=== PATIENT | female | born 1965 | race Caucasian/White ===

== ENCOUNTER 2019-11-15 13:52 | Outpatient (CLI) | payer MEDICARE, SELFPAY ==
[2019-11-15 15:20] LABS: Alanine Aminotransferase 12 U/L (14-59); Albumin Level 3.8 g/dL (3.4-5.0); Alkaline Phosphatase 122 U/L (46-116); Anion Gap 13.1 mmol/L (7-16); Aspartate Amino Transferase 15 U/L (15-37); Bilirubin,Total 0.3 mg/dL (0.00-1.00); Blood Urea Nitrogen 18 mg/dL (7-18); Calcium 8.9 mg/dL (8.5-10.1); Carbon Dioxide 31 mmol/L (21-32); Chloride 102 mmol/L (98-108); Estimated Glomerular Filt Rate 40; Glucose 96 mg/dL (70-99); Osmolality Calculated 295 mOsm/kg (285-295); Potassium 4.1 mmol/L (3.5-5.1); Sodium 142 mmol/L (136-145)
== END 2019-11-15 13:53 | disposition home or self-care (01) ==
LOC: CHSLAB 13:54
PROVIDERS: PCP Family Medicine; Visit Provider Nurse Practitioner Family
DX: R79.89 Other specified abnormal findings of blood chemistry (principal)
CPT/HCPCS: 36415; 80053

== ENCOUNTER 2019-11-26 10:39 | Outpatient (CLI) | payer MEDICARE, MEDICAID, SELFPAY ==
--- NOTE | ~2019-11-26 | US_ITS ---
EXAMINATION: US renal BI DATE: 11/26/2019 11:42 INDICATION: Abnormal renal function TECHNIQUE: Multiple ultrasound grayscale images of the kidneys were obtained. COMPARISON: None. FINDINGS: The right kidney measures 10.1 x 5.7 x 5.4 cm. The left kidney measures 10.0 x 4.8 x 5.7 cm. The kidn eys demonstrate normal echogenicity. Mild caliectasis at the bilateral kidneys which resolved post vo iding. No stones identified. The bladder is normal measuring 11.4 x 9.1 x 7.9 cm. IMPRESSION: 1. Caliectasis at the bilateral kidneys which resolved post bladder voiding. Reviewed, dictated and finalized at location A.
== END 2019-11-26 10:40 | disposition home or self-care (01) ==
PROVIDERS: PCP Family Medicine; Visit Provider Internal Medicine Nephrology
DX: R94.4 Abnormal results of kidney function studies (principal); N28.89 Other specified disorders of kidney and ureter
CPT/HCPCS: 76775

== ENCOUNTER 2020-01-06 14:11 | Emergency (ER) | payer MEDICARE, MEDICAID, SELFPAY ==
--- NOTE | ~2020-01-06 | XR_ITS ---
EXAMINATION: XR femur LT min 2V EXAM DATE: 01/06/2020 14:56 INDICATION: Initial encounter following injury, with pain of the left femur. TECHNIQUE: Left femur frontal and lateral projections of the proximal aspect, frontal and lateral pro jections of the lower aspect for review. Comparison is made to prior examination from 02/28/2019. FINDINGS: There is left hip arthroplasty with hardware intact. Small amount of lucency surrounding the stem of the femoral component, up to about 2 mm in maximal thickness, could indicate small partic le disease, possible loosening. This finding has been indicated, marked on the examination for review . There are no acute fractures identified. Benign tibial metaphyseal lesion likely enchondroma. IMPRESSION: 1. No acute left femoral findings. 2. Small amount of lucency surrounding femoral stem, could indicate some component of loosening and/ or small particle disease. 3. Tibial metaphyseal benign bone lesion probably enchondroma. Reviewed, dictated and finalized at location A. IMPRESSION: 1. No acute left femoral findings. 2. Small amount of lucency surrounding femoral stem, could indicate some compo nent of loosening and/or small particle disease. 3. Tibial metaphyseal benign bone lesion probably enchondroma.
[2020-01-06 14:31] VITALS: BP 98/71; PULSE 84; RESP 16; TEMP 36.3; O2SAT 98
--- NOTE | 2020-01-06 14:33 | ED.LOWEXIN ---
HPI - Extremity Injury (Lower) General Chief Complaint: Extremity Injury, Lower Stated Complaint: left leg pain Time Seen by Provider: 01/06/20 14:33 Source: patient Mode of arrival: ambulatory Limitations: no limitations History of Present Illness HPI Narrative: 54-year-old woman with a history of left hip ORIF and femoral intramedullary james comes in today complaining of increasing pain in her left hip over the last 2 weeks. Patient states that she has discovered that the james is loose in her left leg and has surgery planned to remedy this. She states that for surgeries have been canceled twice and she has had a few falls in the last few weeks, the last 1 approximately 4 days ago. Her pain has been worse since this recent fall. Her her left hip pain was increasing prior to the fall. MD complaint: hip injury Onset (ago): week(s) Injury: Left: hip Type of Injury: other ( Fall) Place: home Severity: moderate Relieving factors: nothing Exacerbating factors: weight bearing and movement Context: fall Associated symptoms: able to partially bear weight Other symptoms: none Treatments prior to arrival: other ( acetaminophen) Related Data Home Medications Medication Instructions Recorded Confirmed pregabalin 100 mg capsule 100 mg PO TID cap 11/05/19 01/06/20 Allergies Allergy/AdvReac Type Severity Reaction Status Date / Time aspirin Allergy Intermediate unknown Verified 11/05/19 09:58 Bleach (Sodium Hypochlorite) Allergy Intermediate unknown Verified 11/05/19 09:58 NSAIDS (Non-Steroidal Allergy Intermediate unknown Verified 11/05/19 09:58 Anti-Inflamma milk Allergy Mild Nausea Verified 01/06/20 14:48 ibuprofen Allergy Unknown unknown Verified 11/05/19 09:58 Bee stings Allergy Intermediate unknown Uncoded 11/05/19 09:58 NONSTEROIDAL Allergy Unknown unknown Uncoded 11/05/19 09:58 PREDNISONE (Generic Allergy) Allergy Unknown Y Uncoded 11/05/19 09:58 SALICYLATES Allergy Unknown unknown Uncoded 11/05/19 09:58 Review of Systems Constitutional: Constitutional: Denies chills and Denies fever(s) ENT: Denies dysphagia, Denies nasal congestion and Denies sore throat Musculoskeletal: Musculoskeletal: Reports arthralgias Integumentary/Breasts: Skin/Breast: Denies pruritus, Denies rash and Denies skin ulcer Neurologic: Denies vertigo, Denies dizziness and Denies syncope Allergic/Immunologic: Allergic/Immunologic: Denies lip swelling and Denies wheezing PMFSH Past Medical History Medical History Anxiety Fibromyalgia Generalized edema GERD (gastroesophageal reflux disease) Hypertension Hypothyroidism Mitral valve regurgitation S/P repair by cath Polyneuropathy Primary insomnia Surgical History Surgical History Fracture, intertrochanteric, left femur H/O: hysterectomy History of appendectomy History of total right knee replacement (TKR) Status post hip surgery Social History Social History Smoking status: Former smoker Smoking end date: 07/29/85 Alcohol intake: never Substance use: never Substance use type: does not use Additional living arrangements comments: with mother Additional occupation/education comments: Disabled Gender identity (if verbalized by the patient): Female Spiritual care concerns: No Exam Const: General: alert Orientation/consciousness: patient oriented x3 Limitations: no limitations Other: moderate acute distress Resp: Effort & Inspection: normal respiratory effort and not labored Auscultation: clear to auscultation bilaterally, no rales, no rhonchi and no wheezes Cardio: Rate: regular rate Rhythm: regular rhythm Heart sounds: no murmurs Skin: General skin exam: normal color Rashes: no rashes Neuro: General: patient oriented x3, moves all extremities, no focal motor deficits an
[2020-01-06 15:27] VITALS: BP 108/63; PULSE 66
== END 2020-01-06 15:28 | disposition home or self-care (01) ==
PROVIDERS: Emergency Provider Emergency Medicine; PCP Family Medicine
DX: M25.552 Pain in left hip (principal)
CPT/HCPCS: 73552; 99283; A9270

== ENCOUNTER 2020-03-14 14:13 | Outpatient (CLI) | payer MEDICARE, MEDICAID, SELFPAY ==
--- NOTE | ~2020-03-14 | MM_ITS ---
EXAMINATION: MM screening [facility] BI w [facility]ena HISTORY: Screening mammogram TECHNIQUE: Craniocaudal and mediolateral oblique 3-D tomosynthesis images were obtained and synthetic 2-D images were generated. CAD analysis was submitted and interpreted. COMPARISON: 01/19/2019, 01/14/2016, 06/19/2012 BREAST PARENCHYMAL COMPOSITION: There are scattered areas of fibroglandular density. FINDINGS: There is no evidence of suspicious mass, calcification, or architectural distortion to sugg est malignancy in either breast. There has been no suspicious interval change. IMPRESSION: 1. No mammographic evidence of malignancy. 2. Recommend routine screening mammography in one year. BI-RADS Category 1: Negative Reviewed, dictated and finalized at location A.
== END 2020-03-14 14:14 | disposition home or self-care (01) ==
LOC: CHSIMG 14:14
PROVIDERS: PCP Family Medicine; Visit Provider Family Medicine
DX: Z12.31 Encounter for screening mammogram for malignant neoplasm of breast (principal)
CPT/HCPCS: 77063; 77067

== ENCOUNTER 2020-03-14 14:56 | Outpatient (RCR) | payer MEDICARE, MEDICAID, SELFPAY ==
--- NOTE | 2020-03-21 06:56 | PTOPEVAL ---
Thank you for referring Nancy Murray to [facility]. Please review, sign, date and return this plan of care TOYIN. I agree with and certify that the following plan of care is medically necessary. Referring Physician Date Admitting Provider: Attending Provider: PHYSICIAN NOT ON STAFF Referring Provider: *PT Outpatient Evaluation Start: 03/14/20 15:57 Freq: Status: Active Protocol: Document 03/14/20 15:57 JAYLENE (Rec: 03/14/20 16:22 JAYLENE [id number]) Therapy Assessment Status Assessment Status Assessment Status Evaluation Outpatient Past Medical History Cardiovascular History Hx Hypertension Yes Gastrointestinal History Hx Gastroesophageal Reflux Disease Yes Musculoskeletal History Hx Fibromyalgia Yes Hx Joint Replacement Yes: left hip Endocrine History Hx Hypothyroidism Yes Reproductive History Hx Hysterectomy Yes Evaluation Information Problem Diagnosis left hip pain, hip weakness Onset 01/25/20 Additional Evaluation Detail LEFS=25 Subjective Information Pt. reports she initially fx Query Text:As Reported By Patient/ her left hip in 2017. She Family report she had a pinning and the pins failed. She reports that she underwent hip replacement in 2019. she states that she then had another failure and states that she underwent a 3rd hip surgery on 01/25/20. She reports that she was participating in , but was discharged last week. She states that she still has pain and weakness in the hip. She reports she cannot lift the left l..e without pain. she reports that she is currently walking with a cane and was using a walker before surgery. She reports that her goal for therapy is to be able to walk without an AD. Prior Level of Function Activity Level (Last 3 Months) Occupation disability Hand Dominance Right Activity of Daily Living Ability Needs Some Help Community Mobility Needs Some Help Stairs Ability Independent Functional Cognition (Planning, Shopping Needs Some Help , Taking Medications) Cooking Ye
== END 2020-04-09 14:27 | disposition home or self-care (01) ==
LOC: CHSPT 14:56
DX: M25.552 Pain in left hip (principal); Z47.89 Encounter for other orthopedic aftercare
CPT/HCPCS: 77063; 77067; 97014; 97110; 97116; 97161; 97530; G0283

== ENCOUNTER 2020-04-02 12:22 | Outpatient (CLI) | payer MEDICARE, SELFPAY ==
[2020-04-02 12:38] LABS: Basophils Absolute Auto 0.03 K/mm3 (0.00-0.10); Basophils Percent Auto 0.5 % (0.0-1.0); Eosinophils Absolute Auto 0.06 K/mm3 (0.02-0.50); Hematocrit 33.1 % (35.0-49.0); Hemoglobin 10.1 g/dL (12.0-15.0); Immature Granulocyte Absolute 0.02 K/mm3 (0.00-0.00); Immature Granulocyte Percent A 0.3 % (0.0-0.0); Lymphocytes Absolute Auto 1.76 K/mm3 (1.10-4.50); Mean Corpuscular HGB Conc 30.5 g/dL (32.0-36.0); Mean Corpuscular Hemoglobin 25.1 pg (27.0-31.0); Mean Corpuscular Volume 82.3 fL (78.0-102.0); Mean Platelet Volume 9.7 fl (9.2-11.8); Monocytes Absolute Auto 0.55 K/mm3 (0.10-0.90); Monocytes Percent Auto 8.7 % (2.0-11.0); Neutrophils Absolute Auto 3.9 K/mm3 (1.7-7.2); Neutrophils Percent Auto 61.5 % (50.0-70.0); Platelet Count Result 301 K/mm3 (150-420); Red Blood Count 4.02 M/mm3 (4.20-5.40); Red Cell Distribution Width 13.6 % (11.6-14.4); White Blood Count 6.3 K/mm3 (4.8-10.8)
[2020-04-02 12:39] LABS: Bilirubin Urine Negative (Negative); Color Urine Yellow (Yellow); Glucose Urine UA Negative (Negative); Ketones Urine Negative (Negative); Leukocyte Esterase Ur 1+ (Negative); Nitrate Urine Positive (Negative); Protein Urine Negative (Negative); Urobilinogen Urine 0.2 mg/dL (0.2-1.0); pH Urine 6.5 (5.0-8.0)
[2020-04-02 12:44] LABS: Add Urine Microscopic? YES; Appearance Urine Sl Cloudy (Clear); Bacteria Urine 3+ /hpf; Blood Urine Trace-lysed (Negative); RBC Urine 0-2 /hpf (0-2); Squamous Epithelial Cell Urine Moderate /hpf (Few)
[2020-04-02 13:50] LABS: Alanine Aminotransferase 10 U/L (14-59); Albumin Level 3.3 g/dL (3.4-5.0); Alkaline Phosphatase 148 U/L (46-116); Anion Gap 10.5 mmol/L (7-16); Aspartate Amino Transferase 14 U/L (15-37); Bilirubin,Total 0.2 mg/dL (0.00-1.00); Blood Urea Nitrogen 18 mg/dL (7-18); Calcium 8.3 mg/dL (8.5-10.1); Carbon Dioxide 28 mmol/L (21-32); Chloride 106 mmol/L (98-108); Cholesterol 172 mg/dL (0-200); Estimated Glomerular Filt Rate 50; Glucose 69 mg/dL (70-99); HDL Direct 53 mg/dL (40-60); LDL Cholesterol Calculated 103 mg/dL (<130); Osmolality Calculated 289 mOsm/kg (285-295); Potassium 4.5 mmol/L (3.5-5.1); Sodium 140 mmol/L (136-145); Thyroid Stimulating Hormone 1.49 uIU/mL (0.36-3.74); Total Protein 7.9 g/dL (6.4-8.2); Triglycerides 80 mg/dL (0-150)
== END 2020-04-02 12:23 | disposition home or self-care (01) ==
LOC: CHSLAB 12:27
PROVIDERS: PCP Nurse Practitioner Family; Visit Provider Nurse Practitioner Family
DX: I10 Essential (primary) hypertension (principal); E03.9 Hypothyroidism, unspecified; N39.0 Urinary tract infection, site not specified
CPT/HCPCS: 36415; 80053; 80061; 81001; 84439; 84443; 85025

== ENCOUNTER 2020-05-03 19:20 | Emergency (ER) | payer MEDICARE, MEDICAID, SELFPAY ==
[2020-05-03 19:25] VITALS: BP 127/78; PULSE 68; RESP 15; TEMP 36.9; O2SAT 97
--- NOTE | 2020-05-03 19:37 | ED.SKABFB ---
HPI - Skin/Abscess/Foreign Bdy General Chief complaint: Skin/Abscess/Foreign Body Stated complaint: spider bite Source: patient Mode of arrival: ambulatory Limitations: no limitations History of Present Illness HPI narrative: is a 54-year-old female presents with some a skin lesion with eschar in the center with surrounding erythema, sure if related to an insect bite but currently no fever or chills no pain no drainage. Patient has no shortness of breath no fever chills no nausea vomiting or abdominal pain. Patient has a history of hypertension, hypothyroidism and fibromyalgia. MD complaint: insect bite/sting and discoloration Onset (ago): day(s) Tetanus up to date: no Location: LUE Severity: moderate Related Data Home Medications Medication Instructions Recorded Confirmed pregabalin 100 mg capsule 100 mg PO TID cap 11/05/19 05/03/20 metoprolol tartrate 25 mg PO HS 05/03/20 05/03/20 Allergies Allergy/AdvReac Type Severity Reaction Status Date / Time aspirin Allergy Intermediate unknown Verified 04/09/20 12:27 Bleach (Sodium Hypochlorite) Allergy Intermediate unknown Verified 04/09/20 12:27 NSAIDS (Non-Steroidal Allergy Intermediate unknown Verified 04/09/20 12:27 Anti-Inflamma milk Allergy Mild Nausea Verified 04/09/20 12:27 ibuprofen Allergy Unknown unknown Verified 04/09/20 12:27 Bee stings Allergy Intermediate unknown Uncoded 04/09/20 12:27 NONSTEROIDAL Allergy Unknown unknown Uncoded 04/09/20 12:27 PREDNISONE (Generic Allergy) Allergy Unknown Y Uncoded 04/09/20 12:27 SALICYLATES Allergy Unknown unknown Uncoded 04/09/20 12:27 Review of Systems Review of Systems: All systems reviewed & are unremarkable except as noted in HPI and below PMFSH Past Medical History Medical History Anxiety Fibromyalgia Generalized edema GERD (gastroesophageal reflux disease) Hypertension Hypothyroidism Mitral valve regurgitation S/P repair by cath Overweight Polyneuropathy Pre-op exam Primary insomnia Surgical History Surgical History Fracture, intertrochanteric, left femur H/O: hysterectomy History of appendectomy History of total right knee replacement (TKR) Status post hip surgery Family History Family History Mother Hypertension Family history of type 2 diabetes mellitus Social History Social History Smoking status: Former smoker Smoking end date: 07/29/85 Alcohol intake: never Substance use: never Substance use type: does not use Additional living arrangements comments: with mother Additional occupation/education comments: Disabled Gender identity (if verbalized by the patient): Female Spiritual care concerns: No Exam Const: General: no acute distress Orientation/consciousness: patient oriented x3 HENMT: Head: normal to inspection Eyes: Conjunctivae: conjunctivae normal Pupils: Equal, round and reactive pupils present Neck: Neck: normal visual inspection, no lymphadenopathy and no meningeal signs Chest: Chest palpation & inspection: normal inspection of the chest Resp: Effort & Inspection: normal respiratory effort Auscultation: clear to auscultation bilaterally Cardio: Rate: regular rate Rhythm: regular rhythm GI: Auscultation: normal bowel sounds : General: Yes no CVA tenderness Skin: Wounds: wounds noted Other: Skin lesion noted on left lateral upper thigh area approximately 4cm in diameter with a central eschar with some no drainage surrounding area of erythema. Psych: Appearance: grossly normal Mental Status: mental status grossly normal Course Course Emergency Course: Patient given IM ceftriaxone and updated with her tetanus and advised to take antibiotics as prescribed and follow-up with primary care physician within
[2020-05-03] MEDS: TETANUS,DIPHTHERIA,AC PERTUSSIS ADULT 0.5 ML (ADACEL) IM (19:45)
[2020-05-03] MEDS: cefTRIAXone 1 GM VIAL IM (19:46)
== END 2020-05-03 19:54 | disposition home or self-care (01) ==
PROVIDERS: Emergency Provider Emergency Medicine; PCP Nurse Practitioner Family
DX: L02.91 Cutaneous abscess, unspecified (principal)
CPT/HCPCS: 90471; 90715; 96372; 99283; J0696

== ENCOUNTER 2020-06-03 15:33 | Outpatient (CLI) | payer MEDICARE, MEDICAID, SELFPAY ==
--- NOTE | ~2020-06-03 | US_ITS ---
EXAMINATION: US soft tissue LE LT INDICATION: Cutaneous abscess, unspecified TECHNIQUE: Targeted ultrasound is performed in the area of clinical interest in the proximal left thi gh COMPARISON: None available FINDINGS: No sonographic correlate is identified for the reported soft tissue abnormality. Normal sub cutaneous tissues are evident. IMPRESSION: 1. No sonographic correlate for the patient's symptoms. Reviewed, dictated and finalized at location A.
--- NOTE | ~2020-06-03 | US_ITS ---
EXAMINATION: US venous doppler [facility] DATE: 06/03/2020 16:10 INDICATION: Left lower limb edema TECHNIQUE: Michele scale images without and with compression and Doppler images of the left lower extrem ity veins were obtained. COMPARISON: None FINDINGS: The left common femoral vein, profunda femoral vein, femoral vein, popliteal vein, peroneal trunk, posterior tibial veins, and greater saphenous vein are patent. IMPRESSION: 1. Patent left lower extremity veins. No evidence of deep venous thrombosis. Reviewed, dictated and finalized at location A.
[2020-06-03 15:47] LABS: Hematocrit 31.4 % (35.0-49.0); Hemoglobin 9.6 g/dL (12.0-15.0); Mean Corpuscular HGB Conc 30.6 g/dL (32.0-36.0); Mean Corpuscular Hemoglobin 24.9 pg (27.0-31.0); Mean Corpuscular Volume 81.3 fL (78.0-102.0); Platelet Count Result 313 K/mm3 (150-420); Red Blood Count 3.86 M/mm3 (4.20-5.40); Red Cell Distribution Width 15.9 % (11.6-14.4); White Blood Count 6.8 K/mm3 (4.8-10.8)
[2020-06-03 16:06] LABS: BNP 294 pg/mL (0-100)
[2020-06-03 16:32] LABS: Alanine Aminotransferase 18 U/L (14-59); Albumin Level 3.4 g/dL (3.4-5.0); Alkaline Phosphatase 131 U/L (46-116); Anion Gap 8 mmol/L (8-16); Aspartate Amino Transferase 17 U/L (15-37); Bilirubin,Total 0.2 mg/dL (0.00-1.00); Blood Urea Nitrogen 23 mg/dL (7-18); Calcium 8.2 mg/dL (8.5-10.1); Carbon Dioxide 28 mmol/L (21-32); Chloride 106 mmol/L (98-108); Estimated Glomerular Filt Rate 37; Glucose 79 mg/dL (70-99); Osmolality Calculated 296 mOsm/kg (285-295); Potassium 4.9 mmol/L (3.5-5.1); Sodium 142 mmol/L (136-145); Total Protein 7.6 g/dL (6.4-8.2)
== END 2020-06-03 15:34 | disposition home or self-care (01) ==
LOC: CHSLAB 15:37
PROVIDERS: PCP Family Medicine; Visit Provider Family Medicine
DX: M79.89 Other specified soft tissue disorders (principal); T63.301A Toxic effect of unspecified spider venom, accidental (unintentional), initial encounter; L02.91 Cutaneous abscess, unspecified; R60.1 Generalized edema; I50.9 Heart failure, unspecified
CPT/HCPCS: 36415; 76882; 80053; 83880; 85027; 93971

== ENCOUNTER 2020-06-09 12:22 | Outpatient (CLI) | payer MEDICARE, MEDICAID, SELFPAY ==
--- NOTE | 2020-06-09 12:36 | ECHO_ITS ---
Patient Info Name: Nancy Murray Age: 55 years : 1965 Gender: Female Ht: 66 in Wt: 224 lbs BSA: 2.22 m2 HR: 57 bpm BP: 120 / 69 mmHg Heart Rhythm: Sinus Rhythm Technical Quality: Fair Exam Date: 06/09/2020 12:39 PM Exam Location: [facility] Patient Status: Outpatient Admit Date: 06/09/2020 Staff Ordering Physician: David Noel DO Media Planner / Buyer: Liset Thao RDCS Attending Provider: David Noel DO Referring Physician: Bert MCDANIELS; Exam Type: CA echo dop color flow w con Study Info Indications I34.1 - Nonrheumatic mitral (valve) prolapse Complete two-dimensional, color flow and Doppler transthoracic echocardiogram is performed with contrast to opacify the left ventricle and to improve the deliniation of the left ventricle endocardial borders. Strain analysis performed. Contrast/Agitated Saline Contrast/Ag. Saline: Definity Amount: 4.00 ml New IV Access: Antecubital Space and Right Site Condition: No extravasation, Site dressing applied and IV removed History/Risk Factors Hypertension: Yes Dyslipidemia: No Congenital Heart Disease (CHD): Yes Peripheral Arterial Disease (PAD): No Myocardial Infarction (DC): No Chronic Lung Disease: Yes Obesity: Yes Renal Disease: No Coronary Artery Disease (CAD) No Congestive Heart Failure (CHF): No Cardiomyopathy/LV Systolic Dysfunction: No Diabetes Mellitus: No COPD: No Tobacco Use: Former Cerebrovascular Disease: No Family History: Diabetes Mellitus, Coronary Artery Disease Deep Vein Thrombosis (DVT): None Dialysis: None Frailty Scale (CSHA): 3: Managing Well Cardiac Arrest: No Summary 1. Left ventricular chamber dimension is normal. 2. Definity contrast administered improved wall motion interpretation. 3. Left ventricular systolic function is normal, estimated at 60-65%. 4. There is mildly increased left ventricular wall thickness. 5. The left ventricular diastolic function is normal. 6. E/e' 7 is not elevated. 7. Global longitudinal strain is normal at -20.2%. 8. There is trace mitral valve regurgitation. 9. No pulmonary hypertension, estimated pulmonary arterial systolic pressure is 18 mmHg. 10. There is trace pulmonic regurgitation. Left Ventricle E/e' 7 is not elevated. Definity contrast administered improved wall motion interpretation. Global longitudinal strain is normal at -20.2%. Left ventricular chamber dimension is normal. Left ventricular systolic function is normal, estimated at 60-65%. There is mildly increased left ventricular wall thickness. The left ventricular diastolic function is normal. Right Ventricle Right ventricular chamber dimension is normal. Right ventricular systolic function is normal. Left Atria Left atrial chamber dimension is normal. Right Atria Right atrial chamber dimension is normal. Aortic Valve The aortic valve is trileaflet. There is no aortic valve stenosis. There is no aortic valve regurgitation. Pulmonic Valve There is trace pulmonic regurgitation. Mitral Valve No mitral valve prolapse. There is no mitral valve stenosis. There is trace mitral valve regurgitation. Tricuspid Valve There is no tricuspid valve regurgitation. No pulmonary hypertension, estimated pulmonary arterial systolic pressure is 18 mmHg. Pericardium/Pleural There is no pericardial effusion. Inferior Vena C
[2020-06-09 12:45] LABS: Occult Blood Negative (Negative)
== END 2020-06-09 12:23 | disposition home or self-care (01) ==
LOC: CHSIMG 12:24
PROVIDERS: PCP Family Medicine; Visit Provider Internal Medicine Cardiovascular Disease
DX: I34.1 Nonrheumatic mitral (valve) prolapse (principal); R19.5 Other fecal abnormalities
CPT/HCPCS: 82272; C8929

== ENCOUNTER 2020-06-24 14:53 | Emergency (ER) | payer MEDICARE, MEDICAID, SELFPAY ==
--- NOTE | ~2020-06-24 | CT_ITS ---
EXAMINATION: CTA chest PE protocol DATE: 06/24/2020 16:07 INDICATION: Left chest pain. Shortness of breath. TECHNIQUE: Computed tomography angiography (CTA) of the chest was performed with 100 mL Omnipaque-350 intravenous contrast timed to evaluate the pulmonary arteries. Coronal maximum intensity projection 3D-reconstructions were created by the technologist. Automated exposure control and iterative reconst ruction technique were employed. The dose-length product was 949.56 mGy-cm. COMPARISON: None. FINDINGS: The lungs demonstrate minimal atelectasis. Calcified left lung nodules and calcified left h ilar lymph nodes are consistent with old granulomatous disease. No pleural effusion. The heart size i s normal. No pericardial effusion. There is no pulmonary embolus. There is cortical thinning of the k idneys. An intrathecal catheter is noted with tip in lower thoracic spine. There is mild thoracic spo ndylosis. There are hemangiomas in C7 and T7 vertebral bodies. IMPRESSION: 1. No pulmonary embolus. Reviewed, dictated and finalized at location A. IMPRESSION: 1. No pulmonary embolus.
--- NOTE | 2020-06-24 14:59 | ECG_ITS ---
Measurements Intervals [place] Rate: 64 P: 66 IN: 193 QRS: -5 QRSD: 93 T: -7 QT: 388 QTc: 401 Interpretive Statements SINUS RHYTHM LOW QRS VOLTAGE IN PRECORDIAL LEADS VOLTAGE CRITERIA FOR LVH BORDERLINE T WAVE ABNORMALITY- INFERIOR LEADS BASELINE ARTIFACT- I, II, III, AVR, AVL, AVF BORDERLINE ECG Electronically Signed On 06-24-2020 15:42:50 CDT by David Noel D.O.
[2020-06-24 15:00] VITALS: BP 113/72; PULSE 65; RESP 16; TEMP 36.7; O2SAT 100
--- NOTE | 2020-06-24 15:11 | ED.CHESTPAIN ---
HPI - Chest Pain General Chief Complaint: Extremity Problem,Nontraumatic Stated Complaint: Chest pain Time Seen by Provider: 06/24/20 15:19 Source: patient Mode of arrival: wheelchair Limitations: no limitations History of Present Illness HPI narrative: 55-year-old woman comes in today complaining of left-sided chest pain that went to her shoulder and down her left arm to her hand. The chest pain is pressure-like and her arm pain felt like a muscle spasm that ran down to her hand. Patient states that she felt like she had a gas bubble in her esophagus and drank some soda when she had sudden severe left-sided chest pain. She states that she felt dizzy, short of breath, and nauseated. She denies vomiting, recent cough or cold symptoms, syncope, and fever. Patient states she had a similar episode several months ago but it passed spontaneously. MD complaint: chest pain Onset (ago): minute(s) (45) Timing of current episode: constant Prior episodes: Yes Onset: during rest Pain location: left chest Pain radiation: left arm and left shoulder Severity: severe Quality: other (pressure) Relieving factors: nothing Exacerbating factors: inspiration Associated symptoms: nausea and dyspnea Treatment prior to arrival: none Risk Factors Coronary artery disease risk factors: hyperlipidemia and hypertension Related Data Home Medications Medication Instructions Recorded Confirmed pregabalin 100 mg capsule 100 mg PO BID cap 05/07/20 06/24/20 metoprolol tartrate 25 mg tablet 50 mg PO HS tablet 06/03/20 06/24/20 metoprolol tartrate 100 mg PO HS 06/24/20 06/24/20 trazodone 150 mg PO HS 06/24/20 06/24/20 Allergies Allergy/AdvReac Type Severity Reaction Status Date / Time aspirin Allergy Intermediate unknown Verified 06/03/20 14:04 Bleach (Sodium Hypochlorite) Allergy Intermediate unknown Verified 06/03/20 14:04 NSAIDS (Non-Steroidal Allergy Intermediate unknown Verified 06/03/20 14:04 Anti-Inflamma milk Allergy Mild Nausea Verified 06/03/20 14:04 ibuprofen Allergy Unknown unknown Verified 06/03/20 14:04 Bee stings Allergy Intermediate unknown Uncoded 06/03/20 09:29 NONSTEROIDAL Allergy Unknown unknown Uncoded 06/03/20 09:29 PREDNISONE (Generic Allergy) Allergy Unknown Y Uncoded 06/03/20 09:29 SALICYLATES Allergy Unknown unknown Uncoded 06/03/20 09:29 Review of Systems Constitutional: Constitutional: Denies chills, Denies fever(s) and Denies weakness Eyes: Eyes: Denies change in vision and Denies photophobia ENT: Denies dysphagia, Denies nasal congestion and Denies sore throat Cardiovascular: Cardiovascular: Reports chest pain and Reports radiating jaw, neck or arm pain Respiratory: Respiratory: Denies chest congestion, Denies cough and Reports dyspnea Gastrointestinal: Gastrointestinal: Denies abdominal pain, Denies diarrhea, Reports nausea and Denies vomiting Genitourinary: Genitourinary: Denies nocturia and Denies dysuria Musculoskeletal: Musculoskeletal: Denies arthralgias and Denies joint swelling Integumentary/Breasts: Skin/Breast: Denies pruritus, Denies erythema and Denies rash Neurologic: Reports vertigo, Reports dizziness and Reports syncope Hematologic/Lymphatic: Hematologic/Lymphatic: Denies easy bleeding and Denies easy bruising Allergic/Immunologic: Allergic/Immunologic: Denies lip swelling and Denies tongue swelling PMFSH Past Medical History Medical History (Updated 06/24/20 @ 16:31 by Manuelito Agrawal MD) Anxiety Fibromyalgia Generalized edema GERD (gastroesophageal reflux disease) Hypertension Hypothyroidism Mitral valve regurgitation S/P repair by cath Otitis externa, left Overweight Polyneuropathy Pre-op exam Primary insomnia Surgical History Surgical History Fracture, intertrochanteric, left femur H/O: hysterectomy History of appendectomy History of total right knee replacement (TKR) Status post hip surgery Family Hi
[2020-06-24 15:13] LABS: Basophils Absolute Auto 0.04 K/mm3 (0.00-0.10); Basophils Percent Auto 0.5 % (0.0-1.0); Eosinophils Absolute Auto 0.07 K/mm3 (0.02-0.50); Eosinophils Percent Auto 0.9 % (1.0-6.0); Hematocrit 37.3 % (35.0-49.0); Hemoglobin 11.7 g/dL (12.0-15.0); Immature Granulocyte Absolute 0.03 K/mm3 (0.00-0.00); Immature Granulocyte Percent A 0.4 % (0.0-0.0); Lymphocytes Absolute Auto 2.25 K/mm3 (1.10-4.50); Lymphocytes Percent Auto 29.1 % (18.0-42.0); Mean Corpuscular HGB Conc 31.4 g/dL (32.0-36.0); Mean Corpuscular Hemoglobin 25.7 pg (27.0-31.0); Mean Platelet Volume 9.2 fl (9.2-11.8); Monocytes Absolute Auto 0.69 K/mm3 (0.10-0.90); Monocytes Percent Auto 8.9 % (2.0-11.0); Neutrophils Absolute Auto 4.7 K/mm3 (1.7-7.2); Neutrophils Percent Auto 60.2 % (50.0-70.0); Platelet Count Result 391 K/mm3 (150-420); Red Blood Count 4.55 M/mm3 (4.20-5.40); White Blood Count 7.7 K/mm3 (4.8-10.8)
[2020-06-24 15:30] LABS: Alanine Aminotransferase 18 U/L (14-59); Albumin Level 3.4 g/dL (3.4-5.0); Alkaline Phosphatase 111 U/L (46-116); Anion Gap 8 mmol/L (8-16); Aspartate Amino Transferase 13 U/L (15-37); BNP 136 pg/mL (0-100); Bilirubin,Total 0.2 mg/dL (0.00-1.00); Blood Urea Nitrogen 23 mg/dL (7-18); Calcium 8.4 mg/dL (8.5-10.1); Carbon Dioxide 28 mmol/L (21-32); Chloride 103 mmol/L (98-108); Estimated Glomerular Filt Rate 38; Glucose 102 mg/dL (70-99); Osmolality Calculated 291 mOsm/kg (285-295); Partial Thromboplastin Time 25.6 SEC (22.3-31.6); Prothrombin Time 10.5 Seconds (9.64-11.0); Sodium 139 mmol/L (136-145); Total Protein 8.1 g/dL (6.4-8.2)
[2020-06-24 15:31] LABS: D Dimer 2.46 mg/L (0.19-0.50)
[2020-06-24 15:32] LABS: Troponin I < 0.02 ng/mL (0.00-0.056)
[2020-06-24 16:34] VITALS: BP 107/61
== END 2020-06-24 16:47 | disposition home or self-care (01) ==
PROVIDERS: Emergency Provider Emergency Medicine; PCP Family Medicine
DX: R07.89 Other chest pain (principal); R06.02 Shortness of breath; Z87.891 Personal history of nicotine dependence; I10 Essential (primary) hypertension; K21.9 Gastro-esophageal reflux disease without esophagitis; E03.9 Hypothyroidism, unspecified
CPT/HCPCS: 36415; 71275; 80053; 83880; 84484; 85025; 85380; 85610; 85730; 93005; 99284; Q9965

== ENCOUNTER 2020-06-24 16:55 | Observation (INO) | payer MEDICARE, MEDICAID, SELFPAY ==
[2020-06-24 17:10] VITALS: BP 111/79
[2020-06-24 17:27] VITALS: BMI 35.9
[2020-06-24] MEDS: MORPHINE SULFATE (*CRX) 2 MG/ML INJ IV PUSH ×2 (18:01→21:03)
--- NOTE | 2020-06-24 18:20 | PM.EVENT ---
Event Note Event Note Event Note: As mentioned in the ED visit note, I discussed observation admission for her chest pain and the patient opted to go home. However after the patient was discharged, she was met in the waiting room by her significant other who several times asked whether not she would benefit from further testing and admission to the hospital. I explained that admission would be for monitoring and that of her tests were negative she would be going home tomorrow. He insisted to her that she stay. She decided she wants to stay in the hospital overnight.
--- NOTE | 2020-06-24 18:21 | ADMGEN ---
This patient, Nancy Murray, was admitted to 2nd Floor Room 227-2. Patient/family oriented to hospital policies and general routines including ID bracelet, bed and alarms, visiting hours, pain management, procedures, bathroom and other care routines, personal items, smoking policy, room service/diet, and visiting hours. Pt has rings on, cell phone, shoes, sweatshirt, pants, socks, glasses, reports she has left both sets of dentures at home. She is going to have her boyfriend come in with her cell phone orthotic fitter and extra clothes. Information on how to activate the Rapid Response Team has been discussed. Patient/Family are encouraged to report perceived risks to care and to ask questions if they do not understand what they are told or what they should do.
--- NOTE | 2020-06-24 18:24 | PC.NURSE ---
pt reports pain in chest/breast feels better after talking with nurse about of her father, requests morphine for pain, pipeline to fix night time meds, pt sitting up at bedside eating dinner tray, her boyfriend is to bring up her phone extruding press operator
[2020-06-24 19:08] VITALS: PULSE 71
[2020-06-24 19:14] VITALS: BP 101/63; PULSE 62; RESP 18; TEMP 36.5; O2SAT 96
--- NOTE | 2020-06-24 20:30 | PC.NURSE ---
pt c/o left breast and left shoulder pain, given warm blanket to place under left breast, pt states when she gets cold the titanium in her joints can cause her to have pain everywhere
[2020-06-24] MEDS: PREGABALIN (*CRX) 50 MG CAPSULE 100 MG PO (20:50)
[2020-06-24 20:51] VITALS: PULSE 67
[2020-06-24] MEDS: METOPROLOL TARTRATE 50 MG TAB PO (20:51)
[2020-06-24] MEDS: traZODone HCL 50 MG TABLET 150 MG PO (20:51)
--- NOTE | 2020-06-24 20:59 | PC.NURSE ---
pt asks for her urine to be checked, thinks pain may be from uti, states she gets them frequently, pt also requests more morphine, offered tylenol but pt declines at this time
[2020-06-24 21:46] LABS: Troponin I < 0.02 ng/mL (0.00-0.056)
[2020-06-24 23:17] LABS: Add Urine Microscopic? NO; Appearance Urine Clear (Clear); Bilirubin Urine Negative (Negative); Blood Urine Negative (Negative); Color Urine Yellow (Yellow); Glucose Urine UA Negative (Negative); Ketones Urine Negative (Negative); Leukocyte Esterase Ur Negative (Negative); Nitrate Urine Negative (Negative); Protein Urine Negative (Negative); Specific Grav Ur <= 1.005 (1.010-1.020); Urobilinogen Urine 0.2 mg/dL (0.2-1.0); pH Urine 5.5 (5.0-8.0)
[2020-06-25] VITALS: BP 109/61; PULSE 58; PULSE 60; RESP 16; TEMP 36.4; O2SAT 98
[2020-06-25] MEDS: MORPHINE SULFATE (*CRX) 2 MG/ML INJ IV PUSH ×2 (00:50→09:31)
--- NOTE | 2020-06-25 01:05 | PC.NURSE ---
States has mild nausea that comes and goes. States probably from being hungry for sweets. Given apple juice and a fruit cup per request.
[2020-06-25 01:46] LABS: Troponin I < 0.02 ng/mL (0.00-0.056)
[2020-06-25 03:37] VITALS: PULSE 53
[2020-06-25 03:55] VITALS: BP 112/61; PULSE 56; RESP 18; TEMP 35.3; O2SAT 97
--- NOTE | 2020-06-25 04:03 | PC.NURSE ---
Notified Dr. Agrawal about pt's c/o epigastric pain and discomfort. New orders received and noted.
[2020-06-25] MEDS: MAG HYDROX/ALUMINUM HYD/SIMETH 30 ML, PHENobarb/HYOSCY/ATROPINE/SCOP 32.4 MG, LIDOCAINE... PO (04:44)
--- NOTE | 2020-06-25 04:49 | PC.NURSE ---
States feels a little better to chest pain after GI cocktail but shoulder tingling started.
[2020-06-25 05:49] LABS: Basophils Absolute Auto 0.03 K/mm3 (0.00-0.10); Basophils Percent Auto 0.5 % (0.0-1.0); Eosinophils Absolute Auto 0.11 K/mm3 (0.02-0.50); Eosinophils Percent Auto 1.9 % (1.0-6.0); Hemoglobin 11.1 g/dL (12.0-15.0); Immature Granulocyte Absolute 0.01 K/mm3 (0.00-0.00); Immature Granulocyte Percent A 0.2 % (0.0-0.0); Lymphocytes Absolute Auto 2.72 K/mm3 (1.10-4.50); Lymphocytes Percent Auto 47.6 % (18.0-42.0); Mean Corpuscular HGB Conc 30.8 g/dL (32.0-36.0); Mean Corpuscular Hemoglobin 25.6 pg (27.0-31.0); Mean Corpuscular Volume 83.1 fL (78.0-102.0); Mean Platelet Volume 9.7 fl (9.2-11.8); Monocytes Absolute Auto 0.54 K/mm3 (0.10-0.90); Monocytes Percent Auto 9.5 % (2.0-11.0); Neutrophils Absolute Auto 2.3 K/mm3 (1.7-7.2); Neutrophils Percent Auto 40.3 % (50.0-70.0); Platelet Count Result 340 K/mm3 (150-420); Red Blood Count 4.33 M/mm3 (4.20-5.40); Red Cell Distribution Width 16.8 % (11.6-14.4); White Blood Count 5.7 K/mm3 (4.8-10.8)
[2020-06-25] MEDS: LEVOTHYROXINE SODIUM 25 MCG TABLET PO (06:05)
--- NOTE | 2020-06-25 06:11 | PC.NURSE ---
Given fresh ice water, playing game on tablet. No signs of pain or shortness of breath. States pain remains and is now 5
[2020-06-25 06:13] LABS: Alanine Aminotransferase 19 U/L (14-59); Albumin Level 3.3 g/dL (3.4-5.0); Alkaline Phosphatase 102 U/L (46-116); Anion Gap 5 mmol/L (8-16); Aspartate Amino Transferase 14 U/L (15-37); Bilirubin,Total 0.3 mg/dL (0.00-1.00); Blood Urea Nitrogen 19 mg/dL (7-18); Calcium 8.6 mg/dL (8.5-10.1); Carbon Dioxide 31 mmol/L (21-32); Chloride 104 mmol/L (98-108); Estimated CRCL calculation 56 ml/min; Estimated Glomerular Filt Rate 46; Glucose 92 mg/dL (70-99); Osmolality Calculated 292 mOsm/kg (285-295); Potassium 4.4 mmol/L (3.5-5.1); Sodium 140 mmol/L (136-145); Total Protein 7.2 g/dL (6.4-8.2)
[2020-06-25 08:00] VITALS: BP 114/70; PULSE 56; PULSE 72; RESP 18; TEMP 36.6; O2SAT 99
--- NOTE | 2020-06-25 08:24 | PM.SD ---
Same Day Admit/Disch: HPI History of Present Illness Chief complaint: chest pain Narrative: Nancy Murray is a 55 year old female admitted under observation for chest pain. patient states that she had chest pain pressure which felt like she needed to belch. She decided to drink some soda to see if this helps her belt and after she drank a soda the pain went down her left arm and into her hand. Patient was brought to the ER the chest pressure improved with nitro. This morning patient states her pain did go down a little bit but then returned is now a 5/10 and a squeezing sensation to the left side of the sternum up to the left axilla. [facility] Past Medical History Medical History (Updated 06/25/20 @ 12:38 by TERESSA Loja) Anxiety Fibromyalgia Generalized edema GERD (gastroesophageal reflux disease) Hypertension Hypothyroidism Mitral valve regurgitation S/P repair by cath Otitis externa, left Overweight Polyneuropathy Pre-op exam Primary insomnia Surgical History Surgical History Fracture, intertrochanteric, left femur H/O: hysterectomy History of appendectomy History of total right knee replacement (TKR) Status post hip surgery Family History Family History Mother Hypertension Family history of type 2 diabetes mellitus Social History Social History Smoking status: Never smoker Second hand tobacco smoke exposure: Yes Smoking end date: 07/29/85 Alcohol intake: never Substance use: never Substance use type: does not use Additional living arrangements comments: with mother Additional occupation/education comments: Disabled Gender identity (if verbalized by the patient): Female Spiritual care concerns: No Same Day Admit/Disch: Med Pre-admit Medications Home Medications Medication Instructions Recorded Confirmed Type levothyroxine 25 mcg tablet 25 mcg PO DAILY #90 tablet 10/08/19 06/24/20 Rx pregabalin 100 mg capsule 100 mg PO BID cap 05/07/20 06/24/20 History fluticasone propionate 50 1 spray NASAL DAILY #9.9 ml 05/08/20 06/24/20 Rx mcg/actuation nasal spray,suspension epinephrine 0.3 mg/0.3 mL 0.3 mg IM ONCE #2 each 05/16/20 06/24/20 Rx injection, auto-injector furosemide 20 mg tablet 20 mg PO QAM #90 tablet 05/20/20 06/24/20 Rx omeprazole 20 mg capsule,delayed 20 mg PO DAILY #90 cap 05/20/20 06/24/20 Rx release metoprolol tartrate 25 mg tablet 50 mg PO HS tablet 06/03/20 06/24/20 History ferrous sulfate 325 mg (65 mg 325 mg PO DAILY #90 tablet 06/04/20 06/24/20 Rx iron) tablet baclofen 10 mg tablet 10 mg PO BID #60 tablet 06/18/20 06/24/20 Rx metoprolol tartrate 100 mg PO HS 06/24/20 06/24/20 History trazodone 150 mg PO HS 06/24/20 06/24/20 History Exam Const: General: cooperative, comfortable, no acute distress, alert, awake and Physically active Nutritional Appearance: obese Orientation/consciousness: oriented to person, oriented to place and oriented to time Chest: Other: chest pain is reproducible with arms stretched out and resistance to patient bring hands together and with resistance to lowering outstretched arms. Resp: Effort & Inspection: normal respiratory effort Auscultation: clear to auscultation bilaterally Other: Patient states slight chest pain with deep inhalation Cardio: Jugular venous distension: no JVD Palpation: normal PMI Rate: regular rate Rhythm: regular rhythm Heart sounds: S1 normal heart sound present and S2 normal heart sound present GI: GI Palp: Yes abdominal tenderness Auscultation: normal bowel sounds Neuro: General: oriented to person, oriented to place and oriented to time Cranial nerves: Yes CN's II-XII intact bilaterally Speech: normal speech Extrem: General: no pedal edema DS: Data Data Completed and Pending Labs on day of disc
[2020-06-25] MEDS: FUROSEMIDE 20 MG TABLET PO (09:29)
[2020-06-25] MEDS: PANTOPRAZOLE 40 MG TABLET PO (09:29)
[2020-06-25] MEDS: FERROUS SULFATE 324 MG TABLET PO (09:29)
[2020-06-25 09:30] VITALS: PULSE 72
[2020-06-25] MEDS: METOPROLOL TARTRATE 50 MG TAB 100 MG PO (09:30)
[2020-06-25] MEDS: BACLOFEN 10 MG TABLET PO (09:31)
[2020-06-25] MEDS: FLUTICASONE PROPIONATE 0.05% NA SPR 16 GM BTL (*BKC) 1 SPRAY NASAL (09:31)
[2020-06-25] MEDS: PREGABALIN (*CRX) 50 MG CAPSULE 100 MG PO (09:34)
[2020-06-25 12:00] VITALS: BP 102/63; PULSE 68; RESP 18; TEMP 35.9; O2SAT 99
--- NOTE | 2020-06-27 09:01 | PC.NURSE ---
spoke with Dr. Agrawal about urine culture report, pt discharged without antibiotics, MAcrobid 100mg bid x 7 days, #14 with no refills, called into [facility].
--- NOTE | 2020-06-27 14:35 | PC.NURSE ---
Pt states she understands her discharge instructions and everybody was perfect and they really helped .
== END 2020-06-25 13:45 | disposition home or self-care (01) ==
LOC: CHSED 16:57 → CHS2ND 18:19
PROVIDERS: Admitting Provider Emergency Medicine; Emergency Provider Emergency Medicine; PCP Family Medicine; Visit Provider Emergency Medicine
DX: R07.89 Other chest pain (principal); F41.9 Anxiety disorder, unspecified; M79.7 Fibromyalgia; K21.9 Gastro-esophageal reflux disease without esophagitis; I10 Essential (primary) hypertension; E03.9 Hypothyroidism, unspecified; E66.3 Overweight; G47.00 Insomnia, unspecified; Z96.651 Presence of right artificial knee joint; R10.819 Abdominal tenderness, unspecified site; R11.0 Nausea
CPT/HCPCS: 36415; 71275; 80053; 81003; 83880; 84484; 85025; 85380; 85610; 85730; 87077; 87086; 87088; 87186; 93005; 96374; 96376; 99284; 99285; A9270; G0378; J2270; Q9965

== ENCOUNTER 2020-06-30 13:34 | Outpatient (CLI) | payer MEDICARE, SELFPAY ==
[2020-06-30 15:05] LABS: Alanine Aminotransferase 17 U/L (14-59); Albumin Level 3.8 g/dL (3.4-5.0); Alkaline Phosphatase 118 U/L (46-116); Anion Gap 11 mmol/L (8-16); Aspartate Amino Transferase 14 U/L (15-37); Bilirubin,Total 0.3 mg/dL (0.00-1.00); Blood Urea Nitrogen 19 mg/dL (7-18); Calcium 9.1 mg/dL (8.5-10.1); Carbon Dioxide 26 mmol/L (21-32); Chloride 104 mmol/L (98-108); Estimated Glomerular Filt Rate 44; Free T4 Free Thyroxine 1.13 ng/dL (0.76-1.46); Glucose 108 mg/dL (70-99); Osmolality Calculated 295 mOsm/kg (285-295); Potassium 4.5 mmol/L (3.5-5.1); Sodium 141 mmol/L (136-145); Thyroid Stimulating Hormone 1.48 uIU/mL (0.36-3.74); Total Protein 8.2 g/dL (6.4-8.2); Vitamin B12 639 pg/mL (193-986)
[2020-07-03 10:24] LABS: Vitamin D 25 Hydroxy 24 ng/mL (30-100)
== END 2020-06-30 13:35 | disposition home or self-care (01) ==
LOC: CHSLAB 13:39
PROVIDERS: PCP Nurse Practitioner Family; Visit Provider Nurse Practitioner Family
DX: E03.9 Hypothyroidism, unspecified (principal); R53.83 Other fatigue; Z79.899 Other long term (current) drug therapy
CPT/HCPCS: 36415; 80053; 82306; 82607; 84439; 84443

== ENCOUNTER 2020-07-07 07:48 | Outpatient (CLI) | payer MEDICARE, MEDICAID, SELFPAY ==
--- NOTE | 2020-07-07 07:54 | EST_ITS ---
Patient Info Name: Nancy Murray Age: 55 years : 1965 Gender: Female Ht: 66 in Wt: 222 lbs BSA: 2.21 m2 HR: 52 bpm BP: 96 / 68 mmHg Heart Rhythm: Bradycardia Technical Quality: Excellent Exam Date: 07/07/2020 9:10 AM Exam Location: [facility] Patient Status: Outpatient Admit Date: 07/07/2020 Staff Ordering Physician: Alyse Diaz NP Attending Provider: Alyse Diaz NP Exercise Technologist: Deidre Ladd CRT Exercise Physician: Britta Pierson CEP Exam Type: CA stress nohemi w NM Study Info A nuclear stress test was performed. History/Risk Factors Hypertension: Yes Dyslipidemia: No Congenital Heart Disease (CHD): Yes Peripheral Arterial Disease (PAD): No Myocardial Infarction (MN): No Chronic Lung Disease: Yes Obesity: Yes Renal Disease: No Coronary Artery Disease (CAD) No Congestive Heart Failure (CHF): No Cardiomyopathy/LV Systolic Dysfunction: No Diabetes Mellitus: No COPD: No Tobacco Use: Former Cerebrovascular Disease: No Family History: Diabetes Mellitus, Coronary Artery Disease Deep Vein Thrombosis (DVT): None Dialysis: None History/Risk Factors HTN. Frailty Scale (CSHA): 3: Managing Well Cardiac Arrest: No Summary 1. 1. Negative lexiscan stress test for ischemic ST changes by ECG criteria. 2. 2. Stable hemodynamics throughout the test. 3. 3. Nuclear scan to follow and will be reported separately. Please correlate with it. Protocol: LEXISCAN Stress ECG Details Stage: REST Duration (min): 1 min : 9 sec HR (bpm): 52 SBP (mmHg): 96 DBP (mmHg): 68 Stage: REST Duration (min): 2 min : 52 sec HR (bpm): 53 SBP (mmHg): 96 DBP (mmHg): 68 Stage: STAGE 1 Duration (min): 0 min : 9 sec HR (bpm): 54 SBP (mmHg): 96 DBP (mmHg): 68 Stage: RECOVERY Duration (min): 0 min : 50 sec HR (bpm): 67 SBP (mmHg): 96 DBP (mmHg): 68 Stage: RECOVERY Duration (min): 1 min : 50 sec HR (bpm): 68 SBP (mmHg): 96 DBP (mmHg): 68 Stage: RECOVERY Duration (min): 2 min : 50 sec HR (bpm): 65 SBP (mmHg): 104 DBP (mmHg): 55 Stage: RECOVERY Duration (min): 3 min : 50 sec HR (bpm): 65 SBP (mmHg): 97 DBP (mmHg): 69 Stage: RECOVERY Duration (min): 4 min : 50 sec HR (bpm): 64 SBP (mmHg): 103 DBP (mmHg): 68 Stage: RECOVERY Duration (min): 5 min : 50 sec HR (bpm): 63 SBP (mmHg): 115 DBP (mmHg): 67 Stage: RECOVERY Duration (min): 6 min : 6 sec HR (bpm): 67 SBP (mmHg): 115 DBP (mmHg): 67 Rest HR: 53 bpm Peak HR: 72 bpm Rest Sys BP: 96 mmHg Peak Sys BP: 115 mmHg Max Pred HR: 165 bpm % Max Pred HR: 44 % Target HR: 140 bpm Max RPP: 8,280 bpm*mmHg Termination Reason: Completion of Protocol Cardiac Symptoms: Dyspnea Total Time: 0 min : 9 sec Rest Orozco BP: 68 mmHg Peak Orozco BP: 67 mmHg Total Dose: 0.4 mg Resting ECG Sinus bradycardia, low voltage in precordia
== END 2020-07-07 07:49 | disposition home or self-care (01) ==
LOC: CHSCARD 07:50
PROVIDERS: PCP Nurse Practitioner Family; Visit Provider Nurse Practitioner Family
DX: R07.89 Other chest pain (principal)
CPT/HCPCS: 78452; 93017; A9502; J2785

== ENCOUNTER 2020-08-23 20:02 | Emergency (ER) | payer MEDICARE, MEDICAID, SELFPAY ==
--- NOTE | 2020-08-23 20:13 | ED.ALLEREA ---
HPI - Allergic Reaction General Chief complaint: Allergic Reaction Stated complaint: allergic reaction to food Time Seen by Provider: 08/23/20 20:21 Source: patient Mode of arrival: ambulatory Limitations: no limitations History of Present Illness HPI narrative: 55-year-old woman with a history of allergy to NSAIDs, bleach and bee stings comes in today complaining of itching on her arms hands and feet that started about 10 minutes after eating 7 shrimp. Patient states that she has had tripped in the past and had no allergic type reaction to them. She states that she is mildly short of breath, but denies throat and tongue swelling, wheezing, vomiting, lightheadedness, chest pain, and lip swelling. She is not taking anything for her symptoms. MD complaint: allergic reaction Onset (ago): hour(s) (1) Exposure: food Known history of allergy to: NSAIDs, bee stings, bleach Symptoms: rash, itching and difficulty breathing ( Mild) Severity: moderate Treatment prior to arrival: none Previous Allergic Reaction History: anaphylaxis and angioedema Related Data Home Medications Medication Instructions Recorded Confirmed pregabalin 100 mg capsule 100 mg PO BID cap 05/07/20 08/23/20 metoprolol tartrate 100 mg PO DAILY 06/24/20 08/23/20 trazodone 150 mg PO HS 06/24/20 08/23/20 furosemide 60 mg PO QAM 08/23/20 08/23/20 Allergies Allergy/AdvReac Type Severity Reaction Status Date / Time aspirin Allergy Intermediate unknown Verified 08/23/20 20:46 Bleach (Sodium Hypochlorite) Allergy Intermediate unknown Verified 08/23/20 20:46 NSAIDS (Non-Steroidal Allergy Intermediate unknown Verified 08/23/20 20:46 Anti-Inflamma milk Allergy Mild Nausea Verified 08/23/20 20:46 ibuprofen Allergy Unknown unknown Verified 08/23/20 20:46 Bee stings Allergy Intermediate unknown Uncoded 08/23/20 20:46 NONSTEROIDAL Allergy Unknown unknown Uncoded 08/23/20 20:46 PREDNISONE (Generic Allergy) Allergy Unknown Y Uncoded 08/23/20 20:46 SALICYLATES Allergy Unknown unknown Uncoded 08/23/20 20:46 Review of Systems Constitutional: Constitutional: Denies chills, Denies fever(s) and Denies weakness ENT: Denies dysphagia, Denies nasal congestion and Denies sore throat Cardiovascular: Cardiovascular: Denies chest pain and Denies radiating jaw, neck or arm pain Respiratory: Respiratory: Denies cough, Reports dyspnea and Denies wheezing Gastrointestinal: Gastrointestinal: Denies abdominal pain, Denies nausea and Denies vomiting Integumentary/Breasts: Skin/Breast: Reports pruritus, Reports erythema and Reports rash Neurologic: Denies vertigo, Denies dizziness and Denies syncope Hematologic/Lymphatic: Hematologic/Lymphatic: Denies easy bleeding and Denies easy bruising Allergic/Immunologic: Allergic/Immunologic: Denies lip swelling, Denies throat swelling, Denies tongue swelling and Denies wheezing [facility] Past Medical History Medical History (Updated 08/23/20 @ 21:05 by Manuelito Agrawal MD) Anxiety Fibromyalgia Generalized edema GERD (gastroesophageal reflux disease) Hypertension Hypothyroidism Mitral valve regurgitation S/P repair by cath Otitis externa, left Overweight Polyneuropathy Pre-op exam Primary insomnia Surgical History Surgical History Fracture, intertrochanteric, left femur H/O: hysterectomy History of appendectomy History of total right knee replacement (TKR) Status post hip surgery Family History Family History Mother Hypertension Family history of type 2 diabetes mellitus Social History Social History Second hand tobacco smoke exposure: Yes Smoking end date: 07/29/85 Alcohol intake: never Substance use: never Substance use type: does not use Additional living arrangements comments: with mother Additional occupation/education commen
[2020-08-23 20:20] VITALS: BP 132/84; PULSE 88; RESP 20; TEMP 36.7; O2SAT 91
[2020-08-23] MEDS: methylPREDNISolone SOD SUCC 125 MG VIAL IV PUSH (20:33)
[2020-08-23] MEDS: diphenhydrAMINE HCl INJ 50 MG/ML VIAL IV PUSH (20:33)
[2020-08-23 21:07] VITALS: PULSE 80; RESP 20; O2SAT 96
== END 2020-08-23 21:18 | disposition home or self-care (01) ==
PROVIDERS: Emergency Provider Emergency Medicine; PCP Family Medicine
DX: T78.40XA Allergy, unspecified, initial encounter (principal)
CPT/HCPCS: 96374; 96375; 99283; 99284; J1200; J2930

== ENCOUNTER 2020-11-11 15:09 | Outpatient (CLI) | payer MEDICARE, MEDICAID, SELFPAY ==
[2020-11-11 15:22] LABS: Basophils Absolute Auto 0.05 K/mm3 (0.00-0.10); Basophils Percent Auto 0.5 % (0.0-1.0); Eosinophils Percent Auto 1.9 % (1.0-6.0); Hematocrit 43.4 % (35.0-49.0); Hemoglobin 14.6 g/dL (12.0-15.0); Immature Granulocyte Absolute 0.05 K/mm3 (0.00-0.00); Immature Granulocyte Percent A 0.5 % (0.0-0.0); Lymphocytes Absolute Auto 3.36 K/mm3 (1.10-4.50); Lymphocytes Percent Auto 32.3 % (18.0-42.0); Mean Corpuscular HGB Conc 33.6 g/dL (32.0-36.0); Mean Corpuscular Hemoglobin 29.5 pg (27.0-31.0); Mean Corpuscular Volume 87.7 fL (78.0-102.0); Mean Platelet Volume 9.3 fl (9.2-11.8); Monocytes Absolute Auto 1.06 K/mm3 (0.10-0.90); Monocytes Percent Auto 10.2 % (2.0-11.0); Neutrophils Absolute Auto 5.7 K/mm3 (1.7-7.2); Neutrophils Percent Auto 54.6 % (50.0-70.0); Platelet Count Result 355 K/mm3 (150-420); Red Blood Count 4.95 M/mm3 (4.20-5.40); Red Cell Distribution Width 12.8 % (11.6-14.4); White Blood Count 10.4 K/mm3 (4.8-10.8)
[2020-11-11 16:13] LABS: Alanine Aminotransferase 24 U/L (14-59); Albumin Level 3.8 g/dL (3.4-5.0); Alkaline Phosphatase 114 U/L (46-116); Anion Gap 9 mmol/L (8-16); Aspartate Amino Transferase 18 U/L (15-37); Bilirubin,Total 0.5 mg/dL (0.00-1.00); Blood Urea Nitrogen 35 mg/dL (7-18); Calcium 9.1 mg/dL (8.5-10.1); Carbon Dioxide 30 mmol/L (21-32); Chloride 100 mmol/L (98-108); Estimated Glomerular Filt Rate 27; Free T4 Free Thyroxine 1.16 ng/dL (0.76-1.46); Glucose 80 mg/dL (70-99); Magnesium 1.9 mg/dL (1.8-2.4); Osmolality Calculated 295 mOsm/kg (285-295); Potassium 4.5 mmol/L (3.5-5.1); Sodium 139 mmol/L (136-145); Thyroid Stimulating Hormone 5.53 uIU/mL (0.36-3.74); Total Protein 8.2 g/dL (6.4-8.2)
[2020-11-13 11:58] LABS: Vitamin D 25 Hydroxy 49 ng/mL (30-100)
== END 2020-11-11 15:10 | disposition home or self-care (01) ==
LOC: CHSLAB 15:14
PROVIDERS: PCP Family Medicine; Visit Provider Nurse Practitioner Family
DX: E87.6 Hypokalemia (principal); I10 Essential (primary) hypertension; E03.9 Hypothyroidism, unspecified; R00.2 Palpitations; Z79.899 Other long term (current) drug therapy
CPT/HCPCS: 36415; 80053; 82306; 83735; 84439; 84443; 85025

== ENCOUNTER 2020-11-13 10:06 | Outpatient (CLI) | payer MEDICARE, MEDICAID, SELFPAY ==
--- NOTE | ~2020-11-13 | CT_ITS ---
EXAMINATION: CT brain wo con EXAM DATE: 11/13/2020 10:32 INDICATION: G44.82 - Headache associated with sexual activity headache at frontal, temporal, and occi pital areas. TECHNIQUE: Spiral CT of the head was performed without contrast. Axial, coronal and sagittal images were reviewed. The dose-length product (DLP) for this examination was 605.33 mGy-cm. The exposure w as tailored according to patient size, and iterative reconstruction (ASIR) was used as additional dos e reduction technique. Comparison is made to prior examination from 08/21/2014. FINDINGS: Basilar cistern, suprasellar region unremarkable. There is no acute intraparenchymal hemorr caio. No evidence of intraparenchymal brain mass lesion. No evidence of acute infarction. There is no mass effect or midline shift. The ventricles are normal in size. There are no extra-axial colle ctions. There are no acute calvarial fractures. Occipital intraosseous arachnoid granulations. The o rbits are unremarkable. Soft tissue is unremarkable. The visualized sinuses and mastoid air cells a re well aerated. IMPRESSION: 1. Unremarkable head CT examination. Reviewed, dictated and finalized at location A.
== END 2020-11-13 10:07 | disposition home or self-care (01) ==
LOC: CHSIMG 10:09
PROVIDERS: PCP Nurse Practitioner Family; Visit Provider Nurse Practitioner Family
DX: G44.82 Headache associated with sexual activity (principal)
CPT/HCPCS: 70450

== ENCOUNTER 2020-12-03 13:29 | Outpatient (CLI) | payer MEDICARE, MEDICAID, SELFPAY ==
[2020-12-06 19:46] LABS: Hepatitis A Antibody IgM Nonreactive; Hepatitis B Core Antibody Nonreactive (Nonreactive); Hepatitis B Surface Antigen Nonreactive (Nonreactive); Hepatitis C Signal to Cutoff 0.04 ratio (<1.00); Hepatitis C Virus Antibody Nonreactive (Nonreactive)
== END 2020-12-03 13:30 | disposition home or self-care (01) ==
LOC: CHSLAB 13:32
PROVIDERS: PCP Family Medicine; Visit Provider Nurse Practitioner Family
DX: Z20.5 Contact with and (suspected) exposure to viral hepatitis (principal); R53.83 Other fatigue
CPT/HCPCS: 36415; 80074

== ENCOUNTER 2020-12-27 11:55 | Outpatient (CLI) | payer MEDICARE, SELFPAY ==
[2020-12-27 12:16] LABS: Basophils Absolute Auto 0.05 K/mm3 (0.00-0.10); Basophils Percent Auto 0.5 % (0.0-1.0); Eosinophils Absolute Auto 0.28 K/mm3 (0.02-0.50); Hemoglobin 14.1 g/dL (12.0-15.0); Immature Granulocyte Absolute 0.05 K/mm3 (0.00-0.00); Immature Granulocyte Percent A 0.5 % (0.0-0.0); Lymphocytes Absolute Auto 2.33 K/mm3 (1.10-4.50); Lymphocytes Percent Auto 24.9 % (18.0-42.0); Mean Corpuscular HGB Conc 33.6 g/dL (32.0-36.0); Mean Corpuscular Hemoglobin 29.6 pg (27.0-31.0); Mean Corpuscular Volume 88.1 fL (78.0-102.0); Mean Platelet Volume 9.5 fl (9.2-11.8); Monocytes Absolute Auto 0.87 K/mm3 (0.10-0.90); Monocytes Percent Auto 9.3 % (2.0-11.0); Neutrophils Absolute Auto 5.8 K/mm3 (1.7-7.2); Neutrophils Percent Auto 61.8 % (50.0-70.0); Platelet Count Result 320 K/mm3 (150-420); Red Blood Count 4.77 M/mm3 (4.20-5.40); Red Cell Distribution Width 11.9 % (11.6-14.4); White Blood Count 9.4 K/mm3 (4.8-10.8)
[2020-12-27 12:44] LABS: CRP 5.5 mg/dL (0.0-0.9)
[2020-12-27 13:17] LABS: Erythrocyte Sedimentation Rate 42 mm/hr (0-20)
== END 2020-12-27 11:56 | disposition home or self-care (01) ==
LOC: CHSLAB 12:02
PROVIDERS: PCP Family Medicine
DX: T84.50XD Infection and inflammatory reaction due to unspecified internal joint prosthesis, subsequent encounter (principal)
CPT/HCPCS: 36415; 85025; 85652; 86140

== ENCOUNTER 2020-12-30 07:43 | Outpatient (CLI) | payer MEDICARE, MEDICAID, SELFPAY ==
--- NOTE | ~2020-12-30 | NM_ITS ---
EXAMINATION: NM bone 3 phase DATE: 12/30/2020 12:38 INDICATION: Upper leg pain. Osteomyelitis. TECHNIQUE: 26.4 mCi Tc-99m HDP by intravenous route. Scintigrams of the pelvis and proximal femurs w ere obtained in angiographic, blood pool, and delayed phases. Additional immediate blood pool imaging was obtained of the more distal femurs and lateral knees. Delayed whole-body scintigrams were also o btained. COMPARISON: Radiographs dated 02/28/2019 and 01/06/20 FINDINGS: Photopenic defect associated with a left total hip arthroplasty with modular stem femoral component. There is increased uptake on the delayed images about the distal half of the femoral component of the arthroplasty as well as of right-sided greater trochanteric fragment which is fixed with a fractured cerclage wire. Review of the radiographs demonstrates a cement fracture and loosening with lateral d isplacement of the tip of the femoral component relative to the bone and cement occurring between the 2 sets of radiographs. No abnormal uptake about the acetabular component to suggest loosening. Addit ional photopenic defects such with a right total knee arthroplasty with normal pattern of mild linear uptake underlying the medial and lateral aspect of the tray of the tibial component. Small focus of mild increased uptake at the central aspect of the proximal tibial metaphyseal region associated with typical appearing chondroid matrix consistent with an enchondroma. There is no abnormal activity in the pelvis, bilateral hips and proximal femurs on the angiographic or immediate blood pool phases to suggest active inflammation such as in the setting of infection/osteomyelitis. IMPRESSION: 1. Increased uptake on delayed phases along the margins of the femoral component of a left total hip arthroplasty consistent with loosening which is also concordant with findings on the plain radiograp h where there is displacement of the tip of the femoral component and adjacent cement fracture. 2. No abnormal activity on the angiographic and blood pool images to suggest active inflammation such as in the setting of infection/ostomy myelitis. 3. Small focus of mild increased uptake in the proximal left tibia corresponding to a sclerotic lesio n with appearance most consistent with a benign enchondroma. 4. Normal pattern of activity at the periphery of a right total knee arthroplasty. Reviewed, dictated and finalized at location A. IMPRESSION: 1. Increased uptake on delayed phases along the margins of the femoral compone nt of a left total hip arthroplasty consistent with loosening which is also con cordant with findings on the plain radiograph where there is displacement of th e tip of the femoral component and adjacent cement fracture. 2. No abnormal activity on the angiographic and blood pool images to suggest ac tive inflammation such as in the setting of infection/ostomy myelitis. 3. Small focus of mild increased uptake in the proximal left tibia correspondin g to a sclerotic lesion with appearance most consistent with a benign enchondro ma. 4. Normal pattern of activity at the periphery of a right total knee arthroplas ty.
== END 2020-12-30 07:44 | disposition home or self-care (01) ==
LOC: CHSIMG 07:46
PROVIDERS: PCP Family Medicine
DX: T84.50XD Infection and inflammatory reaction due to unspecified internal joint prosthesis, subsequent encounter (principal)
CPT/HCPCS: 78315; A9561

== ENCOUNTER 2021-01-09 23:58 | Emergency (ER) | payer MEDICARE, MEDICAID, SELFPAY ==
[2021-01-09 23:58] VITALS: BP 90/56; PULSE 78; RESP 20; TEMP 37.1; O2SAT 95
--- NOTE | 2021-01-10 00:08 | ED.ALLEREA ---
HPI - Allergic Reaction General Chief complaint: Allergic Reaction Stated complaint: Rash Time Seen by Provider: 01/10/21 00:03 Source: patient Mode of arrival: ambulatory Limitations: no limitations History of Present Illness HPI narrative: 55-year-old woman comes in today complaining of itching all over, rash and mild wheezing that started a few minutes after ingesting all almond milk. She denies prior similar episodes. She has an allergy to NSAIDs, male, shrimp and bee stings. she denies exposure to these things. Patient states that 3 days ago she started taking Bactrim for a UTI. MD complaint: hives Onset (ago): hour(s) (1) Exposure: food Symptoms: rash, itching and other ( Wheezing) Severity: moderate Treatment prior to arrival: benadryl ( 25 mg oral) Previous Allergic Reaction History: prior ED visit(s) and anaphylaxis Related Data Home Medications Medication Instructions Recorded Confirmed pregabalin 100 mg capsule 100 mg PO BID cap 05/07/20 01/10/21 hydrocodone 5 mg-acetaminophen 325 1 tablet PO Q6H PRN 12/03/20 01/10/21 mg tablet furosemide 60 mg PO QAM 01/10/21 01/10/21 metoprolol tartrate 100 mg PO BID 01/10/21 01/10/21 omeprazole 20 mg PO BID 01/10/21 01/10/21 Allergies Allergy/AdvReac Type Severity Reaction Status Date / Time aspirin Allergy Intermediate unknown Verified 12/03/20 13:55 Bleach (Sodium Hypochlorite) Allergy Intermediate unknown Verified 12/03/20 13:55 NSAIDS (Non-Steroidal Allergy Intermediate unknown Verified 12/03/20 13:55 Anti-Inflamma milk Allergy Mild Nausea Verified 12/03/20 13:55 ibuprofen Allergy Unknown unknown Verified 12/03/20 13:55 shrimp Allergy Swelling Verified 12/03/20 13:55 of Lip/Tongue/Throat Bee stings Allergy Intermediate unknown Uncoded 12/03/20 13:55 NONSTEROIDAL Allergy Unknown unknown Uncoded 12/03/20 13:55 PREDNISONE (Generic Allergy) Allergy Unknown Y Uncoded 12/03/20 13:55 SALICYLATES Allergy Unknown unknown Uncoded 12/03/20 13:55 Review of Systems Review of Systems: All systems reviewed & are unremarkable except as noted in HPI and below Constitutional: Constitutional: Denies chills and Denies fever(s) Eyes: Eyes: Denies change in vision and Denies photophobia ENT: Reports dysphagia, Reports nasal congestion and Reports sore throat Cardiovascular: Cardiovascular: Denies chest pain and Denies radiating jaw, neck or arm pain Respiratory: Respiratory: Denies cough, Reports dyspnea ( mild) and Reports wheezing ( mild) Gastrointestinal: Gastrointestinal: Denies abdominal pain, Denies diarrhea, Denies nausea and Denies vomiting Genitourinary: Genitourinary: Denies nocturia and Denies dysuria Musculoskeletal: Musculoskeletal: Denies back pain, Reports arthralgias ( chronic left hip) and Denies joint swelling Integumentary/Breasts: Skin/Breast: Reports pruritus, Reports erythema and Reports rash Neurologic: Denies vertigo, Denies dizziness and Denies syncope Hematologic/Lymphatic: Hematologic/Lymphatic: Denies easy bleeding and Denies easy bruising Allergic/Immunologic: Allergic/Immunologic: Denies lip swelling and Denies throat swelling PMFSH Past Medical History Medical History Anxiety Fibromyalgia Generalized edema GERD (gastroesophageal reflux disease) Hypertension Hypothyroidism Mitral valve regurgitation S/P repair by cath Otitis externa, left Overweight Polyneuropathy Pre-op exam Primary insomnia Surgical History Surgical History Fracture, intertrochanteric, left femur H/O: hysterectomy History of appendectomy History of total right knee replacement (TKR) Status post hip surgery 01/25/2020 Family History Family History Mother Hypertension Family history of type 2 diabetes mellitus Social History Social History (Reviewed 01/10/21
[2021-01-10] MEDS: methylPREDNISolone SOD SUCC 40 MG VIAL 80 MG IV PUSH (00:31)
[2021-01-10] MEDS: EPINEPHrine HCL INJ 1 MG/ML AMPUL 0.3 MG SUB-Q (00:32)
--- NOTE | 2021-01-10 00:56 | PC.NURSE ---
pt resting per cot. no complaints voiced. pt decreased itching and rash is improving. dr magallanes notified of same
[2021-01-10 01:35] VITALS: BP 92/65; PULSE 57; RESP 18; O2SAT 97
== END 2021-01-10 01:52 | disposition home or self-care (01) ==
PROVIDERS: Emergency Provider Emergency Medicine; PCP Family Medicine
DX: T78.40XA Allergy, unspecified, initial encounter (principal)
CPT/HCPCS: 96372; 96374; 99283; 99284; J0171; J2920

== ENCOUNTER 2021-01-29 10:20 | Outpatient (CLI) | payer MEDICARE, MEDICAID, SELFPAY ==
[2021-01-29 10:38] LABS: Basophils Absolute Auto 0.06 K/mm3 (0.00-0.10); Basophils Percent Auto 0.5 % (0.0-1.0); Eosinophils Absolute Auto 0.09 K/mm3 (0.02-0.50); Eosinophils Percent Auto 0.8 % (1.0-6.0); Hematocrit 44.9 % (35.0-49.0); Hemoglobin 15.2 g/dL (12.0-15.0); Immature Granulocyte Absolute 0.04 K/mm3 (0.00-0.00); Immature Granulocyte Percent A 0.4 % (0.0-0.0); Lymphocytes Absolute Auto 2.07 K/mm3 (1.10-4.50); Lymphocytes Percent Auto 18.6 % (18.0-42.0); Mean Corpuscular HGB Conc 33.9 g/dL (32.0-36.0); Mean Corpuscular Hemoglobin 29.8 pg (27.0-31.0); Mean Platelet Volume 9.4 fl (9.2-11.8); Monocytes Absolute Auto 0.81 K/mm3 (0.10-0.90); Monocytes Percent Auto 7.3 % (2.0-11.0); Neutrophils Absolute Auto 8.1 K/mm3 (1.7-7.2); Neutrophils Percent Auto 72.4 % (50.0-70.0); Platelet Count Result 343 K/mm3 (150-420); Red Cell Distribution Width 12.6 % (11.6-14.4); White Blood Count 11.1 K/mm3 (4.8-10.8)
[2021-01-29 10:39] LABS: Add Urine Microscopic? YES; Appearance Urine Clear (Clear); Bilirubin Urine Negative (Negative); Blood Urine Negative (Negative); Color Urine Yellow (Yellow); Glucose Urine UA Negative (Negative); Ketones Urine Negative (Negative); Leukocyte Esterase Ur Negative LEU/UL (Negative); Nitrate Urine Negative (Negative); Protein Urine 1+ (Negative); Urobilinogen Urine 0.2 mg/dL (0.2-1.0)
[2021-01-29 10:48] LABS: Bacteria Urine Trace /hpf; RBC Urine 0-2 /hpf (0-2); Squamous Epithelial Cell Urine Few /hpf (Few); WBC Urine 0-3 /hpf (0-3)
[2021-01-29 11:01] LABS: CRP 0.5 mg/dL (0.0-0.9)
[2021-01-29 11:43] LABS: Erythrocyte Sedimentation Rate 20 mm/hr (0-20)
== END 2021-01-29 10:21 | disposition home or self-care (01) ==
PROVIDERS: Nurse Practitioner Family; PCP Family Medicine
DX: T78.40XA Allergy, unspecified, initial encounter (principal); T84.011D Broken internal left hip prosthesis, subsequent encounter; N39.0 Urinary tract infection, site not specified; A49.9 Bacterial infection, unspecified
CPT/HCPCS: 36415; 81001; 85025; 85652; 86003; 86140

== ENCOUNTER 2021-02-16 16:14 | Outpatient (NON) | payer MEDICARE, SELFPAY ==
[2021-02-16 16:52] LABS: INR 1.8; Prothrombin Time 18.5 Seconds (9.50-12.10)
[2021-02-16 17:33] LABS: Alanine Aminotransferase 23 U/L (14-59); Albumin Level 2.6 g/dL (3.4-5.0); Alkaline Phosphatase 107 U/L (46-116); Aspartate Amino Transferase 33 U/L (15-37); Blood Urea Nitrogen 17 mg/dL (7-18); Calcium 9.6 mg/dL (8.5-10.1); Estimated Glomerular Filt Rate 26; Glucose 100 mg/dL (70-99)
[2021-02-16 17:45] LABS: Anion Gap 10 mmol/L (8-16); Bilirubin,Total 0.2 mg/dL (0.00-1.00); Carbon Dioxide 28 mmol/L (21-32); Chloride 101 mmol/L (98-108); Osmolality Calculated 289 mOsm/kg (285-295); Potassium 3.8 mmol/L (3.5-5.1); Sodium 139 mmol/L (136-145); Total Protein 7.2 g/dL (6.4-8.2)
== END 2021-02-16 16:15 | disposition home or self-care (01) ==
PROVIDERS: PCP Family Medicine; Visit Provider Nurse Practitioner Family
DX: E87.6 Hypokalemia (principal); Z79.01 Long term (current) use of anticoagulants
CPT/HCPCS: 36415; 80053; 85610

== ENCOUNTER 2021-03-24 09:41 | Outpatient (RCR) | payer MEDICARE, MEDICAID, SELFPAY ==
--- NOTE | 2021-03-24 11:02 | PTOPEVAL ---
Thank you for referring Nancy Murray to [facility] [place].? The patient is scheduled to be seen for therapy? ____x/week for ___ weeks. Please review, sign, date and return this plan of care TOYIN. I agree with and certify that the following plan of care is medically necessary. Referring Physician Date Admitting Provider: Attending Provider: ANDREW ALEXANDRE Referring Provider: LitaPT Outpatient Evaluation Start: 03/24/21 09:40 Freq: Status: Active Protocol: Document 03/24/21 09:56 ACR (Rec: 03/24/21 11:01 ACR [id number]) Therapy Assessment Status Assessment Status Assessment Status Evaluation Outpatient Past Medical History Neurological History Hx Migraine Yes Cardiovascular History Hx Cardiac Catheterization Yes: Hx Hypertension Yes Hx Mitral Valve Prolapse Yes: ABLATION Respiratory History Hx Respiratory Disorders No Significant History Gastrointestinal History Hx Appendectomy Yes Hx Gastroesophageal Reflux Disease Yes Genitourinary History Hx Urinary Tract Infection Yes: frequent Musculoskeletal History Hx Arthritis Yes Hx Fibromyalgia Yes Hx Joint Replacement Yes: RIGHT KNEE, LEFT HIP Hematological History Hx Hematological Disorders No Significant History Endocrine History Hx Hypothyroidism Yes HEENT History Hx HEENT Disorders No Significant History Integumentary History Hx Skin Disorders No Significant History Reproductive History Hx Hysterectomy Yes Hx Post Menopausal Yes Psychosocial History Hx Anxiety Yes Hx Depression Yes Pain History History of Any Previous or Ongoing No Significant History Instance of Pain Anesthesia History Hx Anesthesia Reactions No Significant History Other History Hx Cancer Yes: Uterine Hx Other Medical Conditions Yes: neuropathy, fibromyalgia Evaluation Information Problem Diagnosis loosening of L JOON Onset 02/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 The most recent one, she had to get a whole new hip due to the cement breaking. Patient states she did not have any subsequent injuries. Patient states she is on global hip precautions. Patient states she is doing her exercises which consist of LAQ, hip
--- NOTE | 2021-04-29 21:57 | PTOPEVAL ---
Thank you for referring Nancy Murray to [facility].? The patient is scheduled to be seen for therapy? ____x/week for ___ weeks. Please review, sign, date and return this plan of care TOYIN. I agree with and certify that the following plan of care is medically necessary. Referring Physician Date Admitting Provider: Attending Provider: ANDREW ALEXANDRE Referring Provider: TEMITOPE Outpatient Evaluation Start: 03/24/21 09:40 Freq: Status: Active Protocol: Document 04/22/21 10:00 [facility] (Rec: 04/29/21 21:57 [facility] filej) Therapy Assessment Status Assessment Status Assessment Status Re-evaluation Outpatient Past Medical History Neurological History Hx Migraine Yes Cardiovascular History Hx Cardiac Catheterization Yes: Hx Hypertension Yes Hx Mitral Valve Prolapse Yes: ABLATION Respiratory History Hx Respiratory Disorders No Significant History Gastrointestinal History Hx Appendectomy Yes Hx Gastroesophageal Reflux Disease Yes Genitourinary History Hx Urinary Tract Infection Yes: frequent Musculoskeletal History Hx Arthritis Yes Hx Fibromyalgia Yes Hx Joint Replacement Yes: RIGHT KNEE, LEFT HIP Hematological History Hx Hematological Disorders No Significant History Endocrine History Hx Hypothyroidism Yes HEENT History Hx HEENT Disorders No Significant History Integumentary History Hx Skin Disorders No Significant History Reproductive History Hx Hysterectomy Yes Hx Post Menopausal Yes Psychosocial History Hx Anxiety Yes Hx Depression Yes Pain History History of Any Previous or Ongoing No Significant History Instance of Pain Anesthesia History Hx Anesthesia Reactions No Significant History Other History Hx Cancer Yes: Uterine Hx Other Medical Conditions Yes: neuropathy, fibromyalgia Evaluation Information Problem Diagnosis loosening of L JOON Onset 02/09/21 Subjective Information patient reports she has been Query Text:As Reported By Patient/ doing alright overall. she Family reports she has noticed improvement in her activity tolerance, but as of late she has had popping in the L hip with activities involving squat and getting up and down from a chair. she reports discomfort with this popping. Pain Assessment Timing of Pain Assessment Timing of Pain Assessment
--- NOTE | 2021-05-01 13:03 | PCPTNOTE ---
04/30/21 - patient DC'd from skilled outpatient PT as she has had a fall and is now in skilled swing bed rehab. BRIAN
== END 2021-04-22 14:24 | disposition home or self-care (01) ==
LOC: CHSPT 09:41
DX: T84.011D Broken internal left hip prosthesis, subsequent encounter (principal); T84.031D Mechanical loosening of internal left hip prosthetic joint, subsequent encounter
CPT/HCPCS: 97014; 97110; 97140; 97161; 97530; G0283

== ENCOUNTER 2021-04-03 09:26 | Outpatient (CLI) | payer MEDICARE, MEDICAID, SELFPAY ==
[2021-04-03 09:50] LABS: Appearance Urine Clear (Clear); Basophils Absolute Auto 0.02 K/mm3 (0.00-0.10); Basophils Percent Auto 0.3 % (0.0-1.0); Bilirubin Urine Negative (Negative); Color Urine Light Yellow (Yellow); Eosinophils Absolute Auto 0.11 K/mm3 (0.02-0.50); Eosinophils Percent Auto 1.7 % (1.0-6.0); Glucose Urine UA Negative (Negative); Hematocrit 39.3 % (35.0-49.0); Hemoglobin 12.7 g/dL (12.0-15.0); Immature Granulocyte Absolute 0.02 K/mm3 (0.00-0.00); Immature Granulocyte Percent A 0.3 % (0.0-0.0); Ketones Urine Negative (Negative); Leukocyte Esterase Ur 2+ LEU/UL (Negative); Lymphocytes Absolute Auto 1.56 K/mm3 (1.10-4.50); Lymphocytes Percent Auto 24.3 % (18.0-42.0); Mean Corpuscular HGB Conc 32.3 g/dL (32.0-36.0); Mean Corpuscular Hemoglobin 28.9 pg (27.0-31.0); Mean Corpuscular Volume 89.5 fL (78.0-102.0); Mean Platelet Volume 9.7 fl (9.2-11.8); Monocytes Absolute Auto 0.39 K/mm3 (0.10-0.90); Monocytes Percent Auto 6.1 % (2.0-11.0); Neutrophils Absolute Auto 4.3 K/mm3 (1.7-7.2); Neutrophils Percent Auto 67.3 % (50.0-70.0); Nitrate Urine Positive (Negative); Platelet Count Result 276 K/mm3 (150-420); Protein Urine Negative (Negative); Red Blood Count 4.39 M/mm3 (4.20-5.40); Red Cell Distribution Width 12.6 % (11.6-14.4); Urobilinogen Urine 0.2 mg/dL (0.2-1.0); White Blood Count 6.4 K/mm3 (4.8-10.8)
[2021-04-03 10:05] LABS: Add Urine Microscopic? YES; Bacteria Urine 4+ /hpf; Blood Urine Trace-Intact (Negative); Squamous Epithelial Cell Urine Moderate /hpf (Few); WBC Urine 51-75 /hpf (0-3)
[2021-04-03 10:37] LABS: Creatinine Urine 115.98 mg/dL (40-278); Total Protein Urine Random 35.3 mg/dL (0.0-11.9)
[2021-04-03 10:40] LABS: Albumin Level 3.6 g/dL (3.4-5.0); Anion Gap 12 mmol/L (8-16); Blood Urea Nitrogen 19 mg/dL (7-18); Calcium 8.8 mg/dL (8.5-10.1); Carbon Dioxide 24 mmol/L (21-32); Chloride 106 mmol/L (98-108); Estimated Glomerular Filt Rate 46; Glucose 128 mg/dL (70-99); Osmolality Calculated 298 mOsm/kg (285-295); Phosphorus 3.8 mg/dL (2.6-4.7); Potassium 4.2 mmol/L (3.5-5.1); Sodium 142 mmol/L (136-145)
[2021-04-03 12:09] LABS: Erythrocyte Sedimentation Rate 31 mm/hr (0-20)
[2021-04-06 23:18] LABS: Kappa\\Lambda Light Chains 1.97 (0.26-1.65); Lambda Light Chain 17.2 mg/L (5.7-26.3)
[2021-04-07 11:14] LABS: Complement C3 136 mg/dL (83-193)
[2021-04-07 13:25] LABS: Parathyroid Intact 55 pg/mL (14-64)
[2021-04-08 16:05] LABS: Reference Lab Test Name Coconut IgE
[2021-04-08 16:05] LABS: Reference Lab Test Name Almond IgE
[2021-04-08 16:06] LABS: Reference Lab Test Name Shrimp IgE
[2021-04-08 18:20] LABS: Complement Total CH50 >60 U/mL (31-60)
== END 2021-04-03 09:27 | disposition home or self-care (01) ==
PROVIDERS: PCP Family Medicine; Referring Provider Allergy & Immunology; Visit Provider Internal Medicine Nephrology
DX: N18.32 Chronic kidney disease, stage 3b (principal); Z91.018 Allergy to other foods; R82.90 Unspecified abnormal findings in urine; J30.9 Allergic rhinitis, unspecified
CPT/HCPCS: 36415; 80069; 81001; 82570; 83883; 83970; 84156; 85025; 85652; 86003; 86038; 86160; 86162; 86334; 87077; 87086; 87088; 87186

== ENCOUNTER 2021-04-22 14:01 | Emergency (ER) | payer MEDICARE, MEDICAID, SELFPAY ==
--- NOTE | ~2021-04-22 | XR_ITS ---
EXAMINATION: XR knee LT 3V DATE: 04/22/2021 14:43 INDICATION: Left knee injury and pain. TECHNIQUE: 3 views of left knee were obtained. COMPARISON: Left femur radiographs 01/06/2020 FINDINGS: There is a longstem total left hip arthroplasty where the bone cement reaches the distal fe moral metaphysis. There is an oblique fracture of the distal femoral metaphysis. The distal fracture fragment demonstrates 32 degrees posterior angulation and 10 degrees medial angulation and impaction. There is a chronic 19 mm sclerotic lesion in proximal tibial metaphysis in a pattern of chondroid ma trix, likely an enchondroma. There is mild tricompartmental osteoarthritis of the knee. There is a sm all knee joint effusion. IMPRESSION: 1. Oblique fracture of distal femoral metaphysis. 2. Mild left knee osteoarthritis. 3. Small left knee joint effusion. Reviewed, dictated and finalized at location A.
[2021-04-22 14:01] VITALS: BP 143/74; PULSE 55; RESP 15; TEMP 36.6; O2SAT 97
[2021-04-22] MEDS: HYDROmorphone HCL INJ (*CRX) 2 MG/ML VIAL (14:45)
--- NOTE | 2021-04-22 15:08 | PC.NURSE ---
kwadwo contacted by karen for transfer. awaiting call back
--- NOTE | 2021-04-22 15:12 | ED.LOWEXIN ---
HPI - Extremity Injury (Lower) General Chief Complaint: Extremity Injury, Lower Stated Complaint: AMBULANCE Source: patient Limitations: no limitations History of Present Illness HPI Narrative: Pt tripped over a rug and fell down with full weight on her knee. SHe is having a lot of pain. complaint: thigh injury Place: home Severity: severe Relieving factors: nothing Exacerbating factors: nothing Context: fall Associated symptoms: unable to bear weight Other symptoms: none Related Data Home Medications Medication Instructions Recorded Confirmed pregabalin 100 mg capsule 100 mg PO BID cap 05/07/20 04/22/21 hydrocodone 5 mg-acetaminophen 325 1 tablet PO Q6H PRN 12/03/20 04/22/21 mg tablet metoprolol tartrate 100 mg PO BID 01/10/21 04/22/21 omeprazole 20 mg PO BID 01/10/21 04/22/21 Allergies Allergy/AdvReac Type Severity Reaction Status Date / Time aspirin Allergy Intermediate unknown Verified 02/16/21 15:53 Bleach (Sodium Hypochlorite) Allergy Intermediate unknown Verified 02/16/21 15:53 NSAIDS (Non-Steroidal Allergy Intermediate unknown Verified 02/16/21 15:53 Anti-Inflamma milk Allergy Mild Nausea Verified 02/16/21 15:53 ibuprofen Allergy Unknown unknown Verified 02/16/21 15:53 shrimp Allergy Swelling Verified 02/16/21 15:53 of Lip/Tongue/Throat Bee stings Allergy Intermediate unknown Uncoded 02/16/21 15:53 NONSTEROIDAL Allergy Unknown unknown Uncoded 02/16/21 15:53 PREDNISONE (Generic Allergy) Allergy Unknown Y Uncoded 02/16/21 15:53 SALICYLATES Allergy Unknown unknown Uncoded 02/16/21 15:53 Review of Systems Review of Systems: All systems reviewed & are unremarkable except as noted in HPI and below Constitutional: Constitutional: Reports no additional constitutional complaints Eyes: Eyes: Reports no additional eye complaints ENT: Reports system reviewed and no additional complaints, except as documented Cardiovascular: Cardiovascular: Reports no additional cardiovascular complaints Respiratory: Respiratory: Reports no additional respiratory complaints Gastrointestinal: Gastrointestinal: Reports no additional gastrointestinal complaints Genitourinary: Genitourinary: Reports no additional female genitourinary complaints Musculoskeletal: Musculoskeletal: Reports no additional musculoskeletal complaints Integumentary/Breasts: Skin/Breast: Reports system reviewed and no additional complaints, except as docu Neurologic: Reports system reviewed and no additional complaints, except as documented Psychiatric: Psychiatric: Reports no additional psychiatric complaints Endocrine: Endocrine: Reports no additional endocrine complaints Hematologic/Lymphatic: Hematologic/Lymphatic: Reports no additional hematologic/lymphatic complaints Allergic/Immunologic: Allergic/Immunologic: Reports no additional allergic/immunologic complaints ON LICENSE OF [facility] Past Medical History Medical History Anxiety Fibromyalgia Generalized edema GERD (gastroesophageal reflux disease) Hypertension Hypothyroidism Mitral valve regurgitation S/P repair by cath Otitis externa, left Overweight Polyneuropathy Pre-op exam Primary insomnia Surgical History Surgical History Fracture, intertrochanteric, left femur H/O: hysterectomy History of appendectomy History of total right knee replacement (TKR) Status post hip surgery 01/25/2020 Family History Family History Mother Hypertension Family history of type 2 diabetes mellitus Social History Social History Smoking status: Never smoker Second hand tobacco smoke exposure: Yes Smoking end date: 07/29/85 Alcohol intake: never Alcohol use details: social Substance use: never Substance use type: does not use Additiona
--- NOTE | 2021-04-22 15:17 | PC.NURSE ---
dr. campbell call back at this time
--- NOTE | 2021-04-22 15:45 | PC.NURSE ---
[address] [facility] unable to accept patient. [address] [place] transfer line contacted. awaiting call back.
[2021-04-22 16:09] LABS: Basophils Absolute Auto 0.05 K/mm3 (0.00-0.10); Basophils Percent Auto 0.4 % (0.0-1.0); Eosinophils Absolute Auto 0.07 K/mm3 (0.02-0.50); Eosinophils Percent Auto 0.6 % (1.0-6.0); Hematocrit 38.6 % (35.0-49.0); Hemoglobin 12.7 g/dL (12.0-15.0); Immature Granulocyte Absolute 0.05 K/mm3 (0.00-0.00); Immature Granulocyte Percent A 0.4 % (0.0-0.0); Lymphocytes Absolute Auto 1.69 K/mm3 (1.10-4.50); Lymphocytes Percent Auto 13.3 % (18.0-42.0); Mean Corpuscular HGB Conc 32.9 g/dL (32.0-36.0); Mean Corpuscular Hemoglobin 29.4 pg (27.0-31.0); Mean Corpuscular Volume 89.4 fL (78.0-102.0); Mean Platelet Volume 9.3 fl (9.2-11.8); Monocytes Absolute Auto 0.81 K/mm3 (0.10-0.90); Monocytes Percent Auto 6.4 % (2.0-11.0); Neutrophils Percent Auto 78.9 % (50.0-70.0); Platelet Count Result 315 K/mm3 (150-420); Red Blood Count 4.32 M/mm3 (4.20-5.40); Red Cell Distribution Width 13.3 % (11.6-14.4); White Blood Count 12.7 K/mm3 (4.8-10.8)
[2021-04-22 16:21] LABS: Partial Thromboplastin Time 23.4 SEC (23.90-30.70); Prothrombin Time 10.2 Seconds (9.50-12.10)
[2021-04-22] MEDS: HYDROmorphone HCL INJ (*CRX) 2 MG/ML VIAL 1 MG IV PUSH (16:22)
[2021-04-22 16:23] LABS: Alanine Aminotransferase 19 U/L (14-59); Albumin Level 3.5 g/dL (3.4-5.0); Alkaline Phosphatase 114 U/L (46-116); Anion Gap 11 mmol/L (8-16); Aspartate Amino Transferase 15 U/L (15-37); Bilirubin,Total 0.2 mg/dL (0.00-1.00); Blood Urea Nitrogen 15 mg/dL (7-18); Calcium 8.9 mg/dL (8.5-10.1); Carbon Dioxide 26 mmol/L (21-32); Chloride 107 mmol/L (98-108); Estimated Glomerular Filt Rate 44; Glucose 116 mg/dL (70-99); Osmolality Calculated 299 mOsm/kg (285-295); Potassium 4.3 mmol/L (3.5-5.1); Sodium 144 mmol/L (136-145)
[2021-04-22 16:44] LABS: SARS-CoV-2 Ag Negative (Negative)
--- NOTE | 2021-04-22 18:00 | PC.NURSE ---
pedal pulses noted after traction applied and prior to departure using doppler
[2021-04-22 18:41] VITALS: BP 157/86; PULSE 73; RESP 14; O2SAT 99
[2021-04-22] MEDS: ONDANSETRON INJ 4 MG/2 ML VIAL (18:46)
== END 2021-04-22 18:50 | disposition short-term general hospital (02) ==
LOC: CHSED 14:04
PROVIDERS: Emergency Provider Emergency Medicine; PCP Family Medicine
DX: S72.92XA Unspecified fracture of left femur, initial encounter for closed fracture (principal); W01.0XXA Fall on same level from slipping, tripping and stumbling without subsequent striking against object, initial encounter; Z20.822 Contact with and (suspected) exposure to COVID-19
CPT/HCPCS: 36415; 73562; 80053; 85025; 85610; 85730; 87426; 96374; 96375; 96376; 99284; 99285; C9803; J1170; J2405

== ENCOUNTER 2021-04-29 21:43 | Inpatient (IN) | payer MEDICARE, MEDICAID, SELFPAY ==
--- NOTE | ~2021-04-29 | XR_ITS ---
EXAMINATION: XR knee LT 2V DATE: 05/02/2021 18:12 INDICATION: Left knee swelling and pain. TECHNIQUE: 2 views of left knee were obtained. COMPARISON: Left knee radiographs 04/22/21 FINDINGS: There is an oblique fracture of distal femoral metaphysis with impaction. Internal fixation is seen with lateral plate and screws. There is a left hip arthroplasty with long femoral stem and c ement extending to the distal femoral metaphysis. There is a sclerotic lesion in proximal tibial meta physis in a pattern of chondroid matrix, likely an enchondroma. There is mild tricompartmental osteoa rthritis of the knee. There is a small knee joint effusion. IMPRESSION: 1. Oblique periprosthetic fracture of distal femoral metaphysis status post open reduction internal f ixation. 2. Mild left knee osteoarthritis. 3. Small left knee joint effusion. Reviewed, dictated and finalized at location A. IMPRESSION: 1. Oblique periprosthetic fracture of distal femoral metaphysis status post ope n reduction internal fixation. 2. Mild left knee osteoarthritis. 3. Small left knee joint effusion.
--- NOTE | 2021-04-29 22:05 | ADMGEN ---
This patient, Nancy Murray, was admitted to 2nd Floor Room 204-2 as a swing-bed patient. Patient was oriented to hospital policies and general routines including ID bracelet, bed and alarms, visiting hours, pain management, procedures, bathroom and other care routines, personal items, smoking policy, and room service/diet. Information on how to activate the Rapid Response Team has been discussed. Patient is encouraged to report perceived risks to care and to ask questions if she does not understand what she is told or what she should do.
[2021-04-29 22:15] VITALS: BP 120/45; PULSE 74; RESP 18; O2SAT 100
[2021-04-29 22:30] VITALS: BMI 41.2
--- NOTE | 2021-04-29 23:13 | WPDREHABHP2 ---
HPI Date/Time 04/29/21 23:13 Narrative Nancy is a 55F with a PMH of obesity, mitral valve prolapse, polyneuropathy, anxiety, HTN and hypothyroidism that presented to [place] for a Swing Bed. She was admitted to [place] with a distal left femur fracture on 04/22 and underwent ORIF. She had an uneventful post op course but it was determined she needed more therapy so she was transferred here. Her only concerns are the leg pain and itching over the surgical wound. Review of Systems Constitutional Constitutional: Reports no additional constitutional complaints Eyes Eyes: Reports no additional eye complaints ENT Reports system reviewed and no additional complaints, except as documented Cardiovascular Cardiovascular: Reports no additional cardiovascular complaints Respiratory Respiratory: Reports no additional respiratory complaints Gastrointestinal Gastrointestinal: Reports no additional gastrointestinal complaints Genitourinary Genitourinary: Reports no additional female genitourinary complaints Musculoskeletal Musculoskeletal: Reports as per HPI Integumentary/Breasts Skin/Breast: Reports as per HPI Neurologic Reports system reviewed and no additional complaints, except as documented Psychiatric Psychiatric: Reports no additional psychiatric complaints [facility] Past Medical History Medical History Anxiety Fibromyalgia Generalized edema GERD (gastroesophageal reflux disease) Hypertension Hypothyroidism Mitral valve regurgitation S/P repair by cath Otitis externa, left Overweight Polyneuropathy Pre-op exam Primary insomnia Surgical History Surgical History Fracture, intertrochanteric, left femur H/O: hysterectomy History of appendectomy History of total right knee replacement (TKR) Status post hip surgery 01/25/2020 Family History Family History Mother Hypertension Family history of type 2 diabetes mellitus Social History Social History Smoking status: Never smoker Second hand tobacco smoke exposure: Yes Smoking end date: 07/29/85 Alcohol intake: never Alcohol use details: social Substance use: never Substance use type: does not use Additional living arrangements comments: with mother Additional occupation/education comments: Disabled Gender identity (if verbalized by the patient): Female Sexual Orientation (if Verbalized by the Patient): Straight or Heterosexual Spiritual care concerns: No Meds Home Medications and Allergies Home Medications Medication Instructions Recorded Confirmed Type pregabalin 100 mg capsule 100 mg PO BID cap 05/07/20 04/29/21 History hydrocodone 5 mg-acetaminophen 325 2 tablet PO Q4H PRN 12/03/20 04/29/21 History mg tablet omeprazole 20 mg PO DAILY 01/10/21 04/29/21 History cholecalciferol (vitamin D3) 1,250 mcg PO WEEKLY 04/29/21 04/29/21 History enoxaparin 40 mg SUBCUT DAILY 04/29/21 04/29/21 History epinephrine 0.3 mg IM PRN PRN 04/29/21 04/29/21 History ferrous sulfate 325 mg PO DAILY 04/29/21 04/29/21 History fluticasone propionate [Allergy 1 spray NASAL DAILY PRN 04/29/21 04/29/21 History Relief (fluticasone)] levothyroxine 25 mcg PO DAILY 04/29/21 04/29/21 History metoprolol tartrate [Lopressor] 50 mg PO HS 04/29/21 04/29/21 History metoprolol tartrate [Lopressor] 100 mg PO DAILY 04/29/21 04/29/21 History sennosides-docusate sodium [Senna 2 tab-cap PO DAILY 04/29/21 04/29/21 History with Docusate Sodium] tizanidine 8 mg PO TID PRN 04/29/21 04/29/21 History Allergies Allergy/AdvReac Type Severity Reaction Status Date / Time aspirin Allergy Intermediate unknown Verified 02/16/21 15:53 Bleach (Sodium Hypochlorite) Allergy Intermediate unknown Verified 02/16/21 15:53 NSAIDS (Non-Steroidal Allergy Intermediat
[2021-04-29 23:38] VITALS: PULSE 75
[2021-04-29] MEDS: HYDROcodone/acetaminophen (*CRX) 5-325 MG TABLET 2 TAB PO (23:45)
[2021-04-29] MEDS: TIZANIDINE HCL 2 MG TABLET 8 MG PO (23:46)
[2021-04-30] VITALS: BP 113/63; PULSE 60; RESP 18; TEMP 36.4; O2SAT 95
--- NOTE | 2021-04-30 02:00 | PC.NURSE ---
Completed patient rounding. Patient asked for bedpan to urinate. Patient completed this task and was settled back to bed. Patient asked for an additional pillow, to elevate her leg higher in the bed. Placed two pillows under the left leg. Patient stated that felt much better, and settled down to sleep. She stated that she did not need anything else.
[2021-04-30] MEDS: HYDROcodone/acetaminophen (*CRX) 5-325 MG TABLET 2 TAB PO ×5 (04:17→23:23)
[2021-04-30] MEDS: LEVOTHYROXINE SODIUM 25 MCG TABLET PO (06:04)
--- NOTE | 2021-04-30 07:39 | PM.IMPN ---
Progress Note: A&P Assessment and Plan (1) Aftercare following left hip joint replacement surgery: Code(s): Z47.1 - Aftercare following joint replacement surgery; Z96.642 - Presence of left artificial hip joint Status: Acute Assessment and Plan: S/p ORIF, Hydrocodone PRN for pain control, Tizanidine for muscle spasms Pt to work with PT/OT for the following: Relieve pain, Improve movement or ability, Recover from a surgery, Rehab after surgery, Work on balance to prevent a slip or fall, Learn to use assistive devices like a walker or cane as needed. Dressing changes daily with dry simple dressing to surgical incision sites. Lovenox for DVT prophylaxis x 14 days, Vistaril for itching. (2) Hypothyroidism: Code(s): E03.9 - Hypothyroidism, unspecified Status: Acute Assessment and Plan: Continue Levothyroxine 25mcg (3) Hypertension: Code(s): I10 - Essential (primary) hypertension Status: Acute Assessment and Plan: Continue Metoprolol 100 mg daily, monitor VS, make changes to medications as needed (4) GERD (gastroesophageal reflux disease): Code(s): K21.9 - Gastro-esophageal reflux disease without esophagitis Status: Acute Assessment and Plan: Substituted Omeprazole with Protonix (5) Polyneuropathy: Code(s): G62.9 - Polyneuropathy, unspecified Status: Acute Assessment and Plan: Continue Lyrica 100 mg BID Subjective Date/time seen: 04/30/21 07:39 Nancy Murray is resting in bed with her left leg elevated. Patient states she was able to go to the restroom with a walker and only using toe touches with the left leg as she knows she is nonweightbearing for that leg. Patient states that her pain management is starting to be controlled. She mentions that her left thigh itches and she requested Vistaril. She states she does have neuropathy in both lower extremities with the left side being a little worse since the surgery. Patient denies chest pain difficulty breathing abdominal issues no changes in bowel or bladder function. She did say that she would like trazodone for sleep which she has used in the past. Review of Systems Review of Systems: All systems reviewed & are unremarkable except as noted in HPI and below Exam Const: General: cooperative, comfortable, no acute distress, alert, awake and Physically active Nutritional Appearance: obese morbidly obese Resp: Effort & Inspection: normal respiratory effort Auscultation: clear to auscultation bilaterally Cardio: Jugular venous distension: no JVD Rate: regular rate Heart sounds: S1 normal heart sound present and S2 normal heart sound present GI: GI Palp: Yes Soft to palpation and No Tenderness to palpation present (GI) Auscultation: Hypoactive bowel sounds present Skin: General skin exam: normal color and dry skin Neuro: General: oriented to person, oriented to place and oriented to time Cranial nerves: Yes CN's II-XII intact bilaterally (grossly intact) Cognition (Neuro): normal cognition Speech: normal speech Gait exam (Neuro): Antalgic gait present and Other gait observations present (toe touches Left side, uses walker) Sensory Exam: Abnormal lower extremity sensory exam bilateral other (has neruopathy with tingling sensation when touched, baseline) Extrem: General: no pedal edema Left lower extremity: hip/thigh Details: tenderness, swelling and other (incision sites are clean, normal color, now warmth, no drainage, sutures in place) Psych: Appearance: grossly normal Mental Status: mental status grossly normal Speech and movement: Normal speech and movement present Affect: normal affect Attitude: cooperative Thought process: Normal thought process present Objective Data Vital Signs Vital Signs: Vital Signs - 24 hr 04/29/21 22:15 04/29/21 23:38 04/30/21 00:00 Temperature 97.5 F L Pulse Rate 74 75 60 Respiratory Rate 18 18 Blood Pressure 120/45 L 113/63 Pulse Oxime
[2021-04-30 07:50] VITALS: BP 149/93; PULSE 70; RESP 18; TEMP 36.3; O2SAT 98
[2021-04-30] MEDS: TIZANIDINE HCL 2 MG TABLET 8 MG PO ×2 (08:40→16:58)
[2021-04-30] MEDS: FERROUS SULFATE 324 MG TABLET PO (08:40)
[2021-04-30 08:41] VITALS: PULSE 70
[2021-04-30] MEDS: PREGABALIN (*CRX) 50 MG CAPSULE 100 MG PO ×2 (08:41→16:58)
[2021-04-30] MEDS: PANTOPRAZOLE 40 MG TABLET PO (08:41)
[2021-04-30] MEDS: METOPROLOL TARTRATE 50 MG TAB 100 MG PO (08:41)
[2021-04-30] MEDS: ENOXAPARIN 40 MG/0.4 ML SYRINGE SUB-Q (08:42)
[2021-04-30 08:52] LABS: Basophils Absolute Auto 0.03 K/mm3 (0.00-0.10); Basophils Percent Auto 0.4 % (0.0-1.0); Eosinophils Absolute Auto 0.21 K/mm3 (0.02-0.50); Eosinophils Percent Auto 2.9 % (1.0-6.0); Hematocrit 27.2 % (35.0-49.0); Hemoglobin 8.7 g/dL (12.0-15.0); Immature Granulocyte Absolute 0.05 K/mm3 (0.00-0.00); Immature Granulocyte Percent A 0.7 % (0.0-0.0); Lymphocytes Absolute Auto 1.91 K/mm3 (1.10-4.50); Lymphocytes Percent Auto 26.4 % (18.0-42.0); Mean Corpuscular Hemoglobin 29.1 pg (27.0-31.0); Mean Platelet Volume 9.4 fl (9.2-11.8); Monocytes Percent Auto 6.9 % (2.0-11.0); Neutrophils Absolute Auto 4.5 K/mm3 (1.7-7.2); Neutrophils Percent Auto 62.7 % (50.0-70.0); Platelet Count Result 360 K/mm3 (150-420); Red Blood Count 2.99 M/mm3 (4.20-5.40); Red Cell Distribution Width 15.1 % (11.6-14.4); White Blood Count 7.2 K/mm3 (4.8-10.8)
[2021-04-30 09:10] LABS: Alanine Aminotransferase 26 U/L (14-59); Albumin Level 2.7 g/dL (3.4-5.0); Alkaline Phosphatase 126 U/L (46-116); Anion Gap 6 mmol/L (8-16); Aspartate Amino Transferase 15 U/L (15-37); Bilirubin,Total 0.7 mg/dL (0.00-1.00); Blood Urea Nitrogen 13 mg/dL (7-18); Calcium 8.7 mg/dL (8.5-10.1); Carbon Dioxide 31 mmol/L (21-32); Chloride 103 mmol/L (98-108); Estimated CRCL calculation 64 ml/min; Estimated Glomerular Filt Rate 49; Glucose 106 mg/dL (70-99); Osmolality Calculated 290 mOsm/kg (285-295); Potassium 3.9 mmol/L (3.5-5.1); Sodium 140 mmol/L (136-145); Total Protein 7.3 g/dL (6.4-8.2)
[2021-04-30] MEDS: hydrOXYzine pamoate 25 MG CAPSULE PO (13:15)
[2021-04-30 16:10] VITALS: BP 127/74; PULSE 64; RESP 18; TEMP 36.2; O2SAT 100
--- NOTE | 2021-04-30 19:00 | PC.NURSE ---
Completed bedside change of shift report. Patient was sleeping comfortably in her bed, with no signs of pain or discomfort.
--- NOTE | 2021-04-30 21:00 | PC.NURSE ---
Completed patient rounding. Patient indicates that she is still having pain in her left leg. Repositioned leg on the pillow, which helped. Patient asked when muscle relaxant is due again. Medication can be given again at 0130. Patient did not have any other needs.
[2021-04-30 21:24] VITALS: PULSE 65
[2021-04-30] MEDS: METOPROLOL TARTRATE 50 MG TAB PO (21:24)
[2021-04-30] MEDS: traZODone HCL 50 MG TABLET PO (21:24)
[2021-05-01] VITALS: BP 162/57; PULSE 69; RESP 20; TEMP 36; O2SAT 100
[2021-05-01] MEDS: TIZANIDINE HCL 2 MG TABLET 8 MG PO ×2 (01:45→10:17)
[2021-05-01] MEDS: hydrOXYzine pamoate 25 MG CAPSULE PO ×3 (01:51→20:28)
--- NOTE | 2021-05-01 02:00 | PC.NURSE ---
Completed patient rounding. Patient needed to go to the toilet, and ambulated with walker, there and back. Patient c/o pain in leg, and asked for muscle relaxer and something for itching. Patient received both. Patient then settled down and tried to go to sleep.
[2021-05-01] MEDS: HYDROcodone/acetaminophen (*CRX) 5-325 MG TABLET 2 TAB PO ×4 (04:18→20:28)
[2021-05-01] MEDS: LEVOTHYROXINE SODIUM 25 MCG TABLET PO (06:32)
[2021-05-01 07:30] VITALS: BP 104/64; PULSE 54; RESP 18; TEMP 36.1; O2SAT 97
[2021-05-01] MEDS: ENOXAPARIN 40 MG/0.4 ML SYRINGE SUB-Q (09:10)
[2021-05-01] MEDS: FERROUS SULFATE 324 MG TABLET PO (09:10)
[2021-05-01] MEDS: PREGABALIN (*CRX) 50 MG CAPSULE 100 MG PO ×2 (09:10→16:42)
[2021-05-01 09:11] VITALS: PULSE 80
[2021-05-01] MEDS: METOPROLOL TARTRATE 50 MG TAB 100 MG PO (09:11)
[2021-05-01] MEDS: PANTOPRAZOLE 40 MG TABLET PO (09:11)
[2021-05-01 16:30] VITALS: BP 101/61; PULSE 64; RESP 18; TEMP 36.4; O2SAT 100
[2021-05-01] MEDS: TIZANIDINE 4 MG TAB PO (16:42)
--- NOTE | 2021-05-01 18:10 | PC.NURSE ---
ISAIAS bandage and kerlix dressing removed from left leg. Incision site to lateral thigh clean dry and intact. No drainage noted. Patient requested to have ISAIAS bandage left off for a little bit. Site left open to air. Left leg elevated on pillow. Patient resting comfortably in bed. Call light and belongings at side.
[2021-05-01 20:28] VITALS: PULSE 78
[2021-05-01] MEDS: METOPROLOL TARTRATE 50 MG TAB PO (20:28)
[2021-05-01] MEDS: traZODone HCL 50 MG TABLET PO (20:28)
[2021-05-01 23:33] VITALS: BP 129/72; PULSE 62; RESP 17; TEMP 36.6; O2SAT 99
[2021-05-02] MEDS: HYDROcodone/acetaminophen (*CRX) 5-325 MG TABLET 2 TAB PO ×6 (00:30→21:01)
[2021-05-02] MEDS: TIZANIDINE 4 MG TAB PO ×4 (00:31→21:04)
[2021-05-02] MEDS: hydrOXYzine pamoate 25 MG CAPSULE PO (04:44)
[2021-05-02 05:25] LABS: Hematocrit 26.2 % (35.0-49.0); Hemoglobin 8.4 g/dL (12.0-15.0)
[2021-05-02 08:00] VITALS: BP 141/62; PULSE 55; RESP 20; TEMP 36.1; O2SAT 99
[2021-05-02] MEDS: ENOXAPARIN 40 MG/0.4 ML SYRINGE SUB-Q (09:03)
[2021-05-02 09:05] VITALS: PULSE 55
[2021-05-02] MEDS: PREGABALIN (*CRX) 50 MG CAPSULE 100 MG PO ×2 (09:05→16:35)
[2021-05-02] MEDS: METOPROLOL TARTRATE 50 MG TAB 100 MG PO (09:05)
[2021-05-02] MEDS: FERROUS SULFATE 324 MG TABLET PO (09:07)
[2021-05-02] MEDS: PANTOPRAZOLE 40 MG TABLET PO (09:07)
[2021-05-02] MEDS: LEVOTHYROXINE SODIUM 25 MCG TABLET PO (09:07)
[2021-05-02 16:00] VITALS: BP 129/71; PULSE 66; RESP 20; TEMP 36.6; O2SAT 98
--- NOTE | 2021-05-02 17:07 | PC.NURSE ---
Patient c/o increased pain and discomfort. Jan wrap intact but c/o being tight a second time after loosening bandages. Nurse noticed a possible increase in swelling since beginning of shift. Patient also mentioned that her knee had popped a couple times while pivot turning with walker. Patients ambulation seems to have gotten worse as the day progressed. Physician notified and 2 view portable X-ray ordered and obtained.
[2021-05-02] MEDS: traZODone HCL 50 MG TABLET PO (21:01)
[2021-05-02 21:05] VITALS: PULSE 59
[2021-05-02] MEDS: METOPROLOL TARTRATE 50 MG TAB PO (21:05)
[2021-05-02 23:49] VITALS: BP 115/65; PULSE 59; RESP 18; TEMP 36.4; O2SAT 98
[2021-05-03] MEDS: HYDROcodone/acetaminophen (*CRX) 5-325 MG TABLET 2 TAB PO ×2 (01:59→05:55)
[2021-05-03] MEDS: LEVOTHYROXINE SODIUM 25 MCG TABLET PO (05:19)
[2021-05-03] MEDS: TIZANIDINE 4 MG TAB PO ×3 (05:19→19:49)
--- NOTE | 2021-05-03 07:46 | P.PNCROSS_ITS ---
Event Note Event Note Event Note: According to nursing staff patient pain medication was not effective and she was taking an excessive amount of [place]. Pain medication adjusted started oxycodone extended release 20 mg daily with breakthrough oxycodone. Will monitor and adjust as needed. Patient also requested that we increase the use of her muscle relaxant.
[2021-05-03 08:00] VITALS: BP 97/46; PULSE 58; RESP 18; TEMP 35.9; O2SAT 96
[2021-05-03] MEDS: ENOXAPARIN 40 MG/0.4 ML SYRINGE SUB-Q (08:39)
[2021-05-03 08:40] VITALS: PULSE 58
[2021-05-03] MEDS: PREGABALIN (*CRX) 50 MG CAPSULE 100 MG PO ×2 (08:40→16:44)
[2021-05-03] MEDS: FERROUS SULFATE 324 MG TABLET PO (08:40)
[2021-05-03] MEDS: METOPROLOL TARTRATE 50 MG TAB 100 MG PO (08:40)
[2021-05-03] MEDS: oxyCODONE HCL (*CRX) 20 MG TAB SR 12HR PO (08:41)
[2021-05-03] MEDS: PANTOPRAZOLE 40 MG TABLET PO (08:41)
[2021-05-03] MEDS: oxyCODONE HCL (*CRX) 5 MG TAB IR PO (11:58)
[2021-05-03 16:00] VITALS: BP 126/51; PULSE 53; RESP 16; TEMP 36.3; O2SAT 97
[2021-05-03] MEDS: hydrOXYzine pamoate 25 MG CAPSULE PO (16:41)
[2021-05-03] MEDS: HYDROcodone/acetaminophen (*CRX) 10-325 MG TABLET 1 TAB PO ×2 (16:41→22:37)
[2021-05-03] MEDS: traZODone HCL 50 MG TABLET PO (21:22)
[2021-05-03 23:35] VITALS: BP 145/83; PULSE 85; RESP 18; TEMP 37.2; O2SAT 98
[2021-05-04] MEDS: TIZANIDINE 4 MG TAB PO ×4 (02:58→21:54)
[2021-05-04] MEDS: LEVOTHYROXINE SODIUM 25 MCG TABLET PO (05:57)
[2021-05-04] MEDS: HYDROcodone/acetaminophen (*CRX) 10-325 MG TABLET 1 TAB PO ×3 (07:18→19:37)
[2021-05-04 08:00] VITALS: BP 114/59; PULSE 56; RESP 18; TEMP 36.6; O2SAT 95
[2021-05-04] MEDS: SENNA/DOCUSATE SODIUM TABLET 2 TAB PO (08:56)
[2021-05-04] MEDS: FERROUS SULFATE 324 MG TABLET PO (08:57)
[2021-05-04] MEDS: PREGABALIN (*CRX) 50 MG CAPSULE 100 MG PO ×2 (08:58→16:56)
[2021-05-04] MEDS: PANTOPRAZOLE 40 MG TABLET PO (08:58)
[2021-05-04 09:05] VITALS: PULSE 58
[2021-05-04] MEDS: METOPROLOL TARTRATE 50 MG TAB 100 MG PO (09:05)
[2021-05-04] MEDS: ENOXAPARIN 40 MG/0.4 ML SYRINGE SUB-Q (09:07)
[2021-05-04 15:54] VITALS: BP 143/86; PULSE 79; RESP 20; TEMP 37.3; O2SAT 100
--- NOTE | 2021-05-04 16:35 | PC.NURSE ---
patient has been offered off and on today about liliana wrap to swollen leg upper leg. declines it wrapped. wants to leave incision open to air. incision looks well approx. no redness, warmth or drainage. claims she was told after her leg stops have having spasms she will put it on and not til then.
[2021-05-04] MEDS: traZODone HCL 50 MG TABLET PO (20:26)
--- NOTE | 2021-05-04 21:15 | PC.NURSE ---
pt amb to restroom, washes katelyn area with assistance, amb back to bed, left leg up on body pillow from home, ice applied to left knee, pt refuses liliana wrap at this time due to swelling discomfort
[2021-05-05] VITALS: BP 99/52; PULSE 56; RESP 18; TEMP 36.4; O2SAT 96
[2021-05-05] MEDS: HYDROcodone/acetaminophen (*CRX) 10-325 MG TABLET 1 TAB PO ×4 (02:41→23:43)
[2021-05-05] MEDS: TIZANIDINE 4 MG TAB PO (04:37)
[2021-05-05] MEDS: LEVOTHYROXINE SODIUM 25 MCG TABLET PO (06:24)
[2021-05-05 07:45] VITALS: BP 93/60; PULSE 59; RESP 18; TEMP 36.1; O2SAT 99
--- NOTE | 2021-05-05 07:48 | PM.EVENT ---
Event Note Event Note Event Note: Metoprolol changed from 100 mg to 50 mg due to hypotension and bradycardia bp 99/52 and hr 56
[2021-05-05 08:00] VITALS: PULSE 69; O2SAT 99
[2021-05-05] MEDS: hydrOXYzine pamoate 25 MG CAPSULE PO ×3 (10:27→23:43)
[2021-05-05] MEDS: FERROUS SULFATE 324 MG TABLET PO (10:27)
[2021-05-05] MEDS: ENOXAPARIN 40 MG/0.4 ML SYRINGE SUB-Q (10:27)
[2021-05-05] MEDS: PREGABALIN (*CRX) 50 MG CAPSULE 100 MG PO ×2 (10:27→16:49)
[2021-05-05 10:28] VITALS: PULSE 59
[2021-05-05] MEDS: METOPROLOL TARTRATE 50 MG TAB PO (10:28)
[2021-05-05] MEDS: PANTOPRAZOLE 40 MG TABLET PO (10:28)
--- NOTE | 2021-05-05 10:45 | PCOTNOTE ---
On 05/05/21, the student, [ Kalyn Marie ], provided care and completed [facility] documentation on this patient. I have reviewed the student's documentation and agree with the findings.MS
[2021-05-05] MEDS: TIZANIDINE HCL 2 MG TABLET 8 MG PO ×2 (12:54→19:46)
[2021-05-05 15:50] VITALS: BP 118/57; PULSE 62; RESP 18; TEMP 36.2; O2SAT 99
[2021-05-05] MEDS: traZODone HCL 50 MG TABLET PO (20:48)
[2021-05-06] VITALS: BP 124/76; PULSE 68; RESP 18; TEMP 36.5; O2SAT 98
[2021-05-06] MEDS: hydrOXYzine pamoate 25 MG CAPSULE PO ×3 (06:57→21:52)
[2021-05-06] MEDS: LEVOTHYROXINE SODIUM 25 MCG TABLET PO (06:57)
[2021-05-06] MEDS: HYDROcodone/acetaminophen (*CRX) 10-325 MG TABLET 1 TAB PO ×3 (06:57→21:51)
[2021-05-06 07:40] VITALS: BP 132/82; PULSE 83; RESP 18; TEMP 36.4; O2SAT 96
[2021-05-06 08:00] VITALS: O2SAT 96
[2021-05-06] MEDS: ENOXAPARIN 40 MG/0.4 ML SYRINGE SUB-Q (08:45)
[2021-05-06] MEDS: PREGABALIN (*CRX) 50 MG CAPSULE 100 MG PO ×2 (08:45→17:29)
[2021-05-06 08:46] VITALS: PULSE 83
[2021-05-06] MEDS: PANTOPRAZOLE 40 MG TABLET PO (08:46)
[2021-05-06] MEDS: METOPROLOL TARTRATE 50 MG TAB PO (08:46)
[2021-05-06] MEDS: FERROUS SULFATE 324 MG TABLET PO (08:46)
[2021-05-06] MEDS: TIZANIDINE HCL 2 MG TABLET 8 MG PO ×2 (09:00→17:29)
[2021-05-06] MEDS: ONDANSETRON HCL ODT 4 MG TABLET PO (11:17)
--- NOTE | 2021-05-06 11:20 | PCOTNOTE ---
On 05/06/21, the student, [Kalyn Marie ], provided care and completed [facility] documentation on this patient. I have reviewed the student's documentation and agree with the findings.MS
--- NOTE | 2021-05-06 11:35 | PM.EVENT ---
Event Note Event Note Event Note: Patient will discharge today to get her morphine pump refill. According to her pain clinic she gets 834 mcg per day and about 167 MCG's 4 times a day.
--- NOTE | 2021-05-06 15:15 | PC.NURSE ---
Patient remains out of building on pass.
[2021-05-06 17:20] VITALS: BP 105/74; PULSE 79; RESP 18; TEMP 36.2; O2SAT 94
[2021-05-06] MEDS: traZODone HCL 50 MG TABLET PO (21:52)
[2021-05-07] VITALS: BP 124/43; PULSE 61; RESP 18; TEMP 35.9; O2SAT 95
[2021-05-07] MEDS: TIZANIDINE HCL 2 MG TABLET 8 MG PO ×2 (00:03→06:21)
[2021-05-07] MEDS: hydrOXYzine pamoate 25 MG CAPSULE PO ×3 (04:03→16:57)
[2021-05-07] MEDS: HYDROcodone/acetaminophen (*CRX) 10-325 MG TABLET 1 TAB PO ×3 (04:03→16:57)
[2021-05-07] MEDS: LEVOTHYROXINE SODIUM 25 MCG TABLET PO (06:21)
[2021-05-07 07:56] VITALS: BP 103/52; PULSE 53; RESP 18; TEMP 36.1; O2SAT 96
[2021-05-07] MEDS: ENOXAPARIN 40 MG/0.4 ML SYRINGE SUB-Q (08:26)
[2021-05-07 08:27] VITALS: PULSE 53
[2021-05-07] MEDS: METOPROLOL TARTRATE 50 MG TAB PO (08:27)
[2021-05-07] MEDS: PANTOPRAZOLE 40 MG TABLET PO (08:27)
[2021-05-07] MEDS: PREGABALIN (*CRX) 50 MG CAPSULE 100 MG PO ×2 (08:27→16:57)
[2021-05-07] MEDS: FERROUS SULFATE 324 MG TABLET PO (08:28)
[2021-05-07 09:46] LABS: Appearance Urine Clear (Clear); Bilirubin Urine Negative (Negative); Color Urine Light Yellow (Yellow); Glucose Urine UA Negative (Negative); Ketones Urine Negative (Negative); Leukocyte Esterase Ur 2+ LEU/UL (Negative); Nitrate Urine Positive (Negative); Protein Urine Negative (Negative); Urobilinogen Urine 0.2 mg/dL (0.2-1.0)
[2021-05-07 09:51] LABS: Add Urine Microscopic? YES; Bacteria Urine 3+ /hpf; Blood Urine Trace-Intact (Negative); RBC Urine None seen /hpf (0-2); Squamous Epithelial Cell Urine Rare /hpf (Few); WBC Urine 21-30 /hpf (0-3)
--- NOTE | 2021-05-07 11:28 | PM.EVENT ---
Event Note Event Note Event Note: UA indicates possible UTI will treat with Bactrim until culture and sensitivity comes back
[2021-05-07] MEDS: TIZANIDINE HCL 4 MG TABLET 8 MG PO ×2 (12:18→18:32)
[2021-05-07 16:00] VITALS: BP 100/54; PULSE 55; RESP 18; TEMP 36.2; O2SAT 97
[2021-05-07] MEDS: traZODone HCL 50 MG TABLET PO (20:56)
[2021-05-08] VITALS: BP 92/70; PULSE 51; RESP 18; TEMP 36.1; O2SAT 95
[2021-05-08] MEDS: HYDROcodone/acetaminophen (*CRX) 10-325 MG TABLET 1 TAB PO ×3 (01:16→16:31)
[2021-05-08] MEDS: LEVOTHYROXINE SODIUM 25 MCG TABLET PO (06:00)
[2021-05-08 08:00] VITALS: BP 139/97; PULSE 69; RESP 20; TEMP 36.2; O2SAT 99
[2021-05-08] MEDS: ENOXAPARIN 40 MG/0.4 ML SYRINGE SUB-Q (08:34)
[2021-05-08 08:36] VITALS: PULSE 69
[2021-05-08] MEDS: METOPROLOL TARTRATE 50 MG TAB PO (08:36)
[2021-05-08] MEDS: FERROUS SULFATE 324 MG TABLET PO (08:36)
[2021-05-08] MEDS: PREGABALIN (*CRX) 50 MG CAPSULE 100 MG PO ×2 (08:36→16:30)
[2021-05-08] MEDS: hydrOXYzine pamoate 25 MG CAPSULE PO (08:36)
[2021-05-08] MEDS: PANTOPRAZOLE 40 MG TABLET PO (08:37)
[2021-05-08] MEDS: TIZANIDINE HCL 4 MG TABLET 8 MG PO ×3 (08:37→20:49)
--- NOTE | 2021-05-08 09:10 | PM.EVENT ---
Event Note Event Note Event Note: Patient metoprolol decreased from 50-37.5 due to hypotension and bradycardia
--- NOTE | 2021-05-08 11:29 | PCOTNOTE ---
On 05/08/21, the student, [Kalyn Marie ], provided care and completed [facility] documentation on this patient. I have reviewed the student's documentation and agree with the findings.
--- NOTE | 2021-05-08 14:19 | PCOTNOTE ---
On 05/07/21, the student, [Kalyn Marie ], provided care and completed [facility] on [facility]. I have reviewed the student's documentation and agree with the findings. SM
--- NOTE | 2021-05-08 14:20 | PCOTNOTE ---
On 05/08/21, the student, [Kalyn Marie ], provided care and [facility] I have reviewed the student's documentation and agree with the findings. SM
[2021-05-08 15:57] VITALS: BP 118/71; PULSE 60; RESP 20; TEMP 36.4; O2SAT 95
--- NOTE | 2021-05-08 19:08 | PC.NURSE ---
Completed bedside report and updated board. Patient moved to bed, and was in a good mood. She stated she was leaving Tuesday, to go to a nursing rehab facility prior to going home. Patient's pain management was reviewed, and she stated she did not need anything at this time.
[2021-05-08 20:50] VITALS: PULSE 61
[2021-05-08] MEDS: traZODone HCL 50 MG TABLET PO (20:50)
[2021-05-08] MEDS: METOPROLOL TARTRATE 25 MG TABLET (20:50)
[2021-05-09] VITALS (9 sets, daily range): BP systolic 93–110; BP diastolic 41–74; PULSE 59–62; RESP 18–20; TEMP 36.1–36.4; O2SAT 96–98
[2021-05-09] MEDS: HYDROcodone/acetaminophen (*CRX) 10-325 MG TABLET 1 TAB PO ×3 (03:18→20:09)
[2021-05-09] MEDS: LEVOTHYROXINE SODIUM 25 MCG TABLET PO (06:30)
[2021-05-09] MEDS: ENOXAPARIN 40 MG/0.4 ML SYRINGE SUB-Q (09:16)
[2021-05-09] MEDS: TIZANIDINE HCL 4 MG TABLET 8 MG PO ×2 (09:16→15:37)
[2021-05-09] MEDS: PREGABALIN (*CRX) 50 MG CAPSULE 100 MG PO ×2 (09:16→17:19)
[2021-05-09] MEDS: FERROUS SULFATE 324 MG TABLET PO (09:16)
[2021-05-09] MEDS: PANTOPRAZOLE 40 MG TABLET PO (09:16)
[2021-05-09] MEDS: METOPROLOL TARTRATE TAB 25 MG, METOPROLOL TARTRATE TAB 12.5 MG 37.5 MG PO ×2 (09:17→20:10)
[2021-05-09] MEDS: ERGOCALCIFEROL 50,000 UNIT CAPSULE 50000 UNITS PO (09:30)
--- NOTE | 2021-05-09 11:53 | PM.EVENT ---
Event Note Event Note Event Note: Urine with the growth of Citrobacter braaki sensitive to Bactrim. Continue Bactrim
[2021-05-09] MEDS: hydrOXYzine pamoate 25 MG CAPSULE PO (20:09)
[2021-05-09] MEDS: traZODone HCL 50 MG TABLET PO (20:09)
[2021-05-09] MEDS: METOPROLOL TARTRATE 25 MG TABLET (22:57)
[2021-05-10] MEDS: TIZANIDINE HCL 4 MG TABLET 8 MG PO ×3 (02:15→22:23)
[2021-05-10] MEDS: hydrOXYzine pamoate 25 MG CAPSULE PO ×3 (02:19→19:42)
[2021-05-10] MEDS: HYDROcodone/acetaminophen (*CRX) 10-325 MG TABLET 1 TAB PO ×3 (04:04→19:45)
[2021-05-10] MEDS: LEVOTHYROXINE SODIUM 25 MCG TABLET PO (06:44)
[2021-05-10 08:00] VITALS: BP 137/73; PULSE 64; RESP 20; TEMP 36.3; O2SAT 100
[2021-05-10 09:29] VITALS: PULSE 64
[2021-05-10] MEDS: SENNA/DOCUSATE SODIUM TABLET 2 TAB PO (09:29)
[2021-05-10] MEDS: FERROUS SULFATE 324 MG TABLET PO (09:29)
[2021-05-10] MEDS: PREGABALIN (*CRX) 50 MG CAPSULE 100 MG PO (09:29)
[2021-05-10] MEDS: PANTOPRAZOLE 40 MG TABLET PO (09:29)
[2021-05-10] MEDS: METOPROLOL TARTRATE TAB 25 MG, METOPROLOL TARTRATE TAB 12.5 MG 37.5 MG PO ×2 (09:29→19:43)
[2021-05-10] MEDS: ENOXAPARIN 40 MG/0.4 ML SYRINGE SUB-Q (09:30)
[2021-05-10 15:45] VITALS: BP 91/60; PULSE 60; RESP 18; TEMP 36.6; O2SAT 97
[2021-05-10 19:43] VITALS: PULSE 63
[2021-05-10] MEDS: traZODone HCL 50 MG TABLET PO (19:45)
[2021-05-10 20:00] VITALS: PULSE 63
[2021-05-10] MEDS: METOPROLOL TARTRATE 25 MG TABLET (20:00)
--- NOTE | 2021-05-10 22:25 | PC.NURSE ---
Patient c/o muscle spasms. PRN medication given per MD order
[2021-05-10 23:27] VITALS: BP 124/80; PULSE 63; RESP 16; TEMP 36.1; O2SAT 98
[2021-05-11] MEDS: HYDROcodone/acetaminophen (*CRX) 10-325 MG TABLET 1 TAB PO ×2 (04:06→12:14)
[2021-05-11] MEDS: hydrOXYzine pamoate 25 MG CAPSULE PO ×2 (04:06→12:14)
[2021-05-11] MEDS: LEVOTHYROXINE SODIUM 25 MCG TABLET PO (04:06)
[2021-05-11] MEDS: TIZANIDINE HCL 4 MG TABLET 8 MG PO ×2 (06:56→14:51)
[2021-05-11 08:00] VITALS: BP 92/66; PULSE 58; RESP 18; TEMP 36.2; O2SAT 96
[2021-05-11] MEDS: ENOXAPARIN 40 MG/0.4 ML SYRINGE SUB-Q (08:21)
[2021-05-11] MEDS: FERROUS SULFATE 324 MG TABLET PO (08:22)
[2021-05-11] MEDS: SENNA/DOCUSATE SODIUM TABLET 2 TAB PO (08:22)
[2021-05-11] MEDS: PANTOPRAZOLE 40 MG TABLET PO (08:23)
[2021-05-11 08:27] VITALS: PULSE 58
[2021-05-11] MEDS: METOPROLOL TARTRATE TAB 25 MG, METOPROLOL TARTRATE TAB 12.5 MG 37.5 MG PO (08:27)
--- NOTE | 2021-05-11 08:44 | PM.DS ---
DS: Admitting Diagnosis Discharge Date 05/11/2021 Admitting Diagnosis Weakness rehab DS: Discharge Diagnosis Discharge Diagnosis (1) Aftercare following left hip joint replacement surgery: Code(s): Z47.1 - Aftercare following joint replacement surgery; Z96.642 - Presence of left artificial hip joint Status: Acute Assessment and Plan: S/p ORIF, Hydrocodone PRN for pain control, Tizanidine for muscle spasms Pt to work with PT/OT for the following: Relieve pain, Improve movement or ability, Recover from a surgery, Rehab after surgery, Work on balance to prevent a slip or fall, Learn to use assistive devices like a walker or cane as needed. Dressing changes daily with dry simple dressing to surgical incision sites. Lovenox for DVT prophylaxis x 14 days, Vistaril for itching. Discharge Wound open to air (2) Hypothyroidism: Code(s): E03.9 - Hypothyroidism, unspecified Status: Acute Assessment and Plan: Continue Levothyroxine 25mcg (3) Hypertension: Code(s): I10 - Essential (primary) hypertension Status: Acute Assessment and Plan: Continue Metoprolol 100 mg daily, monitor VS, make changes to medications as needed Discharge Patient metoprolol changed to 37.5 due to a low heart rate and hypotension (4) GERD (gastroesophageal reflux disease): Code(s): K21.9 - Gastro-esophageal reflux disease without esophagitis Status: Acute Assessment and Plan: Substituted Omeprazole with Protonix (5) Polyneuropathy: Code(s): G62.9 - Polyneuropathy, unspecified Status: Acute Assessment and Plan: Continue Lyrica 100 mg BID DS: Summary Hospital Course Reason for hospitalization: Rehab Hospital Course: Nancy is a 55F with a PMH of obesity, mitral valve prolapse, polyneuropathy, anxiety, HTN and hypothyroidism that presented to [facility] for a Swing Bed. She was admitted to [facility] with a distal left femur fracture on 04/22 and underwent ORIF. She had an uneventful post op course but it was determined she needed more therapy so she was transferred here. Patient does have a pain management clinic. Patient pain management clinic consulted this hospital stay. Patient pain has not totally been controlled she will need to follow-up. She does have a morphine pump with bolus infusions. The patient denies SOB, CP, palpitation, extremity numbness, lightheadedness, dizziness, constipation, diarrhea, chills, or fever. This discharge patient ambulating 25 feet patient notes that her pain is interfering with therapy. Rehab Time spent 60 minutes Disposition will discharge to a SNF or nursing facility Time Spent with Patient Time attestation: Total time spent providing and/or coordinating discharge services: Discharge Plan Discharge Attending physician on discharge: Sonu Duenas Discharging Clinician: Sonu Duenas Anticipated Discharge Date/Time: 05/11/21 08:12 Patient Disposition: SNF Activity: as tolerated Diet: heart healthy Discharge Instructions: 1. Follow up with your provider within 1-2 weeks 2. Take prescription medication as ordered Notify your provider of any signs and symptoms of infection: Fever Foul Odor Discharge Heat at the Site: Increase in Pain: Pus Redness and Swelling Appointment with orthopedic surgeon on May 18 at 10:10 AM at [facility] [phone] Appointment with pain management on August 07, 2021 and October 19, 2021 at 11:00 PM [phone] Insertion of pump appointment October 15, 2021 Stand Alone Forms: General Discharge Information, Assisted Discharge Discharge Medications: New acetaminophen [Mapap (acetaminophen)] 325 mg Tablet 650 mg PO Q6H PRN (Reason: Mild Pain (1-3) Or Fever) Qty: 30 RF: 0 hydroxyzine pamoate 25 mg Capsule 25 mg PO Q6H PRN (Reason: Itching) Qty: 30 RF: 0 hydrocodone-acetaminophen 10-325 mg tablet 1 tablet PO Q6H P
[2021-05-11] MEDS: PREGABALIN (*CRX) 50 MG CAPSULE 100 MG PO (08:58)
[2021-05-11 09:04] LABS: Hematocrit 32.8 % (35.0-49.0); Hemoglobin 10.6 g/dL (12.0-15.0); Mean Corpuscular HGB Conc 32.3 g/dL (32.0-36.0); Mean Corpuscular Hemoglobin 28.9 pg (27.0-31.0); Mean Corpuscular Volume 89.4 fL (78.0-102.0); Mean Platelet Volume 9.3 fl (9.2-11.8); Platelet Count Result 464 K/mm3 (150-420); Red Blood Count 3.67 M/mm3 (4.20-5.40); Red Cell Distribution Width 14.6 % (11.6-14.4); White Blood Count 8.2 K/mm3 (4.8-10.8)
[2021-05-11 09:25] LABS: SARS-CoV-2 Ag Negative (Negative)
[2021-05-11 10:51] LABS: Alanine Aminotransferase 19 U/L (14-59); Albumin Level 3.3 g/dL (3.4-5.0); Alkaline Phosphatase 180 U/L (46-116); Anion Gap 12 mmol/L (8-16); Aspartate Amino Transferase 15 U/L (15-37); Bilirubin,Total 0.3 mg/dL (0.00-1.00); Blood Urea Nitrogen 19 mg/dL (7-18); Calcium 8.9 mg/dL (8.5-10.1); Carbon Dioxide 24 mmol/L (21-32); Chloride 103 mmol/L (98-108); Estimated CRCL calculation 43 ml/min; Estimated Glomerular Filt Rate 30; Glucose 205 mg/dL (70-99); Osmolality Calculated 296 mOsm/kg (285-295); Potassium 4.3 mmol/L (3.5-5.1); Sodium 139 mmol/L (136-145); Total Protein 7.7 g/dL (6.4-8.2)
--- NOTE | 2021-05-11 13:45 | PC.NURSE ---
Called report to [facility]. Spoke with Selene. All questions answered.
--- NOTE | 2021-05-11 14:31 | PCOTNOTE ---
Patient is discharged from skilled OT services at this time. She has met all OT goals. Patient will be transferred to a long-term. See last treatment note for skills at time of discharge. MS
--- NOTE | 2021-05-11 14:45 | PC.NURSE ---
Reviewed discharge information with patient. All questions answered. Information packet and prescriptions given to patient to be delivered to senior living staff.
--- NOTE | 2021-05-11 17:12 | PC.NURSE ---
Addendum entered by Melissa Titus RN 05/11/21 17:15: Patient's family here to transport patient to [facility]. Belongings sent with patient. Original Note: Patient's family here to transport patient to [facility].
--- NOTE | 2021-05-12 07:51 | PCOTNOTE ---
On 05/11/21, the student, [ Kalyn Marie], provided care and completed [facility] documentation on this patient. I have reviewed the student's documentation and agree with the findings. MS
--- NOTE | 2021-05-12 11:15 | PC.NURSE ---
prison states they received and understood the discharge instructions. Nurse has no other comments.
== END 2021-05-11 15:20 | DRG 560 ==
PROVIDERS: Nurse Practitioner; Nurse Practitioner Family; Admitting Provider Family Medicine; PCP Family Medicine; Visit Provider Family Medicine
DX: S72.492D Other fracture of lower end of left femur, subsequent encounter for closed fracture with routine healing (principal); N39.0 Urinary tract infection, site not specified; I34.1 Nonrheumatic mitral (valve) prolapse; I95.9 Hypotension, unspecified; I10 Essential (primary) hypertension; E03.9 Hypothyroidism, unspecified; M79.7 Fibromyalgia; K21.9 Gastro-esophageal reflux disease without esophagitis; E66.9 Obesity, unspecified; G47.00 Insomnia, unspecified; G62.9 Polyneuropathy, unspecified; F41.9 Anxiety disorder, unspecified; Z90.710 Acquired absence of both cervix and uterus; Z96.651 Presence of right artificial knee joint; Z96.642 Presence of left artificial hip joint; Z20.822 Contact with and (suspected) exposure to COVID-19
CPT/HCPCS: 36415; 73560; 80053; 81001; 85014; 85018; 85025; 85027; 87077; 87086; 87088; 87186; 87426; 97110; 97161; 97165; 97530; 97535; A9270; C9803; J1650

== ENCOUNTER 2021-06-03 14:14 | Outpatient (CLI) | payer MEDICARE, MEDICAID, SELFPAY ==
--- NOTE | 2021-06-03 14:17 | ECG_ITS ---
Measurements Intervals [place] Rate: 58 P: 71 [place]: 191 QRS: 19 QRSD: 88 T: 6 QT: 415 QTc: 409 Interpretive Statements SINUS BRADYCARDIA EARLY PRECORDIAL R/S TRANSITION BORDERLINE ECG Electronically Signed On 06-03-2021 15:06:59 CDT by David Noel D.O.
[2021-06-03 14:34] LABS: Basophils Absolute Auto 0.04 K/mm3 (0.00-0.10); Basophils Percent Auto 0.5 % (0.0-1.0); Eosinophils Absolute Auto 0.08 K/mm3 (0.02-0.50); Eosinophils Percent Auto 1.1 % (1.0-6.0); Hematocrit 38.3 % (35.0-49.0); Hemoglobin 12.8 g/dL (12.0-15.0); Immature Granulocyte Absolute 0.03 K/mm3 (0.00-0.00); Immature Granulocyte Percent A 0.4 % (0.0-0.0); Lymphocytes Absolute Auto 1.82 K/mm3 (1.10-4.50); Lymphocytes Percent Auto 24.4 % (18.0-42.0); Mean Corpuscular HGB Conc 33.4 g/dL (32.0-36.0); Mean Corpuscular Volume 86.7 fL (78.0-102.0); Mean Platelet Volume 9.2 fl (9.2-11.8); Monocytes Absolute Auto 0.58 K/mm3 (0.10-0.90); Monocytes Percent Auto 7.8 % (2.0-11.0); Neutrophils Absolute Auto 4.9 K/mm3 (1.7-7.2); Neutrophils Percent Auto 65.8 % (50.0-70.0); Platelet Count Result 346 K/mm3 (150-420); Red Blood Count 4.42 M/mm3 (4.20-5.40); Red Cell Distribution Width 13.4 % (11.6-14.4); White Blood Count 7.5 K/mm3 (4.8-10.8)
[2021-06-03 14:59] LABS: Alanine Aminotransferase 21 U/L (14-59); Albumin Level 3.4 g/dL (3.4-5.0); Alkaline Phosphatase 180 U/L (46-116); Anion Gap 11 mmol/L (8-16); Aspartate Amino Transferase 15 U/L (15-37); Bilirubin,Total 0.3 mg/dL (0.00-1.00); Blood Urea Nitrogen 15 mg/dL (7-18); Calcium 8.5 mg/dL (8.5-10.1); Carbon Dioxide 26 mmol/L (21-32); Chloride 105 mmol/L (98-108); Estimated Glomerular Filt Rate 32; Glucose 116 mg/dL (70-99); Magnesium 1.7 mg/dL (1.8-2.4); Osmolality Calculated 295 mOsm/kg (285-295); Potassium 4.4 mmol/L (3.5-5.1); Sodium 142 mmol/L (136-145); Total Protein 7.4 g/dL (6.4-8.2)
[2021-06-03] MEDS: SODIUM CHLORIDE 0.9% IV 1,000 ML 325 ML IV CONT (16:00)
--- NOTE | 2021-06-03 19:42 | PC.NURSE ---
Patient's IV infusion completed. Patient tolerated well. Patient on her phone trying to get boyfriend to pick her up. After several attempts patient was told boyfriend was downstairs waiting and she sat in wheelchair and wanted to get down to meet him. Nurse did not remember to take post vital signs.
--- NOTE | 2021-06-08 08:53 | WPDHOLTEREM ---
Holter/Event Monitor Holter/Event Monitor Date of procedure: 06/03/21 Holter/Event Procedure: 48 Hr Holter Monitor Indications: Palpitations Conclusion: 1. 48 hour holter monitor on 06/03/21. 2. Underlying rhythm is sinus rhythm. HR range 43-114 bpm; average HR 59 bpm. 3. There are 164 premature supraventricular complexes and 6 supraventricular couplets. No supraventricular tachycardia. 4. There are 7 premature ventricular complexes. No ventricular tachycardia. 5. No sinoatrial or atrioventricular blocks. No significant pauses greater than 2 seconds. 6. Patient reports symptoms of dizziness, blurred vision, palpitations which demonstrate sinus rhythm, HR range 57-111 bpm.
== END 2021-06-03 14:15 | disposition home or self-care (01) ==
LOC: CHSCARD 14:22 → CHSTREATRM 14:27
PROVIDERS: PCP Nurse Practitioner Family; Visit Provider Nurse Practitioner Family
DX: I95.9 Hypotension, unspecified (principal); R00.2 Palpitations
CPT/HCPCS: 36415; 80053; 83735; 85025; 93005; 93225; 93226; 96360; 96361; J7030

== ENCOUNTER 2021-06-15 10:00 | Outpatient (RCR) | payer MEDICARE, MEDICAID, SELFPAY ==
--- NOTE | 2021-06-15 11:05 | PTOPEVAL ---
Thank you for referring Nancy Murray to [facility].? The patient is scheduled to be seen for therapy? ____x/week for ___ weeks. Please review, sign, date and return this plan of care TOYIN. I agree with and certify that the following plan of care is medically necessary. Referring Physician Date Admitting Provider: Attending Provider: REJI RAMSEY Referring Provider: *PT Outpatient Evaluation Start: 06/15/21 09:58 Freq: Status: Active Protocol: Document 06/15/21 09:58 ACR (Rec: 06/15/21 11:03 ACR [id number]) Therapy Assessment Status Assessment Status Assessment Status Evaluation Outpatient Past Medical History Neurological History Hx Migraine Yes Cardiovascular History Hx Cardiac Catheterization Yes: Hx Hypertension Yes Hx Mitral Valve Prolapse Yes: ABLATION Respiratory History Hx Respiratory Disorders No Significant History Gastrointestinal History Hx Appendectomy Yes Hx Gastroesophageal Reflux Disease Yes Genitourinary History Hx Urinary Tract Infection Yes: frequent Musculoskeletal History Hx Arthritis Yes Hx Fibromyalgia Yes Hx Joint Replacement Yes: RIGHT KNEE, LEFT HIP Hematological History Hx Hematological Disorders No Significant History Endocrine History Hx Hypothyroidism Yes HEENT History Hx HEENT Disorders No Significant History Integumentary History Hx Skin Disorders No Significant History Reproductive History Hx Post Menopausal Yes Psychosocial History Hx Anxiety Yes Hx Depression Yes Pain History History of Any Previous or Ongoing No Significant History Instance of Pain Anesthesia History Hx Anesthesia Reactions No Significant History Other History Hx Cancer Yes: Uterine Hx Other Medical Conditions Yes: neuropathy, fibromyalgia Evaluation Information Problem Diagnosis L femur fracture Subjective Information Patient reports that March Query Text:As Reported By Patient/ she went home and tripped Family on a throw rug and fell. She states that she got an ORIF and was in the hospital as a swing bed for 2 weeks then went to the residential on May 19. Patient states that since she has been home, she is moving very slow. She states that she is able to get in and out of bed on her own. She is walking around the
--- NOTE | 2021-07-10 12:06 | PTOPEVAL ---
Thank you for referring Nancy Murray to [facility].? The patient is scheduled to be seen for therapy? ____x/week for ___ weeks. Please review, sign, date and return this plan of care TOYIN. I agree with and certify that the following plan of care is medically necessary. Referring Physician Date Admitting Provider: Attending Provider: REJI RAMSEY Referring Provider: *PT Outpatient Evaluation Start: 06/15/21 09:58 Freq: Status: Active Protocol: Document 07/10/21 11:06 [facility] (Rec: 07/10/21 12:06 [facility] [id number]) Therapy Assessment Status Assessment Status Assessment Status Progress Outpatient Past Medical History Neurological History Hx Migraine Yes Cardiovascular History Hx Cardiac Catheterization Yes: Hx Hypertension Yes Hx Mitral Valve Prolapse Yes: ABLATION Respiratory History Hx Respiratory Disorders No Significant History Gastrointestinal History Hx Appendectomy Yes Hx Gastroesophageal Reflux Disease Yes Genitourinary History Hx Urinary Tract Infection Yes: frequent Musculoskeletal History Hx Arthritis Yes Hx Fibromyalgia Yes Hx Joint Replacement Yes: RIGHT KNEE, LEFT HIP Hematological History Hx Hematological Disorders No Significant History Endocrine History Hx Hypothyroidism Yes HEENT History Hx HEENT Disorders No Significant History Integumentary History Hx Skin Disorders No Significant History Reproductive History Hx Post Menopausal Yes Psychosocial History Hx Anxiety Yes Hx Depression Yes Pain History History of Any Previous or Ongoing No Significant History Instance of Pain Anesthesia History Hx Anesthesia Reactions No Significant History Other History Hx Cancer Yes: Uterine Hx Other Medical Conditions Yes: neuropathy, fibromyalgia Evaluation Information Problem Diagnosis L femur fracture Onset 04/20/21 Subjective Information Patient states since beginning Query Text:As Reported By Patient/ therapy she has been feeling Family sore and a bit stronger, but not as much as she would like it too. Patient states that she is walking with a cane in the house still. She states that getting in and out of a chair and in the shower is a little easier. She states that she made dinner last night and did not have to sit and
--- NOTE | 2021-08-13 13:39 | PTOPEVAL ---
Thank you for referring Nancy Murray to [facility]. Please review, sign, date and return this plan of care TOYIN. I agree with and certify that the following plan of care is medically necessary. Referring Physician Date Admitting Provider: Attending Provider: REJI RAMSEY Referring Provider: *PT Outpatient Evaluation Start: 06/15/21 09:58 Freq: Status: Active Protocol: Document 08/13/21 12:51 [facility] (Rec: 08/13/21 13:39 [facility] [id number]) Therapy Assessment Status Assessment Status Assessment Status Progress Outpatient Past Medical History Neurological History Hx Migraine Yes Cardiovascular History Hx Cardiac Catheterization Yes: Hx Hypertension Yes Hx Mitral Valve Prolapse Yes: ABLATION Respiratory History Hx Respiratory Disorders No Significant History Gastrointestinal History Hx Appendectomy Yes Hx Gastroesophageal Reflux Disease Yes Genitourinary History Hx Urinary Tract Infection Yes: frequent Musculoskeletal History Hx Arthritis Yes Hx Fibromyalgia Yes Hx Joint Replacement Yes: RIGHT KNEE, LEFT HIP Hematological History Hx Hematological Disorders No Significant History Endocrine History Hx Hypothyroidism Yes HEENT History Hx HEENT Disorders No Significant History Integumentary History Hx Skin Disorders No Significant History Reproductive History Hx Post Menopausal Yes Psychosocial History Hx Anxiety Yes Hx Depression Yes Pain History History of Any Previous or Ongoing No Significant History Instance of Pain Anesthesia History Hx Anesthesia Reactions No Significant History Other History Hx Cancer Yes: Uterine Hx Other Medical Conditions Yes: neuropathy, fibromyalgia Evaluation Information Problem Diagnosis left femur fx Subjective Information Pt. reports she was able to Query Text:As Reported By Patient/ walk through the store Family yesterday with less intense pain. She reports that as of one month ago she would not have been able to do an acitvity like walking through the store. She reports that she still notices weakness on the left. She continues use of her cane because she feels unsteady. She reports that she had a doctors appointment yesterday to follow up with
--- NOTE | 2021-09-10 14:08 | PTOPEVAL ---
Thank you for referring Nancy Murray to [facility].? The patient is scheduled to be seen for therapy? ____x/week for ___ weeks. Please review, sign, date and return this plan of care TOYIN. I agree with and certify that the following plan of care is medically necessary. Referring Physician Date Admitting Provider: Attending Provider: REJI RAMSEY Referring Provider: *PT Outpatient Evaluation Start: 06/15/21 09:58 Freq: Status: Active Protocol: Document 09/10/21 13:00 [facility] (Rec: 09/10/21 14:07 [facility] [id number]) Therapy Assessment Status Assessment Status Assessment Status Discharge Outpatient Past Medical History Neurological History Hx Migraine Yes Cardiovascular History Hx Cardiac Catheterization Yes: Hx Hypertension Yes Hx Mitral Valve Prolapse Yes: ABLATION Respiratory History Hx Respiratory Disorders No Significant History Gastrointestinal History Hx Appendectomy Yes Hx Gastroesophageal Reflux Disease Yes Genitourinary History Hx Urinary Tract Infection Yes: frequent Musculoskeletal History Hx Arthritis Yes Hx Fibromyalgia Yes Hx Joint Replacement Yes: RIGHT KNEE, LEFT HIP Hematological History Hx Hematological Disorders No Significant History Endocrine History Hx Hypothyroidism Yes HEENT History Hx HEENT Disorders No Significant History Integumentary History Hx Skin Disorders No Significant History Reproductive History Hx Post Menopausal Yes Psychosocial History Hx Anxiety Yes Hx Depression Yes Pain History History of Any Previous or Ongoing No Significant History Instance of Pain Anesthesia History Hx Anesthesia Reactions No Significant History Other History Hx Cancer Yes: Uterine Hx Other Medical Conditions Yes: neuropathy, fibromyalgia Evaluation Information Problem Diagnosis left femur fx Onset 04/20/21 Additional Evaluation Detail LEFS = 72% functionally declined Subjective Information patient reports she feels Query Text:As Reported By Patient/ pretty good this date. Family patient reports she has been compliant with her HEP everyday at home. she reports she has also been up and moving a bunch at home packing getting ready to move. she reports no falls. Pain Assessment Timing of Pain Assessment Timing of Pain Assessment Assessment Pain Scale Pain Scale Used
== END 2021-09-10 08:32 | disposition home or self-care (01) ==
LOC: CHSPT 10:00
PROVIDERS: PCP Nurse Practitioner Family
DX: S72.142K Displaced intertrochanteric fracture of left femur, subsequent encounter for closed fracture with nonunion (principal)
CPT/HCPCS: 97110; 97161; 97530

== ENCOUNTER 2021-07-31 10:06 | Outpatient (CLI) | payer MEDICARE, BC, SELFPAY ==
[2021-07-31 10:51] LABS: Creatinine Urine 104.55 mg/dL (40-278)
[2021-07-31 10:58] LABS: Albumin Level 3.2 g/dL (3.4-5.0); Anion Gap 12 mmol/L (8-16); Blood Urea Nitrogen 17 mg/dL (7-18); Calcium 8.6 mg/dL (8.5-10.1); Carbon Dioxide 25 mmol/L (21-32); Chloride 105 mmol/L (98-108); Estimated Glomerular Filt Rate 52; Glucose 120 mg/dL (70-99); Osmolality Calculated 296 mOsm/kg (285-295); Phosphorus 3.5 mg/dL (2.6-4.7); Potassium 4.2 mmol/L (3.5-5.1); Sodium 142 mmol/L (136-145)
[2021-07-31 11:01] LABS: MALB Creatinine Ratio 142.8 mg/g (0-30); Microalbumin Urine Random 149.4 mg/L
== END 2021-07-31 10:07 | disposition home or self-care (01) ==
LOC: CHSLAB 10:09
PROVIDERS: PCP Family Medicine; Visit Provider Internal Medicine Nephrology
DX: N18.32 Chronic kidney disease, stage 3b (principal)
CPT/HCPCS: 36415; 80069; 82043

== ENCOUNTER 2021-08-03 12:09 | Outpatient (CLI) | payer MEDICARE, BC, SELFPAY ==
[2021-08-03 12:57] LABS: SARS-CoV-2 RNA PCR Negative (Negative)
== END 2021-08-03 12:10 | disposition home or self-care (01) ==
LOC: CHSLAB 12:11
PROVIDERS: PCP Family Medicine; Visit Provider Anesthesiology Pain Medicine
DX: Z01.818 Encounter for other preprocedural examination (principal); Z20.822 Contact with and (suspected) exposure to COVID-19
CPT/HCPCS: C9803; U0003; U0005

== ENCOUNTER 2021-08-05 13:12 | Outpatient (CLI) | payer MEDICARE, BC, SELFPAY ==
[2021-08-05 13:35] LABS: Hemoglobin 13.3 g/dL (12.0-15.0)
== END 2021-08-05 13:13 | disposition home or self-care (01) ==
LOC: CHSLAB 13:14
PROVIDERS: PCP Family Medicine; Visit Provider Anesthesiology Pain Medicine
DX: Z01.818 Encounter for other preprocedural examination (principal)
CPT/HCPCS: 36415; 85014; 85018

== ENCOUNTER 2021-08-23 12:20 | Emergency (ER) | payer MEDICARE, MEDICAID, SELFPAY ==
--- NOTE | 2021-08-23 12:32 | ED.ALLEREA ---
HPI - Allergic Reaction General Chief complaint: Allergic Reaction Stated complaint: swollen upper lip, rash under arms and on legs Time Seen by Provider: 08/23/21 12:32 Source: patient Mode of arrival: ambulatory Limitations: no limitations History of Present Illness HPI narrative: 56-year-old woman with a history of anaphylactic reactions comes in today complaining of itching all over and lip swelling that started approximately 3:00 a.m. this morning. Patient states that at 1:00 a.m. she ate some [employer] potato salad. She denies chest pain, lightheadedness, shortness of breath, throat swelling, tongue swelling , vomiting, diarrhea, and syncope. MD complaint: allergic reaction, hives and facial swelling Onset (ago): hour(s) (9) Exposure: food Known history of allergy to: NSAIDS, bee stings, bleach Symptoms: rash, itching and lip swelling Severity: moderate Treatment prior to arrival: benadryl ( 25 mg p.o. at 7:00 a.m.) Previous Allergic Reaction History: prior ED visit(s), anaphylaxis and angioedema Related Data Home Medications Medication Instructions Recorded Confirmed omeprazole 20 mg PO DAILY 01/10/21 08/23/21 cholecalciferol (vitamin D3) 1,250 mcg PO WEEKLY 04/29/21 08/23/21 epinephrine 0.3 mg IM PRN PRN 04/29/21 08/23/21 fluticasone propionate [Allergy 1 spray NASAL DAILY PRN 04/29/21 08/23/21 Relief (fluticasone)] levothyroxine 25 mcg PO DAILY 04/29/21 08/23/21 Allergies Allergy/AdvReac Type Severity Reaction Status Date / Time aspirin Allergy Intermediate unknown Verified 08/23/21 13:54 Bleach (Sodium Hypochlorite) Allergy Intermediate unknown Verified 08/23/21 13:54 NSAIDS (Non-Steroidal Allergy Intermediate unknown Verified 08/23/21 13:54 Anti-Inflamma milk Allergy Mild Nausea Verified 08/23/21 13:54 ibuprofen Allergy Unknown unknown Verified 08/23/21 13:54 shrimp Allergy Swelling Verified 08/23/21 13:54 of Lip/Tongue/Throat oxycodone AdvReac Mild hypotension Verified 08/23/21 13:54 and visual disturbance Bee stings Allergy Intermediate unknown Uncoded 08/23/21 13:54 NONSTEROIDAL Allergy Unknown unknown Uncoded 08/23/21 13:54 PREDNISONE (Generic Allergy) Allergy Unknown Y Uncoded 08/23/21 13:54 SALICYLATES Allergy Unknown unknown Uncoded 08/23/21 13:54 Review of Systems Review of Systems: All systems reviewed & are unremarkable except as noted in HPI and below Constitutional: Constitutional: Denies chills and Denies fever(s) Cardiovascular: Cardiovascular: Denies chest pain and Denies radiating jaw, neck or arm pain Respiratory: Respiratory: Denies cough and Denies dyspnea Gastrointestinal: Gastrointestinal: Denies abdominal pain, Denies nausea and Denies vomiting Integumentary/Breasts: Skin/Breast: Reports pruritus, Reports erythema and Reports rash Neurologic: Denies vertigo, Denies dizziness, Denies syncope, Denies focal weakness and Denies numbness Allergic/Immunologic: Allergic/Immunologic: Reports lip swelling, Denies throat swelling, Denies tongue swelling and Denies wheezing PMFSH Past Medical History Medical History Anxiety Fibromyalgia Generalized edema GERD (gastroesophageal reflux disease) Hypertension Hypothyroidism Mitral valve regurgitation S/P repair by cath Otitis externa, left Overweight Polyneuropathy Pre-op exam Primary insomnia Surgical History Surgical History Fracture, intertrochanteric, left femur H/O: hysterectomy History of appendectomy History of total right knee replacement (TKR) Status post hip surgery 01/25/2020 Family History Family History Mother Hypertension Family history of type 2 diabetes mellitus Social History Social History Smoking status: Never smoker Tobacco type: cigarettes Second
[2021-08-23] MEDS: EPINEPHrine HCL INJ 1 MG/ML AMPUL 0.3 MG SUB-Q (12:42)
[2021-08-23] MEDS: diphenhydrAMINE HCl INJ 50 MG/ML VIAL 25 MG IV PUSH (12:51)
[2021-08-23] MEDS: methylPREDNISolone SOD SUCC 125 MG VIAL IV PUSH (12:51)
[2021-08-23 13:30] VITALS: BP 118/81; PULSE 63; RESP 20; O2SAT 97
[2021-08-23 13:39] VITALS: BP 104/79; PULSE 72; RESP 20; TEMP 36.8; O2SAT 97
[2021-08-23 14:00] VITALS: BP 131/81; PULSE 67; RESP 20; O2SAT 97
[2021-08-23 14:30] VITALS: BP 126/87; PULSE 68; RESP 20; O2SAT 97
[2021-08-23 14:56] VITALS: BP 139/83; PULSE 70; RESP 20; O2SAT 97
== END 2021-08-23 15:06 | disposition home or self-care (01) ==
LOC: CHSED 12:24
PROVIDERS: Emergency Provider Emergency Medicine; PCP Family Medicine
DX: T78.40XA Allergy, unspecified, initial encounter (principal)
CPT/HCPCS: 96372; 96374; 96375; 99283; 99284; J0171; J1200; J2930

== ENCOUNTER 2021-10-29 09:24 | Outpatient (CLI) | payer MEDICARE, MEDICAID, SELFPAY ==
--- NOTE | ~2021-10-29 | XR_ITS ---
EXAMINATION: XR knee LT 2V DATE: 10/29/2021 09:51 INDICATION: Left knee pain. TECHNIQUE: 2 views of left knee were obtained. COMPARISON: Left knee radiographs 05/02/2021 FINDINGS: There is an old healed fracture of distal femoral metaphysis with internal fixation with la teral plate and screws. Partially visualized is an intramedullary james in distal femur. Again seen is a 2.2 cm sclerotic mass in proximal tibia with chondroid matrix, likely an enchondroma. There is mild tricompartmental osteoarthritis of left knee. No left knee joint effusion. IMPRESSION: 1. Mild left knee osteoarthritis. Reviewed, dictated and finalized at location A. SPORT TECH
== END 2021-10-29 09:25 | disposition home or self-care (01) ==
LOC: CHSIMG 09:27
PROVIDERS: PCP Family Medicine; Visit Provider Nurse Practitioner Family
DX: M25.562 Pain in left knee (principal)
CPT/HCPCS: 73560

== ENCOUNTER 2022-02-11 09:37 | Outpatient (CLI) | payer MEDICARE, SELFPAY ==
[2022-02-11 09:56] LABS: Basophils Absolute Auto 0.05 K/mm3 (0.00-0.10); Basophils Percent Auto 0.6 % (0.0-1.0); Eosinophils Absolute Auto 0.17 K/mm3 (0.02-0.50); Eosinophils Percent Auto 1.9 % (1.0-6.0); Hematocrit 39.1 % (35.0-49.0); Immature Granulocyte Absolute 0.05 K/mm3 (0.00-0.00); Immature Granulocyte Percent A 0.6 % (0.0-0.0); Lymphocytes Absolute Auto 1.93 K/mm3 (1.10-4.50); Lymphocytes Percent Auto 21.4 % (18.0-42.0); Mean Corpuscular HGB Conc 33.2 g/dL (32.0-36.0); Mean Corpuscular Hemoglobin 30.2 pg (27.0-31.0); Mean Corpuscular Volume 90.9 fL (78.0-102.0); Mean Platelet Volume 9.6 fl (9.2-11.8); Monocytes Absolute Auto 0.66 K/mm3 (0.10-0.90); Monocytes Percent Auto 7.3 % (2.0-11.0); Neutrophils Absolute Auto 6.2 K/mm3 (1.7-7.2); Neutrophils Percent Auto 68.2 % (50.0-70.0); Platelet Count Result 298 K/mm3 (150-420)
[2022-02-11 09:58] LABS: Appearance Urine Clear (Clear); Bilirubin Urine Negative (Negative); Color Urine Light Yellow (Yellow); Glucose Urine UA Negative (Negative); Ketones Urine Negative (Negative); Leukocyte Esterase Ur 3+ LEU/UL (Negative); Nitrate Urine Positive (Negative); Protein Urine Negative (Negative); Urobilinogen Urine 0.2 mg/dL (0.2-1.0); pH Urine 6.5 (5.0-8.0)
[2022-02-11 10:03] LABS: Add Urine Microscopic? YES; Blood Urine Trace-Intact (Negative)
[2022-02-11 10:04] LABS: Bacteria Urine 3+ /hpf; RBC Urine 0-2 /hpf (0-2); Squamous Epithelial Cell Urine Rare /hpf (Few); WBC Urine 16-20 /hpf (0-3)
[2022-02-11 10:11] LABS: Creatinine Urine 107.22 mg/dL (40-278); Total Protein Urine Random 29.4 mg/dL (0.0-11.9); Ur Ttl Prot Creatinine Ratio 0.27 mg/mg (0-0.20)
[2022-02-11 10:22] LABS: Alanine Aminotransferase 18 U/L (14-59); Albumin Level 2.9 g/dL (3.4-5.0); Alkaline Phosphatase 123 U/L (46-116); Anion Gap 5 mmol/L (8-16); Aspartate Amino Transferase 14 U/L (15-37); Bilirubin,Total 0.4 mg/dL (0.00-1.00); Blood Urea Nitrogen 10 mg/dL (7-18); Calcium 8.2 mg/dL (8.5-10.1); Carbon Dioxide 32 mmol/L (21-32); Chloride 106 mmol/L (98-108); Estimated Glomerular Filt Rate 46; Free T4 Free Thyroxine 1.03 ng/dL (0.76-1.46); Glucose 112 mg/dL (70-99); Osmolality Calculated 296 mOsm/kg (285-295); Phosphorus 2.8 mg/dL (2.6-4.7); Potassium 3.6 mmol/L (3.5-5.1); Sodium 143 mmol/L (136-145); Total Protein 7.1 g/dL (6.4-8.2)
[2022-02-15 13:44] LABS: Parathyroid Intact 119 pg/mL (14-64)
[2022-02-17 14:04] LABS: Vitamin D 25 Hydroxy 44 ng/mL (30-100)
== END 2022-02-11 09:38 | disposition home or self-care (01) ==
LOC: CHSLAB 09:39
PROVIDERS: PCP Nurse Practitioner Family; Visit Provider Nurse Practitioner Family
DX: E03.9 Hypothyroidism, unspecified (principal); I12.9 Hypertensive chronic kidney disease with stage 1 through stage 4 chronic kidney disease, or unspecified chronic kidney disease; N18.31 Chronic kidney disease, stage 3a; I95.9 Hypotension, unspecified; Z79.899 Other long term (current) drug therapy; R82.90 Unspecified abnormal findings in urine
CPT/HCPCS: 36415; 80053; 81001; 82306; 82570; 83970; 84100; 84156; 84439; 84443; 85025; 87077; 87086; 87088; 87186

== ENCOUNTER 2022-03-03 10:55 | Outpatient (CLI) | payer MEDICARE, SELFPAY ==
[2022-03-03 11:54] LABS: SARS-CoV-2 RNA PCR Positive (Negative)
== END 2022-03-03 10:56 | disposition home or self-care (01) ==
LOC: CHSLAB 10:57
PROVIDERS: PCP Family Medicine; Visit Provider Family Medicine
DX: U07.1 COVID-19 (principal); J06.9 Acute upper respiratory infection, unspecified
CPT/HCPCS: C9803; U0003; U0005

== ENCOUNTER 2022-03-31 15:05 | Outpatient (CLI) | payer MEDICARE, SELFPAY ==
--- NOTE | 2022-03-31 15:08 | ECG_ITS ---
Measurements Intervals [place] Rate: 74 P: 42 [place]: 188 QRS: 9 QRSD: 89 T: 10 QT: 366 QTc: 407 Interpretive Statements SINUS RHYTHM LOW QRS VOLTAGE IN PRECORDIAL LEADS BORDERLINE ECG COMPARED TO ECG 06/03/2021 14:48:53 SINUS RHYTHM NOW PRESENT Electronically Signed On 03-31-2022 16:07:16 CDT by Fabricio Viera M.D.
[2022-03-31 15:33] LABS: Basophils Absolute Auto 0.07 K/mm3 (0.00-0.10); Basophils Percent Auto 0.5 % (0.0-1.0); Eosinophils Absolute Auto 0.12 K/mm3 (0.02-0.50); Eosinophils Percent Auto 0.9 % (1.0-6.0); Hematocrit 41.5 % (35.0-49.0); Hemoglobin 13.7 g/dL (12.0-15.0); Immature Granulocyte Absolute 0.09 K/mm3 (0.00-0.00); Immature Granulocyte Percent A 0.7 % (0.0-0.0); Lymphocytes Absolute Auto 2.64 K/mm3 (1.10-4.50); Lymphocytes Percent Auto 19.8 % (18.0-42.0); Mean Corpuscular Hemoglobin 29.9 pg (27.0-31.0); Mean Corpuscular Volume 90.6 fL (78.0-102.0); Mean Platelet Volume 9.5 fl (9.2-11.8); Monocytes Absolute Auto 1.29 K/mm3 (0.10-0.90); Monocytes Percent Auto 9.7 % (2.0-11.0); Neutrophils Absolute Auto 9.1 K/mm3 (1.7-7.2); Neutrophils Percent Auto 68.4 % (50.0-70.0); Platelet Count Result 374 K/mm3 (150-420); Red Blood Count 4.58 M/mm3 (4.20-5.40); Red Cell Distribution Width 12.4 % (11.6-14.4); White Blood Count 13.4 K/mm3 (4.8-10.8)
[2022-03-31 15:59] LABS: Alanine Aminotransferase 30 U/L (14-59); Albumin Level 3.5 g/dL (3.4-5.0); Alkaline Phosphatase 147 U/L (46-116); Anion Gap 13 mmol/L (8-16); Aspartate Amino Transferase 19 U/L (15-37); Bilirubin,Total 0.3 mg/dL (0.00-1.00); Blood Urea Nitrogen 17 mg/dL (7-18); Calcium 8.7 mg/dL (8.5-10.1); Carbon Dioxide 24 mmol/L (21-32); Chloride 103 mmol/L (98-108); Estimated Glomerular Filt Rate 30; Free T4 Free Thyroxine 1.15 ng/dL (0.76-1.46); Glucose 82 mg/dL (70-99); Iron 61 ug/dL (50-170); Magnesium 1.7 mg/dL (1.8-2.4); Osmolality Calculated 290 mOsm/kg (285-295); Potassium 4.1 mmol/L (3.5-5.1); Sodium 140 mmol/L (136-145); Thyroid Stimulating Hormone 2.67 uIU/mL (0.36-3.74); Total Protein 7.6 g/dL (6.4-8.2)
[2022-04-05 07:28] LABS: Vitamin D 25 Hydroxy 45 ng/mL (30-100)
== END 2022-03-31 15:06 | disposition home or self-care (01) ==
PROVIDERS: PCP Nurse Practitioner Family; Visit Provider Nurse Practitioner Family
DX: R55 Syncope and collapse (principal); I10 Essential (primary) hypertension; D64.9 Anemia, unspecified; E03.9 Hypothyroidism, unspecified; Z79.899 Other long term (current) drug therapy
CPT/HCPCS: 36415; 80053; 82306; 83540; 83735; 84439; 84443; 85025; 93005

== ENCOUNTER 2022-04-01 10:32 | Emergency (ER) | payer MEDICARE, MEDICAID, SELFPAY ==
--- NOTE | ~2022-04-01 | CT_ITS ---
EXAMINATION: CT brain wo con DATE: 04/01/2022 12:11 INDICATION: Syncope. Headache. Dizziness. TECHNIQUE: Computed tomography (CT) of the head was performed without intravenous contrast. The mA wa s adjusted according to patient size. Iterative reconstruction technique was employed. The dose-lengt h product was 529.67 mGy-cm. COMPARISON: Head CT 11/13/2020 FINDINGS: There is no intracranial hemorrhage, acute infarction, or abnormal intracranial mass lesion . The ventricles are normal in size. There is mild mucosal thickening in the paranasal sinuses. The m astoid air cells are normal. IMPRESSION: 1. Normal brain. Reviewed, dictated and finalized at location A. IMPRESSION: 1. Normal brain.
--- NOTE | ~2022-04-01 | XR_ITS ---
EXAMINATION: XR chest 1V portable 04/01/2022 11:38 INDICATION: Shortness of breath PROCEDURE: AP portable chest COMPARISON: Comparison to multiple prior studies sequentially, with oldest reviewed study dated 10/2018. FINDINGS: The lungs are clear. The cardiomediastinal silhouette is within normal limits. There are no pleural effusions. There is no pneumothorax suspected. IMPRESSION: 1: NO ACUTE CARDIOPULMONARY DISEASE. Reviewed, dictated and finalized at location A.
--- NOTE | ~2022-04-01 | CT_ITS ---
EXAMINATION: CTA chest PE protocol DATE: 04/01/2022 12:55 INDICATION: Syncopal episode. Elevated d-dimer. TECHNIQUE: Computed tomography (CT) pulmonary angiogram of the chest was performed with 100 mL Omnipa que-350 intravenous contrast. Additional 3D reconstructions utilizing coronal maximum intensity proje ction (MIP) were performed. The dose-length product was 614.74 mGy-cm. COMPARISON: None FINDINGS: No pulmonary embolism. A couple calcified left lower lobe nodules and calcified left hilar lymph node s consistent with old granulomatous disease. No pneumonia, pulmonary edema, pleural effusion or pneum othorax. Heart size is normal. There is reflux of some contrast into the inferior vena cava and hepat ic veins which can be seen with tricuspid regurgitation. No pericardial effusion. Thoracic aorta is n ormal in caliber with no dissection. No pathologically enlarged thoracic lymphadenopathy. T7 hemangio ma. Mild thoracic spondylosis. IMPRESSION: 1. No pulmonary embolism or other acute cardiopulmonary disease. Reviewed, dictated and finalized at location A.
[2022-04-01 10:35] VITALS: BP 103/74; PULSE 67; RESP 20; TEMP 36.8; O2SAT 97
[2022-04-01 11:02] LABS: Glucose Point of Care 110 mg/dl (65-105)
--- NOTE | 2022-04-01 11:06 | ECG_ITS ---
Measurements Intervals [place] Rate: 63 P: 32 [place]: 201 QRS: -3 QRSD: 98 T: -6 QT: 390 QTc: 402 Interpretive Statements SINUS RHYTHM MINIMAL VOLTAGE CRITERIA FOR LVH, CONSIDER NORMAL VARIANT BORDERLINE ECG COMPARED TO ECG 03/31/2022 15:32:55 NO SIGNIFICANT CHANGES Electronically Signed On 04-01-2022 15:20:14 CDT by Fabricio Viera M.D.
--- NOTE | 2022-04-01 11:07 | ED.SYNCOPE ---
HPI - Syncope General Chief Complaint: Syncope Stated Complaint: Dizzy,tunnel double vision blackout/Sob Body tingl Time Seen by Provider: 04/01/22 11:07 Source: patient Mode of arrival: ambulatory History of Present Illness HPI narrative: 56-year-old female with a history of hypertension, anxiety, hypothyroidism, mitral valve prolapse, status post cardiac catheterization, benign intracranial hypertension presents, Fibromyalgia, polyneuropathy presents to the ER with -- syncopal spell. she has had multiple prior episodes of syncope in the past 1 year. she had a syncopal spell 2 days ago and sustained a fall with bruising over her left arm. She went to her primary care physician yesterday for syncope and had lab work done which revealed CKD with a creatinine of 1.7, magnesium 0.7 and an elevated white cell count of 13.4. She feels that her symptoms are similar to the benign intracranial hypertension which she had when she was at age 18. recent negative stress test. -- tunnel vision/ double vision off and on without any relation to her syncopal spells -- numbness and tingling of extremities. she has been on Lyrica. she has never had nerve conduction studies. -- intermittent shortness of breath. No cough or sputum production. No chest pain. MD complaint: almost passed out Onset (ago): minute(s) ( Multiple episodes) Duration of episode: 2 -: second(s) Prodromal symptoms: none, lightheaded and palpitations Witnessed: Yes - by Bystander Context: at rest ( she had multiple syncopal spell without any relation to position or activity) Injuries sustained associated with event: LUE ( Has bruising of the left arm from a syncopal spell 2 days ago) Current symptoms: lightheaded, shortness of breath and weakness History: previous syncopal episode Treatments prior to arrival: none Related Data Home Medications Medication Instructions Recorded Confirmed cholecalciferol (vitamin D3) 1,250 1,250 mcg PO WEEKLY 04/29/21 04/01/22 mcg (50,000 unit) capsule epinephrine 0.3 mg/0.3 mL 0.3 mg IM PRN PRN Anaphylaxis 04/29/21 04/01/22 injection syringe Allergies Allergy/AdvReac Type Severity Reaction Status Date / Time aspirin Allergy Intermediate unknown Verified 03/31/22 14:31 Bleach (Sodium Hypochlorite) Allergy Intermediate unknown Verified 03/31/22 14:31 NSAIDS (Non-Steroidal Allergy Intermediate unknown Verified 03/31/22 14:31 Anti-Inflamma ibuprofen Allergy Unknown unknown Verified 03/31/22 14:31 oxycodone AdvReac Mild hypotension Verified 03/31/22 14:31 and visual disturbance Bee stings Allergy Intermediate unknown Uncoded 03/31/22 14:31 NONSTEROIDAL Allergy Unknown unknown Uncoded 03/31/22 14:31 PREDNISONE (Generic Allergy) Allergy Unknown Y Uncoded 03/31/22 14:31 SALICYLATES Allergy Unknown unknown Uncoded 03/31/22 14:31 Review of Systems Review of Systems: All systems reviewed & are unremarkable except as noted in HPI and below Constitutional: Constitutional: Reports as per HPI, Reports no additional constitutional complaints and Reports weakness Eyes: Eyes: Reports as per HPI and Reports no additional eye complaints ENT: Reports system reviewed and no additional complaints, except as documented Cardiovascular: Cardiovascular: Reports as per HPI and Reports no additional cardiovascular complaints Respiratory: Respiratory: Reports as per HPI and Reports no additional respiratory complaints Gastrointestinal: Gastrointestinal: Reports as per HPI and Reports no additional gastrointestinal complaints Genitourinary: Genitourinary: Reports no additional female genitourinary complaints and Reports as per HPI Musculoskeletal: Musculoskeletal: Reports no additional musculoskeletal complaints and Reports as per HPI Integumentary/Breasts: Skin/Breast: Reports system reviewed and no additional complaints, except as docu and Reports as per HPI Neurologic: Reports system reviewed and no additional complaints, exc
[2022-04-01 11:15] VITALS: BP 118/64
[2022-04-01 11:16] VITALS: BP 98/56
[2022-04-01 11:29] LABS: Basophils Absolute Auto 0.06 K/mm3 (0.00-0.10); Basophils Percent Auto 0.5 % (0.0-1.0); Eosinophils Percent Auto 0.9 % (1.0-6.0); Hematocrit 37.7 % (35.0-49.0); Hemoglobin 12.5 g/dL (12.0-15.0); Immature Granulocyte Absolute 0.05 K/mm3 (0.00-0.00); Immature Granulocyte Percent A 0.4 % (0.0-0.0); Lymphocytes Percent Auto 19.6 % (18.0-42.0); Mean Corpuscular HGB Conc 33.2 g/dL (32.0-36.0); Mean Corpuscular Hemoglobin 30.3 pg (27.0-31.0); Mean Corpuscular Volume 91.3 fL (78.0-102.0); Mean Platelet Volume 9.5 fl (9.2-11.8); Monocytes Percent Auto 9.8 % (2.0-11.0); Neutrophils Absolute Auto 7.7 K/mm3 (1.7-7.2); Neutrophils Percent Auto 68.8 % (50.0-70.0); Platelet Count Result 307 K/mm3 (150-420); Red Blood Count 4.13 M/mm3 (4.20-5.40); Red Cell Distribution Width 12.4 % (11.6-14.4); White Blood Count 11.2 K/mm3 (4.8-10.8)
[2022-04-01] MEDS: LACTATED RINGERS 1,000 ML 999 ML IV CONT (11:31)
[2022-04-01 11:46] LABS: Alanine Aminotransferase 28 U/L (14-59); Albumin Level 3.1 g/dL (3.4-5.0); Alkaline Phosphatase 141 U/L (46-116); Anion Gap 10 mmol/L (8-16); Aspartate Amino Transferase 16 U/L (15-37); Bilirubin,Total 0.3 mg/dL (0.00-1.00); Blood Urea Nitrogen 16 mg/dL (7-18); Calcium 8.4 mg/dL (8.5-10.1); Carbon Dioxide 24 mmol/L (21-32); Chloride 104 mmol/L (98-108); Estimated Glomerular Filt Rate 33; Glucose 72 mg/dL (70-99); Osmolality Calculated 286 mOsm/kg (285-295); Potassium 3.3 mmol/L (3.5-5.1); Sodium 138 mmol/L (136-145); Total Protein 7.4 g/dL (6.4-8.2); Troponin I 15.5 ng/L (0.00-60.4)
[2022-04-01 11:53] LABS: Partial Thromboplastin Time 27.4 SEC (23.90-30.70); Prothrombin Time 10.8 Seconds (9.50-12.10)
[2022-04-01 12:04] LABS: NT Pro B Type Natriuretic Pept 221 pg/mL (0-125)
[2022-04-01 12:24] VITALS: BP 111/84; PULSE 60; RESP 20; TEMP 36.6; O2SAT 98
[2022-04-01 12:43] LABS: Add Urine Microscopic? NO; Appearance Urine Clear (Clear); Bilirubin Urine Negative (Negative); Blood Urine Negative (Negative); Color Urine Light Yellow (Yellow); Glucose Urine UA Negative (Negative); Ketones Urine Negative (Negative); Leukocyte Esterase Ur Negative (Negative); Nitrate Urine Negative (Negative); Protein Urine Negative (Negative); Specific Grav Ur <= 1.005 (1.010-1.020); Urobilinogen Urine 0.2 mg/dL (0.2-1.0)
[2022-04-01 14:15] VITALS: BP 106/63; PULSE 54; RESP 18; O2SAT 100
[2022-04-01 14:18] VITALS: BP 106/63; PULSE 54; RESP 18; TEMP 36.8; O2SAT 98
== END 2022-04-01 14:32 | disposition home or self-care (01) ==
PROVIDERS: Emergency Provider Internal Medicine Critical Care Medicine; PCP Nurse Practitioner Family
DX: R55 Syncope and collapse (principal); N18.30 Chronic kidney disease, stage 3 unspecified; F41.9 Anxiety disorder, unspecified; K21.9 Gastro-esophageal reflux disease without esophagitis; E03.9 Hypothyroidism, unspecified; I12.9 Hypertensive chronic kidney disease with stage 1 through stage 4 chronic kidney disease, or unspecified chronic kidney disease; Z87.891 Personal history of nicotine dependence; R06.02 Shortness of breath
CPT/HCPCS: 36415; 70450; 71045; 71275; 80053; 81003; 82948; 83880; 84484; 85025; 85380; 85610; 85730; 93005; 96360; 99284; J7120; Q9967

== ENCOUNTER 2022-06-08 18:01 | Emergency (ER) | payer MEDICARE, MEDICAID, SELFPAY ==
[2022-06-08] VITALS (8 sets, daily range): BP systolic 101–136; BP diastolic 72–99; PULSE 56–74; RESP 13–22; TEMP 36.3; O2SAT 96–98
--- NOTE | ~2022-06-08 | CT_ITS ---
EXAMINATION: CT diagnostic chest wo con DATE: 06/08/2022 19:06 INDICATION: left chest wall pain. TECHNIQUE: Computed tomography (CT) of the chest was performed with 100 mL Omnipaque-350 intravenous contrast. Automated exposure control and iterative reconstruction technique were employed. The dose-l ength product was 556.91 mGy-cm. COMPARISON: 04/01/2022. FINDINGS: CHEST: Thoracic aorta: No significant dilation or calcification. Lung parenchyma and airways: Left lower lobe granulomas, otherwise the lungs and airways are clear. Thoracic inlet, axillae and chest wall: No thyroid or soft tissue mass. No axillary lymphadenopathy. Mediastinum: No mass or lymphadenopathy. Heart and pericardium: Normal heart size. No pericardial effusion. Coronary artery calcifications: Absent. Pleura: No effusion or mass. Upper abdomen: No significant finding. Thoracic bones: No acute osseous finding in the chest. IMPRESSION: No acute thoracic process detected. Reviewed, dictated and finalized at location K.
--- NOTE | ~2022-06-08 | CT_ITS ---
EXAMINATION: CT brain wo con DATE: 06/08/2022 19:06 INDICATION: dizziness . TECHNIQUE: Computed tomography (CT) of the head was performed without intravenous contrast. The mA wa s adjusted according to patient size. Iterative reconstruction technique was employed. The dose-lengt h product was 605.33 mGy-cm. COMPARISON: 04/01/2022 FINDINGS: No acute intracranial hemorrhage or extra-axial fluid collection. No hydrocephalus, mass, or herniation. No acute ischemic infarct. Unremarkable dural venous sinus attenuation. No acute osseous abnormality. The aerated spaces are clear. IMPRESSION: No acute intracranial process. Reviewed, dictated and finalized at location K.
--- NOTE | 2022-06-08 18:04 | ECG_ITS ---
Measurements Intervals [place] Rate: 62 P: 19 MN: 194 QRS: -7 QRSD: 95 T: -11 QT: 423 QTc: 431 Interpretive Statements SINUS RHYTHM MINIMAL VOLTAGE CRITERIA FOR LVH, CONSIDER NORMAL VARIANT [MEETS CRITERIA IN ONE OF: R(aVL), S(V1), R(V5), R(V5/V6)+S(V1)] COMPARED TO ECG 04/01/2022 11:08:19 NO SIGNIFICANT CHANGES Electronically Signed On 06-09-2022 19:39:04 CDT by Arlyn Garcia M.D.
--- NOTE | 2022-06-08 18:32 | ED.CHESTPAIN ---
HPI - Chest Pain General Chief Complaint: Chest Pain Stated Complaint: ambulance Time Seen by Provider: 06/08/22 18:05 Source: patient, EMS and RN notes reviewed Mode of arrival: EMS Limitations: no limitations History of Present Illness MD complaint: chest pain (left chest wall very tender on palpation) Pertinent past history: other (fibromyalgia and neuropathy) Onset (ago): day(s) (3) Timing of current episode: constant Prior episodes: Yes Onset: during rest and during exertion Pain location: left chest Pain radiation: left arm Severity: moderate Pain scale (0-10): 5 Quality: aching and dull Relieving factors: medication-other Exacerbating factors: inspiration Risk Factors Coronary artery disease risk factors: hypertension Related Data On Oral Contraceptives: No Home Medications Medication Instructions Recorded Confirmed epinephrine 0.3 mg/0.3 mL 0.3 mg IM PRN PRN Anaphylaxis 04/29/21 06/08/22 injection syringe Allergies Allergy/AdvReac Type Severity Reaction Status Date / Time aspirin Allergy Intermediate unknown Verified 06/08/22 18:12 Bleach (Sodium Hypochlorite) Allergy Intermediate unknown Verified 06/08/22 18:12 NSAIDS (Non-Steroidal Allergy Intermediate unknown Verified 06/08/22 18:12 Anti-Inflamma ibuprofen Allergy Unknown unknown Verified 06/08/22 18:12 oxycodone AdvReac Mild hypotension Verified 06/08/22 18:12 and visual disturbance Bee stings Allergy Intermediate unknown Uncoded 06/08/22 18:12 NONSTEROIDAL Allergy Unknown unknown Uncoded 06/08/22 18:12 PREDNISONE (Generic Allergy) Allergy Unknown Y Uncoded 06/08/22 18:12 SALICYLATES Allergy Unknown unknown Uncoded 06/08/22 18:12 Review of Systems Review of Systems: All systems reviewed & are unremarkable except as noted in HPI and below Constitutional: Constitutional: Reports no additional constitutional complaints Eyes: Eyes: Reports no additional eye complaints ENT: Reports system reviewed and no additional complaints, except as documented Cardiovascular: Cardiovascular: Reports no additional cardiovascular complaints and Reports chest pain Respiratory: Respiratory: Reports no additional respiratory complaints Gastrointestinal: Gastrointestinal: Reports no additional gastrointestinal complaints Genitourinary: Genitourinary: Reports no additional female genitourinary complaints Musculoskeletal: Musculoskeletal: Reports no additional musculoskeletal complaints Integumentary/Breasts: Skin/Breast: Reports system reviewed and no additional complaints, except as docu Neurologic: Reports system reviewed and no additional complaints, except as documented and Reports headache(s) Psychiatric: Psychiatric: Reports no additional psychiatric complaints Endocrine: Endocrine: Reports no additional endocrine complaints Hematologic/Lymphatic: Hematologic/Lymphatic: Reports no additional hematologic/lymphatic complaints Allergic/Immunologic: Allergic/Immunologic: Reports no additional allergic/immunologic complaints PMFSH Past Medical History Medical History Anxiety Atypical chest pain Fibromyalgia Generalized edema GERD (gastroesophageal reflux disease) Hypertension Hypothyroidism Migrainous headache without aura Mitral valve regurgitation S/P repair by cath Otitis externa, left Overweight Polyneuropathy Pre-op exam Primary insomnia Surgical History Surgical History Fracture, intertrochanteric, left femur H/O: hysterectomy History of appendectomy History of total right knee replacement (TKR) Status post hip surgery 01/25/2020 Family History Family History Mother Hypertension Family history of type 2 diabetes mellitus Social History Social History Smoking status: Former smoker Tobacco
[2022-06-08] MEDS: SODIUM CHLORIDE 0.9% IV 500 ML 999 ML IV CONT (18:45)
[2022-06-08] MEDS: ACETAMINOPHEN 325 MG TABLET 650 MG PO (18:46)
[2022-06-08 18:53] LABS: Basophils Absolute Auto 0.06 K/mm3 (0.00-0.10); Basophils Percent Auto 0.7 % (0.0-1.0); Eosinophils Absolute Auto 0.16 K/mm3 (0.02-0.50); Eosinophils Percent Auto 1.8 % (1.0-6.0); Hematocrit 39.3 % (35.0-49.0); Hemoglobin 12.9 g/dL (12.0-15.0); Immature Granulocyte Absolute 0.04 K/mm3 (0.00-0.00); Immature Granulocyte Percent A 0.4 % (0.0-0.0); Lymphocytes Percent Auto 26.5 % (18.0-42.0); Mean Corpuscular HGB Conc 32.8 g/dL (32.0-36.0); Mean Corpuscular Hemoglobin 29.7 pg (27.0-31.0); Mean Corpuscular Volume 90.6 fL (78.0-102.0); Mean Platelet Volume 9.9 fl (9.2-11.8); Monocytes Absolute Auto 0.78 K/mm3 (0.10-0.90); Monocytes Percent Auto 8.6 % (2.0-11.0); Neutrophils Absolute Auto 5.6 K/mm3 (1.7-7.2); Platelet Count Result 338 K/mm3 (150-420); Red Blood Count 4.34 M/mm3 (4.20-5.40); Red Cell Distribution Width 12.6 % (11.6-14.4)
--- NOTE | 2022-06-08 18:54 | PC.NURSE ---
iv fluids finished and discontinued from patient.
[2022-06-08 19:12] LABS: Alanine Aminotransferase 20 U/L (14-59); Albumin Level 3.3 g/dL (3.4-5.0); Alkaline Phosphatase 129 U/L (46-116); Anion Gap 5 mmol/L (8-16); Aspartate Amino Transferase 17 U/L (15-37); Bilirubin,Total 0.3 mg/dL (0.00-1.00); Blood Urea Nitrogen 20 mg/dL (7-18); Calcium 8.4 mg/dL (8.5-10.1); Carbon Dioxide 29 mmol/L (21-32); Chloride 105 mmol/L (98-108); Estimated Glomerular Filt Rate 43; Glucose 98 mg/dL (70-99); Osmolality Calculated 290 mOsm/kg (285-295); Potassium 4.2 mmol/L (3.5-5.1); Sodium 139 mmol/L (136-145); Total Protein 7.7 g/dL (6.4-8.2); Troponin I 6.1 ng/L (0.00-60.4)
[2022-06-08 19:15] LABS: Lactic Acid Reflex 0.7 mmol/L (0.4-2.0)
--- NOTE | 2022-06-08 19:38 | PC.NURSE ---
no questions from outgoing nurse, fluids resumed when pt returned from imaging
[2022-06-08] MEDS: MORPHINE SULFATE (*CRX) 2 MG/ML INJ IV PUSH (19:53)
--- NOTE | 2022-06-23 13:31 | PC.NURSE ---
LATE ENTRY This note is being entered to document information to the patient's record. The following information was omitted on [06/08/22], by [Ezekiel Guo]. Iv NS 500ml completed at 2030 on 06/08/22
== END 2022-06-08 20:32 | disposition home or self-care (01) ==
PROVIDERS: Emergency Provider Emergency Medicine; PCP Nurse Practitioner Family
DX: R07.89 Other chest pain (principal); M94.0 Chondrocostal junction syndrome [Tietze]; G43.909 Migraine, unspecified, not intractable, without status migrainosus; K21.9 Gastro-esophageal reflux disease without esophagitis; I10 Essential (primary) hypertension; E03.9 Hypothyroidism, unspecified; Z87.891 Personal history of nicotine dependence
CPT/HCPCS: 36415; 70450; 71250; 80053; 83605; 84484; 85025; 93005; 96361; 96374; 99284; A9270; J2270; J7040

== ENCOUNTER 2022-08-18 07:56 | Outpatient (CLI) | payer MEDICARE, MEDICAID, SELFPAY ==
[2022-08-18 08:24] LABS: Basophils Absolute Auto 0.07 K/mm3 (0.00-0.10); Basophils Percent Auto 0.7 % (0.0-1.0); Eosinophils Absolute Auto 0.21 K/mm3 (0.02-0.50); Eosinophils Percent Auto 2.1 % (1.0-6.0); Hematocrit 38.7 % (35.0-49.0); Hemoglobin 12.9 g/dL (12.0-15.0); Immature Granulocyte Absolute 0.03 K/mm3 (0.00-0.00); Immature Granulocyte Percent A 0.3 % (0.0-0.0); Lymphocytes Absolute Auto 3.07 K/mm3 (1.10-4.50); Lymphocytes Percent Auto 30.8 % (18.0-42.0); Mean Corpuscular HGB Conc 33.3 g/dL (32.0-36.0); Mean Corpuscular Hemoglobin 29.9 pg (27.0-31.0); Mean Corpuscular Volume 89.8 fL (78.0-102.0); Mean Platelet Volume 9.6 fl (9.2-11.8); Monocytes Absolute Auto 0.69 K/mm3 (0.10-0.90); Monocytes Percent Auto 6.9 % (2.0-11.0); Neutrophils Absolute Auto 5.9 K/mm3 (1.7-7.2); Neutrophils Percent Auto 59.2 % (50.0-70.0); Platelet Count Result 307 K/mm3 (150-420); Red Blood Count 4.31 M/mm3 (4.20-5.40)
[2022-08-18 08:43] LABS: Hemoglobin A1C 5.3 % (<5.7)
[2022-08-18 09:08] LABS: Albumin Level 3.4 g/dL (3.4-5.0); Anion Gap 12 mmol/L (8-16); Blood Urea Nitrogen 21 mg/dL (7-18); Calcium 8.1 mg/dL (8.5-10.1); Carbon Dioxide 24 mmol/L (21-32); Chloride 103 mmol/L (98-108); Estimated Glomerular Filt Rate 23; Folic Acid 4.2 ng/mL (8.6->20); Glucose 121 mg/dL (70-99); Osmolality Calculated 292 mOsm/kg (285-295); Phosphorus 4.4 mg/dL (2.6-4.7); Potassium 3.4 mmol/L (3.5-5.1); Sodium 139 mmol/L (136-145); Thyroid Stimulating Hormone 5.87 uIU/mL (0.36-3.74); Vitamin B12 655 pg/mL (193-986)
[2022-08-21 12:16] LABS: Methylmalonic Acid 252 nmol/L (87-318)
[2022-08-21 13:45] LABS: Zinc 62 mcg/dL (60-130)
[2022-08-21 17:29] LABS: Homocysteine 17.5 umol/L (<10.4)
[2022-08-21 20:15] LABS: Parathyroid Intact 76 pg/mL (14-64)
[2022-08-23 06:45] LABS: Vitamin B1 8 nmol/L (8-30)
== END 2022-08-18 07:57 | disposition home or self-care (01) ==
LOC: CHSLAB 07:58
PROVIDERS: PCP Nurse Practitioner Family; Visit Provider Student in an Organized Health Care Education/Training Program
DX: G62.9 Polyneuropathy, unspecified (principal); N18.31 Chronic kidney disease, stage 3a; R55 Syncope and collapse; I10 Essential (primary) hypertension
CPT/HCPCS: 36415; 80069; 82525; 82607; 82746; 83036; 83090; 83921; 83970; 84425; 84443; 84446; 84630; 85025; 86038; 86334

== ENCOUNTER 2022-11-10 10:43 | Outpatient (CLI) | payer MEDICARE, MEDICAID, SELFPAY ==
--- NOTE | ~2022-11-10 | CT_ITS ---
EXAMINATION: CTA brain carotid DATE: 11/10/2022 11:30 INDICATION: Syncope and collapse. TECHNIQUE: Computed tomographic angiography (CTA) of the head was performed without and with 100 mL O mnipaque-350 intravenous contrast. CTA of the neck was performed with intravenous contrast. Automated exposure control and iterative reconstruction technique were employed. The dose-length product was 1 755.01 mGy-cm. Maximum intensity projection and volume rendered 3D-reconstructions were created by lea cramer technologist on a separate workstation. COMPARISON: Head CT 06/08/2022 FINDINGS: HEAD CTA: There is no intracranial hemorrhage, acute infarction, or abnormal intracranial mass lesion . The ventricles are normal in size. The paranasal sinuses are clear. The orbits are normal. The mast oid air cells are normal. Left vertebral artery is dominant. There is no significant stenosis of basi lar artery or the posterior cerebral arteries. There is no significant stenosis of the intracranial i nternal carotid arteries or anterior or middle cerebral arteries. Anterior communicating artery is no rmal. The posterior communicating arteries are normal. There is no aneurysm. NECK CTA: There are no pathologically enlarged lymph nodes. There is no significant stenosis of the v ertebral arteries. There is plaque in the proximal internal carotid arteries. There is 0% stenosis of the proximal right internal carotid artery relative to normal distal artery lumen diameter (NASCET c riteria). There is 0% stenosis of the proximal left internal carotid artery relative to normal distal artery lumen diameter. There is mild cervical spondylosis. IMPRESSION: 1. Normal brain. No aneurysm or significant intracranial arterial stenosis. 2. 0% stenosis of the proximal internal carotid arteries relative to normal distal artery lumen diame ters (NASCET criteria). Reviewed, dictated and finalized at location A. IMPRESSION: 1. Normal brain. No aneurysm or significant intracranial arterial stenosis. 2. 0% stenosis of the proximal internal carotid arteries relative to normal dis karen artery lumen diameters (NASCET criteria).
[2022-11-10 11:10] LABS: Estimated Glomerular Filt Rate 33
[2022-11-10 12:09] LABS: Hematocrit 39.3 % (37.0-47.0); Hemoglobin 13.5 g/dL (12.0-15.0); Mean Corpuscular HGB Conc 34.4 g/dl (32-36); Mean Corpuscular Hemoglobin 30.8 pg (26-34); Mean Corpuscular Volume 89.5 fl (80-100); Mean Platelet Volume 10.1 fl (7.4-10.4); Platelet Count Result 266 k/mm3 (150-375); Red Blood Count 4.39 M/mm3 (4.2-5.4); Red Cell Distribution Width 11.9 % (11.5-14.5); White Blood Count 10.1 K/mm3 (4.5-10.0)
[2022-11-10 12:25] LABS: Cholesterol 217 mg/dL (0-200); HDL Direct 35 mg/dL; Triglycerides 156 mg/dL (<150)
[2022-11-10 12:26] LABS: Albumin Level 3.9 g/dL (3.5-5.1); Anion Gap 6 mmol/L (8-16); Blood Urea Nitrogen 13 mg/dL (7-17); Calcium 8.4 mg/dL (8.4-10.2); Carbon Dioxide 24 mmol/L (22-30); Chloride 105 mmol/L (98-107); Estimated Glomerular Filt Rate 39; Glucose 102 mg/dL (65-110); Phosphorus 3.5 mg/dL (2.5-4.5); Potassium 3.9 mmol/L (3.4-5.0); Sodium 135 mmol/L (137-145)
[2022-11-10 12:36] LABS: LDL Cholesterol Direct 127 mg/dL
== END 2022-11-10 10:44 | disposition home or self-care (01) ==
PROVIDERS: Internal Medicine Cardiovascular Disease; Internal Medicine Nephrology; PCP Nurse Practitioner Family; Visit Provider Student in an Organized Health Care Education/Training Program
DX: R55 Syncope and collapse (principal); I12.9 Hypertensive chronic kidney disease with stage 1 through stage 4 chronic kidney disease, or unspecified chronic kidney disease; N18.32 Chronic kidney disease, stage 3b
CPT/HCPCS: 70496; 70498; 80061; 80069; 82533; 84443; 85027; Q9967

== ENCOUNTER 2022-11-16 02:08 | Outpatient (CLI) | payer MEDICARE, MEDICAID, SELFPAY ==
[2022-11-02 15:12] VITALS: BMI 38.7
--- NOTE | 2022-11-02 15:12 | PC.NURSE ---
Pre Radiology instructions Report to the outpatient [facility] AT 0800 on date 11/16/22. Procedure Time: 1000. YOU MAY BE MONITORED AT HOSPITAL FOR UP TO 4 HOURS AFTER YOUR PROCEDURE. 1-2 visitors will be allowed to accompany the patient into the hospital. ?The visitor will be instructed to remain with patient at all times or MAY BE ASKED TO leave the building due to restrictions.? We will allow the visitor to come back to the postoperative area when patient is ready.? NO children visitors allowed at this time. You and your visitor will be asked to self-screen and do not enter if you have any COVID symptoms. A mask is OPTIONAL within the hospital. Patients are to have no food or drink 6 hours prior to procedure time Driving will be restricted after the procedure, you must have a person to drive you home. Labs will be drawn in preop area and once reviewed, you will be taken to radiology area for procedure. When the procedure is completed, you will be taken to outpatient where you will be monitored for several hours. You may have one visitor in this area. Other than holding anti-coagulants, patient may take other medication(s) as scheduled. Prior to your appointment date patients are instructed to hold anti-coagulants after discussing with ordering provider to stop. If unable to discontinue anti-coagulants please notify radiologist. ? No aspirin or warfarin (Coumadin) for 7 days prior to the procedure. ? No clopidogrel (Plavix), ticagrelor (Brilinta), prasugrel (Effient) or dabigatran (Pradaxa) for 5 days prior to the procedure. ? No rivaroxaban (Xarelto), apixaban (Eliquis), dipyridamole (Aggrenox or Persantine) or cilostazol (Pletal) for 2 days prior to the procedure. Medications to discontinue per physician: N/A Date to take last dose: N/A Please leave all valuables, including medications, at home the day of procedure. The hospital will not accept responsibility for valuables. Wear comfortable, loose fitting clothing.? Follow any additional instructions given to you from ordering provider. Telephone instructions given to PT - CARLO MENDOZA and asked if any additional questions and then verbalized understanding. Patient advised to call scheduling provider office or registration scheduling [phone] if any additional questions.
[2022-11-16] VITALS (10 sets, daily range): BP systolic 104–126; BP diastolic 52–79; PULSE 56–66; RESP 16–18; TEMP 36.3; O2SAT 96–98
--- NOTE | ~2022-11-16 | XR_ITS ---
EXAMINATION: XR lumbar puncture diagnostic DATE: 11/16/2022 11:06 INDICATION: Idiopathic intracranial hypertension TECHNIQUE: The procedure including the risks and benefits was discussed with the patient. Risks discu ssed included spinal headache, cerebrospinal fluid leak, bleeding, and infection. The patient underst ood the risks and agreed to proceed. A timeout was performed to verify the patient's name, date of , and procedure to be performed. The skin overlying the L4-L5 level was prepped and draped in usual sterile fashion. Subcutaneous 1% lidocaine was used for local anesthesia. A 22 gauge spinal n eedle was advanced under fluoroscopic guidance. Opening pressure was obtained. The needle was removed and the entry site was cleaned and dressed. There were no immediate complications. A total of 2 flu oroscopic images and one overhead radiographs were obtained. The amount of fluoroscopy time used duri ng this procedure was 0.3 minutes. The patient was taken to the nursing area for observation. FINDINGS: Real-time fluoroscopy demonstrates the needle at the L4-L5 level. Opening pressure was 28 c m water. (Normal range is variably defined as 6-20 cm water and up to 25 cm water in obese patients. Pressure >25 cm water is one of the modified Dandy criteria for idiopathic intracranial hypertension) . An intrathecal pain pump catheter extends into the central canal by a left paramedian approach at t he level of L2-L3. IMPRESSION: 1. Successful fluoro-guided lumbar puncture with elevated opening pressure of 28 cm water. Reviewed, dictated and finalized at location A. IMPRESSION: 1. Successful fluoro-guided lumbar puncture with elevated opening pressure of 2 8 cm water.
[2022-11-16 08:34] LABS: Mean Platelet Volume 10.1 fl (7.4-10.4); Platelet Count Result 242 k/mm3 (150-375)
[2022-11-16 08:44] LABS: Prothrombin Time 12.8 Seconds (11.1-14.7)
[2022-11-16 09:33] LABS: Appearance Urine Clear (Clear); Bacteria Urine None Seen /hpf; Bilirubin Urine Negative (Negative); Blood Urine Negative (Negative); Color Urine Yellow (Yellow); Glucose Urine UA Negative (Negative); Ketones Urine Negative (Negative); Leukocyte Esterase Ur 1+ LEU/UL (NEGATIVE); Nitrate Urine Negative (Negative); Non Pathogenic Casts 0-2; Protein Urine Negative (Negative); RBC Urine 0-2 /hpf (0-2); Specific Grav Ur 1.018 (1.001-1.035); Squamous Epithelial Cell Urine None seen /hpf (Few); Urobilinogen Urine 0.2 mg/dL (<2.0); pH Urine 6.5 (5.0-9.0)
[2022-11-16 09:36] LABS: Add Urine Microscopic? YES
== END 2022-11-16 13:06 | disposition home or self-care (01) ==
PROVIDERS: PCP Nurse Practitioner Family; Referring Provider Student in an Organized Health Care Education/Training Program; Visit Provider Radiology Diagnostic Radiology
PROC: 009U3ZZ Drainage of Spinal Canal, Percutaneous Approach (ICD-10-PCS; CPT 62328; principal; 2022-11-16 10:00)
DX: Z86.69 Personal history of other diseases of the nervous system and sense organs (principal)
CPT/HCPCS: 36415; 62328; 81001; 85049; 85610

== ENCOUNTER 2022-11-22 14:15 | Outpatient (CLI) | payer MEDICARE, MEDICAID, SELFPAY ==
--- NOTE | ~2022-11-22 | XR_ITS ---
XR knee LT 3V DATE: 11/22/2022 14:58 INDICATION: Bilateral knee pain with popping, right greater than left TECHNIQUE: AP, lateral, sunrise views COMPARISON: 10/29/2021 right knee FINDINGS: There is diffuse osteopenia. There is hardware of the left femur including intramedullary james terminating in the mid to distal sha ft and a long plate along the lateral femoral shaft, metaphysis and lateral femoral condyle with nume cony transverse through screws. There is old healed fracture deformity of the distal femoral diametap hysis. No recent fracture or dislocation or new periosteal reaction or bone destruction. Mild tricompartment osteoarthritis. Knee joint spaces are relatively well preserved. No radiopaque intra-articular loose body or chondrocalcinosis. Probable benign chondroid tumor with calcification, proximal tibial metaphysis. IMPRESSION: No significant change since 10/29/2021 Reviewed, dictated and finalized at location B.
--- NOTE | ~2022-11-22 | XR_ITS ---
AP and lateral views of the left hip Clinical history: Pain Findings: Left hip arthroplasty hardware is in place. No acute hardware complication is evident. Ther e is similar thin lucency about the cement about the femoral stem component as compared to prior exam . Partially imaged orthopedic plate and screws are present at the mid to distal left femur. There is mild heterotopic ossification. No acute osseous fracture seen. Impression: Left hip arthroplasty in place. There is thin lucency surrounding femoral stem component measuring 2 mm in thickness. Correlate for any concern for loosening. Reviewed, dictated and finalized at location M. Impression: Left hip arthroplasty in place. There is thin lucency surrounding femoral stem component measuring 2 mm in thickness. Correlate for any concern for loosening.
--- NOTE | ~2022-11-22 | XR_ITS ---
XR knee RT 3V DATE: 11/22/2022 14:58 INDICATION: Bilateral knee pain with popping, right greater than left TECHNIQUE: AP, lateral, sunrise views COMPARISON: None FINDINGS: There is osteopenia. Status post right total knee arthroplasty with patellar resurfacing. No fracture, dislocation, periosteal reaction or bone destruction or joint effusion. IMPRESSION: Status post right total knee arthroplasty Osteopenia No fracture or dislocation or joint effusion Reviewed, dictated and finalized at location B.
== END 2022-11-22 14:16 | disposition home or self-care (01) ==
LOC: CHSIMG 14:19
PROVIDERS: PCP Nurse Practitioner Family; Visit Provider Nurse Practitioner Family
DX: M25.562 Pain in left knee (principal); M25.561 Pain in right knee; M25.552 Pain in left hip; Z96.651 Presence of right artificial knee joint; M85.88 Other specified disorders of bone density and structure, other site; Z96.642 Presence of left artificial hip joint
CPT/HCPCS: 73502; 73562

== ENCOUNTER 2022-12-14 10:13 | Outpatient (CLI) | payer MEDICARE, MEDICAID, SELFPAY ==
--- NOTE | 2022-12-14 11:00 | NEURO_ITS ---
Impression: # History of sudden onset of paresis long time ago. Non-diabetic. 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 # Needle/EMG exam revealed no fibs or myotonia but does show decreased motor unit potentials in muscles tested. # Clinical correlation recommended. Nerve Conduction Studies Anti Sensory Summary Table Stim Site NR Peak (ms) P-T Amp (?V) Site1 Site2 Delta-P (ms) Dist (cm) Sarkis (m/s) Left Sup Fibular Anti Sensory (Ant Lat Mall) NO RESPONSE 14 cm NR 14 cm Ant Lat Mall 16.0 Right Sup Fibular Anti Sensory (Ant Lat Mall) NO RESPONSE 14 cm NR 14 cm Ant Lat Mall 16.0 Left Sural Anti Sensory (Lat Mall) NO RESPONSE Calf NR Calf Lat Mall 16.0 Right Sural Anti Sensory (Lat Mall) NO RESPONSE Calf NR Calf Lat Mall 16.0 Motor Summary Table Stim Site NR Onset (ms) O-P Amp (mV) Site1 Site2 Delta-0 (ms) Dist (cm) Sarkis (m/s) Left Peroneal Motor (Vastus Med) NO RESPONSE Ankle NR Popit Ankle 0.0 Popit NR Right Peroneal Motor (Vastus Med) NO RESPONSE Ankle NR Popit Ankle 0.0 Popit NR Left Tibial Motor (Abd Doe Brev) Ankle 4.8 2.3 Knee Ankle 9.9 43.0 43 Knee 14.7 2.2 Right Tibial Motor (Abd Doe Brev) Ankle 5.1 0.3 Knee Ankle 9.9 41.0 41 Knee 15.0 0.6 F Wave Studies NR F-Lat (ms) L-R F-Lat (ms) Left Peroneal (Mrkrs) (EDB) 53.57 2.81 Right Peroneal (Mrkrs) (EDB) 56.37 2.81 Left Tibial (Mrkrs) (Abd Hallucis) 56.84 0.23 Right Tibial (Mrkrs) (Abd Hallucis) 57.08 0.23 EMG Side Muscle Nerve Root Ins Act Fibs Amp Dur Recrt Comment Right AntTibialis Dp Br Fibular L4-5 Nml Nml Nml Nml Reduced Right Gastroc Tibial S1-2 Nml Nml Nml Nml Reduced Right Fibularis Long Sup Br Fibular L5-S1 Nml Nml Nml Nml Reduced Right Flex Dig Long Tibial L5-S2 Nml Nml Nml Nml Reduced Right Ext Dig Brev Dp Br Fibular L5, S1 Nml Nml Nml Nml Reduced Left AntTibialis Dp Br Fibular L4-5 Nml Nml Nml Nml Reduced Left Gastroc Tibial S1-2 Nml Nml Nml Nml Reduced Left Fibularis Long Sup Br Fibular L5-S1 Nml Nml Nml Nml Reduced Left Flex Dig Long Tibial L5-S2 Nml Nml Nml Nml Reduced Left Ext Dig Brev Dp Br Fibular L5, S1 Nml Nml Nml Nml Reduced MTDD
== END 2022-12-14 10:14 | disposition home or self-care (01) ==
PROVIDERS: PCP Nurse Practitioner Family; Visit Provider Student in an Organized Health Care Education/Training Program
DX: R20.0 Anesthesia of skin (principal); G62.9 Polyneuropathy, unspecified
CPT/HCPCS: 95886; 95910

== ENCOUNTER 2023-01-07 02:53 | Day surgery (SDC) | payer MEDICARE, MEDICAID, SELFPAY ==
[2022-12-24 14:27] VITALS: BMI 39.1
--- NOTE | 2023-01-07 10:03 | WPDANESEPPF ---
Anes - Initial Pre Proc Eval Procedure: Operation Date: 01/07/23 11:30 Proposed Procedures p Screening Colonoscopy - Deondre Chong MD Date/Time: 01/07/23 10:03 Surgeon: Deondre Chong MD Pre Op Diagnosis: neoplasm screening Patient Data Age: 57 Gender: F Height: 1.68 m Weight: 110 kg Allergies Allergy/AdvReac Type Severity Reaction Status Date / Time aspirin Allergy Intermediate Nausea and Verified 12/24/22 14:19 Vomiting Bleach (Sodium Hypochlorite) Allergy Intermediate Trouble Verified 12/24/22 14:19 Breathing NSAIDS (Non-Steroidal Allergy Intermediate Swelling Verified 12/24/22 14:19 Anti-Inflamma ibuprofen Allergy Unknown Swelling Verified 12/24/22 14:19 oxycodone AdvReac Mild hypotension Verified 11/22/22 13:44 and visual disturbance Bee stings Allergy Intermediate Swelling Uncoded 12/24/22 14:19 of Lip/Tongue/Throat SALICYLATES Allergy Unknown unknown Uncoded 11/22/22 13:44 Home Medications Medication Instructions Recorded Confirmed Type pregabalin 100 mg capsule (Lyrica) 100 mg PO BID #10 caps 05/11/21 12/24/22 Rx acetaminophen 325 mg tablet (Mapap 650 mg PO Q6H PRN Mild Pain (1-3) 05/11/22 12/24/22 Rx (acetaminophen)) Or Fever #30 tabs epinephrine 0.3 mg/0.3 mL See Rx Instructions .Route 05/11/22 12/24/22 Rx injection, auto-injector .COMPLEX #2 ea ferrous sulfate 325 mg (65 mg See Rx Instructions .Route 05/11/22 12/24/22 Rx iron) tablet .COMPLEX #90 tabs magnesium chloride 64 mg 64 mg PO DAILY #30 tabs 05/11/22 12/24/22 Rx (magnesium chloride) tablet,delayed release omeprazole 20 mg capsule,delayed See Rx Instructions .Route 05/11/22 12/24/22 Rx release .COMPLEX #90 caps sertraline 50 mg tablet See Rx Instructions .Route 05/11/22 12/24/22 Rx .COMPLEX #90 tabs ondansetron 4 mg disintegrating See Rx Instructions .Route 05/12/22 12/24/22 Rx tablet .COMPLEX #30 tabs levothyroxine 50 mcg tablet 50 mcg PO DAILY #90 tabs 09/30/22 12/24/22 Rx tizanidine 4 mg tablet See Rx Instructions .Route 10/14/22 12/24/22 Rx .COMPLEX #180 tabs trazodone 100 mg tablet See Rx Instructions .Route 10/14/22 12/24/22 Rx .COMPLEX #60 tabs cholecalciferol (vitamin D3) 125 125 mcg PO DAILY 11/02/22 12/24/22 History mcg (5,000 unit) tablet (Vitamin D3) fluticasone propionate 50 See Rx Instructions .Route 11/12/22 12/24/22 Rx mcg/actuation nasal .COMPLEX #16 grams spray,suspension hydroxyzine HCl 25 mg tablet 25 mg PO BID anxiety #60 tabs 11/22/22 12/24/22 Rx acetazolamide 250 mg tablet 500 mg PO BID #180 tabs 11/23/22 12/24/22 Rx metoprolol tartrate 25 mg tablet See Rx Instructions .Route 11/29/22 12/24/22 Rx .COMPLEX #60 tabs sodium,potassium,mag sulfates 17.5 See Rx Instructions PO .COMPLEX 12/17/22 12/24/22 Rx gram-3.13 gram-1.6 gram oral soln #354 mL (Suprep Bowel Prep Kit) Morphine Pain Pump 12/24/22 History hydrocodone 5 mg-acetaminophen 325 1 tablet PO BID PRN Pain 12/24/22 12/24/22 History mg tablet Patient hx anesthesia problems: none Family hx anesthesia problems: none Results Review: All pre-operative results and documents have been reviewed as part of the pre-operative evaluation. [facility] Past Medical History Medical History (Updated 01/07/23 @ 11:34 by Alec Zimmerman MD) Anxiety Atypical chest pain Chronic kidney disease, stage 3b Fibromyalgia Generalized edema GERD (gastroesophageal reflux disease) Hypertension Hypothyroidism Migrainous headache without aura Mitral valve regurgitation S/P repair by cath Obesity, Class II, BMI 35-39.9 Otitis externa, left Overweight Polyneuropathy Pre-op exam Primary insomnia Surgical History Surgical History Fracture, intertrochanteric, left femur H/O: hysterectomy History of appendectomy History of total right knee replacement (TKR) Status post hip surgery 01/25/2020 Family History Family
[2023-01-07 11:34] VITALS: BP 107/75; PULSE 62; RESP 20; TEMP 35.9; O2SAT 98; BMI 38.2
--- NOTE | 2023-01-07 11:38 | PM.HPGS ---
History of Present Illness History of Present Illness Consent: Risks, benefits, and alternatives have been discussed and questions answered. Patient agrees to proceed with procedure. Chief complaint: neoplasm screening Narrative: Nancy Murray is a 57 year old female Presents for screening colonoscopy. Patient's current weight appetite and bowel movements normal. Patient denies abdominal pain. She has had no bleeding. Patient reports that she had benign polyps of uncertain type 10 years ago removed [facility] in [place]. Family history is noncontributory with no first-degree relatives having had colon polyps or cancer. Her grandfather did have colon cancer. Patient reports a hip fracturein 2017 which has not healed properly. She uses a walker to ambulate. Review of Systems Review of Systems: Review of systems noncontributo [facility] Past Medical History Medical History (Updated 01/07/23 @ 11:34 by Alec Zimmerman MD) Anxiety Atypical chest pain Chronic kidney disease, stage 3b Fibromyalgia Generalized edema GERD (gastroesophageal reflux disease) Hypertension Hypothyroidism Migrainous headache without aura Mitral valve regurgitation S/P repair by cath Obesity, Class II, BMI 35-39.9 Otitis externa, left Overweight Polyneuropathy Pre-op exam Primary insomnia Surgical History Surgical History Fracture, intertrochanteric, left femur H/O: hysterectomy History of appendectomy History of total right knee replacement (TKR) Status post hip surgery 01/25/2020 Family History Family History Mother Hypertension Family history of type 2 diabetes mellitus Social History Social History Smoking status: Former smoker Tobacco type: cigarettes Second hand tobacco smoke exposure: Yes Smoking end date: 01/28/84 Alcohol intake: current Alcohol use details: social Substance use: never Substance use type: does not use Lack of Transportation: No Lack of Food: Sometimes True Current Housing: I Have Housing Concerned About Future Housing: No Difficulty Paying Gas/Electric Bills: No Difficulty Paying for Meds: No Currently Unemployed: YES Education: Trade/Vocational Certificate Difficulty w/ Childcare or Family Care: No Living arrangements: alone Additional living arrangements comments: with mother Occupation/Education: other Additional occupation/education comments: Disabled Gender identity (if verbalized by the patient): Female Sexual Orientation (if Verbalized by the Patient): Straight or Heterosexual Spiritual care concerns: No Meds Home Medications and Allergies Home Medications Medication Instructions Recorded Confirmed Type pregabalin 100 mg capsule (Lyrica) 100 mg PO BID #10 caps 05/11/21 12/24/22 Rx acetaminophen 325 mg tablet (Mapap 650 mg PO Q6H PRN Mild Pain (1-3) 05/11/22 12/24/22 Rx (acetaminophen)) Or Fever #30 tabs epinephrine 0.3 mg/0.3 mL See Rx Instructions .Route 05/11/22 12/24/22 Rx injection, auto-injector .COMPLEX #2 ea ferrous sulfate 325 mg (65 mg See Rx Instructions .Route 05/11/22 12/24/22 Rx iron) tablet .COMPLEX #90 tabs magnesium chloride 64 mg 64 mg PO DAILY #30 tabs 05/11/22 12/24/22 Rx (magnesium chloride) tablet,delayed release omeprazole 20 mg capsule,delayed See Rx Instructions .Route 05/11/22 12/24/22 Rx release .COMPLEX #90 caps sertraline 50 mg tablet See Rx Instructions .Route 05/11/22 12/24/22 Rx .COMPLEX #90 tabs ondansetron 4 mg disintegrating See Rx Instructions .Route 05/12/22 12/24/22 Rx tablet .COMPLEX #30 tabs levothyroxine 50 mcg tablet 50 mcg PO DAILY #90 tabs 09/30/22 12/24/22 Rx tizanidine 4 mg tablet See Rx Instructions .Route 10/14/22 12/24/22 Rx .COMPLEX #180 tabs trazodone 100 mg tablet See Rx Instructions .
[2023-01-07] MEDS: LACTATED RINGERS 1,000 ML 150 ML IV CONT (12:10)
[2023-01-07 12:39] VITALS: BP 90/54; PULSE 57; RESP 18; O2SAT 96
[2023-01-07 12:49] VITALS: BP 107/59; PULSE 56; RESP 18; O2SAT 97
[2023-01-07 12:59] VITALS: BP 115/57; PULSE 60; RESP 18; O2SAT 99
== END 2023-01-07 13:23 | disposition home or self-care (01) ==
PROVIDERS: PCP Nurse Practitioner Family; Visit Provider Internal Medicine Gastroenterology
PROC: 0DJD8ZZ Inspection of Lower Intestinal Tract, Via Natural or Artificial Opening Endoscopic (ICD-10-PCS; CPT 45378; principal; 2023-01-07 11:30)
DX: Z12.11 Encounter for screening for malignant neoplasm of colon (principal); K64.8 Other hemorrhoids; I12.9 Hypertensive chronic kidney disease with stage 1 through stage 4 chronic kidney disease, or unspecified chronic kidney disease; N18.32 Chronic kidney disease, stage 3b; E03.9 Hypothyroidism, unspecified; G62.9 Polyneuropathy, unspecified; M79.7 Fibromyalgia; K21.9 Gastro-esophageal reflux disease without esophagitis; F41.9 Anxiety disorder, unspecified; E66.9 Obesity, unspecified; Z68.38 Body mass index [BMI] 38.0-38.9, adult; Z87.891 Personal history of nicotine dependence
CPT/HCPCS: G0121; J2704; J7120

== ENCOUNTER 2023-03-31 14:47 | Outpatient (CLI) | payer MEDICARE, MEDICAID, SELFPAY ==
[2023-03-31 15:14] LABS: Basophils Absolute Auto 0.06 K/mm3 (0.00-0.10); Basophils Percent Auto 0.6 % (0.0-1.0); Hematocrit 46.4 % (35.0-49.0); Hemoglobin 15.8 g/dL (12.0-15.0); Immature Granulocyte Absolute 0.04 K/mm3 (0.00-0.00); Immature Granulocyte Percent A 0.4 % (0.0-0.0); Immature Reticulocyte Fraction 15.4 % (2.0-16.52); Lymphocytes Absolute Auto 1.44 K/mm3 (1.10-4.50); Lymphocytes Percent Auto 14.6 % (18.0-42.0); Mean Corpuscular HGB Conc 34.1 g/dL (32.0-36.0); Mean Corpuscular Hemoglobin 30.9 pg (27.0-31.0); Mean Corpuscular Volume 90.8 fL (78.0-102.0); Mean Platelet Volume 11.2 fl (9.2-11.8); Monocytes Absolute Auto 0.56 K/mm3 (0.10-0.90); Monocytes Percent Auto 5.7 % (2.0-11.0); Neutrophils Absolute Auto 7.6 K/mm3 (1.7-7.2); Neutrophils Percent Auto 77.7 % (50.0-70.0); Platelet Count Result 346 K/mm3 (150-420); Red Blood Count 5.11 M/mm3 (4.20-5.40); Red Cell Distribution Width 13.9 % (11.6-14.4); Reticulocyte Hemoglobin Conten 34.5 pg (28.0-35.0); Reticulocyte Percent 2.36 % (0.50-1.50); Reticulocytes Absolute 0.12 M/mm3 (0.02-0.1); White Blood Count 9.8 K/mm3 (4.8-10.8)
[2023-03-31 15:47] LABS: Hemoglobin A1C 4.7 % (<5.7)
[2023-03-31 15:54] LABS: Alanine Aminotransferase 97 U/L (14-59); Albumin Level 3.7 g/dL (3.4-5.0); Alkaline Phosphatase 153 U/L (46-116); Anion Gap 16 mmol/L (8-16); Aspartate Amino Transferase 122 U/L (15-37); Bilirubin,Total 0.5 mg/dL (0.00-1.00); Blood Urea Nitrogen 15 mg/dL (7-18); Calcium 8.5 mg/dL (8.5-10.1); Carbon Dioxide 21 mmol/L (21-32); Chloride 109 mmol/L (98-108); Estimated Glomerular Filt Rate 33; Ferritin 186 ng/mL (8-252); Glucose 127 mg/dL (70-99); Iron 68 ug/dL (50-170); Magnesium 1.5 mg/dL (1.8-2.4); Osmolality Calculated 304 mOsm/kg (285-295); Sodium 146 mmol/L (136-145); Thyroid Stimulating Hormone 1.26 uIU/mL (0.36-3.74); Vitamin B12 852 pg/mL (193-986)
[2023-04-03 20:28] LABS: Vitamin D 25 Hydroxy 28 ng/mL (30-100)
[2023-04-06 16:21] LABS: Red Blood Cell Folate 478 ng/mL RBC (>280)
== END 2023-03-31 14:48 | disposition home or self-care (01) ==
LOC: CHSLAB 14:50
PROVIDERS: PCP Nurse Practitioner Family; Visit Provider Nurse Practitioner Family
DX: E03.9 Hypothyroidism, unspecified (principal); N18.32 Chronic kidney disease, stage 3b; R29.6 Repeated falls; D64.9 Anemia, unspecified; G62.9 Polyneuropathy, unspecified; E66.9 Obesity, unspecified; R79.9 Abnormal finding of blood chemistry, unspecified; N39.0 Urinary tract infection, site not specified
CPT/HCPCS: 36415; 80053; 82306; 82607; 82728; 82747; 83036; 83540; 83735; 84443; 85025; 85046; 87077; 87086; 87088; 87186

== ENCOUNTER 2023-04-01 17:39 | Observation (INO) | payer MEDICARE, MEDICAID, SELFPAY ==
--- NOTE | ~2023-04-01 | CT_ITS ---
EXAMINATION: CT brain wo con INDICATION: Near syncope COMPARISON: 11/10/2022 TECHNIQUE: Standard unenhanced head CT. The dose-length product (DLP) was 605.33 mGy-cm. The mA was a djusted according to patient size. Iterative reconstruction technique was employed. FINDINGS: There is no intracranial hemorrhage, acute infarction, or abnormal mass lesion. The ventric les are normal. There is no abnormal mass effect or midline shift. The sanderson-white matter differentiat ion is normal. The basal cisterns are patent. The orbits are normal. The paranasal sinuses, mastoids and calvarium are normal. IMPRESSION: 1. No acute intracranial abnormality. Reviewed, dictated and finalized at location F.
--- NOTE | ~2023-04-01 | XR_ITS ---
EXAMINATION: XR chest 2V DATE: 04/01/2023 18:29 INDICATION: Near syncope TECHNIQUE: PA and lateral views of the chest are obtained. COMPARISON: 04/01/2022 FINDINGS: The lungs are free of acute opacities. No pleural effusion or pneumothorax. The cardiomedia stinal silhouette is normal. There is mild thoracic spondylosis. IMPRESSION: 1. No acute cardiopulmonary abnormality. Reviewed, dictated and finalized at location F.
--- NOTE | 2023-04-01 17:41 | ECG_ITS ---
Measurements Intervals [place] Rate: 51 P: 58 DE: 211 QRS: 3 QRSD: 101 T: -55 QT: 464 QTc: 430 Interpretive Statements SINUS BRADYCARDIA WITH FIRST DEGREE AV BLOCK LOW QRS VOLTAGE IN PRECORDIAL LEADS [QRS DEFLECTION < 1.0 mV IN CHEST LEADS] NONSPECIFIC T-WAVE CHANGES COMPARED TO ECG 06/08/2022 18:11:01 SINUS BRADYCARDIA NOW PRESENT FIRST DEGREE AV BLOCK NOW PRESENT Electronically Signed On 04-02-2023 9:30:02 CDT by Arlyn Garcia M.D.
--- NOTE | 2023-04-01 17:43 | ED.SYNCOPE ---
HPI - Syncope General Chief Complaint: Syncope Stated Complaint: abnormal labs Time Seen by Provider: 04/01/23 17:41 Source: patient, family and other ( primary physician) Mode of arrival: ambulatory Limitations: no limitations History of Present Illness HPI narrative: patient is a 57-year-old female presenting to the emergency room from her primary doctor suggestion. She has been having near syncopal episodes lately and got some blood work done which showed low potassium, elevated creatinine, low magnesium and UTI. patient goes to a pain clinic and gets a morphine pump on a daily basis and according to the family she uses pain pills as well from the clinic. According to the mother, it appears there could be a problem with pain medication in this patient. MD complaint: loss of consciousness, felt faint and almost passed out Onset (ago): week(s) (3) Duration of episode: 10 -: second(s) Prodromal symptoms: none Context: other ( Patient claims she gets low blood pressure after getting upset as a baseline) Injuries sustained associated with event: none Current symptoms: none Treatments prior to arrival: none Related Data Home Medications Medication Instructions Recorded Confirmed cholecalciferol (vitamin D3) 125 125 mcg PO DAILY 11/02/22 04/01/23 mcg (5,000 unit) tablet (Vitamin D3) Morphine Pain Pump See Rx Instructions .Route .COMPLEX 12/24/22 04/01/23 Allergies Allergy/AdvReac Type Severity Reaction Status Date / Time aspirin Allergy Intermediate Nausea and Verified 03/31/23 13:40 Vomiting Bleach (Sodium Hypochlorite) Allergy Intermediate Trouble Verified 03/31/23 13:40 Breathing NSAIDS (Non-Steroidal Allergy Intermediate Swelling Verified 03/31/23 13:40 Anti-Inflamma ibuprofen Allergy Unknown Swelling Verified 03/31/23 13:40 oxycodone AdvReac Mild hypotension Verified 03/31/23 13:40 and visual disturbance Bee stings Allergy Intermediate Swelling Uncoded 03/31/23 13:40 of Lip/Tongue/Throat SALICYLATES Allergy Unknown unknown Uncoded 03/31/23 13:40 Review of Systems Review of Systems: All systems reviewed & are unremarkable except as noted in HPI and below Constitutional: Constitutional: Reports no additional constitutional complaints Eyes: Eyes: Reports no additional eye complaints ENT: Reports system reviewed and no additional complaints, except as documented Cardiovascular: Cardiovascular: Reports no additional cardiovascular complaints Respiratory: Respiratory: Reports no additional respiratory complaints Gastrointestinal: Gastrointestinal: Reports no additional gastrointestinal complaints Genitourinary: Genitourinary: Reports no additional female genitourinary complaints Musculoskeletal: Musculoskeletal: Reports no additional musculoskeletal complaints Integumentary/Breasts: Skin/Breast: Reports system reviewed and no additional complaints, except as docu Neurologic: Reports system reviewed and no additional complaints, except as documented Psychiatric: Psychiatric: Reports no additional psychiatric complaints Endocrine: Endocrine: Reports no additional endocrine complaints Hematologic/Lymphatic: Hematologic/Lymphatic: Reports no additional hematologic/lymphatic complaints Allergic/Immunologic: Allergic/Immunologic: Reports no additional allergic/immunologic complaints [facility] Past Medical History Medical History Anxiety Atypical chest pain Chronic kidney disease, stage 3b Fibromyalgia Generalized edema GERD (gastroesophageal reflux disease) Hypertension Hypothyroidism Migrainous headache without aura Mitral valve regurgitation S/P repair by cath Obesity, Class II, BMI 35-39.9 Otitis externa, left Overweight Polyneuropathy Pre-op exam Primary insomnia Surgical History Surgical History Fracture, intertrochanteric, left femur H/O: hystere
[2023-04-01 17:48] VITALS: BP 130/75; PULSE 61; RESP 20; TEMP 37.2; O2SAT 99
[2023-04-01 17:58] LABS: Basophils Absolute Auto 0.05 K/mm3 (0.00-0.10); Basophils Percent Auto 0.5 % (0.0-1.0); Eosinophils Absolute Auto 0.12 K/mm3 (0.02-0.50); Eosinophils Percent Auto 1.2 % (1.0-6.0); Hematocrit 38.9 % (35.0-49.0); Hemoglobin 13.4 g/dL (12.0-15.0); Immature Granulocyte Absolute 0.06 K/mm3 (0.00-0.00); Immature Granulocyte Percent A 0.6 % (0.0-0.0); Lymphocytes Absolute Auto 2.85 K/mm3 (1.10-4.50); Lymphocytes Percent Auto 28.2 % (18.0-42.0); Mean Corpuscular HGB Conc 34.4 g/dL (32.0-36.0); Mean Corpuscular Hemoglobin 31.3 pg (27.0-31.0); Mean Corpuscular Volume 90.9 fL (78.0-102.0); Mean Platelet Volume 10.6 fl (9.2-11.8); Monocytes Absolute Auto 0.64 K/mm3 (0.10-0.90); Monocytes Percent Auto 6.3 % (2.0-11.0); Neutrophils Absolute Auto 6.4 K/mm3 (1.7-7.2); Neutrophils Percent Auto 63.2 % (50.0-70.0); Platelet Count Result 253 K/mm3 (150-420); Red Blood Count 4.28 M/mm3 (4.20-5.40); Red Cell Distribution Width 13.9 % (11.6-14.4); White Blood Count 10.1 K/mm3 (4.8-10.8)
[2023-04-01 18:19] LABS: Lactic Acid Reflex 1.8 mmol/L (0.4-2.0)
[2023-04-01 18:23] LABS: Alanine Aminotransferase 78 U/L (14-59); Alkaline Phosphatase 124 U/L (46-116); Anion Gap 13 mmol/L (8-16); Aspartate Amino Transferase 85 U/L (15-37); Bilirubin,Total 0.5 mg/dL (0.00-1.00); Blood Urea Nitrogen 15 mg/dL (7-18); Carbon Dioxide 21 mmol/L (21-32); Chloride 106 mmol/L (98-108); Estimated CRCL calculation 39 ml/min; Estimated Glomerular Filt Rate 32; Glucose 139 mg/dL (70-99); Osmolality Calculated 292 mOsm/kg (285-295); Sodium 140 mmol/L (136-145); Thyroid Stimulating Hormone 3.37 uIU/mL (0.36-3.74); Total Protein 7.2 g/dL (6.4-8.2); Troponin I 20.7 ng/L (0.00-60.4)
[2023-04-01 18:31] LABS: Potassium 2.5 mmol/L (3.5-5.1)
[2023-04-01] MEDS: POTASSIUM CHLORIDE 20 MEQ ER TABLET 40 MEQ PO (18:39)
[2023-04-01] MEDS: SODIUM CHLORIDE 0.9% IV 1,000 ML 999 ML IV CONT (18:46)
[2023-04-01 19:00] VITALS: BP 138/84; PULSE 50; O2SAT 99
--- NOTE | 2023-04-01 19:05 | PC.NURSE ---
report to [facility].
[2023-04-01 19:22] LABS: Magnesium 1.4 mg/dL (1.8-2.4)
[2023-04-01 19:38] LABS: Appearance Urine Clear (Clear); Bilirubin Urine Negative (Negative); Blood Urine Trace-Intact (Negative); Color Urine Light Yellow (Yellow); Glucose Urine UA Negative (Negative); Ketones Urine Negative (Negative); Leukocyte Esterase Ur 3+ (Negative); Nitrate Urine Positive (Negative); Protein Urine Negative (Negative); Specific Grav Ur 1.015 (1.010-1.020)
[2023-04-01 19:43] LABS: Add Urine Microscopic? YES; Bacteria Urine 4+ /hpf; Squamous Epithelial Cell Urine Rare /hpf (Few); WBC Urine >75 /hpf (0-3)
[2023-04-01 19:52] VITALS: BP 115/85; PULSE 62; O2SAT 99
[2023-04-01 20:00] VITALS: BP 124/78; PULSE 48; RESP 16; O2SAT 99
--- NOTE | 2023-04-01 20:55 | PC.NURSE ---
2054-REPORT CALLED TO [facility]. PT READY FOR TRANSPORT TO ROOM 203. PT HAS IVF NS 0.9% RUNNING TO GRAVITY AND IV ROCEPHIN 1G, RUNNING AT 50CC/HR. PT BELONGINGS INCLUDE; 1 PAIR- BURNETT STRAPPY SANDAL 1-BURNETT YOGA PANT 1-WHITE TSHIRT 1-BLACK/BURNETT/RED SWEATER 1- GREEN/GOLD WIRE FRAME GLASSES 1- BLACK ANDROID PHONE WITH BLUE CASE
[2023-04-01 21:15] VITALS: BP 104/56; PULSE 47; RESP 18; TEMP 37.1; O2SAT 99
[2023-04-01] MEDS: MAGNESIUM SULF 2 GM/WATER 50ML 2 GM/50 ML BAG IVPB (21:15)
[2023-04-01 21:18] VITALS: BMI 35.8
--- NOTE | 2023-04-01 21:30 | ADMGEN ---
This patient, Nancy Murray, was admitted to 2nd Floor Room 203-2. Patient/family oriented to hospital policies and general routines including ID bracelet, bed and alarms, visiting hours, pain management, procedures, bathroom and other care routines, personal items, smoking policy, room service/diet, and visiting hours. Patient does not know any medication dosages and states all meds come through a mail order pharmacy. Pt would like to speak with career technical counselor about getting hcpoa paperwork done. Pt does not know dose or medication name of pain pump but says the doctor did just lower the dosage. Pt has jacket, shirt, pants, shoes, bra, phone and pallet stone positioner Information on how to activate the Rapid Response Team has been discussed. Patient/Family are encouraged to report perceived risks to care and to ask questions if they do not understand what they are told or what they should do.
[2023-04-02] VITALS (7 sets, daily range): BP systolic 101–159; BP diastolic 52–81; PULSE 60–89; RESP 16–18; TEMP 36.1–36.6; O2SAT 95–99
--- NOTE | 2023-04-02 00:45 | PC.NURSE ---
sap bw architect javi notified by phone of no orders/meds on obs pt yet, she is calling IT due to trouble with her computer, no verbal orders at this time
--- NOTE | 2023-04-02 04:33 | PC.NURSE ---
Continue to have no orders on pt due to [employer] NEIL having IT issues with her computer.
--- NOTE | 2023-04-02 05:25 | PC.NURSE ---
Reminded Kenny Medeiros NP that we still have no orders on patient.
[2023-04-02 08:06] LABS: Hemoglobin 13.8 g/dL (12.0-15.0); Mean Corpuscular HGB Conc 33.7 g/dL (32.0-36.0); Mean Corpuscular Hemoglobin 30.7 pg (27.0-31.0); Mean Corpuscular Volume 91.3 fL (78.0-102.0); Mean Platelet Volume 10.8 fl (9.2-11.8); Platelet Count Result 259 K/mm3 (150-420); Red Blood Count 4.49 M/mm3 (4.20-5.40); White Blood Count 9.4 K/mm3 (4.8-10.8)
[2023-04-02 08:17] LABS: Anion Gap 15 mmol/L (8-16); Blood Urea Nitrogen 14 mg/dL (7-18); Calcium 8.3 mg/dL (8.5-10.1); Carbon Dioxide 20 mmol/L (21-32); Chloride 111 mmol/L (98-108); Estimated CRCL calculation 48 ml/min; Estimated Glomerular Filt Rate 39; Glucose 108 mg/dL (70-99); Osmolality Calculated 303 mOsm/kg (285-295); Potassium 2.6 mmol/L (3.5-5.1); Sodium 146 mmol/L (136-145)
[2023-04-02] MEDS: LEVOTHYROXINE SODIUM 50 MCG TABLET BY MOUTH (08:41)
[2023-04-02] MEDS: FOLIC ACID 1 MG TABLET PO (08:41)
[2023-04-02] MEDS: PREGABALIN (*CRX) 100 MG CAPSULE PO ×2 (08:41→16:50)
[2023-04-02] MEDS: hydrOXYzine HCL 25 MG TABLET PO ×2 (08:41→16:50)
[2023-04-02] MEDS: acetaZOLAMIDE TAB 250 MG TABLET 500 MG PO ×2 (08:42→16:49)
[2023-04-02] MEDS: METOPROLOL TARTRATE 25 MG TABLET BY MOUTH ×2 (08:42→20:54)
[2023-04-02] MEDS: SERTRALINE HCL 50 MG TABLET BY MOUTH (08:42)
[2023-04-02] MEDS: ENOXAPARIN 40 MG/0.4 ML SYRINGE SUB-Q (08:43)
[2023-04-02] MEDS: CHOLECALCIFEROL 1,000 UNITS TABLET 5000 UNITS PO (09:20)
[2023-04-02 10:18] LABS: Magnesium 1.8 mg/dL (1.8-2.4)
[2023-04-02] MEDS: POTASSIUM CHLORIDE 20 MEQ PACKET (FOR LIQUID) 40 MEQ BY MOUTH (10:35)
[2023-04-02] MEDS: KCL 20 MEQ/SW 100 ML 100 ML 50 MEQ IVPB (10:35)
[2023-04-02] MEDS: SODIUM CHLORIDE 0.9% IV 250 ML 100 ML IV CONT (10:36)
--- NOTE | 2023-04-02 12:21 | PM.IMHP ---
H&P: HPI History of Present Illness Date/Time: 04/02/23 12:21 Chief Complaint: Abnormal labs, UTI, Hypokalemia Narrative: This is a 57-year-old female that presented to the emergency room due to abnormal labs patient has a urinary tract infection was treated with IV fluids, IV Rocephin was found to be hypo magnesium with hypokalemia she is given a Mag rider. Patient also was given oral magnesium potassium potassium was 2.5 only brought up to 2.6 today she has been received IV potassium and oral potassium. Patient's magnesium currently is within normal limits after the Mag of 1.8 stable she is noted to have a urinary tract infection which I had a discussion about avoiding soda taking her antibiotics she has had several UTIs with positive for E coli discussed with patient to make sure she is wiping front to back patient has remained afebrile she does have some abdominal pain with palpitation patient will be a 24 hour admit patient currently is on a pain pump we will not be administering any pain medication she will be controlling that. Review of Systems Review of Systems: Weakness, abdominal pain, abnormal labs All systems reviewed & are unremarkable except as noted in HPI and below PMFSH Past Medical History Medical History Anxiety Atypical chest pain Chronic kidney disease, stage 3b Fibromyalgia Generalized edema GERD (gastroesophageal reflux disease) Hypertension Hypothyroidism Migrainous headache without aura Mitral valve regurgitation S/P repair by cath Obesity, Class II, BMI 35-39.9 Otitis externa, left Overweight Polyneuropathy Pre-op exam Primary insomnia Surgical History Surgical History Fracture, intertrochanteric, left femur H/O: hysterectomy History of appendectomy History of total right knee replacement (TKR) Status post hip surgery 01/25/2020 Family History Family History Mother Hypertension Family history of type 2 diabetes mellitus Social History Social History Smoking status: Former smoker Tobacco type: cigarettes Second hand tobacco smoke exposure: Yes Smoking end date: 01/28/84 Alcohol intake: never Alcohol use details: social Substance use: former Substance use type: painkillers Lack of Transportation: No Lack of Food: Never True Current Housing: I Have Housing Concerned About Future Housing: No Difficulty Paying Gas/Electric Bills: No Difficulty Paying for Meds: No Currently Unemployed: No Education: High School Diploma/GED Difficulty w/ Childcare or Family Care: No Living arrangements: alone Additional living arrangements comments: with mother Occupation/Education: other Additional occupation/education comments: Disabled Gender identity (if verbalized by the patient): Female Sexual Orientation (if Verbalized by the Patient): Straight or Heterosexual Spiritual care concerns: No Comments At time as signature, I have reviewed and agree with nursing past medical, social, surgical and family history. Please see nursing chart for further information. There is no relevant family history pertinent to the presenting complaint. Meds Home Medications and Allergies Home Medications Medication Instructions Recorded Confirmed Type pregabalin 100 mg capsule (Lyrica) 100 mg PO BID #10 caps 05/11/21 04/01/23 Rx acetaminophen 325 mg tablet (Mapap 650 mg PO Q6H PRN Mild Pain (1-3) 05/11/22 04/01/23 Rx (acetaminophen)) Or Fever #30 tabs epinephrine 0.3 mg/0.3 mL See Rx Instructions .Route 05/11/22 04/01/23 Rx injection, auto-injector .COMPLEX #2 ea ferrous sulfate 325 mg (65 mg See Rx Instructions .Route 05/11/22 04/01/23 Rx iron) tablet .COMPLEX #90 tabs magnesium chloride 64 mg 64 mg PO DAILY #30 tabs 05/11/22
--- NOTE | 2023-04-02 12:49 | PC.NURSE ---
Patient IV K+ completed. Patient is still drinking PO K+ crystal drink. Plan is to discharge patient if labs are normal later today.
[2023-04-02 16:22] LABS: Potassium 3.5 mmol/L (3.5-5.1)
[2023-04-02] MEDS: PHENAZOPYRIDINE HCL 100 MG TABLET 200 MG PO (18:31)
[2023-04-02] MEDS: ONDANSETRON INJ 4 MG/2 ML VIAL IV PUSH (18:34)
[2023-04-02] MEDS: ACETAMINOPHEN 325 MG TABLET 650 MG PO (18:36)
[2023-04-02] MEDS: SACCHAROMYCES BOULARDII 250 MG CAPSULE PO (20:54)
[2023-04-02] MEDS: ARTIFICIAL TEARS OPHTH SOLN 15 ML BOTTLE 1 DROP EACH EYE (20:54)
[2023-04-03] VITALS (7 sets, daily range): BP systolic 150–159; BP diastolic 77–81; PULSE 67–76; RESP 16–18; TEMP 35.1–36.6; O2SAT 96
[2023-04-03] MEDS: ONDANSETRON INJ 4 MG/2 ML VIAL IV PUSH (00:37)
--- NOTE | 2023-04-03 02:50 | PC.NURSE ---
Pt transferred to bedside commode with SBA, pt in good spirits, laughing with staff, pt was belching x2 and states it is d/t the chicken salad from dinner, states it was too spicy . Denies further complaints at this time.
[2023-04-03] MEDS: LEVOTHYROXINE SODIUM 50 MCG TABLET BY MOUTH (05:50)
[2023-04-03 05:51] LABS: Hematocrit 38.7 % (35.0-49.0); Mean Corpuscular HGB Conc 33.6 g/dL (32.0-36.0); Mean Corpuscular Volume 92.1 fL (78.0-102.0); Mean Platelet Volume 10.8 fl (9.2-11.8); Platelet Count Result 268 K/mm3 (150-420); Red Cell Distribution Width 14.3 % (11.6-14.4); White Blood Count 8.9 K/mm3 (4.8-10.8)
[2023-04-03 06:09] LABS: Anion Gap 12 mmol/L (8-16); Blood Urea Nitrogen 12 mg/dL (7-18); Calcium 8.1 mg/dL (8.5-10.1); Carbon Dioxide 19 mmol/L (21-32); Chloride 115 mmol/L (98-108); Estimated CRCL calculation 54 ml/min; Estimated Glomerular Filt Rate 45; Glucose 90 mg/dL (70-99); Osmolality Calculated 301 mOsm/kg (285-295); Sodium 146 mmol/L (136-145)
--- NOTE | 2023-04-03 06:50 | PC.NURSE ---
Up to BSC, Incontinent small amount stool. Returned to bed. States having chest pain again, points to right side radiating to mid chest, States on right side now. Layed down and said she was dizzy and nauseated. VSS, Telemetry: unchanged. Skin pink, warm, dry. Respirations easy unlabored. No distress noted. See VS. Given emesis bag. Patient states pain and dizziness gone. Speaking about cat and states she needs to get home to her cat.
[2023-04-03] MEDS: MAGNESIUM CHLORIDE 64 MG TABLET PO (08:30)
[2023-04-03] MEDS: CHOLECALCIFEROL 1,000 UNITS TABLET 5000 UNITS PO (08:30)
[2023-04-03] MEDS: acetaZOLAMIDE TAB 250 MG TABLET 500 MG PO (08:32)
[2023-04-03] MEDS: POTASSIUM CHLORIDE 20 MEQ PACKET (FOR LIQUID) 40 MEQ BY MOUTH (08:33)
[2023-04-03] MEDS: PHENAZOPYRIDINE HCL 100 MG TABLET 200 MG PO (08:34)
[2023-04-03] MEDS: PREGABALIN (*CRX) 100 MG CAPSULE PO (08:34)
[2023-04-03] MEDS: ACETAMINOPHEN 325 MG TABLET 650 MG PO (08:35)
[2023-04-03] MEDS: SACCHAROMYCES BOULARDII 250 MG CAPSULE PO (08:36)
[2023-04-03] MEDS: hydrOXYzine HCL 25 MG TABLET PO (08:36)
[2023-04-03] MEDS: SERTRALINE HCL 50 MG TABLET BY MOUTH (08:36)
[2023-04-03] MEDS: METOPROLOL TARTRATE 25 MG TABLET BY MOUTH (08:36)
[2023-04-03] MEDS: FOLIC ACID 1 MG TABLET PO (08:37)
[2023-04-03] MEDS: ENOXAPARIN 40 MG/0.4 ML SYRINGE SUB-Q (08:37)
--- NOTE | 2023-04-03 09:26 | PM.DS ---
DS: Admitting Diagnosis Discharge Date 04/03/2023 Admitting Diagnosis UTI, Hypokalemia, DS: Discharge Diagnosis Discharge Diagnosis (1) Hypokalemia: Code(s): E87.6 - Hypokalemia Status: Acute Assessment and Plan: IV potassium oral potassium Tele monitor pt will continue with oral Potassium at home and will discharge home today (2) Hypomagnesemia: Code(s): E83.42 - Hypomagnesemia Status: Acute Assessment and Plan: IV Magnesium 1.8 mag current (3) UTI (urinary tract infection): Qualifiers: Hematuria presence: with hematuria Urinary tract infection type: acute cystitis Qualified Code(s): N30.01 - Acute cystitis with hematuria Code(s): N39.0 - Urinary tract infection, site not specified Status: Acute Assessment and Plan: No Soda Encourage Water IV Rocephin wipe front to back Patient will discharge home on oral antibiotic and she is encouraged to avoid soda and to take medication as prescribed. (4) Hypothyroidism: Code(s): E03.9 - Hypothyroidism, unspecified Status: Acute Assessment and Plan: Stable take home medication DS: Summary Hospital Course Reason for hospitalization: UTI, Hypokalemia, Hospital Course: This is a 57-year-old female that was admitted to the hospital with urinary tract infection was found to be hypokalemia and hypernatremia with hypo magnesium. Patient was treated with IV fluids IV antibiotics as well as electrolytes were replenished. Patient was able to tolerate oral intake as well as she remained afebrile eating and drinking without any difficulties. Patient tolerated therapy well and was sent home on oral antibiotics as well as oral potassium patient had acute kidney injury that seems to be resolving and has improved she will follow-up with the primary care provider and was educated on urinary tract infection as well as labs were ordered, monitor her potassium level. Patient on knowledge understanding Time Spent with Patient Time attestation: Total time spent providing and/or coordinating discharge services: Exam Narrative: GENERAL:Well-appearing, Obese, and in no acute distress. HEAD:Normocephalic, atraumatic. EYES: PERRLA and EOMI. ENT: Nares clear, no rhinorrhea or epistaxis. Mucous membranes moist. CHEST: Clear to auscultation. No respiratory distress. HEART: Regular rate and rhythm. No murmur heard. Normal peripheral pulses. ABDOMEN: Soft, tender w palpation , nondistended, normal active bowel sounds. EXTREMITIES: Normal range of motion. No edema. SKIN: Warm, dry, no rash. NEURO: No focal deficits. Alert and oriented x3. DS: Data Data Completed and Pending Labs on day of discharge: Labs from last 24 hours 04/03/23 04/02/23 04/02/23 05:28 16:07 07:43 WBC 8.9 RBC 4.20 Hgb 13.0 Hct 38.7 MCV 92.1 MCH 31.0 MCHC 33.6 RDW 14.3 Plt Count 268 MPV 10.8 Sodium 146 H Potassium 3.0 L 3.5 Chloride 115 H Carbon Dioxide 19 L Anion Gap 12 BUN 12 Creatinine 1.23 H Estim Creat Clear Calc 54 Estimated GFR 45 L Glucose 90 Calculated Osmolality 301 H Calcium 8.1 L Magnesium 1.8 Discharge Plan Discharge Attending physician on discharge: Kwasi Alfonso Consulting providers: Kenny Medeiros; Arlyn Garcia; Antonio Ny Discharging Clinician: Kenny Medeiros Anticipated Discharge Date/Time: 04/03/23 09:46 Patient Disposition: Home, Self-Care Activity: may shower, unlimited and as tolerated Diet: diabetic Wound Care Instructions: follow printed instructions Discharge Instructions: Avoid Soda or Carbonated drinks as much as possible Keep your genital area clean. Use mild soap. Rinse with water. Always wipe the genital area from front to back. Urinate frequently. Don't hold urine in your bladder for a long time. Always urinate after having sex. Practice saf
--- NOTE | 2023-04-03 11:05 | PC.NURSE ---
Patient removed from telemetry and IV site discontinued in anticipation of discharge.
--- NOTE | 2023-04-03 11:20 | PC.NURSE ---
Discharge instructions given to patient and patient voiced understanding. Patient left unit in w/c accompanied by medical technical writer. Patient left hospital grounds in privately owned vehicle. Personal items sent home with patient. Instructions given to patient to make follow up appointment with PCP and to have outpatient lab testing in 3 days.
--- NOTE | 2023-04-06 13:45 | PCNEURO ---
Pt states she received and understood her discharge instructions. Pt also states her care was excellent .
== END 2023-04-03 11:20 | disposition home or self-care (01) ==
LOC: CHSED 19:57 → CHS2ND 20:20
PROVIDERS: Nurse Practitioner Family; Admitting Provider Internal Medicine; Emergency Provider Emergency Medicine; PCP Nurse Practitioner Family; Visit Provider Internal Medicine
DX: N39.0 Urinary tract infection, site not specified (principal); E87.6 Hypokalemia; E83.42 Hypomagnesemia; I12.9 Hypertensive chronic kidney disease with stage 1 through stage 4 chronic kidney disease, or unspecified chronic kidney disease; N18.32 Chronic kidney disease, stage 3b; E03.9 Hypothyroidism, unspecified; E66.9 Obesity, unspecified; K21.9 Gastro-esophageal reflux disease without esophagitis; B96.20 Unspecified Escherichia coli [E. coli] as the cause of diseases classified elsewhere; M79.7 Fibromyalgia; G62.9 Polyneuropathy, unspecified; F41.9 Anxiety disorder, unspecified; Z96.651 Presence of right artificial knee joint; Z96.89 Presence of other specified functional implants; Z87.891 Personal history of nicotine dependence
CPT/HCPCS: 36415; 70450; 71046; 80048; 80053; 81001; 83605; 83735; 84132; 84443; 84484; 85025; 85027; 87040; 87077; 87086; 87088; 87186; 93005; 96361; 96365; 96366; 96367; 96372; 96375; 96376; 99285; A9270; G0378; J0696; J1650; J2405; J3475; J3480; J7030; J7050

== ENCOUNTER 2023-04-14 14:24 | Outpatient (RCR) | payer MEDICARE, MEDICAID, SELFPAY ==
--- NOTE | 2023-04-14 15:36 | OPREHPOC ---
Outpatient Therapy Plan of Care This is a Multidisciplinary Plan of Care that may contain components documented by all disciplines (PT, OT, and ST.) PT Problem 1 PT Problem #1 Knowledge Deficit PT Goal 1 Goal Patient to demonstrate independence with HEP Target Visit 6 PT Problem 2 PT Problem #2 Impaired Strength PT Goal 1 Goal Patient to demonstrate 4+/5 B LE strength to improve ability to get up from chair for house hold chores. Target Visit 12 PT Problem 3 PT Problem #3 Impaired Functional Mobil PT Goal 1 Goal 1. Patient to complete 2 min walk test with no seated breaks to improve endurance for house hold tasks 2. Patient to report no falls during 2 week periods 3. Patient to report ability dress with independence Target Visit 12
--- NOTE | 2023-04-14 15:36 | PTOPEVAL1 ---
Assessment and note entered by Ryanne Gonzalez DPT Evaluation Information Assessment Status Evaluation Diagnosis decreased balance Onset 03/31/23 Subjective Information Patient reports she has had 10 falls within the last 2 weeks. She reports she feels like her legs give out on her and she falls straight onto knees. She reports she uses a rollator at all times. She reports she levels in a single level apartment with no steps or stairs. She reports due to decreased in balance she has fear of competing self care tasks such as dressing and bathing. Patient reports to MD in 2 weeks. Reported Pain Level Pain Score 5: Self Report Assessment PT Clinical Summary Patient is a 57 year old female who presents to PT with due to frequent falling. Patient demonstrates increased fall risk with 5XSTS testing, decreased B LE and decreased gait mechanics impairing her ability to navigate within her home, difficulty dressing and difficulty bathing. Patient would benefit from skilled PT to address impairments and return to PLOF. Plan of Care Interventions Electrical Stimulation,Gait Training,Hot Pack/Cold Pack,Manual Therapy,Neuro Re-education,Patient/ Caregiver Educati,Therapeutic Activities, Therapeutic Exercise PT Services Indicated Yes Treatment Frequency and 2x weekly for 12 visits Duration These treatments will address the objective and functional deficits as defined above. The patient will be advanced safely and appropriately in order for the patient to progress towards his/her prior level of function. Additional exercises will be introduced and as well as a comprehensive home exercise program upon discharge, if needed, ?to ensure carryover of functional gains achieved in the clinic. This treatment plan has been reviewed and agreement upon by the patient.
== END 2023-04-26 14:02 | disposition home or self-care (01) ==
LOC: CHSPT 14:24
PROVIDERS: PCP Family Medicine; Visit Provider Nurse Practitioner Family
DX: R29.6 Repeated falls (principal)
CPT/HCPCS: 97110; 97161; 97530

== ENCOUNTER 2023-04-18 10:03 | Outpatient (CLI) | payer MEDICARE, MEDICAID, SELFPAY ==
[2023-04-18 10:43] LABS: Lipase 74 U/L (16-77)
== END 2023-04-18 10:04 | disposition home or self-care (01) ==
LOC: CHSLAB 10:06
PROVIDERS: PCP Nurse Practitioner Family; Visit Provider Nurse Practitioner Family
DX: R10.11 Right upper quadrant pain (principal)
CPT/HCPCS: 36415; 83690

== ENCOUNTER 2023-04-21 13:17 | Outpatient (CLI) | payer MEDICARE, SELFPAY ==
[2023-04-21 13:38] LABS: Appearance Urine Clear (Clear); Bilirubin Urine Negative (Negative); Blood Urine Trace-Intact (Negative); Color Urine Light Yellow (Yellow); Glucose Urine UA Negative (Negative); Ketones Urine Negative (Negative); Leukocyte Esterase Ur Trace (Negative); Nitrate Urine Negative (Negative); Protein Urine Negative (Negative); Specific Grav Ur <= 1.005 (1.010-1.020); Urobilinogen Urine 0.2 mg/dL (0.2-1.0)
[2023-04-21 13:43] LABS: Add Urine Microscopic? YES; Bacteria Urine Trace /hpf; RBC Urine 0-2 /hpf (0-2); Squamous Epithelial Cell Urine Few /hpf (Few); WBC Urine 0-3 /hpf (0-3)
== END 2023-04-21 13:18 | disposition home or self-care (01) ==
LOC: CHSLAB 13:19
PROVIDERS: PCP Nurse Practitioner Family; Visit Provider Nurse Practitioner Family
DX: N39.0 Urinary tract infection, site not specified (principal)
CPT/HCPCS: 81001; 87086; 87088

== ENCOUNTER 2023-05-03 11:05 | Emergency (ER) | payer MEDICARE, MEDICAID, SELFPAY ==
--- NOTE | ~2023-05-03 | XR_ITS ---
EXAMINATION: XR chest 2V DATE: 05/03/2023 11:35 INDICATION: Chest pain. TECHNIQUE: Frontal and lateral views of the chest were obtained. COMPARISON: Chest 2 views 04/01/2023 FINDINGS: The patient's head overlies the lung apices on the frontal view. There is no pneumonia, ple ural effusion, or pneumothorax. The heart size is normal. IMPRESSION: 1. No acute cardiopulmonary disease. Reviewed, dictated and finalized at location A.
--- NOTE | ~2023-05-03 | CT_ITS ---
EXAMINATION: CT brain wo con DATE: 05/03/2023 11:23 INDICATION: Cerebrovascular accident. Dysarthria. Confusion. TECHNIQUE: Computed tomography (CT) of the head was performed without intravenous contrast. The mA wa s adjusted according to patient size. Iterative reconstruction technique was employed. The dose-lengt h product was 605.33 mGy-cm. COMPARISON: Head CT 04/01/2023 FINDINGS: There is no intracranial hemorrhage, acute infarction, or abnormal intracranial mass lesion . There is an empty sella. The ventricles are normal in size. The orbits are normal. The paranasal si nuses are clear. The mastoid air cells are normal. IMPRESSION: 1. No acute intracranial pathology. I discussed this result with Dr. Roberts. Reviewed, dictated and finalized at location A.
[2023-05-03 11:05] VITALS: BP 102/59; PULSE 60; RESP 16; TEMP 36.1; O2SAT 99
--- NOTE | 2023-05-03 11:10 | ECG_ITS ---
Measurements Intervals [place] Rate: 56 P: AL: 0 QRS: -6 QRSD: 102 T: -19 QT: 462 QTc: 447 Interpretive Statements SINUS BRADYCARDIA LOW QRS VOLTAGE IN PRECORDIAL LEADS BORDERLINE ST-T WAVE ABNORMALITY- ANTEROLAT/INF LEADS BORDERLINE ECG COMPARED TO ECG 04/01/2023 18:50:15 NO SIGNIFICANT CHANGES Electronically Signed On 05-03-2023 14:09:47 CDT by David Noel D.O.
[2023-05-03 11:40] VITALS: BP 101/62; PULSE 61; RESP 18; O2SAT 100
[2023-05-03 11:47] LABS: Basophils Absolute Auto 0.07 K/mm3 (0.00-0.10); Basophils Percent Auto 0.8 % (0.0-1.0); Eosinophils Absolute Auto 0.13 K/mm3 (0.02-0.50); Eosinophils Percent Auto 1.4 % (1.0-6.0); Hematocrit 40.9 % (35.0-49.0); Immature Granulocyte Absolute 0.04 K/mm3 (0.00-0.00); Immature Granulocyte Percent A 0.4 % (0.0-0.0); Lymphocytes Absolute Auto 1.51 K/mm3 (1.10-4.50); Lymphocytes Percent Auto 16.4 % (18.0-42.0); Mean Corpuscular HGB Conc 31.8 g/dL (32.0-36.0); Mean Corpuscular Hemoglobin 30.2 pg (27.0-31.0); Mean Corpuscular Volume 95.1 fL (78.0-102.0); Mean Platelet Volume 10.4 fl (9.2-11.8); Monocytes Absolute Auto 0.75 K/mm3 (0.10-0.90); Monocytes Percent Auto 8.1 % (2.0-11.0); Neutrophils Absolute Auto 6.7 K/mm3 (1.7-7.2); Neutrophils Percent Auto 72.9 % (50.0-70.0); Platelet Count Result 243 K/mm3 (150-420); Red Cell Distribution Width 13.2 % (11.6-14.4); White Blood Count 9.2 K/mm3 (4.8-10.8)
--- NOTE | 2023-05-03 11:50 | ED.GENADULT ---
HPI - General Adult General Chief complaint: Dizziness Stated complaint: Dizziness Time Seen by Provider: 05/03/23 11:10 Source: patient, family, RN notes reviewed and other ( primary care doctor called with report) Mode of arrival: other ( patient uses a walker) Limitations: no limitations History of Present Illness HPI narrative: patient is a 57-year-old female with lots of complaints. Specifically, she has left arm weakness which is causing her left neck to be weak and difficulty views speech. Her symptoms and last known well or 1 week ago. She was at the primary doctor today and they sent her here for workup. She also has some chest pain shortness of breath dizziness and headache. Patient has chronic hypotension and has a morphine pump. Onset (ago): week(s) (1) Location: head Radiation: neck Severity: moderate Severity scale (1-10): 5 Quality: stabbing and sharp Pain Consistency: constant Relieving factors: none Exacerbating factors: none Associated symptoms: chest pain, shortness of breath and weakness Treatments prior to arrival: none Related Data Home Medications Medication Instructions Recorded Confirmed cholecalciferol (vitamin D3) 125 125 mcg PO DAILY 11/02/22 05/03/23 mcg (5,000 unit) tablet (Vitamin D3) Morphine Pain Pump See Rx Instructions .Route .COMPLEX 12/24/22 05/03/23 Allergies Allergy/AdvReac Type Severity Reaction Status Date / Time bee venom protein (honey bee) Allergy Severe Swelling Verified 05/03/23 10:08 of Lip/Tongue/Throat aspirin Allergy Intermediate Nausea and Verified 05/03/23 10:08 Vomiting Bleach (Sodium Hypochlorite) Allergy Intermediate Trouble Verified 05/03/23 10:08 Breathing NSAIDS (Non-Steroidal Allergy Intermediate Swelling Verified 05/03/23 10:08 Anti-Inflamma ibuprofen Allergy Unknown Swelling Verified 05/03/23 10:08 oxycodone AdvReac Mild hypotension Verified 05/03/23 10:08 and visual disturbance Bee stings Allergy Intermediate Swelling Uncoded 05/03/23 10:08 of Lip/Tongue/Throat SALICYLATES Allergy Unknown unknown Uncoded 05/03/23 10:08 Review of Systems Review of Systems: All systems reviewed & are unremarkable except as noted in HPI and below Constitutional: Constitutional: Reports no additional constitutional complaints Eyes: Eyes: Reports no additional eye complaints ENT: Reports system reviewed and no additional complaints, except as documented Cardiovascular: Cardiovascular: Reports no additional cardiovascular complaints Respiratory: Respiratory: Reports no additional respiratory complaints Gastrointestinal: Gastrointestinal: Reports no additional gastrointestinal complaints Genitourinary: Genitourinary: Reports no additional female genitourinary complaints Musculoskeletal: Musculoskeletal: Reports no additional musculoskeletal complaints Integumentary/Breasts: Skin/Breast: Reports system reviewed and no additional complaints, except as docu Neurologic: Reports system reviewed and no additional complaints, except as documented Psychiatric: Psychiatric: Reports no additional psychiatric complaints Endocrine: Endocrine: Reports no additional endocrine complaints Hematologic/Lymphatic: Hematologic/Lymphatic: Reports no additional hematologic/lymphatic complaints Allergic/Immunologic: Allergic/Immunologic: Reports no additional allergic/immunologic complaints PMFSH Past Medical History Medical History Anxiety Atypical chest pain Brown recluse spider bite or sting Cellulitis Chronic kidney disease, stage 3b Fibromyalgia Fibromyalgia Gastroesophageal reflux disease Generalized edema Generalized edema GERD (gastroesophageal reflux disease) Hypertension Hypothyroidism Migrainous headache without aura Mitral valve regurgitation S/P repair by cath Obesity, Class II, BMI 35-39.9 Otitis externa, left Overweight Polyneuropathy Pre-op exam
[2023-05-03 12:01] LABS: Partial Thromboplastin Time 29.1 SEC (23.90-30.70); Prothrombin Time 10.8 Seconds (9.50-12.10)
[2023-05-03 12:04] LABS: Alanine Aminotransferase 23 U/L (14-59); Alkaline Phosphatase 105 U/L (46-116); Anion Gap 14 mmol/L (8-16); Aspartate Amino Transferase 21 U/L (15-37); Bilirubin,Total 0.4 mg/dL (0.00-1.00); Blood Urea Nitrogen 19 mg/dL (7-18); Calcium 8.3 mg/dL (8.5-10.1); Carbon Dioxide 19 mmol/L (21-32); Chloride 108 mmol/L (98-108); Estimated CRCL calculation 38 ml/min; Estimated Glomerular Filt Rate 30; Glucose 75 mg/dL (70-99); Osmolality Calculated 293 mOsm/kg (285-295); Potassium 2.8 mmol/L (3.5-5.1); Sodium 141 mmol/L (136-145); Total Protein 7.1 g/dL (6.4-8.2)
[2023-05-03 12:05] LABS: Troponin I 9.8 ng/L (0.00-60.4)
[2023-05-03 12:09] LABS: Appearance Urine Cloudy (Clear); Bilirubin Urine Negative (Negative); Blood Urine Trace-Intact (Negative); Color Urine Light Yellow (Yellow); Glucose Urine UA Negative (Negative); Ketones Urine Negative (Negative); Leukocyte Esterase Ur 3+ LEU/UL (Negative); Nitrate Urine Positive (Negative); Protein Urine Negative (Negative); Urobilinogen Urine 0.2 mg/dL (0.2-1.0)
[2023-05-03] MEDS: POTASSIUM CHLORIDE 20 MEQ ER TABLET 40 MEQ PO (12:14)
[2023-05-03 12:20] LABS: Add Urine Microscopic? YES; Bacteria Urine 2+ /hpf; RBC Urine 0-2 /hpf (0-2); Renal Epithelial Cells Urine Few /hpf; Squamous Epithelial Cell Urine Few /hpf (Few); WBC Urine >75 /hpf (0-3)
[2023-05-03 12:40] VITALS: BP 107/63; PULSE 62; RESP 17; TEMP 36.3; O2SAT 97
[2023-05-03 14:00] VITALS: BP 101/59; PULSE 66; RESP 16; O2SAT 98
[2023-05-03 14:32] LABS: Troponin I 8.5 ng/L (0.00-60.4)
[2023-05-03 15:27] VITALS: BP 102/60; PULSE 61; RESP 16; TEMP 36.7; O2SAT 97
--- NOTE | 2023-05-05 13:40 | PC.NURSE ---
PRELIMINARY URINE CULTURE RESULTS: GREATER THAN 100,000CFU/ML OF ESCHERICHIA COLI. RESULTS CALLED TO BETZY NOLAN AT [facility]. PT IS INPATIENT IN ROOM 305.
--- NOTE | 2023-05-06 13:04 | PC.NURSE ---
Urine culture results sent to [place], patient is still in room 306. Fax number [phone]
== END 2023-05-03 15:44 | disposition short-term general hospital (02) ==
PROVIDERS: Emergency Provider Emergency Medicine; PCP Nurse Practitioner Family
DX: I63.9 Cerebral infarction, unspecified (principal); N39.0 Urinary tract infection, site not specified; R07.9 Chest pain, unspecified; E03.9 Hypothyroidism, unspecified; I12.9 Hypertensive chronic kidney disease with stage 1 through stage 4 chronic kidney disease, or unspecified chronic kidney disease; N18.32 Chronic kidney disease, stage 3b; Z87.891 Personal history of nicotine dependence
CPT/HCPCS: 36415; 70450; 71046; 80053; 81001; 84484; 85025; 85610; 85730; 87077; 87086; 87088; 87186; 93005; 96365; 99285; A9270; J0696

== ENCOUNTER 2023-05-03 16:21 | Inpatient (IN) | payer MEDICARE, MEDICAID, SELFPAY ==
--- NOTE | ~2023-05-03 | MR_ITS ---
EXAMINATION: MR cervical spine wo con DATE: 05/05/2023 11:43 INDICATION: Left-sided weakness and gait instability TECHNIQUE: Magnetic resonance imaging (MRI) of the cervical spine was performed without intravenous c ontrast. Sequences included sagittal T2-weighted FSE, sagittal T2-weighted FS FSE, sagittal T2-weight ed PROPELLER, sagittal fluid sensitive STIR PROPELLER, sagittal T1-weighted FSE, axial MERGE and axia l T2-weighted FSE. COMPARISON: None FINDINGS: Bone alignment is normal. Vertebral body heights are normal. T1 hyperintense hemangioma at C7. Bone marrow signal intensity is otherwise normal. Intervertebral disc heights are normal. Cord signal inte nsity is normal. Cervical soft tissues are unremarkable. The following disc levels are specifically d iscussed: C2-C3: The disc does not extend beyond the endplate margin. There is no uncovertebral joint osteoarth ritis. There is mild right facet joint osteoarthritis. There is no neural foraminal stenosis. There i s no central canal stenosis. C3-C4: Disc is mildly bulging. There is mild bilateral uncovertebral joint osteoarthritis. There is m ild right and moderate left facet joint osteoarthritis. There is mild bilateral neural foraminal sten osis. There is mild central canal stenosis with slight flattening of the ventral surface of the cord. C4-C5: Very small left paracentral disc protrusion. There is mild bilateral uncovertebral joint osteo arthritis. There is mild right and moderate left facet joint osteoarthritis. There is mild right neur al foraminal stenosis. There is mild central canal stenosis with mild indentation of the left ventral surface of the cord. C5-C6: Disc is bulging. There is mild bilateral uncovertebral joint osteoarthritis. There is mild lef t and moderate right facet joint osteoarthritis. There is mild bilateral neural foraminal stenosis. T here is mild central canal stenosis with mild indentation of the ventral surface of the cord. C6-C7: The disc does not extend beyond the endplate margin. There is no uncovertebral joint osteoarth ritis. There is mild bilateral facet joint osteoarthritis. There is mild left neural foraminal stenos is. There is no central canal stenosis. C7-T1: The disc does not extend beyond the endplate margin. There is no uncovertebral joint osteoarth ritis. There is mild bilateral facet joint osteoarthritis. There is no neural foraminal stenosis. The re is no central canal stenosis. IMPRESSION: 1. Mild cervical spondylosis. Reviewed, dictated and finalized at location A.
--- NOTE | ~2023-05-03 | NM_ITS ---
EXAMINATION: NM nohemi stress w perfusion DATE: 05/06/2023 10:00 INDICATION: Chest pain. TECHNIQUE: Rest images were obtained following intravenous administration of 11.22 mCi Tc99m tetrofos min (Myoview). The patient was infused intravenously with Lexiscan (regadenoson). Then, 34.7 mCi Tc99 m tetrofosmin (Myoview) was administered intravenously, and stress images were obtained. Data was rec onstructed into short axis and horizontal and vertical long axis SPECT images. Gated SPECT images wer e also obtained. COMPARISON: Myocardial perfusion imaging 07/07/2020 FINDINGS: There is no definite reversible or fixed perfusion abnormality to suggest ischemia or infar ction. There is no segmental wall motion abnormality. Left ventricular ejection fraction measures > 70%. IMPRESSION: 1. No definite ischemia or infarct. 2. Normal left ventricular ejection fraction measuring >70%. Reviewed, dictated and finalized at location A.
--- NOTE | ~2023-05-03 | MR_ITS ---
MRI of the brain Clinical History: Left-sided weakness Technique: Axial and sagittal T1-weighted images were acquired. These were followed by axial T2-weigh van, diffusion weighted, gradient, and FLAIR images. Findings: There is no acute infarct, intracranial hemorrhage, or mass lesion. There are minimal chron ic white matter changes in the periventricular white matter bilaterally. Ventricles and subarachnoid spaces are unremarkable. Orbits are unremarkable. Paranasal sinuses and m astoid air cells are clear. Major intracranial flow voids are intact. Sagittal midline structures demonstrate probable empty sella syndrome. Otherwise intact. IMPRESSION: No acute infarct, intracranial hemorrhage, or mass lesion. Minimal chronic white matter changes. Probable empty sella syndrome. Reviewed, dictated and finalized at location M.
--- NOTE | 2023-05-03 18:21 | PM.IMHP ---
H&P: HPI History of Present Illness Date/Time: 05/03/23 18:21 Chief Complaint: Extremity Weakness Narrative: 57 y/o F with history of CKD, fibromyalgia, neuropathy, and hypotension presents here with LUE weakness, chest discomfort associated with SOB, and dizziness. Patient reports LUE weakness that began 1 week ago on 04/25 at 8 pm. Patient was watching movie and using her phone when she noticed that she began to have weakness in her left hand and a tremor. Per patient's mother, patient's speech is also more slurred as if she was taking something . Patient also reports that she uses a walker at baseline. Since symptom onset, she has had difficulty using her walker more than usual. States new gait difficulty due to her LLE bowing outward. History of fibromyalgia, patient reports multiple pain locations: L hip, chest, head and LLE. Review of Systems Review of Systems: All systems reviewed & are unremarkable except as noted in HPI and below PMFSH Past Medical History Medical History Anxiety Atypical chest pain Brown recluse spider bite or sting Cellulitis Chronic kidney disease, stage 3b Fibromyalgia Fibromyalgia Gastroesophageal reflux disease Generalized edema Generalized edema GERD (gastroesophageal reflux disease) Hypertension Hypothyroidism Migrainous headache without aura Mitral valve regurgitation S/P repair by cath Obesity, Class II, BMI 35-39.9 Otitis externa, left Overweight Polyneuropathy Pre-op exam Primary insomnia Sprain of metacarpophalangeal (MCP) joint of right thumb Surgical History Surgical History Fracture, intertrochanteric, left femur H/O: hysterectomy History of appendectomy History of total right knee replacement (TKR) Status post hip surgery 01/25/2020 Family History Family History Mother Hypertension Family history of type 2 diabetes mellitus Social History Social History Smoking status: Never smoker Tobacco type: cigarettes Second hand tobacco smoke exposure: Yes Smoking end date: 01/28/84 Alcohol intake: never Alcohol use details: social Substance use: never Substance use type: painkillers Lack of Transportation: No Lack of Food: Never True Current Housing: I Have Housing Concerned About Future Housing: No Difficulty Paying Gas/Electric Bills: No Difficulty Paying for Meds: No Currently Unemployed: No Education: High School Diploma/GED Difficulty w/ Childcare or Family Care: No Living arrangements: alone Additional living arrangements comments: with mother Occupation/Education: other Additional occupation/education comments: Disabled Gender identity (if verbalized by the patient): Female Sexual Orientation (if Verbalized by the Patient): Straight or Heterosexual Spiritual care concerns: No Meds Home Medications and Allergies Home Medications Medication Instructions Recorded Confirmed Type pregabalin 100 mg capsule (Lyrica) 100 mg PO BID #10 caps 05/11/21 05/03/23 Rx acetaminophen 325 mg tablet (Mapap 650 mg PO Q6H PRN Mild Pain (1-3) 05/11/22 05/03/23 Rx (acetaminophen)) Or Fever #30 tabs epinephrine 0.3 mg/0.3 mL See Rx Instructions .Route 05/11/22 05/03/23 Rx injection, auto-injector .COMPLEX #2 ea magnesium chloride 64 mg 64 mg PO DAILY #30 tabs 05/11/22 05/03/23 Rx (magnesium chloride) tablet,delayed release cholecalciferol (vitamin D3) 125 125 mcg PO DAILY 11/02/22 05/03/23 History mcg (5,000 unit) tablet (Vitamin D3) hydroxyzine HCl 25 mg tablet 25 mg PO BID anxiety #60 tabs 11/22/22 05/03/23 Rx Morphine Pain Pump See Rx Instructions .Route .COMPLEX 12/24/22 05/03/23 History folic acid 1 mg tablet 1 mg PO DAILY #30 tabs 01/13/23 05/03/23 Rx potassium chloride 20 mEq 20 meq PO DA
[2023-05-03 18:51] VITALS: BP 117/74
[2023-05-03 20:00] VITALS: PULSE 55
[2023-05-03] MEDS: TIZANIDINE HCL 4 MG TABLET 8 MG PO (20:32)
[2023-05-03] MEDS: POTASSIUM CHLORIDE 20 MEQ ER TABLET 40 MEQ PO (20:32)
[2023-05-03] MEDS: traZODone HCL 50 MG TABLET 200 MG PO (20:33)
[2023-05-03 22:00] VITALS: BP 119/75; PULSE 60; RESP 14; TEMP 36.1; O2SAT 100
[2023-05-03] MEDS: ACETAMINOPHEN 325 MG TABLET 650 MG PO (22:02)
[2023-05-03 22:07] VITALS: BMI 34.5
[2023-05-04] VITALS (9 sets, daily range): BP systolic 92–138; BP diastolic 54–77; PULSE 54–85; RESP 13–18; TEMP 36.1–36.9; O2SAT 98–100
--- NOTE | 2023-05-04 | ECHO_ITS ---
Patient Info Name: Nancy Murray Age: 57 years : 1965 Gender: Female Ht: 66 in Wt: 214 lbs BSA: 2.16 m2 HR: 78 bpm BP: 138 / 77 mmHg Technical Quality: Fair Exam Date: 05/04/2023 4:02 PM Exam Location: [facility] Pulmonary Exam Room: 305 Patient Status: Inpatient Admit Date: 05/03/2023 Staff Ordering Physician: Renetta Ivan DO Computer Technology Instructor: Joslyn Garcia RDCS Attending Provider: Tang Hernandez MD Referring Physician: Marzena MCKEON; Exam Type: CA echo dop bubble study w con Study Info Indications - TIA WEAKNESS Complete two-dimentional, color flow and Doppler transthoracic echocardiogram is performed with agitated saline and with contrast to opacify the left ventricle and to improve the delineation of the left ventricle endocardial borders. Contrast/Agitated Saline Contrast/Ag. Saline: Definity Amount: 2.00 ml Administered By: Joslyn Garcia [facility] Existing IV Access: Yes IV Access Condition: patent with no signs of infiltration History/Risk Factors Hypertension: Yes Dyslipidemia: No Congenital Heart Disease (CHD): Yes Peripheral Arterial Disease (PAD): No Myocardial Infarction (NH): No Chronic Lung Disease: Yes Obesity: Yes Renal Disease: No Coronary Artery Disease (CAD) No Congestive Heart Failure (CHF): No Cardiomyopathy/LV Systolic Dysfunction: No Diabetes Mellitus: No COPD: No Tobacco Use: Former Cerebrovascular Disease: No Family History: Diabetes Mellitus, Coronary Artery Disease Deep Vein Thrombosis (DVT): None Dialysis: None Frailty Scale (CSHA): 3: Managing Well Cardiac Arrest: No Summary 1. Definity contrast administered improved wall motion interpretation. 2. Left ventricular chamber dimension is normal. 3. Left ventricular systolic function is normal, estimated at 65-70%. 4. The left ventricular diastolic function is grade I diastolic dysfunction. 5. E/e' 6 is not elevated. Left Ventricle E/e' 6 is not elevated. Definity contrast administered improved wall motion interpretation. Left ventricular chamber dimension is normal. Left ventricular systolic function is normal, estimated at 65-70%. The left ventricular diastolic function is grade I diastolic dysfunction. Right Ventricle Right ventricular chamber dimension is normal. Right ventricular systolic function is normal. Left Atria Left atrial chamber dimension is normal. Right Atria Right atrial chamber dimension is normal. Atrial Septum Agitated saline injection with and without vasalva maneuver opacified right side cardiac chambers without shunt to left side cardiac chambers. Interatrial septum not well visualized by 2D and agitated saline imaging. Aortic Valve The aortic valve is not well visualized. Cannot determine number of aortic valve leaflets. There is no aortic valve stenosis. There is no aortic valve regurgitation. Pulmonic Valve There is no pulmonic regurgitation. Mitral Valve There is no mitral valve stenosis. There is no mitral valve regurgitation. Tricuspid Valve There is no tricuspid valve regurgitation. Pericardium/Pleural There is no pericardial effusion. Inferior Vena Cava Normal inferior vena cava with >50% collapse upon inspiration consistent with normal right atrial pressure, 5 mmHg. Aorta The aortic root size at the sinus of Valsalva is normal. Left Ventricular Outflow Tract Name
[2023-05-04 06:18] LABS: Basophils Absolute Auto 0.1 K/mm3 (0.0-0.1); Basophils Percent Auto 0.7 % (0.2-1.2); Eosinophils Absolute Auto 0.2 K/mm3 (0-0.3); Eosinophils Percent Auto 2.8 % (0-4.4); Hematocrit 39.5 % (37.0-47.0); Hemoglobin 12.4 g/dL (12.0-15.0); Immature Granulocyte Absolute 0.02 K/mm3 (0.00-0.031); Immature Granulocyte Percent A 0.3 % (0-0.5); Lymphocytes Absolute Auto 2.24 K/mm3 (0.9-3.2); Lymphocytes Percent Auto 31.9 % (18.3-44.2); Mean Corpuscular HGB Conc 31.4 g/dl (32-36); Mean Corpuscular Hemoglobin 30.3 pg (26-34); Mean Corpuscular Volume 96.6 fl (80-100); Mean Platelet Volume 10.8 fl (7.4-10.4); Monocytes Absolute Auto 0.6 K/mm3 (0.1-0.6); Monocytes Percent Auto 8.5 % (2.6-8.5); Neutrophils Absolute Auto 3.9 K/mm3 (1.3-6.7); Neutrophils Percent Auto 55.8 % (45.5-73.1); Platelet Count Result 220 k/mm3 (150-375); Red Blood Count 4.09 M/mm3 (4.2-5.4); Red Cell Distribution Width 13.5 % (11.5-14.5)
[2023-05-04 06:43] LABS: Anion Gap 7 mmol/L (8-16); Blood Urea Nitrogen 18 mg/dL (7-17); Calcium 8.2 mg/dL (8.4-10.2); Carbon Dioxide 17 mmol/L (22-30); Chloride 117 mmol/L (98-107); Estimated CRCL calculation 47 ml/min; Estimated Glomerular Filt Rate 39; Glucose 96 mg/dL (65-110); Potassium 3.8 mmol/L (3.4-5.0); Sodium 141 mmol/L (137-145)
--- NOTE | 2023-05-04 09:44 | PM.IMPN ---
Progress Note: A&P Assessment and Plan (1) Acute left-sided weakness: Code(s): R53.1 - Weakness Status: Acute Assessment and Plan: Neurology consult ordered and pending, MRI pending Concern for possible TIA versus CVA (2) UTI (urinary tract infection): Qualifiers: Hematuria presence: without hematuria Urinary tract infection type: acute cystitis Qualified Code(s): N30.00 - Acute cystitis without hematuria Code(s): N39.0 - Urinary tract infection, site not specified Status: Inactive Assessment and Plan: Started on Rocephin 05/03, follow-up urine culture (3) Chest pain: Qualifiers: Chest pain type: other chest pain Qualified Code(s): R07.89 - Other chest pain Code(s): R07.9 - Chest pain, unspecified Status: Inactive Assessment and Plan: Intermittent CP in L breast. Not associated with activity and not alleviated with rest. +SOB with CP, no nausea, diaphoresis, or radiation of pain. -Trop 9.8, 8.5, third one was negative -Previously 20.7 on 04/01/2023, recheck pending Check echo w/bubble study Consult to cardiology placed, pending (4) Gait instability: Code(s): R26.81 - Unsteadiness on feet Status: Acute Assessment and Plan: LLE limitations due to pain. H/o multiple hip surgeries (x5). Reporting changes in gait with use of walker. -PT to eval and treat -requesting placement due to developing limitations (5) Dizziness: Code(s): R42 - Dizziness and giddiness Status: Acute Assessment and Plan: Past history of hypotension. Reported systolic of 60/palp in ambulance during transport, EMS did not report findings at arrival to facility. BP here 119/75. -Orthostatic BP ordered for AM -home metoprolol held -continue to monitor blood pressure -continue home diamox Plan Chronic Conditions -Hypothyroidism: continue home levothyroxine. Last TSH done on 04/01/23 - 3.37. -Fibromyalgia: home medications continued - morphine pump (located in L abdomen), lyrica, sertaline, and tizanidine. -Insomnia: home trazodone continued. -Anxiety: PRN Atarax continued. -Multivitamins continued: Vitamin D3, Folic Acid, Magnesium, and Ferrous Sulfate. Diet: Heart Healthy DVT Prophylaxis: SCDs and Lovenox GI Prophylaxis: Pantoprazole PO Code Status: DNR, confirmed with patient. Subjective Date/time seen: 05/04/23 09:44 Interval history: 57 y/o F with history of CKD, fibromyalgia, neuropathy, and hypotension presents here with LUE weakness, chest discomfort associated with SOB, and dizziness. No overnight events noted. No chest pain or shortness of breath. No nausea, vomiting or diarrhea. No fevers or chills. Symptoms essentially resolved, still with a little bit of intermittent chest heaviness. Review of Systems Review of Systems: 12 point review of systems was assessed and was negative except as noted in the HPI Exam Narrative: General: No acute distress, alert and oriented per baseline HEENT: Atraumatic, normocephalic, mucous membranes moist CV: Regular rate and rhythm, S1, S2 Lungs: Clear to auscultation bilaterally, no rales or crackles noted, no wheezes, good air entry Abdomen: Soft, nontender, nondistended Extremities: Normal to inspection Skin: No rashes noted, no lesions or wounds seen Psych: Euthymic, normal affect Objective Data Vital Signs Vital Signs: Vital Signs - 24 hr 05/03/23 18:51 05/03/23 22:00 05/03/23 20:00 Temperature 96.9 F L Pulse Rate 60 Respiratory Rate 14 Blood Pressure 117/74 119/75 Pulse Oximetry 100 Oxygen Delivery Room Air 05/03/23 20:00 05/04/23 00:00 05/04/23 05:36 Temperature 97.1 F L Pulse Rate 55 L 58 L 54 L Respiratory Rate 13 Blood Pressure 92/54 L Pulse Oximetry 98 Oxygen Delivery 05/04/23 04:00 Temperature Pulse Rate 55 L Respiratory Rate Blood Pressure Pulse Oximetry Oxygen D
[2023-05-04] MEDS: acetaZOLAMIDE TAB 250 MG TABLET 500 MG PO ×2 (10:03→17:03)
[2023-05-04] MEDS: LEVOTHYROXINE SODIUM 50 MCG TABLET PO (10:06)
[2023-05-04] MEDS: MAGNESIUM CHLORIDE 64 MG TABLET PO (10:06)
[2023-05-04] MEDS: hydrOXYzine HCL 25 MG TABLET PO ×2 (10:06→17:03)
[2023-05-04] MEDS: FERROUS SULFATE 325 MG TABLET DR PO (10:06)
[2023-05-04] MEDS: FOLIC ACID 1 MG TABLET PO (10:06)
[2023-05-04] MEDS: PANTOPRAZOLE 40 MG TABLET PO (10:06)
[2023-05-04] MEDS: PREGABALIN (*CRX) 50 MG CAPSULE 100 MG PO ×2 (10:06→17:03)
[2023-05-04] MEDS: SERTRALINE HCL 50 MG TABLET PO (10:07)
[2023-05-04] MEDS: ENOXAPARIN 40 MG/0.4 ML SYRINGE SUB-Q (10:07)
[2023-05-04] MEDS: CHOLECALCIFEROL 1,000 UNITS TABLET 5000 UNITS PO (10:07)
--- NOTE | 2023-05-04 11:04 | ECG_ITS ---
Measurements Intervals [place] Rate: 71 P: 89 [place]: 198 QRS: -5 QRSD: 98 T: -39 QT: 405 QTc: 442 Interpretive Statements SINUS RHYTHM LOW QRS VOLTAGE IN PRECORDIAL LEADS BORDERLINE ST-T WAVE ABNORMALITY- ANTEROLAT/INF LEADS BASELINE ARTIFACT- I, II, V4-V6 BORDERLINE ECG COMPARED TO ECG 05/03/2023 11:35:46 SINUS RHYTHM NOW PRESENT Electronically Signed On 05-04-2023 12:46:19 CDT by David Noel D.O.
[2023-05-04 12:27] LABS: Troponin I < 0.012 ng/mL (0.000-0.034)
--- NOTE | 2023-05-04 15:09 | WPDNEURCNPN ---
Assessment and Plan Assessment and plan (1) Gait instability: Code(s): R26.81 - Unsteadiness on feet Status: Acute (2) Dizziness: Code(s): R42 - Dizziness and giddiness Status: Acute Plan considering the awake symptoms particularly around the left upper extremity and shoulder I will obtain the MRI of the cervical spine to rule out the intrinsic pathology of spinal cord before any further order. Consult date: 05/04/23 HPI: Nancy Murray is a 57 year old female admitted to the hospital through the emergency room the complaints of dizziness in addition to the left upper extremity weakness resulting in the weakness of her left cervical spine as well probably going on for at least 1 week duration she is also complaining of chest pain and difficulties in breathing along with the headaches and dizziness with history of chronic hypotension and a morphine pump in addition she she is allergic to multiple medications including bee venom be stings it has also been documented that she has ongoing history of GERD, fibromyalgia, migraine, polyneuropathy she has also undergone repair for the mitral valve regurgitation, she is a former smoker never alcohol intaker Review of Systems Review of Systems: All systems reviewed & are unremarkable except as noted in HPI and below PMFSH Past Medical History Medical History Anxiety Atypical chest pain Brown recluse spider bite or sting Cellulitis Chronic kidney disease, stage 3b Fibromyalgia Fibromyalgia Gastroesophageal reflux disease Generalized edema Generalized edema GERD (gastroesophageal reflux disease) Hypertension Hypothyroidism Migrainous headache without aura Mitral valve regurgitation S/P repair by cath Obesity, Class II, BMI 35-39.9 Otitis externa, left Overweight Polyneuropathy Pre-op exam Primary insomnia Sprain of metacarpophalangeal (MCP) joint of right thumb Surgical History Surgical History Fracture, intertrochanteric, left femur H/O: hysterectomy History of appendectomy History of total right knee replacement (TKR) Status post hip surgery 01/25/2020 Family History Family History Mother Hypertension Family history of type 2 diabetes mellitus Social History Social History Smoking status: Never smoker Tobacco type: cigarettes Second hand tobacco smoke exposure: Yes Smoking end date: 01/28/84 Alcohol intake: never Alcohol use details: social Substance use: never Substance use type: painkillers Lack of Transportation: No Lack of Food: Never True Current Housing: I Have Housing Concerned About Future Housing: No Difficulty Paying Gas/Electric Bills: No Difficulty Paying for Meds: No Currently Unemployed: No Education: High School Diploma/GED Difficulty w/ Childcare or Family Care: No Living arrangements: alone Additional living arrangements comments: with mother Occupation/Education: other Additional occupation/education comments: Disabled Gender identity (if verbalized by the patient): Female Sexual Orientation (if Verbalized by the Patient): Straight or Heterosexual Spiritual care concerns: No Meds Home Medications and Allergies Home Medications Medication Instructions Recorded Confirmed Type pregabalin 100 mg capsule (Lyrica) 100 mg PO BID #10 caps 05/11/21 05/03/23 Rx acetaminophen 325 mg tablet (Mapap 650 mg PO Q6H PRN Mild Pain (1-3) 05/11/22 05/03/23 Rx (acetaminophen)) Or Fever #30 tabs epinephrine 0.3 mg/0.3 mL See Rx Instructions .Route 05/11/22 05/03/23 Rx injection, auto-injector .COMPLEX #2 ea magnesium chloride 64 mg 64 mg PO DAILY #30 tabs 05/11/22 05/03/23 Rx (magnesium chloride) tablet,delayed release cholecalciferol (vitamin D3) 125 125 mcg PO DAILY
--- NOTE | 2023-05-04 15:11 | ECG_ITS ---
Measurements Intervals [place] Rate: 90 P: 104 SD: 186 QRS: -5 QRSD: 93 T: -48 QT: 357 QTc: 437 Interpretive Statements SINUS RHYTHM EARLY PRECORDIAL R/S TRANSITION LOW QRS VOLTAGE IN PRECORDIAL LEADS ST-T WAVE ABNORMALITY IN ANTEROLAT/INF LEADS- CONSIDER ISCHEMIA ABNORMAL ECG COMPARED TO ECG 05/04/2023 11:46:44 ST-T WAVE ABNORMALITY NOW PRESENT Electronically Signed On 05-04-2023 16:13:05 CDT by David Noel D.O.
[2023-05-04] MEDS: PERFLUTREN LIPID MICROSPHERES 1.5 ML VIAL DILUTED TO 10 ML TOTAL VOLUME IV PUSH (16:25)
--- NOTE | 2023-05-04 16:44 | IVDEFINITY ---
Prior to administration of IV Definity the patient was educated on the risks and benefits of the imaging enhancing agent including potential adverse side effects. The patient verbalized understanding. Allergies were verified. No exclusion criteria were identified and at least one of the following inclusion criteria were met: 1) physician request, 2) patient technically difficult to image (per the [place] [employer] guidelines of two or more segments not discernable within the apical view), or 3) questionable left ventricular function. ?
[2023-05-04] MEDS: TIZANIDINE HCL 4 MG TABLET 8 MG PO ×2 (17:05→21:12)
[2023-05-04 18:35] LABS: Troponin I 0.018 ng/mL (0.000-0.034)
[2023-05-04] MEDS: traZODone HCL 50 MG TABLET 200 MG PO (21:13)
[2023-05-05] VITALS (9 sets, daily range): BP systolic 98–100; BP diastolic 50–58; PULSE 54–77; RESP 13–18; TEMP 36.2–36.4; O2SAT 98–99
--- NOTE | 2023-05-05 08:39 | PM.IMPN ---
Progress Note: A&P Assessment and Plan (1) Acute left-sided weakness: Code(s): R53.1 - Weakness Status: Acute Assessment and Plan: Neurology consult appreciated, MRI unremarkable, cervical spine MRI showed mild spondylosis, no other abnormalities Concern for possible TIA versus CVA (2) UTI (urinary tract infection): Qualifiers: Hematuria presence: without hematuria Urinary tract infection type: acute cystitis Qualified Code(s): N30.00 - Acute cystitis without hematuria Code(s): N39.0 - Urinary tract infection, site not specified Status: Inactive Assessment and Plan: Started on Rocephin 05/03, follow-up urine culture, ecoli, sens pending (3) Chest pain: Qualifiers: Chest pain type: other chest pain Qualified Code(s): R07.89 - Other chest pain Code(s): R07.9 - Chest pain, unspecified Status: Inactive Assessment and Plan: Intermittent CP in L breast. Not associated with activity and not alleviated with rest. +SOB with CP, no nausea, diaphoresis, or radiation of pain. Check echo w/bubble study wnl Consult to cardiology appreciated, centrifugal spinner 05/06 (4) Gait instability: Code(s): R26.81 - Unsteadiness on feet Status: Acute Assessment and Plan: LLE limitations due to pain. H/o multiple hip surgeries (x5). Reporting changes in gait with use of walker. -PT to eval and treat -requesting placement due to developing limitations (5) Dizziness: Code(s): R42 - Dizziness and giddiness Status: Acute Assessment and Plan: Past history of hypotension. Reported systolic of 60/palp in ambulance during transport, EMS did not report findings at arrival to facility. BP here 119/75. -Orthostatic BP ordered for AM -home metoprolol held -continue to monitor blood pressure -continue home diamox Plan Chronic Conditions -Hypothyroidism: continue home levothyroxine. Last TSH done on 04/01/23 - 3.37. -Fibromyalgia: home medications continued - morphine pump (located in L abdomen), lyrica, sertaline, and tizanidine. -Insomnia: home trazodone continued. -Anxiety: PRN Atarax continued. -Multivitamins continued: Vitamin D3, Folic Acid, Magnesium, and Ferrous Sulfate. Diet: Heart Healthy DVT Prophylaxis: SCDs and Lovenox GI Prophylaxis: Pantoprazole PO Code Status: DNR, confirmed with patient. Subjective Date/time seen: 05/05/23 08:39 Interval history: 57 y/o F with history of CKD, fibromyalgia, neuropathy, and hypotension presents here with LUE weakness, chest discomfort associated with SOB, and dizziness. No overnight events noted. No chest pain or shortness of breath. No nausea, vomiting or diarrhea. No fevers or chills. Feels better than yesterday. Review of Systems Review of Systems: 12 point review of systems was assessed and was negative except as noted in the HPI Exam Narrative: General: No acute distress, alert and oriented per baseline HEENT: Atraumatic, normocephalic, mucous membranes moist CV: Regular rate and rhythm, S1, S2 Lungs: Clear to auscultation bilaterally, no rales or crackles noted, no wheezes, good air entry Abdomen: Soft, nontender, nondistended Extremities: Normal to inspection Skin: No rashes noted, no lesions or wounds seen Psych: Euthymic, normal affect Objective Data Vital Signs Vital Signs: Vital Signs - 24 hr 05/04/23 10:39 05/04/23 14:00 05/04/23 12:00 Temperature 98.5 F Pulse Rate 85 74 Respiratory Rate 18 Blood Pressure 138/77 Pulse Oximetry 100 Oxygen Delivery Room Air 05/04/23 16:00 05/04/23 20:00 05/04/23 21:34 Temperature 96.9 F L Pulse Rate 74 65 Respiratory Rate 14 Blood Pressure 108/68 Pulse Oximetry 99 Oxygen Delivery Room Air 05/04/23 20:00 05/05/23 00:00 05/05/23 05:30 Temperature 97.6 F Pulse Rate 69 61 56 L Respiratory Rate 13 Blood Pressure Pulse Oximetry 98 Oxygen Deliv
[2023-05-05] MEDS: PANTOPRAZOLE 40 MG TABLET PO (08:44)
[2023-05-05] MEDS: ENOXAPARIN 40 MG/0.4 ML SYRINGE SUB-Q (08:44)
[2023-05-05] MEDS: MAGNESIUM CHLORIDE 64 MG TABLET PO (08:44)
[2023-05-05] MEDS: CHOLECALCIFEROL 1,000 UNITS TABLET 5000 UNITS PO (08:45)
[2023-05-05] MEDS: LEVOTHYROXINE SODIUM 50 MCG TABLET PO (08:45)
[2023-05-05] MEDS: FOLIC ACID 1 MG TABLET PO (08:45)
[2023-05-05] MEDS: PREGABALIN (*CRX) 50 MG CAPSULE 100 MG PO ×2 (08:45→16:19)
[2023-05-05] MEDS: FERROUS SULFATE 325 MG TABLET DR PO (08:45)
[2023-05-05] MEDS: hydrOXYzine HCL 25 MG TABLET PO ×2 (08:45→16:19)
[2023-05-05] MEDS: acetaZOLAMIDE TAB 250 MG TABLET 500 MG PO ×2 (08:45→16:18)
[2023-05-05] MEDS: SERTRALINE HCL 50 MG TABLET PO (08:46)
[2023-05-05] MEDS: TIZANIDINE HCL 4 MG TABLET 8 MG PO ×3 (10:19→20:36)
--- NOTE | 2023-05-05 11:26 | PCPTNOTE ---
Attempted to see patient for PT, however patient was out of room for testing.
--- NOTE | 2023-05-05 12:21 | PM.CNCAR ---
Assessment and Plan Assessment and plan (1) Atypical chest pain: Code(s): R07.89 - Other chest pain Status: Acute Assessment and Plan: Probably musculoskeletal as it is reproducible by palpation. ME r/o by serial troponin. Obtain lexiscan myoview in AM. (2) Palpitations: Code(s): R00.2 - Palpitations Status: Acute Assessment and Plan: On Metoprolol. History of Present Illness History of Present Illness Consult date/time: 05/05/23 12:21 Reason For Visit: Extremity Weakness Narrative: 57 yr old woman who is my regular cardiology patient presents to ER with chest pain and LUE weakness. She is a patient of Alyse Diaz NP. She has a history of mitral valve prolapse, hypertension, fibromyalgia, covid infection on 03/03/22.. Reports a week ago she has dull chest ache that is constant and reproducible with palpation and worse with deep breath. She also had new LUE weakness evaluated by neurology. Previously, she fell and broke her left femur after hip surgery. She is normally limited at walking 2 blocks due to history of left hip surgeries and ADAMES.? Reports some swelling of legs at end of the day. Denies chest pain, orthopnea, PND, dizziness. Cardiovascular Procedures Echo/MUGA:: 06/09/21 Echo: EF 60-65, mild LVH, trace MR/PI. Electrophysiology:: 06/08/22 EKG: Sinus rhythm. 06/03/21 EKG: Sinus bradycardia at 58 bpm, early precordial R/S transition. 06/03/21 Holter: Sinus rhythm, HR range 43-114 bpm; average 59 bpm; 164 PAC, 7 PVC. 06/03/20 EKG: Sinus bradycardia at 58 bpm, borderline T wave in inferior leads. Stress Tests:: 07/07/20 Lexiscan myoview: Negative. Review of Systems Review of Systems: All systems reviewed & are unremarkable except as noted in HPI and below Constitutional: Constitutional: Reports as per HPI, Denies chills and Denies fever(s) Cardiovascular: Cardiovascular: Reports as per HPI and Reports chest pain Respiratory: Respiratory: Reports as per HPI and Reports dyspnea Gastrointestinal: Gastrointestinal: Reports as per HPI and Denies abdominal pain Genitourinary: Genitourinary: Reports as per HPI and Denies dysuria Musculoskeletal: Musculoskeletal: Reports as per HPI and Reports arthralgias Neurologic: Reports as per HPI, Reports dizziness and Denies syncope [facility], [facility] Past Medical History Medical History Anxiety Atypical chest pain Brown recluse spider bite or sting Cellulitis Chronic kidney disease, stage 3b Fibromyalgia Fibromyalgia Gastroesophageal reflux disease Generalized edema Generalized edema GERD (gastroesophageal reflux disease) Hypertension Hypothyroidism Migrainous headache without aura Mitral valve regurgitation S/P repair by cath Obesity, Class II, BMI 35-39.9 Otitis externa, left Overweight Polyneuropathy Pre-op exam Primary insomnia Sprain of metacarpophalangeal (MCP) joint of right thumb Surgical History Surgical History Fracture, intertrochanteric, left femur H/O: hysterectomy History of appendectomy History of total right knee replacement (TKR) Status post hip surgery 01/25/2020 Family History Family History Mother Hypertension Family history of type 2 diabetes mellitus Social History Social History Smoking status: Never smoker Tobacco type: cigarettes Second hand tobacco smoke exposure: Yes Smoking end date: 01/28/84 Alcohol intake: never Alcohol use details: social Substance use: never Substance use type: painkillers Lack of Transportation: No Lack of Food: Never True Current Housing: I Have Housing Concerned About Future Housing: No Difficulty Paying Gas/Electric Bills: No Difficulty Paying for Meds: No Currently Unemployed: No Education: High School Diploma/GED Difficulty w/ Childcare o
[2023-05-05 12:28] LABS: Troponin I < 0.012 ng/mL (0.000-0.034)
[2023-05-05] MEDS: traZODone HCL 50 MG TABLET 200 MG PO (20:36)
[2023-05-05] MEDS: ACETAMINOPHEN 325 MG TABLET 650 MG PO (20:36)
[2023-05-06] VITALS: PULSE 56
[2023-05-06 04:00] VITALS: PULSE 58
[2023-05-06 05:31] VITALS: BP 94/60; PULSE 75; RESP 14; TEMP 36.4; O2SAT 99
--- NOTE | 2023-05-06 08:00 | EST_ITS ---
Patient Info Name: Nancy Murray Age: 57 years : 1965 Gender: Female Ht: 66 in Wt: 214 lbs BSA: 2.16 m2 HR: 82 bpm BP: 118 / 72 mmHg Exam Date: 05/06/2023 8:53 AM Exam Location: [facility] Stress Patient Status: Inpatient Admit Date: 05/03/2023 Staff Ordering Physician: David Noel DO Attending Provider: Tang Hernandez MD Exercise Technologist: Genny Mayo CT Exercise Physician: David Noel DO Exam Type: CA stress nohemi w NM Study Info A regadenoson stress test was performed. History/Risk Factors Hypertension: Yes Dyslipidemia: No Congenital Heart Disease (CHD): Yes Peripheral Arterial Disease (PAD): No Myocardial Infarction (FL): No Chronic Lung Disease: Yes Obesity: Yes Renal Disease: No Coronary Artery Disease (CAD) No Congestive Heart Failure (CHF): No Cardiomyopathy/LV Systolic Dysfunction: No Diabetes Mellitus: No COPD: No Tobacco Use: Former Cerebrovascular Disease: No Family History: Diabetes Mellitus, Coronary Artery Disease Deep Vein Thrombosis (DVT): None Dialysis: None Frailty Scale (CSHA): 3: Managing Well Cardiac Arrest: No Summary 1. 1. Negative lexiscan stress test for ischemic ST changes by ECG criteria. 2. 2. Stable hemodynamics throughout the test. 3. 3. Nuclear scan to follow and will be reported separately. Please correlate with it. 4. 4. Patient informed of the above results. Protocol: Lexiscan Stress ECG Details Stage: REST Duration (min): 1 min : 14 sec HR (bpm): 80 SBP (mmHg): 118 DBP (mmHg): 72 Stage: REST Duration (min): 6 min : 3 sec HR (bpm): 89 SBP (mmHg): 118 DBP (mmHg): 72 Stage: STAGE 1 Duration (min): 0 min : 59 sec HR (bpm): 94 SBP (mmHg): 108 DBP (mmHg): 64 Stage: RECOVERY Duration (min): 1 min : 0 sec HR (bpm): 92 SBP (mmHg): 108 DBP (mmHg): 64 Stage: RECOVERY Duration (min): 2 min : 0 sec HR (bpm): 97 SBP (mmHg): 108 DBP (mmHg): 64 Stage: RECOVERY Duration (min): 3 min : 0 sec HR (bpm): 85 SBP (mmHg): 137 DBP (mmHg): 59 Stage: RECOVERY Duration (min): 3 min : 36 sec HR (bpm): 90 SBP (mmHg): 137 DBP (mmHg): 59 Rest HR: 89 bpm Peak HR: 107 bpm Rest Sys BP: 118 mmHg Peak Sys BP: 137 mmHg Max Pred HR: 163 bpm % Max Pred HR: 66 % Target HR: 139 bpm Max RPP: 14,659 bpm*mmHg Termination Reason: Completed protocol Cardiac Symptoms: Shortness of breath, Chest discomfort Total Time: 1 min : 0 sec Rest Orozco BP: 72 mmHg Peak Orozco BP: 59 mmHg Total Dose: 0.4 mg Resting ECG Sinus rhythm. Stress ECG Borderline ST-T wave abnormality in diffuse leads. Arrhythmias None. Report Signatures
--- NOTE | 2023-05-06 08:40 | PCOTNOTE ---
Patient out of the room at this time. Patient went down for a stress test.
--- NOTE | 2023-05-06 09:05 | PM.PNCARD ---
Progress Note: A&P Assessment and Plan (1) Atypical chest pain: Code(s): R07.89 - Other chest pain Status: Acute Assessment and Plan: Probably musculoskeletal as it is reproducible by palpation. TN r/o by serial troponin. 05/04/23 Echo: EF 65-70%, grade I diastolic dysfunction (E/e' 6). Obtain lexiscan myoview today. If negative no further cardiac workup is needed. (2) Palpitations: Code(s): R00.2 - Palpitations Status: Acute Assessment and Plan: On Metoprolol. Subjective Date/time seen: 05/06/23 09:05 Interval history: She has chest pain and left arm pain. No sob. Exam Const: General: cooperative, healthy appearing and comfortable Orientation/consciousness: oriented to person, oriented to place and oriented to time Resp: Auscultation: clear to auscultation bilaterally, no crackles, no rales, no rhonchi and no wheezes Cardio: Rate: regular rate Rhythm: regular rhythm Heart sounds: no murmurs Peripheral pulses: dorsalis pedis present Neuro: General: oriented to person, oriented to place and oriented to time Extrem: Right lower extremity: no edema Left lower extremity: no edema Objective Data Vital Signs Vital Signs: Vital Signs - 24 hr 05/05/23 12:00 05/05/23 14:00 05/05/23 15:30 Temperature 97.2 F L Pulse Rate 72 56 L Respiratory Rate 18 Blood Pressure 100/50 L Pulse Oximetry 98 Oxygen Delivery Room Air 05/05/23 16:01 05/05/23 21:28 05/05/23 20:30 Temperature 97.4 F L Pulse Rate 66 59 L 64 Respiratory Rate 14 Blood Pressure 98/58 L Pulse Oximetry 99 Oxygen Delivery 05/06/23 00:00 05/06/23 04:00 05/06/23 05:31 Temperature 97.5 F L Pulse Rate 56 L 58 L 75 Respiratory Rate 14 Blood Pressure 94/60 L Pulse Oximetry 99 Oxygen Delivery Intake/Output Intake/Output: Intake & Output 05/03/23 05/04/23 05/05/23 05/06/23 23:59 23:59 23:59 23:59 Intake Total 978 051 7034 500 Output Total 1800 Balance 011 203 2838 -1300 Meds/Results Medications: Active Medications Generic Name Dose Route Start Last Admin Trade Name Freq PRN Reason Stop Dose Admin Acetaminophen 650 mg 05/03/23 18:23 05/05/23 20:36 Acetaminophen 325 Mg Tablet PO 650 mg Q4H PRN Administration Mild Pain (1-3) or Fever Acetazolamide 500 mg 05/04/23 09:00 05/05/23 16:18 Acetazolamide Tab 250 Mg Tablet PO 500 mg BID HOLLAND Administration Enoxaparin Sodium 40 mg 05/04/23 09:00 05/05/23 08:44 Enoxaparin 40 Mg/0.4 Ml Syringe SUB-Q 40 mg DAILY HOLLAND Administration Ferrous Sulfate 325 mg 05/04/23 09:00 05/05/23 08:45 Ferrous Sulfate [address] PO 06/03/23 08:59 325 mg DAILY HOLLAND Administration Folic Acid 1 mg 05/04/23 09:00 05/05/23 08:45 Folic Acid 1 Mg Tablet PO 1 mg DAILY HOLLAND Administration Hydroxyzine HCl 25 mg 05/04/23 09:00 05/05/23 16:19 Hydroxyzine Hcl 25 Mg Tablet PO 25 mg BID HOLLAND Administration Ceftriaxone Sodium 1 gm in 50 mls @ 100 mls/hr 05/04/23 01:00 05/06/23 00:17 Rocephin 1 Gm/Ns 50 Ml IVPB 100 mls/hr Q24H HOLLAND Administration Insulin Human Regular 0 each 05/03/23 18:30 (Morphine Pain Pump) Home Medication Pain Pump IV CONT PRN PRN Pain Levothyroxine Sodium 50 mcg 05/04/23 09:00 05/05/23 08:45 Levothyroxine Sodium 50 Mcg Tablet PO 50 mcg DAILY HOLLAND Administration Magnesium Chloride 64 mg 05/04/23 09:00 05/05/23 08:44 Magnesium Chloride 64 Mg Tablet PO 64 mg DAILY HOLLAND Administration Morphine Sulfate 2 mg 05/04/23 15:12 Morphine Sulfate (*Crx) 2 Mg/Ml Inj IV PUSH Q4H PRN Pain Rated 7-10 Ondansetron HCl 4 mg 05/03/23 18:28 Ondansetron Hcl Odt 4 Mg Tablet SUBLINGUAL Q6H PRN nausea Pantoprazole Sodium 40 mg 05/04/23 09:00 05/05/23 08:44 Pantoprazole 40 Mg Tablet PO 06/03/23 08:59 40 mg DAILY HOLLAND Administration Pregabalin 100 mg 05/04/23 09:00 05/05/23 16:19
[2023-05-06 09:50] VITALS: PULSE 111
[2023-05-06] MEDS: MAGNESIUM CHLORIDE 64 MG TABLET PO (09:51)
[2023-05-06] MEDS: CHOLECALCIFEROL 1,000 UNITS TABLET 5000 UNITS PO (09:51)
[2023-05-06] MEDS: ENOXAPARIN 40 MG/0.4 ML SYRINGE SUB-Q (09:51)
[2023-05-06] MEDS: hydrOXYzine HCL 25 MG TABLET PO (09:51)
[2023-05-06] MEDS: SERTRALINE HCL 50 MG TABLET PO (09:51)
[2023-05-06] MEDS: PREGABALIN (*CRX) 50 MG CAPSULE 100 MG PO (09:51)
[2023-05-06] MEDS: FERROUS SULFATE 325 MG TABLET DR PO (09:51)
[2023-05-06] MEDS: acetaZOLAMIDE TAB 250 MG TABLET 500 MG PO (09:52)
[2023-05-06] MEDS: FOLIC ACID 1 MG TABLET PO (09:52)
[2023-05-06] MEDS: PANTOPRAZOLE 40 MG TABLET PO (09:52)
[2023-05-06] MEDS: TIZANIDINE HCL 4 MG TABLET 8 MG PO (09:55)
--- NOTE | 2023-05-06 10:27 | PM.DS ---
DS: Admitting Diagnosis Discharge Date 05/06/23 Admitting Diagnosis Chest pain DS: Discharge Diagnosis Discharge Diagnosis (1) Acute left-sided weakness: Code(s): R53.1 - Weakness Status: Acute Assessment and Plan: Neurology consult appreciated, MRI unremarkable, cervical spine MRI showed mild spondylosis, no other abnormalities Concern for possible TIA versus CVA (2) UTI (urinary tract infection): Qualifiers: Hematuria presence: without hematuria Urinary tract infection type: acute cystitis Qualified Code(s): N30.00 - Acute cystitis without hematuria Code(s): N39.0 - Urinary tract infection, site not specified Status: Inactive Assessment and Plan: Started on Rocephin 05/03, follow-up urine culture, ecoli, sens pending (3) Chest pain: Qualifiers: Chest pain type: other chest pain Qualified Code(s): R07.89 - Other chest pain Code(s): R07.9 - Chest pain, unspecified Status: Inactive Assessment and Plan: Intermittent CP in L breast. Not associated with activity and not alleviated with rest. +SOB with CP, no nausea, diaphoresis, or radiation of pain. Check echo w/bubble study wnl Consult to cardiology appreciated, doughnut glazier 05/06 (4) Gait instability: Code(s): R26.81 - Unsteadiness on feet Status: Acute Assessment and Plan: LLE limitations due to pain. H/o multiple hip surgeries (x5). Reporting changes in gait with use of walker. -PT to eval and treat -requesting placement due to developing limitations (5) Dizziness: Code(s): R42 - Dizziness and giddiness Status: Acute Assessment and Plan: Past history of hypotension. Reported systolic of 60/palp in ambulance during transport, EMS did not report findings at arrival to facility. BP here 119/75. -Orthostatic BP ordered for AM -home metoprolol held -continue to monitor blood pressure -continue home diamox Plan Chronic Conditions -Hypothyroidism: continue home levothyroxine. Last TSH done on 04/01/23 - 3.37. -Fibromyalgia: home medications continued - morphine pump (located in L abdomen), lyrica, sertaline, and tizanidine. -Insomnia: home trazodone continued. -Anxiety: PRN Atarax continued. -Multivitamins continued: Vitamin D3, Folic Acid, Magnesium, and Ferrous Sulfate. Diet: Heart Healthy DVT Prophylaxis: SCDs and Lovenox GI Prophylaxis: Pantoprazole PO Code Status: DNR, confirmed with patient. DS: Summary Hospital Course Hospital Course: 57 y/o F with history of CKD, fibromyalgia, neuropathy, and hypotension presents here with LUE weakness, chest discomfort associated with SOB, and dizziness. Neurology consult appreciated, MRI unremarkable, cervical spine MRI showed mild spondylosis, no other abnormalities Concern for possible TIA versus CVA Intermittent CP in L breast. Not associated with activity and not alleviated with rest. +SOB with CP, no nausea, diaphoresis, or radiation of pain. Check echo w/bubble study wnl Consult to cardiology appreciated, doughnut glazier 05/06 Past history of hypotension. Reported systolic of 60/palp in ambulance during transport, EMS did not report findings at arrival to facility. BP here 119/75. -Orthostatic BP ordered for AM -home metoprolol held -continue to monitor blood pressure -continue home diamox Chronic Conditions -Hypothyroidism: continue home levothyroxine. Last TSH done on 04/01/23 - 3.37. -Fibromyalgia: home medications continued - morphine pump (located in L abdomen), lyrica, sertaline, and tizanidine. -Insomnia: home trazodone continued. -Anxiety: PRN Atarax continued. -Multivitamins continued: Vitamin D3, Folic Acid, Magnesium, and Ferrous Sulfate. Diet: Heart Healthy DVT Prophylaxis: SCDs and Lovenox GI Prophylaxis: Pantoprazole PO? Code Status:? DNR, confirmed with patient. Please see above and med rec for details. Time Spent with Patient Time attestation: Total time spent providing an
[2023-05-06 14:00] VITALS: BP 101/56; PULSE 59; RESP 16; TEMP 36.2; O2SAT 98
[2023-05-06] MEDS: ACETAMINOPHEN 325 MG TABLET 650 MG PO (14:29)
--- NOTE | 2023-05-06 14:30 | PCOTNOTE ---
Attempted to see Patient at this time. Patient refused to participate, stating she is getting ready to be discharged home and her mother is picking her up
== END 2023-05-06 15:05 | disposition home or self-care (01) | DRG 948 ==
PROVIDERS: Student in an Organized Health Care Education/Training Program; Admitting Provider Hospitalist; PCP Nurse Practitioner Family; Visit Provider Student in an Organized Health Care Education/Training Program
DX: R53.1 Weakness (principal); N39.0 Urinary tract infection, site not specified; R26.81 Unsteadiness on feet; R07.89 Other chest pain; M79.7 Fibromyalgia; G62.9 Polyneuropathy, unspecified; N18.32 Chronic kidney disease, stage 3b; K21.9 Gastro-esophageal reflux disease without esophagitis; I12.9 Hypertensive chronic kidney disease with stage 1 through stage 4 chronic kidney disease, or unspecified chronic kidney disease; E03.9 Hypothyroidism, unspecified; E66.9 Obesity, unspecified; F41.9 Anxiety disorder, unspecified; Z96.89 Presence of other specified functional implants; Z87.891 Personal history of nicotine dependence; Z96.651 Presence of right artificial knee joint
CPT/HCPCS: 36415; 70551; 72141; 78452; 80048; 84484; 85025; 93005; 93017; 96375; 97110; 97161; 97165; 97530; A9270; A9502; C8929; J0696; J1650; J2785; Q9957

== ENCOUNTER 2023-05-30 08:34 | Emergency (ER) | payer MEDICARE, MEDICAID, SELFPAY ==
[2023-05-30] VITALS (54 sets, daily range): BP systolic 105–187; BP diastolic 56–130; PULSE 95–128; RESP 13–36; TEMP 36.4–36.7; O2SAT 96–100
--- NOTE | ~2023-05-30 | CT_ITS ---
EXAMINATION: CT abdomen pelvis wo con DATE: 05/30/2023 09:56 INDICATION: Epigastric burning and 2 weeks of intractable nausea and vomiting TECHNIQUE: Computed tomography (CT) of the abdomen and pelvis was performed without intravenous contr ast. Automated exposure control and iterative reconstruction technique were employed. The dose-length product was 820.23 mGy-cm. COMPARISON: None FINDINGS: Couple calcified left lower lobe nodules and calcified left hilar lymph nodes consistent with old gra nulomatous disease. Heart size is normal. No pericardial or pleural effusion. Liver, gallbladder, spl een, pancreas, bilateral adrenal glands and kidneys are normal. Bowels are normal with no obstruction . The appendix is not visualized. No pericecal inflammatory change to suggest acute appendicitis. Sma ll amount of gas within the nondependent aspect of the otherwise normal bladder.. The uterus is not i dentified and has likely been surgically resected. No free intraperitoneal gas or fluid. No pathologi shanice enlarged abdominal or pelvic lymphadenopathy. Left total hip arthroplasty with longstem modular femoral component. Intrathecal pain pump with catheter entering the central canal at level of T2-T3 and extending cephalad with distal tip in the posterior central canal at the level of T10.. IMPRESSION: 1. Small amount of gas in the nondependent aspect of the otherwise normal bladder. Correlate for rece nt instrumentation or Telles catheterization. No other acute intra-abdominal/pelvic process. Reviewed, dictated and finalized at location A. IMPRESSION: 1. Small amount of gas in the nondependent aspect of the otherwise normal bladd er. Correlate for recent instrumentation or Telles catheterization. No other acu te intra-abdominal/pelvic process.
[2023-05-30] MEDS: SODIUM CHLORIDE 0.9% IV 1,000 ML 999 ML IV CONT (08:45)
--- NOTE | 2023-05-30 08:46 | ED.NAVMDI ---
HPI - Nausea/Vomiting/Diarrhea General Chief complaint: Nausea/Vomiting/Diarrhea Stated complaint: vomiting Time Seen by Provider: 05/30/23 08:45 Source: patient, EMS and RN notes reviewed Mode of arrival: EMS Limitations: no limitations History of Present Illness HPI Narrative: patient states she has been having intractable nausea vomiting for the last couple of weeks. She took some Zofran at home which did not seem to help. Last couple of days been having difficulty keeping anything down. She did not call her primary care physician. She says that she has epigastric pain due to the vomiting she has had she feels like the muscles in her abdomen her sore from that. She denies any problems with constipation. Denies any diarrhea. MD elicited complaint: nausea and vomiting Onset (ago): week(s) (2) Description of vomiting: bilious Associated nausea: Yes Associated abdominal pain: Yes Location of pain: epigastric Pain consistency: intermittent Severity: moderate Quality: cramping and aching Exacerbating factors: eating Relieving factors: none Related Data Home Medications Medication Instructions Recorded Confirmed cholecalciferol (vitamin D3) 125 125 mcg PO DAILY 11/02/22 05/30/23 mcg (5,000 unit) tablet (Vitamin D3) Morphine Pain Pump See Rx Instructions .Route .COMPLEX 12/24/22 05/30/23 acetazolamide 250 mg tablet 500 mg PO BID 05/03/23 05/30/23 ferrous sulfate 325 mg (65 mg 325 mg PO DAILY 05/03/23 05/30/23 iron) tablet (Iron (ferrous sulfate)) levothyroxine 50 mcg tablet 50 mcg PO DAILY 05/03/23 05/30/23 metoprolol tartrate 25 mg tablet 25 mg PO BID 05/03/23 05/30/23 omeprazole 20 mg capsule,delayed 20 mg PO DAILY 05/03/23 05/30/23 release ondansetron 4 mg disintegrating 4 mg translingual Q6H PRN nausea 05/03/23 05/30/23 tablet sertraline 50 mg tablet (Zoloft) 50 mg PO DAILY 05/03/23 05/30/23 tizanidine 4 mg tablet (Zanaflex) 4 mg PO TID PRN muscle spasm 05/03/23 05/30/23 trazodone 100 mg tablet 200 mg PO HS 05/03/23 05/30/23 fluticasone propionate 50 1 spray intranasal DAILY 05/30/23 05/30/23 mcg/actuation nasal spray,suspension hydroxyzine HCl 25 mg tablet 25 mg PO BID 05/30/23 05/30/23 Allergies Allergy/AdvReac Type Severity Reaction Status Date / Time bee venom protein (honey bee) Allergy Severe Swelling Verified 05/30/23 08:44 of Lip/Tongue/Throat aspirin Allergy Intermediate Nausea and Verified 05/30/23 08:44 Vomiting Bleach (Sodium Hypochlorite) Allergy Intermediate Trouble Verified 05/30/23 08:44 Breathing NSAIDS (Non-Steroidal Allergy Intermediate Swelling Verified 05/30/23 08:44 Anti-Inflamma ibuprofen Allergy Unknown Swelling Verified 05/30/23 08:44 oxycodone AdvReac Mild hypotension Verified 05/30/23 08:44 and visual disturbance Bee stings Allergy Intermediate Swelling Uncoded 05/30/23 08:44 of Lip/Tongue/Throat SALICYLATES Allergy Unknown unknown Uncoded 05/30/23 08:44 [facility] Past Medical History Medical History Anxiety Atypical chest pain Brown recluse spider bite or sting Cellulitis Chronic kidney disease, stage 3b Fibromyalgia Fibromyalgia Gastroesophageal reflux disease Generalized edema Generalized edema GERD (gastroesophageal reflux disease) Hypertension Hypothyroidism Migrainous headache without aura Mitral valve regurgitation S/P repair by cath Obesity, Class II, BMI 35-39.9 Otitis externa, left Overweight Polyneuropathy Pre-op exam Primary insomnia Sprain of metacarpophalangeal (MCP) joint of right thumb Surgical History Surgical History Fracture, intertrochanteric, left femur H/O: hysterectomy History of appendectomy History of total right knee replacement (TKR) Status post hip surgery 01/25/2020 Family History Family History Mother Hypertension Fami
[2023-05-30] MEDS: METOCLOPRAMIDE HCL INJ 10 MG/2 ML VIAL IV PUSH (09:06)
[2023-05-30 09:29] LABS: Basophils Absolute Auto 0.08 K/mm3 (0.00-0.10); Basophils Percent Auto 0.5 % (0.0-1.0); Hemoglobin 13.6 g/dL (12.0-15.0); Immature Granulocyte Absolute 0.47 K/mm3 (0.00-0.00); Immature Granulocyte Percent A 2.8 % (0.0-0.0); Lymphocytes Absolute Auto 0.82 K/mm3 (1.10-4.50); Lymphocytes Percent Auto 4.9 % (18.0-42.0); Mean Corpuscular HGB Conc 32.4 g/dL (32.0-36.0); Mean Corpuscular Hemoglobin 30.2 pg (27.0-31.0); Mean Corpuscular Volume 93.3 fL (78.0-102.0); Mean Platelet Volume 10.4 fl (9.2-11.8); Monocytes Absolute Auto 0.94 K/mm3 (0.10-0.90); Monocytes Percent Auto 5.6 % (2.0-11.0); Neutrophils Absolute Auto 14.4 K/mm3 (1.7-7.2); Neutrophils Percent Auto 86.2 % (50.0-70.0); Platelet Count Result 348 K/mm3 (150-420); Red Cell Distribution Width 13.2 % (11.6-14.4); White Blood Count 16.7 K/mm3 (4.8-10.8)
--- NOTE | 2023-05-30 09:35 | PC.NURSE ---
PT REPORTED NO RELIEF WITH NAUSEA MEDICATION, HOWEVER NO EMESIS NOTED SINCE. PT IS ASKING FOR WATER OR ICE CHIPS, ADVISED THE NEED FOR CT RESULTS. MOTHER AT BEDSIDE. WILL CONTINUE TO MONITOR.
[2023-05-30 09:39] LABS: Anion Gap 28 mmol/L (8-16); Carbon Dioxide 11 mmol/L (21-32); Chloride 105 mmol/L (98-108); Potassium 3.3 mmol/L (3.5-5.1); Sodium 144 mmol/L (136-145)
[2023-05-30 10:14] LABS: Appearance Urine Clear (Clear); Bilirubin Urine 2+ (Negative); Blood Urine 2+ (Negative); Color Urine Light Yellow (Yellow); Glucose Urine UA Negative (Negative); Ketones Urine 3+ (Negative); Leukocyte Esterase Ur Trace LEU/UL (Negative); Nitrate Urine Negative (Negative); Protein Urine 1+ (Negative); Specific Grav Ur >= 1.030 (1.010-1.020); Urobilinogen Urine 0.2 mg/dL (0.2-1.0)
[2023-05-30 10:39] LABS: Alanine Aminotransferase 27 U/L (14-59); Albumin Level 3.3 g/dL (3.4-5.0); Alkaline Phosphatase 100 U/L (46-116); Aspartate Amino Transferase 38 U/L (15-37); Bilirubin,Total 0.4 mg/dL (0.00-1.00); Blood Urea Nitrogen 12 mg/dL (7-18); Calcium 8.9 mg/dL (8.5-10.1); Estimated CRCL calculation 40 ml/min; Estimated Glomerular Filt Rate 34; Glucose 129 mg/dL (70-99); Lipase 42 U/L (16-77); Osmolality Calculated 299 mOsm/kg (285-295); Total Protein 7.7 g/dL (6.4-8.2)
[2023-05-30 10:42] LABS: Lactic Acid Reflex 2.5 mmol/L (0.4-2.0)
[2023-05-30 10:45] LABS: Add Urine Microscopic? YES; Bacteria Urine 1+ /hpf; Renal Epithelial Cells Urine Few /hpf; Squamous Epithelial Cell Urine Few /hpf (Few)
--- NOTE | 2023-05-30 10:59 | PC.NURSE ---
PT IS REQUESTING PAIN MEDICATION, ERP IS AWARE. PT IS TO HAVE MORE LAB TESTING COMPLETED. PT IS REQUESTING WATER AND ICE CHIPS. NO FURTHER EMESIS NOTED THROUGHOUT ER VISIT. MOTHER AND SISTER ARE AT BEDSIDE. WILL CONTINUE TO MONITOR.
[2023-05-30 11:06] LABS: CRP 2.7 mg/dL (0.0-0.9)
[2023-05-30] MEDS: LACTATED RINGERS 1,000 ML 999 ML IV CONT (11:20)
[2023-05-30] MEDS: MORPHINE SULFATE (*CRX) 4 MG/ML INJ 6 MG IV PUSH (11:22)
[2023-05-30 11:33] LABS: Base Excess ABG -17.6 mmol/L (0-2); Oxygen Content ABG 18.7 %vol (16.0-22.0); Oxygen Saturation ABG 95.6 % (95-97); PCO2 ABG 24.6 mmHg (35-45); PO2 ABG 83.1 mmHg (80-90); pH ABG 7.18 (7.35-7.45)
[2023-05-30 11:34] LABS: Device ROOM AIR; Modified Allen's Test Pass; Site Drawn RIGHT RADIAL
--- NOTE | 2023-05-30 12:21 | PC.NURSE ---
PT IS NOW AWAITING RETURN CALL FROM [facility] AT THIS TIME. PT IS RESTING ON STRETCHER WITH IVF INFUSING WITHOUT DIFFICULTY. SISTER AT BEDSIDE. WILL CONTINUE TO MONITOR.
[2023-05-30 12:26] LABS: Reflex Lactic Acid Yes or No Add Lactic
--- NOTE | 2023-05-30 12:26 | PC.NURSE ---
PT IS REQUESTING ICE CHIPS OR SOMETHING TO DRINK, ERP DECLINES AT THIS TIME. PT REPORTS SHE IS FEELING BETTER. WILL CONTINUE TO MONITOR.
[2023-05-30] MEDS: KCL 20 MEQ/SW 100 ML 100 ML 50 MEQ IVPB (12:41)
[2023-05-30 13:07] LABS: Lactic Acid 1.4 mmol/L (0.4-2.0)
--- NOTE | 2023-05-30 14:10 | PC.NURSE ---
PT IS HAVING DIFFICULTY TOLERATING K+, IV DRIP IS TITRATED AT THIS TIME. PT IS AWARE OF PLAN OF CARE TO BE TRANSFERRED TO [facility] ROOM 247. REPORT CALLED TO [facility]. SISTER HAS BEEN UPDATED ON PT STATUS. WILL CONTINUE TO MONITOR.
--- NOTE | 2023-06-01 14:58 | PC.NURSE ---
urine culture, no growth noted
--- NOTE | 2023-06-05 13:41 | PC.NURSE ---
blood culture noted no growth after 5 days
== END 2023-05-30 14:49 | disposition short-term general hospital (02) ==
PROVIDERS: Emergency Provider Emergency Medicine; PCP Nurse Practitioner Family
DX: N30.01 Acute cystitis with hematuria (principal); E87.20 Acidosis, unspecified; K21.9 Gastro-esophageal reflux disease without esophagitis; E03.9 Hypothyroidism, unspecified; I12.9 Hypertensive chronic kidney disease with stage 1 through stage 4 chronic kidney disease, or unspecified chronic kidney disease; N18.32 Chronic kidney disease, stage 3b; F41.9 Anxiety disorder, unspecified; M79.7 Fibromyalgia; G62.9 Polyneuropathy, unspecified; Z87.891 Personal history of nicotine dependence; Z79.891 Long term (current) use of opiate analgesic
CPT/HCPCS: 36415; 36600; 74176; 80053; 81001; 82805; 83605; 83690; 85025; 86140; 87040; 87086; 96361; 96365; 96366; 96368; 96375; 99285; J0696; J2270; J2765; J3480; J7030; J7120

== ENCOUNTER 2023-05-30 16:21 | Inpatient (IN) | payer MEDICARE, MEDICAID, SELFPAY ==
--- NOTE | ~2023-05-30 | US_ITS ---
EXAMINATION: US abdomen limited DATE: 06/03/2023 09:39 INDICATION: Biliary dyskinesia TECHNIQUE: Multiple grayscale and Doppler ultrasound images of the abdomen were obtained. COMPARISON: CT abdomen pelvis dated 05/30/2023 FINDINGS: The visualized proximal aorta and inferior vena cava are normal. Liver has normal echogenicity and co ntour, with a smooth surface. No liver lesion identified. No intrahepatic biliary duct dilation suspe cted. Portal venous flow was seen in the hepatopetal, normal direction and has normal Doppler wavefor m. The pancreatic head and body are normal in appearance. The pancreatic tail is not visualized. The gallbladder is normal in appearance. There is no cholelithiasis. The common bile duct measures 3 mm , which is normal. Sonographic Hook sign was reported as negative by the truck unloader. IMPRESSION: 1. Normal right upper quadrant ultrasound. Reviewed, dictated and finalized at location A.
--- NOTE | ~2023-05-30 | NM_ITS ---
EXAMINATION: NM hepatobiliary wo pharm DATE: 06/02/2023 15:59 INDICATION: Vomiting. Gallbladder disease. COMPARISON: CT abdomen and pelvis 05/30/2023 TECHNIQUE: 4.631 mCi Tc-99m mebrofenin (Choletec) was administered intravenously. Scintigraphic imag es of the abdomen were obtained for one hour. Then, the patient drank 8 oz Ensure, and imaging was co ntinued for 60 minutes. FINDINGS: There is normal clearance of radiotracer from the blood pool. There is homogeneous tracer u ptake by the liver. Activity progresses to the bowel and gallbladder. Gallbladder ejection fraction (GBEF) was 9%. Note that with this technique, normal GBEF >= 33%. IMPRESSION: 1. Low gallbladder ejection fraction, consistent with gallbladder dysfunction and/or chronic cholecy stitis. Reviewed, dictated and finalized at location E. IMPRESSION: 1. Low gallbladder ejection fraction, consistent with gallbladder dysfunction and/or chronic cholecystitis.
[2023-05-30 15:51] VITALS: BP 153/82; PULSE 120; RESP 20; TEMP 36.6; O2SAT 100
[2023-05-30 15:53] VITALS: BMI 33.7
[2023-05-30 16:00] VITALS: PULSE 115
[2023-05-30 17:12] LABS: Basophils Absolute Auto 0.1 K/mm3 (0.0-0.1); Basophils Percent Auto 0.4 % (0.2-1.2); Hemoglobin 13.6 g/dL (12.0-15.0); Immature Granulocyte Absolute 0.83 K/mm3 (0.00-0.031); Immature Granulocyte Percent A 4.2 % (0-0.5); Lymphocytes Absolute Auto 1.04 K/mm3 (0.9-3.2); Lymphocytes Percent Auto 5.2 % (18.3-44.2); Mean Corpuscular HGB Conc 31.6 g/dl (32-36); Mean Corpuscular Hemoglobin 30.4 pg (26-34); Mean Platelet Volume 10.5 fl (7.4-10.4); Monocytes Absolute Auto 1.3 K/mm3 (0.1-0.6); Monocytes Percent Auto 6.6 % (2.6-8.5); Neutrophils Absolute Auto 16.7 K/mm3 (1.3-6.7); Neutrophils Percent Auto 83.6 % (45.5-73.1); Platelet Count Result 339 k/mm3 (150-375); Red Blood Count 4.48 M/mm3 (4.2-5.4); Red Cell Distribution Width 13.7 % (11.5-14.5)
[2023-05-30 17:13] LABS: Alveolar/Arterial O2 Gradient 21.9 mmHg; Base Excess ABG -18.3 mEq/l (+/-2.0); Carboxyhemoglobin 0.3 % THb (0-2.0); Fractional Inspired Oxygen 21 %; HCO3 ABG 8.2 mEq/l (22.0-26.0); Methemoglobin ABG 0.5 %THb (0-1.5); Oxygen Content ABG 19.4 %vol (16.0-22.0); Oxygen Saturation ABG 96.2 % (95.0-100.0); PO2 ABG 100.8 mmHg (80.0-100.0); Reduced Hemoglobin 3.2 %THb (0-5.0); Total Hemoglobin 14.3 g/dL (12.0-18.0)
[2023-05-30 17:15] LABS: pH ABG 7.178 (7.350-7.450)
[2023-05-30 17:16] LABS: Device ROOM AIR; Modified Allen's Test Pass; PCO2 ABG 22.6 mmHg (35.0-45.0); Site Drawn RIGHT RADIAL
[2023-05-30 17:22] LABS: Anion Gap 26 mmol/L (8-16); Blood Urea Nitrogen 10 mg/dL (7-17); Calcium 8.7 mg/dL (8.4-10.2); Carbon Dioxide 7 mmol/L (22-30); Chloride 111 mmol/L (98-107); Estimated CRCL calculation 67 ml/min; Estimated Glomerular Filt Rate > 60; Glucose 108 mg/dL (65-110); Lactic Acid Reflex 1.5 mmol/L (0.7-2.0); Magnesium 1.7 mg/dL (1.6-2.3); Potassium 3.5 mmol/L (3.4-5.0); Sodium 144 mmol/L (137-145)
--- NOTE | 2023-05-30 17:58 | PM.IMHP ---
H&P: HPI History of Present Illness Date/Time: 05/30/23 18:00 Chief Complaint: Nausea and vomiting. Narrative: This is a 58-year-old female with chronic pain related to fibromyalgia on morphine pump, idiopathic intracranial hypertension on acetazolamide, hypertension, hypothyroidism, chronic kidney disease stage IIIb, and gastroesophageal reflux disease who is being directly admitted to the medical floor from an outside emergency department where she presented this morning with nausea and vomiting. The patient provides the following history. She has not been feeling well for 2 weeks and reports daily nausea, vomiting (patient describes dark brown emesis), nonradiating and aching epigastric pain, heartburn, bloating, belching, and hiccups. She has only been able to hold down water the last 2 weeks and really has not had much in the way of nutrition. She lives alone and denies sick contacts. She has no history of peptic ulcers, gastritis, or esophagitis. She has not noticed any dark stools or bright red blood in the stools. She is allergic to NSAIDs. She denies alcohol use and significant caffeine use. No recent change in stressors. She also denies fever, chills, sweats, cold and flu symptoms, and chest pain. Preliminary workup in the ED at the outside facility was significant for a WBC count of 16.7, potassium 3.3, sodium 144, chloride 105, carbon dioxide 11, anion gap 28, BUN 12, creatinine 1.58, glucose 129, lactic acid 2.5, lipase 42, AST 38, ALT 27, alkaline phosphatase 100, total bilirubin 0.4. Urinalysis showed 3+ ketones, 1+ bacteria, 7-9 WBC, and a specific gravity of greater than 1.030. ABG showed a pH of 7.18, pCO2 24.6, bicarb 9.0. CT of the abdomen pelvis showed a small amount of gas in bladder, likely due to straight cath. No other acute intra-abdominal or pelvic process was noted. She received 2 L of crystalloids at the outside facility and she is being transferred here for further evaluation. Review of Systems Review of Systems: Twelve systems were reviewed and are negative except for as per HPI. [facility] Past Medical History Medical History (Updated 05/30/23 @ 23:51 by María Oates PA-C) Anxiety Chronic kidney disease, stage 3b Chronic pain Morphine pump. Fibromyalgia Gastroesophageal reflux disease Hypertension Hypothyroidism Irritable bowel syndrome with diarrhea Migrainous headache without aura Mitral valve regurgitation Stats post repair. Polyneuropathy Primary insomnia Uterine cancer Surgical History Surgical History (Updated 05/30/23 @ 18:08 by María Oates PA-C) History of appendectomy History of arthroplasty of right knee History of bladder suspension procedure History of cardiac catheterization History of dilation and curettage History of hysterectomy History of mitral valve repair History of repair of hip fracture (12/2019) Left History of right knee surgery History of tubal ligation Family History Family History (Updated 05/30/23 @ 18:04 by María Oates PA-C) Mother Hypertension Family history of type 2 diabetes mellitus Father Acute myocardial infarction Social History Social History (Updated 05/30/23 @ 23:48 by María Oatse PA-C) Social History: Surrogate medical decision maker: [place], mother. Code status: Full code. Smoking status: Never smoker Second hand tobacco smoke exposure: Yes Alcohol intake: never Alcohol use details: social Substance use: never Substance use type: painkillers Lack of Transportation: No Lack of Food: Never True Current Housing: I Have Housing Concerned About Future Housing: No Difficulty Paying Gas/Electric Bills: No Difficulty Paying for Meds: No Currently Unemployed: No Education: High School Diploma/GED Difficulty w/ Childcare or Family Care: No Living arrangements: alone Additional living arrangements comments: Lives alone. She has 1 cat. Occupation/Education: other Addit
[2023-05-30] MEDS: ONDANSETRON INJ 4 MG/2 ML VIAL IV PUSH (18:05)
[2023-05-30 18:11] LABS: Beta-Hydroxybutyrate/Acetoacetate 7.14 mmol/L (0.02-0.27)
[2023-05-30] MEDS: DEXTROSE 5%/0.45% SOD CHL 1,000 ML 100 ML IV CONT (18:37)
[2023-05-30 18:55] LABS: Acetaminophen < 10 ug/mL (10-30); Salicylate < 1.0 mg/dL (2-20)
[2023-05-30 19:24] VITALS: BP 160/90; PULSE 124; RESP 18; TEMP 36.3; O2SAT 100
[2023-05-30 20:00] VITALS: PULSE 118
[2023-05-30 20:20] LABS: Hemoglobin A1C 4.8 % (<5.7)
[2023-05-30] MEDS: PANTOPRAZOLE SODIUM IV 40 MG VIAL IV PUSH (21:45)
[2023-05-30 22:19] LABS: Gastric Negative Control Negative; Occult Blood Gastric Fluid Positive; pH Gastric Fluid 2 (1-8)
[2023-05-30 22:20] LABS: Gastric Positive Control Positive
[2023-05-30 22:49] LABS: Amphetamine Screen Urine Negative (Negative); Barbiturate Screen Urine Negative (Negative); Benzodiazepines Screen Urine Negative (Negative); Cannabinoid Screen Urine Negative (Negative); Cocaine Screen Urine Negative (Negative); Methadone Screen Urine Negative (Negative); Opiate Screen Urine Positive (Negative); Phencyclidine Screen Urine Negative (Negative)
[2023-05-30] MEDS: PROMETHAZINE HCL 25 MG/ML AMPUL 12.5 MG IV PUSH (22:59)
[2023-05-31] VITALS (12 sets, daily range): BP systolic 152–158; BP diastolic 84–91; PULSE 75–127; RESP 16–18; TEMP 35.6–36.9; O2SAT 98–99
[2023-05-31 00:04] LABS: Blood Urea Nitrogen 8 mg/dL (7-17); Calcium 9.1 mg/dL (8.4-10.2); Carbon Dioxide < 5 mmol/L (22-30); Chloride 112 mmol/L (98-107); Estimated CRCL calculation 67 ml/min; Estimated Glomerular Filt Rate > 60; Glucose 123 mg/dL (65-110); Potassium 3.3 mmol/L (3.4-5.0); Sodium 143 mmol/L (137-145)
[2023-05-31] MEDS: MORPHINE SULFATE (*CRX) 2 MG/ML INJ IV PUSH (00:46)
[2023-05-31] MEDS: METOPROLOL TARTRATE INJ 5 MG/5 ML VIAL IV PUSH ×2 (01:12→06:48)
[2023-05-31] MEDS: SODIUM BICARBONATE 8.4% 50 MEQ/50 ML SYRINGE 100 MEQ IV PUSH (01:51)
[2023-05-31 02:13] LABS: Hematocrit 41.3 % (37.0-47.0); Hemoglobin 13.9 g/dL (12.0-15.0); Mean Corpuscular HGB Conc 33.7 g/dl (32-36); Mean Corpuscular Hemoglobin 31.3 pg (26-34); Mean Platelet Volume 10.5 fl (7.4-10.4); Platelet Count Result 362 k/mm3 (150-375); Red Blood Count 4.44 M/mm3 (4.2-5.4); Red Cell Distribution Width 13.6 % (11.5-14.5); White Blood Count 22.5 K/mm3 (4.5-10.0)
[2023-05-31 02:31] LABS: INR 1.1; Prothrombin Time 15.1 Seconds (11.1-14.7)
[2023-05-31 02:32] LABS: Partial Thromboplastin Time 26.4 SECONDS (22.3-36.8)
[2023-05-31] MEDS: POTASSIUM CHLORIDE INJ 40 MEQ in SODIUM CHLORIDE 0.9% IV 500 ML 130 MEQ IVPB ×2 (02:36→15:07)
[2023-05-31] MEDS: SODIUM BICARBONATE 8.4% 150 MEQ in DEXTROSE 5% 1,000 ML 950 ML 100 MEQ IV CONT (02:37)
[2023-05-31 03:10] LABS: Alanine Aminotransferase 31 U/L (6-35); Albumin Level 4.4 g/dL (3.5-5.1); Alkaline Phosphatase 98 U/L (38-126); Anion Gap 21 mmol/L (8-16); Aspartate Amino Transferase 62 U/L (14-36); Bilirubin,Total 0.6 mg/dL (0.2-1.3); Blood Urea Nitrogen 7 mg/dL (7-17); Calcium 8.8 mg/dL (8.4-10.2); Carbon Dioxide 15 mmol/L (22-30); Chloride 110 mmol/L (98-107); Estimated CRCL calculation 67 ml/min; Estimated Glomerular Filt Rate > 60; Glucose 131 mg/dL (65-110); Magnesium 1.6 mg/dL (1.6-2.3); Potassium 3.2 mmol/L (3.4-5.0); Sodium 146 mmol/L (137-145)
[2023-05-31 03:15] LABS: Iron 61 ug/dL (37-170)
[2023-05-31 03:25] LABS: Percent Iron Saturation 24 % (20-50)
[2023-05-31 03:56] LABS: Beta-Hydroxybutyrate/Acetoacetate 6.19 mmol/L (0.02-0.27)
[2023-05-31] MEDS: PROMETHAZINE HCL 25 MG/ML AMPUL 12.5 MG IV PUSH ×3 (04:01→19:59)
[2023-05-31] MEDS: PANTOPRAZOLE SODIUM IV 40 MG VIAL IV PUSH ×2 (09:18→21:50)
[2023-05-31] MEDS: SODIUM BICARBONATE 8.4% 150 MEQ in DEXTROSE 5% 1,000 ML 950 ML IV CONT (11:38)
--- NOTE | 2023-05-31 12:19 | WPDGICN ---
Assessment and Plan Assessment and plan (1) Nausea and vomiting: Code(s): R11.2 - Nausea with vomiting, unspecified Status: Acute Assessment and Plan: This seems to begun fairly acutely 2 weeks ago. She should be sent to having had sinus problems at that time and the sinus issues are persisting. 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 she has seen some coffee-ground material in her emesis on a couple of occasions. She denies using NSAIDs. This is because she is allergic to them. Since the symptoms began she has lost about 12 lb. She does not recall having problems like this before. She has no prior history of ulcers. He does have pain which is primarily in the left upper quadrant left costal margin and into the left side of her back. It seems her more in the back than in the abdomen. She also has pain in the frontal area of her head. She was kept NPO for possible EGD but she still has a low potassium. She states that she feels worse today than yesterday but on the other hand would like to have something to eat or drink and thinks that the nausea is better. She in fact, specifically could not really explain how she feels ?worse? (2) Hematemesis: Code(s): K92.0 - Hematemesis Status: Acute Assessment and Plan: She did have some coffee-ground emesis. She is not anemic. (3) Chronic pain: Code(s): G89.29 - Other chronic pain Status: Acute Assessment and Plan: She has been on a morphine pump for several years. She states they are actually reducing the dose. The last time was reduced was about 4 weeks ago. He is possible that some of her symptoms are due to ?withdrawal? (4) Chronic kidney disease, stage 3b: Code(s): N18.32 - Chronic kidney disease, stage 3b Status: Acute Assessment and Plan: She is followed by Dr. Orellana. (5) Leukocytosis: Code(s): D72.829 - Elevated white blood cell count, unspecified Status: Acute Assessment and Plan: [place] blood count [place] [address] on admission but today it is up to 22,000. She has been afebrile (6) Hypokalemia: Code(s): E87.6 - Hypokalemia Status: Acute Assessment and Plan: She does take a potassium supplement at home. Even after receiving intravenous potassium here her level still low this morning. Mr. Lee comes up to normal we can perform endoscopy tomorrow GI Consult Note Consult date/time: 05/31/23 12:19 HPI: Nancy Murray is a 58 year old female who presented to the emergency room yesterday with severe metabolic acidosis. Initial blood pH was 7.17. She has a base excess of-18.3. She states that her main issue was that she has been unable to eat for 2 weeks. He came on fairly suddenly with her 1 day having no appetite and when she would try to eat whether was crackers or little water it would come back up on her. She has some discomfort in the left upper quadrant it is radiating to the back. She complains mostly however of pain in her sinuses and back. She believes that this came on when her sinuses flared up. She suffers from multiple medical problems, including chronic kidney disease stage 3, chronic pain due to fibromyalgia for which she is on a morphine pump, intracranial hypertension, hypertension, hypothyroidism and reflux. She states that she has lost about 12 lb since these symptoms began. She was found to be as I mention acidotic and has received bicarbonate drip and still getting bicarbonate infusion. Likewise potassium has been low she continues receive intravenous potassium. Review of Systems Review of Systems: All systems reviewed & are unremarkable except as noted in HPI and below PMFSH Past Medical History Medical History (Updated 05/31/23 @ 12:29 by Rudy Garcias MD) Anxiety Chronic kidney disease, stage 3b Chronic pain Morphine pump. Fibromyalgia Gastroesoph
[2023-05-31 12:29] LABS: Basophils Absolute Auto 0.1 K/mm3 (0.0-0.1); Basophils Percent Auto 0.4 % (0.2-1.2); Hematocrit 40.1 % (37.0-47.0); Hemoglobin 13.4 g/dL (12.0-15.0); Immature Granulocyte Absolute 0.18 K/mm3 (0.00-0.031); Immature Granulocyte Percent A 1.3 % (0-0.5); Lymphocytes Absolute Auto 1.04 K/mm3 (0.9-3.2); Lymphocytes Percent Auto 7.5 % (18.3-44.2); Mean Corpuscular HGB Conc 33.4 g/dl (32-36); Mean Corpuscular Hemoglobin 30.5 pg (26-34); Mean Corpuscular Volume 91.1 fl (80-100); Mean Platelet Volume 10.1 fl (7.4-10.4); Monocytes Percent Auto 6.9 % (2.6-8.5); Neutrophils Absolute Auto 11.6 K/mm3 (1.3-6.7); Neutrophils Percent Auto 83.9 % (45.5-73.1); Platelet Count Result 300 k/mm3 (150-375); Red Cell Distribution Width 13.7 % (11.5-14.5); White Blood Count 13.9 K/mm3 (4.5-10.0)
[2023-05-31 12:38] LABS: Alanine Aminotransferase 31 U/L (6-35); Albumin Level 4.2 g/dL (3.5-5.1); Alkaline Phosphatase 94 U/L (38-126); Anion Gap 18 mmol/L (8-16); Aspartate Amino Transferase 66 U/L (14-36); Bilirubin,Total 0.6 mg/dL (0.2-1.3); Blood Urea Nitrogen 6 mg/dL (7-17); Calcium 8.7 mg/dL (8.4-10.2); Carbon Dioxide 19 mmol/L (22-30); Chloride 109 mmol/L (98-107); Estimated CRCL calculation 77 ml/min; Estimated Glomerular Filt Rate > 60; Glucose 144 mg/dL (65-110); Potassium 3.2 mmol/L (3.4-5.0); Sodium 146 mmol/L (137-145)
--- NOTE | 2023-05-31 14:06 | PM.IMPN ---
Progress Note: A&P Assessment and Plan (1) Metabolic acidosis: Code(s): E87.20 - Acidosis, unspecified Status: Inactive Assessment and Plan: Patient was found to have a pH of 7.17, pCO2 of 22.6 and a bicarb of 8.2.She has not been able to hold down much in the way of food or drink the last couple of weeks and she is dehydrated. She is not a diabetic and denies alcohol and illicit substance intake. Her urine is concentrated with 3+ ketones elevated beta hydroxybutyrate. She has been started on fluid containing sodium bicarb and dextrose. Antiemetics are available as needed. CT of the abdomen/pelvis did not show any acute findings. (2) Hematemesis: Code(s): K92.0 - Hematemesis Status: Acute Assessment and Plan: More recently her emesis has turned dark brown and is positive for occult blood. GI consulted. IV Protonix 40 mg b.i.d. EGD planned for tomorrow (3) Hypokalemia: Code(s): E87.6 - Hypokalemia Status: Acute Assessment and Plan: Patient with hypokalemia on admission. Replaced potassium is necessary. Monitor a.m. labs. (4) Dehydration: Code(s): E86.0 - Dehydration Status: Acute Assessment and Plan: continue IV fluids. (5) Hypothyroidism: Code(s): E03.9 - Hypothyroidism, unspecified Status: Acute Assessment and Plan: Continue Synthroid (6) Chronic pain: Code(s): G89.29 - Other chronic pain Status: Acute Assessment and Plan: patient on morphine pain pump Subjective Date/time seen: 05/31/23 14:06 Interval history: patient states that she does not feel good today although she is unable to explain what exactly she means by this. She is continuing to have nausea and vomiting. Her mother is at bedside is giving consented discussed freely in front of her. Patient's labs and vital signs have improved since receiving IV fluids. GI consulted on patient and scheduled EGD for tomorrow. She is having abdominal pain as well as nausea vomiting. She denies chest pain, shortness a breath and dysuria. Exam Narrative: GENERAL: uncomfortable, no acute distress HENMT: moist mucous membranes EYES: EOM intact b/l NECK: no lymphadenopathy RESPIRATORY: clear to auscultation CARDIO: Tachycardia, regular rhythm GI: soft, diffuse tenderness, bowel sounds present SKIN: no rashes EXTREMITIES: no edema, redness or tenderness Objective Data Vital Signs Vital Signs: Vital Signs - 24 hr 05/30/23 15:51 05/30/23 16:00 05/30/23 16:50 Temperature 97.8 F Pulse Rate 120 H 115 H Respiratory Rate 20 Blood Pressure 153/82 H Pulse Oximetry 100 Oxygen Delivery Room Air 05/30/23 19:24 05/31/23 01:12 05/30/23 20:00 Temperature 97.4 F L Pulse Rate 124 H 127 H 118 H Respiratory Rate 18 Blood Pressure 160/90 H Pulse Oximetry 100 Oxygen Delivery 05/31/23 00:00 05/31/23 04:00 05/31/23 06:00 Temperature 98.5 F Pulse Rate 107 H 93 103 H Respiratory Rate 18 Blood Pressure 152/91 H Pulse Oximetry 99 Oxygen Delivery 05/31/23 06:48 05/31/23 09:25 05/31/23 08:00 Temperature Pulse Rate 97 109 H Respiratory Rate Blood Pressure Pulse Oximetry Oxygen Delivery Room Air Intake/Output Intake/Output: Intake & Output 05/28/23 05/29/23 05/30/23 05/31/23 23:59 23:59 23:59 23:59 Intake Total 2220 Output Total 300 Balance -300 2220 Meds/Results Medications: Active Medications Generic Name Dose Route Start Last Admin Trade Name Freq PRN Reason Stop Dose Admin Acetaminophen 650 mg 05/30/23 16:21 Acetaminophen 325 Mg Tablet PO Q4H PRN Mild Pain (1-3) or Fever Duloxetine HCl 20 mg 05/31/23 09:00 Duloxetine Hcl 20 Mg Capsule.Dr PO DAILY [facility] Ferrous Sulfate 325 mg 05/31/23 09:00 Ferrous Sulfate [address] BY MOUTH DAILY [place] Fluticasone Propiona
[2023-05-31] MEDS: FERROUS SULFATE 325 MG TABLET DR BY MOUTH (14:59)
[2023-05-31] MEDS: LEVOTHYROXINE SODIUM 50 MCG TABLET PO (14:59)
[2023-05-31] MEDS: hydrOXYzine HCL 25 MG TABLET PO (14:59)
[2023-05-31] MEDS: SERTRALINE HCL 50 MG TABLET PO (15:00)
[2023-05-31] MEDS: METOPROLOL TARTRATE 25 MG TABLET PO (15:00)
[2023-05-31] MEDS: POTASSIUM CHLORIDE 20 MEQ ER TABLET PO (15:00)
[2023-05-31] MEDS: DULoxetine HCL 20 MG CAPSULE.DR PO (15:01)
[2023-06-01] VITALS (17 sets, daily range): BP systolic 104–157; BP diastolic 65–78; PULSE 57–90; RESP 16–20; TEMP 36.4–36.9; O2SAT 96–100; BMI 36.2
[2023-06-01] MEDS: SODIUM BICARBONATE 8.4% 150 MEQ in DEXTROSE 5% 1,000 ML 950 ML IV CONT (00:21)
[2023-06-01] MEDS: hydrOXYzine HCL 25 MG TABLET PO ×2 (00:26→22:03)
[2023-06-01] MEDS: METOPROLOL TARTRATE 25 MG TABLET PO ×3 (00:26→22:03)
[2023-06-01] MEDS: TIZANIDINE HCL 4 MG TABLET 8 MG PO ×2 (00:26→22:03)
[2023-06-01] MEDS: ACETAMINOPHEN 325 MG TABLET 650 MG PO (01:03)
[2023-06-01 05:53] LABS: Basophils Percent Auto 0.5 % (0.2-1.2); Eosinophils Percent Auto 0.2 % (0-4.4); Hematocrit 31.2 % (37.0-47.0); Hemoglobin 10.6 g/dL (12.0-15.0); Immature Granulocyte Absolute 0.06 K/mm3 (0.00-0.031); Immature Granulocyte Percent A 0.7 % (0-0.5); Lymphocytes Absolute Auto 1.71 K/mm3 (0.9-3.2); Lymphocytes Percent Auto 20.9 % (18.3-44.2); Mean Corpuscular Hemoglobin 30.5 pg (26-34); Mean Corpuscular Volume 89.9 fl (80-100); Mean Platelet Volume 10.4 fl (7.4-10.4); Monocytes Absolute Auto 0.7 K/mm3 (0.1-0.6); Monocytes Percent Auto 8.7 % (2.6-8.5); Neutrophils Absolute Auto 5.7 K/mm3 (1.3-6.7); Platelet Count Result 203 k/mm3 (150-375); Red Blood Count 3.47 M/mm3 (4.2-5.4); Red Cell Distribution Width 13.1 % (11.5-14.5); White Blood Count 8.2 K/mm3 (4.5-10.0)
[2023-06-01 06:02] LABS: Alanine Aminotransferase 28 U/L (6-35); Alkaline Phosphatase 66 U/L (38-126); Anion Gap 4 mmol/L (8-16); Aspartate Amino Transferase 58 U/L (14-36); Bilirubin,Total 0.6 mg/dL (0.2-1.3); Blood Urea Nitrogen 5 mg/dL (7-17); Calcium 7.6 mg/dL (8.4-10.2); Carbon Dioxide 34 mmol/L (22-30); Chloride 103 mmol/L (98-107); Estimated CRCL calculation 88 ml/min; Estimated Glomerular Filt Rate > 60; Glucose 142 mg/dL (65-110); Potassium 2.6 mmol/L (3.4-5.0); Sodium 141 mmol/L (137-145)
[2023-06-01] MEDS: LEVOTHYROXINE SODIUM 50 MCG TABLET PO (06:22)
--- NOTE | 2023-06-01 06:56 | PC.NURSE ---
Dr Gallo notified of critical potassium of 2.6 as well as significant changes in other labs. Provider ordered to stop IV fluids and redraw labs to confirm results are accurate. New labs have been drawn and results are pending at this time.
[2023-06-01 07:09] LABS: Basophils Percent Auto 0.5 % (0.2-1.2); Eosinophils Percent Auto 0.1 % (0-4.4); Hematocrit 32.4 % (37.0-47.0); Hemoglobin 10.8 g/dL (12.0-15.0); Immature Granulocyte Absolute 0.07 K/mm3 (0.00-0.031); Immature Granulocyte Percent A 0.8 % (0-0.5); Lymphocytes Absolute Auto 2.03 K/mm3 (0.9-3.2); Lymphocytes Percent Auto 23.8 % (18.3-44.2); Mean Corpuscular HGB Conc 33.3 g/dl (32-36); Mean Corpuscular Hemoglobin 30.2 pg (26-34); Mean Corpuscular Volume 90.5 fl (80-100); Mean Platelet Volume 10.6 fl (7.4-10.4); Monocytes Absolute Auto 0.8 K/mm3 (0.1-0.6); Monocytes Percent Auto 9.4 % (2.6-8.5); Neutrophils Absolute Auto 5.6 K/mm3 (1.3-6.7); Neutrophils Percent Auto 65.4 % (45.5-73.1); Platelet Count Result 203 k/mm3 (150-375); Red Blood Count 3.58 M/mm3 (4.2-5.4); Red Cell Distribution Width 13.5 % (11.5-14.5); White Blood Count 8.5 K/mm3 (4.5-10.0)
[2023-06-01 07:13] LABS: Alanine Aminotransferase 29 U/L (6-35); Albumin Level 3.1 g/dL (3.5-5.1); Alkaline Phosphatase 66 U/L (38-126); Anion Gap 3 mmol/L (8-16); Aspartate Amino Transferase 58 U/L (14-36); Bilirubin,Total 0.6 mg/dL (0.2-1.3); Blood Urea Nitrogen 6 mg/dL (7-17); Calcium 7.7 mg/dL (8.4-10.2); Carbon Dioxide 37 mmol/L (22-30); Chloride 101 mmol/L (98-107); Estimated CRCL calculation 88 ml/min; Estimated Glomerular Filt Rate > 60; Glucose 129 mg/dL (65-110); Sodium 141 mmol/L (137-145)
[2023-06-01] MEDS: POTASSIUM CHLORIDE INJ 40 MEQ in SODIUM CHLORIDE 0.9% IV 500 ML 130 MEQ IVPB (10:08)
--- NOTE | 2023-06-01 10:19 | PM.IMPN ---
Progress Note: A&P Assessment and Plan (1) Metabolic acidosis: Code(s): E87.20 - Acidosis, unspecified Status: Inactive Assessment and Plan: Patient was found to have a pH of 7.17, pCO2 of 22.6 and a bicarb of 8.2.She has not been able to hold down much in the way of food or drink the last couple of weeks and she is dehydrated. She is not a diabetic and denies alcohol and illicit substance intake. Her urine is concentrated with 3+ ketones elevated beta hydroxybutyrate. She has been started on fluid containing sodium bicarb and dextrose. Antiemetics are available as needed. CT of the abdomen/pelvis did not show any acute findings. 06/01: Patient no longer acidotic her chemistry panel. In fact carbon dioxide is slightly elevated. (2) Hematemesis: Code(s): K92.0 - Hematemesis Status: Acute Assessment and Plan: More recently her emesis has turned dark brown and is positive for occult blood. GI consulted. IV Protonix 40 mg b.i.d. EGD planned for afternoon of 06/01, patient remains persistently nauseous (3) Hypokalemia: Code(s): E87.6 - Hypokalemia Status: Acute Assessment and Plan: Patient with hypokalemia on admission. Replaced potassium is necessary. Monitor a.m. labs. (4) Dehydration: Code(s): E86.0 - Dehydration Status: Acute Assessment and Plan: Patient no longer appears frankly dehydrated (5) Hypothyroidism: Code(s): E03.9 - Hypothyroidism, unspecified Status: Acute Assessment and Plan: Continue Synthroid (6) Chronic pain: Code(s): G89.29 - Other chronic pain Status: Acute Assessment and Plan: patient on morphine pain pump at very low dosing per pain management, basal rate 214 mcg per 24 hours and maximum rate 353 mcg per 24 hours Plan Patient requiring additional pain control and nausea control. Added IM Phenergan 25 mg q.4 hours in addition to the IV Phenergan. Patient states that the Phenergan works better than any other anti nausea medicine for her. Additionally ordered IV morphine pain control. Time Spent With Patient Time with patient: Greater than 35 minutes Subjective Date/time seen: 06/01/23 10:19 Interval history: Patient reports persistent nausea and vomiting. She is NPO at this time in preparation for EGD today. Patient did take metoprolol with a small sip of water and Synthroid this morning. She reports that her pain is not controlled and her nausea is not controlled on current dosing. Patient reports that she has had this nausea and vomiting for 2.5 weeks and never had it before like this. Review of Systems Review of Systems: All systems reviewed & are unremarkable except as noted in HPI and below Exam Narrative: GENERAL: uncomfortable, no acute distress HENMT: moist mucous membranes EYES: EOM intact b/l NECK: no lymphadenopathy RESPIRATORY: clear to auscultation CARDIO: regular rate and rhythm GI: soft, diffuse tenderness, bowel sounds present no peritoneal signs rebound guarding SKIN: no rashes EXTREMITIES: no edema, redness or tenderness Objective Data Vital Signs Vital Signs: Vital Signs - 24 hr 05/31/23 14:08 05/31/23 15:00 05/31/23 12:00 Temperature 35.6 C L Pulse Rate 88 86 115 H Respiratory Rate 16 Blood Pressure 153/89 H Pulse Oximetry 99 05/31/23 16:00 05/31/23 21:11 06/01/23 00:26 Temperature 36.0 C L Pulse Rate 86 80 82 Respiratory Rate 18 Blood Pressure 158/84 H Pulse Oximetry 98 06/01/23 04:30 05/31/23 20:00 06/01/23 00:00 Temperature 36.5 C Pulse Rate 65 75 78 Respiratory Rate 20 Blood Pressure 104/67 Pulse Oximetry 96 06/01/23 04:00 06/01/23 10:05 06/01/23 10:11 Temperature Pulse Rate 60 76 90 Respiratory Rate Blood Pressure 154/77 H Pulse Oximetry 99 Intake/Output Intake/Output: Intake & Output 05/29/23 05/30/23 05/31/23
[2023-06-01] MEDS: MORPHINE SULFATE (*CRX) 4 MG/ML INJ IV PUSH ×2 (11:31→22:04)
[2023-06-01] MEDS: PANTOPRAZOLE SODIUM IV 40 MG VIAL IV PUSH ×2 (11:39→22:04)
[2023-06-01] MEDS: PROMETHAZINE HCL 25 MG/ML AMPUL IM ×2 (11:45→16:16)
[2023-06-01] MEDS: LACTATED RINGERS 1,000 ML 150 ML IV CONT (13:21)
--- NOTE | 2023-06-01 13:26 | P.CDI_ITS ---
CDI Query Clarification Request BMI 36.2 Nutritional Diagnostic Statement Moderate Malnutrition as related to inadequate oral intake in acute setting (nausea/vomiting) as evidenced by <75% of EER for > 7 days and significant weight loss of 12% ( 30 lbs) in 3 months. Please refer to the comprehensive nutrition assessment for further information. Please clarify severity of protein calorie malnutrition if known: * Mild * Moderate * Severe * Other/ Unspecified <Liset Ovalle RN - Last Filed: 06/01/23 13:31> Clarified Diagnosis Clarified Diagnosis: Moderate Malnutrition: Moderate Malnutrition as related to inadequate oral intake in acute setting (nausea/vomiting) as evidenced by <75% of EER for > 7 days and significant weight loss of 12% ( 30 lbs) in 3 months. <Rosas Rodrigez APRN - Last Filed: 06/01/23 13:56>
[2023-06-01] MEDS: LACTATED RINGERS 1,000 ML 100 ML IV CONT (17:18)
[2023-06-01] MEDS: HALOPERIDOL LACTATE 5 MG/ML VIAL IV PUSH (19:03)
[2023-06-01] MEDS: traZODone HCL 50 MG TABLET 200 MG PO (22:04)
[2023-06-02] VITALS (12 sets, daily range): BP systolic 95–124; BP diastolic 57–68; PULSE 54–74; RESP 16–18; TEMP 35.7–36.6; O2SAT 97–100
[2023-06-02 05:39] LABS: Basophils Percent Auto 0.5 % (0.2-1.2); Eosinophils Absolute Auto 0.1 K/mm3 (0-0.3); Eosinophils Percent Auto 0.7 % (0-4.4); Hematocrit 34.8 % (37.0-47.0); Hemoglobin 11.4 g/dL (12.0-15.0); Immature Granulocyte Absolute 0.05 K/mm3 (0.00-0.031); Immature Granulocyte Percent A 0.6 % (0-0.5); Lymphocytes Absolute Auto 2.61 K/mm3 (0.9-3.2); Lymphocytes Percent Auto 29.8 % (18.3-44.2); Mean Corpuscular HGB Conc 32.8 g/dl (32-36); Mean Corpuscular Hemoglobin 30.6 pg (26-34); Mean Corpuscular Volume 93.3 fl (80-100); Mean Platelet Volume 10.4 fl (7.4-10.4); Monocytes Absolute Auto 0.7 K/mm3 (0.1-0.6); Monocytes Percent Auto 7.6 % (2.6-8.5); Neutrophils Absolute Auto 5.3 K/mm3 (1.3-6.7); Neutrophils Percent Auto 60.8 % (45.5-73.1); Platelet Count Result 175 k/mm3 (150-375); Red Blood Count 3.73 M/mm3 (4.2-5.4); Red Cell Distribution Width 13.9 % (11.5-14.5); White Blood Count 8.8 K/mm3 (4.5-10.0)
[2023-06-02] MEDS: MORPHINE SULFATE (*CRX) 4 MG/ML INJ IV PUSH (05:51)
[2023-06-02] MEDS: LEVOTHYROXINE SODIUM 50 MCG TABLET PO (05:51)
[2023-06-02] MEDS: LACTATED RINGERS 1,000 ML 100 ML IV CONT (05:51)
[2023-06-02 05:53] LABS: Alanine Aminotransferase 35 U/L (6-35); Albumin Level 3.1 g/dL (3.5-5.1); Alkaline Phosphatase 66 U/L (38-126); Anion Gap 4 mmol/L (8-16); Aspartate Amino Transferase 94 U/L (14-36); Bilirubin,Total 0.7 mg/dL (0.2-1.3); Blood Urea Nitrogen 8 mg/dL (7-17); Calcium 7.7 mg/dL (8.4-10.2); Carbon Dioxide 33 mmol/L (22-30); Chloride 103 mmol/L (98-107); Estimated CRCL calculation 88 ml/min; Estimated Glomerular Filt Rate > 60; Glucose 107 mg/dL (65-110); Potassium 2.8 mmol/L (3.4-5.0); Sodium 140 mmol/L (137-145)
[2023-06-02 06:47] LABS: Magnesium 1.4 mg/dL (1.6-2.3); Phosphorus 2.5 mg/dL (2.5-4.5)
[2023-06-02] MEDS: POTASSIUM CHLORIDE 20 MEQ PACKET (FOR LIQUID) 40 MEQ PO (06:48)
--- NOTE | 2023-06-02 07:25 | WPDGIPROGNO ---
Progress Note: A&P Assessment and Plan (1) Nausea and vomiting: Code(s): R11.2 - Nausea with vomiting, unspecified Status: Acute Assessment and Plan: This seems to begun fairly acutely 2 weeks ago. She should be sent to having had sinus problems at that time and the sinus issues are persisting. 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 she has seen some coffee-ground material in her emesis on a couple of occasions. She denies using NSAIDs. This is because she is allergic to them. Since the symptoms began she has lost about 12 lb. She does not recall having problems like this before. She has no prior history of ulcers. He does have pain which is primarily in the left upper quadrant left costal margin and into the left side of her back. It seems her more in the back than in the abdomen. She also has pain in the frontal area of her head. She was kept NPO for possible EGD but she still has a low potassium. She states that she feels worse today than yesterday but on the other hand would like to have something to eat or drink and thinks that the nausea is better. She in fact, specifically could not really explain how she feels ?worse? 06/02/2023 I discussed with her the results of her EGD which revealed significant distal esophagitis, probably combination of reflux and her vomiting. She also has a gastritis without ulceration. H pylori is negative. blow gallbladder appeared normal on CT, I will obtain a HIDA scan to rule out biliary tract disease (2) Hematemesis: Code(s): K92.0 - Hematemesis Status: Acute Assessment and Plan: She did have some coffee-ground emesis. She is not anemic. 06/02/2023 tolerating clear liquids and no further emesis. (3) Chronic pain: Code(s): G89.29 - Other chronic pain Status: Acute Assessment and Plan: She has been on a morphine pump for several years. She states they are actually reducing the dose. The last time was reduced was about 4 weeks ago. He is possible that some of her symptoms are due to ?withdrawal? (4) Chronic kidney disease, stage 3b: Code(s): N18.32 - Chronic kidney disease, stage 3b Status: Acute Assessment and Plan: She is followed by Dr. Orellana. (5) Leukocytosis: Code(s): D72.829 - Elevated white blood cell count, unspecified Status: Acute Assessment and Plan: [place] blood count was [address] on admission but today it is up to 22,000. She has been afebrile (6) Hypokalemia: Code(s): E87.6 - Hypokalemia Status: Acute Assessment and Plan: This has been resolved Subjective Date/time seen: 06/02/23 07:25 She is feeling less nauseated. She tolerated clear liquids last night. She does not have an appetite for solid food yet. She denies abdominal pain . I reviewed her history again about how her symptoms started 2 weeks ago. She cannot recall any trigger, any new medication or change in her routine. She simply started having a great deal of nausea and vomiting. Exam Const: General: cooperative, ill appearing and uncomfortable Orientation/consciousness: patient oriented x3 HENMT: Head: normal to inspection Ears: hearing grossly normal bilaterally Mouth: Yes Normal oral and palatal mucosa present Eyes: General: appearance normal, both eyes and all related structures Neck: Neck: normal visual inspection Chest: Chest palpation & inspection: normal inspection of the chest Resp: Effort & Inspection: normal respiratory effort Auscultation: clear to auscultation bilaterally Cardio: Rate: regular rate Rhythm: regular rhythm GI: Inspection: normal to inspection Auscultation: normal bowel sounds Skin: General skin exam: normal color and no jaundice Neuro: General: patient oriented x3 Speech: normal speech Objective Data Vital Signs Vital Signs: Vital Signs - 24 hr 06/01
--- NOTE | 2023-06-02 09:02 | P.PNIM_ITS ---
Progress Note: A&P Assessment and Plan (1) Metabolic acidosis: Code(s): E87.20 - Acidosis, unspecified Status: Inactive Assessment and Plan: Patient was found to have a pH of 7.17, pCO2 of 22.6 and a bicarb of 8.2.She has not been able to hold down much in the way of food or drink the last couple of weeks and she is dehydrated. She is not a diabetic and denies alcohol and illicit substance intake 05/31: * Her urine is concentrated with 3+ ketones * elevated beta hydroxybutyrate. * She has been started on fluid containing sodium bicarb and dextrose. * Antiemetics are available as needed. * CT of the abdomen/pelvis did not show any acute findings. * 06/01: Patient no longer acidotic her chemistry panel. In fact carbon dioxide is slightly elevated. * 06/02: Metabolic acidosis resolved. HCO3- 33 today. (2) Hematemesis: Qualifiers: Nausea presence: with nausea Qualified Code(s): K92.0 - Hematemesis Code(s): K92.0 - Hematemesis Status: Acute Assessment and Plan: More recently her emesis has turned dark brown and is positive for occult blood. * GI consulted. * IV Protonix 40 mg b.i.d. * EGD planned for afternoon of 06/01, patient remains persistently nauseous * 06/02: * patient denies any hematemesis overnight. * Continue IV Protonix 40 BID * EGD unable to be performed due to low potassium level. * GI following patient. * H/ H 11.4/34.8 today * NM HIDA scan ordered for today. Will await further recommendation from GI * Haldol q.6 p.r.n. ordered for nausea. If patient is still having nausea may consider Thorazine. (3) Hypokalemia: Code(s): E87.6 - Hypokalemia Status: Acute Assessment and Plan: Patient with hypokalemia on admission. * Replaced potassium is necessary. * Monitor a.m. labs. * 06/02: Potassium level this morning was 2.8 * 80 mEq IV potassium given, 20 mEq cm added to IV fluids * continue daily lab (4) Dehydration: Code(s): E86.0 - Dehydration Status: Acute Assessment and Plan: Patient no longer appears frankly dehydrated (5) Hypothyroidism: Qualifiers: Hypothyroidism type: acquired Qualified Code(s): E03.9 - Hypothyroidism, unspecified Code(s): E03.9 - Hypothyroidism, unspecified Status: Acute Assessment and Plan: Continue Synthroid (6) Chronic pain: Qualifiers: Chronic pain type: chronic pain syndrome Qualified Code(s): G89.4 - Chronic pain syndrome Code(s): G89.29 - Other chronic pain Status: Acute Assessment and Plan: patient on morphine pain pump at very low dosing per pain management, basal rate 214 mcg per 24 hours and maximum rate 353 mcg per 24 hours 06/02: pain well controlled no change in current treatment plan. Time Spent With Patient Time with patient: 25 - 35 minutes Subjective Date/time seen: 06/02/23 09:02 Interval history: This is 50-year-old female who presented to the hospital with chief complaint nausea and vomiting. She was admitted for severe metabolic acidosis which has since corrected. On examination patient complaining of point tenderness in epigastric region and left upper quadrant. She still reports nausea today and an order for Haldol q.6h p.r.n. was prescribed. She he denies more coffee- ground emesis. She reports her pain 6/10 which is close to her baseline. Patient reports a significant weight loss of about 12 lb. Potassium level this morning was 2.8sylwia
--- NOTE | 2023-06-02 09:02 | PM.IMPN ---
Progress Note: A&P Assessment and Plan (1) Metabolic acidosis: Code(s): E87.20 - Acidosis, unspecified Status: Inactive Assessment and Plan: Patient was found to have a pH of 7.17, pCO2 of 22.6 and a bicarb of 8.2.She has not been able to hold down much in the way of food or drink the last couple of weeks and she is dehydrated. She is not a diabetic and denies alcohol and illicit substance intake 05/31: Her urine is concentrated with 3+ ketones elevated beta hydroxybutyrate. She has been started on fluid containing sodium bicarb and dextrose. Antiemetics are available as needed. CT of the abdomen/pelvis did not show any acute findings. 06/01: Patient no longer acidotic her chemistry panel. In fact carbon dioxide is slightly elevated. 06/02: Metabolic acidosis resolved. HCO3- 33 today. (2) Hematemesis: Qualifiers: Nausea presence: with nausea Qualified Code(s): K92.0 - Hematemesis Code(s): K92.0 - Hematemesis Status: Acute Assessment and Plan: More recently her emesis has turned dark brown and is positive for occult blood. GI consulted. IV Protonix 40 mg b.i.d. EGD planned for afternoon of 06/01, patient remains persistently nauseous 06/02: patient denies any hematemesis overnight. Continue IV Protonix 40 BID EGD unable to be performed due to low potassium level. GI following patient. H/ H 11.4/34.8 today NM HIDA scan ordered for today. Will await further recommendation from GI Haldol q.6 p.r.n. ordered for nausea. If patient is still having nausea may consider Thorazine. (3) Hypokalemia: Code(s): E87.6 - Hypokalemia Status: Acute Assessment and Plan: Patient with hypokalemia on admission. Replaced potassium is necessary. Monitor a.m. labs. 06/02: Potassium level this morning was 2.8 80 mEq IV potassium given, 20 mEq cm added to IV fluids continue daily lab (4) Dehydration: Code(s): E86.0 - Dehydration Status: Acute Assessment and Plan: Patient no longer appears frankly dehydrated (5) Hypothyroidism: Qualifiers: Hypothyroidism type: acquired Qualified Code(s): E03.9 - Hypothyroidism, unspecified Code(s): E03.9 - Hypothyroidism, unspecified Status: Acute Assessment and Plan: Continue Synthroid (6) Chronic pain: Qualifiers: Chronic pain type: chronic pain syndrome Qualified Code(s): G89.4 - Chronic pain syndrome Code(s): G89.29 - Other chronic pain Status: Acute Assessment and Plan: patient on morphine pain pump at very low dosing per pain management, basal rate 214 mcg per 24 hours and maximum rate 353 mcg per 24 hours 06/02: pain well controlled no change in current treatment plan. Time Spent With Patient Time with patient: 25 - 35 minutes Subjective Date/time seen: 06/02/23 09:02 Interval history: This is 50-year-old female who presented to the hospital with chief complaint nausea and vomiting. She was admitted for severe metabolic acidosis which has since corrected. On examination patient complaining of point tenderness in epigastric region and left upper quadrant. She still reports nausea today and an order for Haldol q.6h p.r.n. was prescribed. She he denies more coffee-ground emesis. She reports her pain 6/10 which is close to her baseline. Patient reports a significant weight loss of about 12 lb. Potassium level this morning was 2.8, magnesium level was 1.4, patient given 80 mEq IV potassium and 3 g magnesium IV. GI consult and is recommending HIDA scan to rule out biliary tract disease. Her H pylori is negative. GI was unable to schedule her for her EGD due to her low potassium. Plan for today is to continue electrolyte replacement, advance diet to full liquid post HIDA scan and to continue to monitor nausea. Review of Systems Review of Systems: Twelve systems were r
[2023-06-02] MEDS: METOPROLOL TARTRATE 25 MG TABLET PO ×2 (09:49→20:27)
[2023-06-02] MEDS: SERTRALINE HCL 50 MG TABLET PO (09:54)
[2023-06-02] MEDS: hydrOXYzine HCL 25 MG TABLET PO ×2 (09:54→20:27)
[2023-06-02] MEDS: POTASSIUM CHLORIDE 20 MEQ ER TABLET PO (09:55)
[2023-06-02] MEDS: PANTOPRAZOLE SODIUM IV 40 MG VIAL IV PUSH ×2 (09:56→20:27)
[2023-06-02] MEDS: MAGNESIUM SULFATE 3GM/D5W100ML 3 GM/100 ML BAG IVPB (10:05)
[2023-06-02] MEDS: POTASSIUM CHLORIDE INJ 40 MEQ in SODIUM CHLORIDE 0.9% IV 500 ML 130 MEQ IVPB ×2 (10:19→16:00)
[2023-06-02] MEDS: KCL 20 MEQ/LR 1,000 ML 100 ML IV CONT (10:19)
--- NOTE | 2023-06-02 10:19 | ECG_ITS ---
Measurements Intervals [place] Rate: 63 P: 57 NV: 150 QRS: 16 QRSD: 94 T: -6 QT: 446 QTc: 460 Interpretive Statements SINUS RHYTHM LOW QRS VOLTAGE IN PRECORDIAL LEADS [QRS DEFLECTION < 1.0 mV IN CHEST LEADS] COMPARED TO ECG 05/04/2023 15:46:09 NO SIGNIFICANT CHANGES Electronically Signed On 06-03-2023 14:16:00 CDT by Prema Haines M.D.
[2023-06-02] MEDS: TIZANIDINE HCL 4 MG TABLET 8 MG PO ×2 (10:35→20:26)
--- NOTE | 2023-06-02 14:12 | PC.NURSE ---
On 06/02/23, the student, [Paulina Gaets], provided care and completed [facility] documentation on this patient. I have reviewed the student's documentation and agree with the findings.
--- NOTE | 2023-06-02 14:39 | PCPTNOTE ---
Attempted PT evaluation, pt off the unit for testing. Will follow.
--- NOTE | 2023-06-02 15:59 | PCOTNOTE ---
Attempted to see pt. for occupational therapy evaluation. Pt. currently in room getting EKG and is not able to participate. Nursing aware. Following.
[2023-06-02] MEDS: ACETAMINOPHEN 325 MG TABLET 650 MG PO (16:02)
[2023-06-02] MEDS: HALOPERIDOL LACTATE 5 MG/ML VIAL IV PUSH (16:03)
[2023-06-02] MEDS: HYDROcodone/acetaminophen (*CRX) 5-325 MG TABLET 1 TAB PO (18:27)
[2023-06-02] MEDS: traZODone HCL 50 MG TABLET 200 MG PO (20:26)
[2023-06-03] VITALS (11 sets, daily range): BP systolic 100–132; BP diastolic 59–70; PULSE 54–78; RESP 18–21; TEMP 36.1–36.4; O2SAT 97–100
[2023-06-03] MEDS: KCL 20 MEQ/LR 1,000 ML 100 ML IV CONT (01:44)
[2023-06-03] MEDS: HYDROcodone/acetaminophen (*CRX) 5-325 MG TABLET 1 TAB PO ×3 (05:57→18:32)
[2023-06-03] MEDS: LEVOTHYROXINE SODIUM 50 MCG TABLET PO (05:57)
[2023-06-03 06:11] LABS: Basophils Absolute Auto 0.1 K/mm3 (0.0-0.1); Basophils Percent Auto 0.9 % (0.2-1.2); Eosinophils Absolute Auto 0.3 K/mm3 (0-0.3); Eosinophils Percent Auto 3.9 % (0-4.4); Hematocrit 41.7 % (37.0-47.0); Hemoglobin 12.8 g/dL (12.0-15.0); Immature Granulocyte Absolute 0.03 K/mm3 (0.00-0.031); Immature Granulocyte Percent A 0.5 % (0-0.5); Immature Platelet Fraction Pct 6.9 % (0.9-11.2); Lymphocytes Absolute Auto 2.51 K/mm3 (0.9-3.2); Lymphocytes Percent Auto 39.2 % (18.3-44.2); Mean Corpuscular HGB Conc 30.7 g/dl (32-36); Mean Platelet Volume 11.3 fl (7.4-10.4); Monocytes Absolute Auto 0.5 K/mm3 (0.1-0.6); Neutrophils Percent Auto 47.5 % (45.5-73.1); Platelet Count Result 125 k/mm3 (150-375); Red Blood Count 4.13 M/mm3 (4.2-5.4); Red Cell Distribution Width 14.1 % (11.5-14.5); White Blood Count 6.4 K/mm3 (4.5-10.0)
[2023-06-03 06:15] LABS: Alanine Aminotransferase 40 U/L (6-35); Albumin Level 3.1 g/dL (3.5-5.1); Alkaline Phosphatase 66 U/L (38-126); Anion Gap 6 mmol/L (8-16); Aspartate Amino Transferase 112 U/L (14-36); Bilirubin,Total 0.7 mg/dL (0.2-1.3); Blood Urea Nitrogen 11 mg/dL (7-17); Calcium 7.9 mg/dL (8.4-10.2); Carbon Dioxide 23 mmol/L (22-30); Chloride 108 mmol/L (98-107); Estimated CRCL calculation 101 ml/min; Estimated Glomerular Filt Rate > 60; Glucose 88 mg/dL (65-110); Potassium 4.4 mmol/L (3.4-5.0); Sodium 137 mmol/L (137-145)
--- NOTE | 2023-06-03 07:25 | P.PNIM_ITS ---
Progress Note: A&P Assessment and Plan (1) Metabolic acidosis: Code(s): E87.20 - Acidosis, unspecified Status: Inactive Assessment and Plan: Patient was found to have a pH of 7.17, pCO2 of 22.6 and a bicarb of 8.2.She has not been able to hold down much in the way of food or drink the last couple of weeks and she is dehydrated. She is not a diabetic and denies alcohol and illicit substance intake 05/31: * Her urine is concentrated with 3+ ketones * elevated beta hydroxybutyrate. * She has been started on fluid containing sodium bicarb and dextrose. * Antiemetics are available as needed. * CT of the abdomen/pelvis did not show any acute findings. * 06/01: Patient no longer acidotic her chemistry panel. In fact carbon dioxide is slightly elevated. * 06/02: Metabolic acidosis resolved. HCO3- 33 today. * 06/03: Metabloic acidosis resolved at this time. (2) Hematemesis: Qualifiers: Nausea presence: with nausea Qualified Code(s): K92.0 - Hematemesis Code(s): K92.0 - Hematemesis Status: Acute Assessment and Plan: More recently her emesis has turned dark brown and is positive for occult blood. * GI consulted. * IV Protonix 40 mg b.i.d. * EGD planned for afternoon of 06/01, patient remains persistently nauseous * 06/02: * patient denies any hematemesis overnight. * Continue IV Protonix 40 BID * EGD unable to be performed due to low potassium level. * GI following patient. * H/ H 11.4/34.8 today * NM HIDA scan ordered for today. Will await further recommendation from GI * Haldol q.6 p.r.n. ordered for nausea. If patient is still having nausea may consider Thorazine. * 06/03: * Patient denies any vomiting overnight * continue IV Protonix 40 b.i.d. * H&H remains stable today * patient has persistent nausea and was given Haldol and Phenergan overnight per report from bedside nurse. Will still consider adding Thorazine if needed. Plan discussed with bedside nursing. * Ultrasound of abdomen was obtained today which shows normal right upper quadrant in the gallbladder was normal in appearance which was consistent with previous CT scan of the abdomen pelvis. * will await further input from GI and General surgery regarding further treatment options. (3) Hypokalemia: Code(s): E87.6 - Hypokalemia Status: Acute Assessment and Plan: Patient with hypokalemia on admission. * Replaced potassium is necessary. * Monitor a.m. labs. * 06/02: Potassium level this morning was 2.8 * 80 mEq IV potassium given, 20 mEq cm added to IV fluids * continue daily lab * 06/03: * Potassium level 4.4, magnesium level today is 2.5 after replacement yesterday, No additional replacement required today. * will DC the added 20 mEq of potassium in maintenance IV fluid. * Will continue with 20 mEq of potassium oral daily * recheck electrolytes in the morning. (4) Dehydration: Code(s): E86.0 - Dehydration Status: Acute Assessment and Plan: Patient no longer appears frankly dehydrated (5) Hypothyroidism: Qualifiers: Hypothyroidism type: acquired Qualified Code(s): E03.9 - H ypothyroidism, unspecified Code(s): E03.9 - Hypothyroidism, unspecified Status: Acute Assessment and Plan: Continue Synthroid (6) Chronic pain: Qualifiers: Chronic pain type: chronic pain syndrome Qualified Code(s): G89.4 - Chronic pain syndrome Code(s): G89.29
--- NOTE | 2023-06-03 07:25 | PM.IMPN ---
Progress Note: A&P Assessment and Plan (1) Metabolic acidosis: Code(s): E87.20 - Acidosis, unspecified Status: Inactive Assessment and Plan: Patient was found to have a pH of 7.17, pCO2 of 22.6 and a bicarb of 8.2.She has not been able to hold down much in the way of food or drink the last couple of weeks and she is dehydrated. She is not a diabetic and denies alcohol and illicit substance intake 05/31: Her urine is concentrated with 3+ ketones elevated beta hydroxybutyrate. She has been started on fluid containing sodium bicarb and dextrose. Antiemetics are available as needed. CT of the abdomen/pelvis did not show any acute findings. 06/01: Patient no longer acidotic her chemistry panel. In fact carbon dioxide is slightly elevated. 06/02: Metabolic acidosis resolved. HCO3- 33 today. 06/03: Metabloic acidosis resolved at this time. (2) Hematemesis: Qualifiers: Nausea presence: with nausea Qualified Code(s): K92.0 - Hematemesis Code(s): K92.0 - Hematemesis Status: Acute Assessment and Plan: More recently her emesis has turned dark brown and is positive for occult blood. GI consulted. IV Protonix 40 mg b.i.d. EGD planned for afternoon of 06/01, patient remains persistently nauseous 06/02: patient denies any hematemesis overnight. Continue IV Protonix 40 BID EGD unable to be performed due to low potassium level. GI following patient. H/ H 11.4/34.8 today NM HIDA scan ordered for today. Will await further recommendation from GI Haldol q.6 p.r.n. ordered for nausea. If patient is still having nausea may consider Thorazine. 06/03: Patient denies any vomiting overnight continue IV Protonix 40 b.i.d. H&H remains stable today patient has persistent nausea and was given Haldol and Phenergan overnight per report from bedside nurse. Will still consider adding Thorazine if needed. Plan discussed with bedside nursing. Ultrasound of abdomen was obtained today which shows normal right upper quadrant in the gallbladder was normal in appearance which was consistent with previous CT scan of the abdomen pelvis. will await further input from GI and General surgery regarding further treatment options. (3) Hypokalemia: Code(s): E87.6 - Hypokalemia Status: Acute Assessment and Plan: Patient with hypokalemia on admission. Replaced potassium is necessary. Monitor a.m. labs. 06/02: Potassium level this morning was 2.8 80 mEq IV potassium given, 20 mEq cm added to IV fluids continue daily lab 06/03: Potassium level 4.4, magnesium level today is 2.5 after replacement yesterday, No additional replacement required today. will DC the added 20 mEq of potassium in maintenance IV fluid. Will continue with 20 mEq of potassium oral daily recheck electrolytes in the morning. (4) Dehydration: Code(s): E86.0 - Dehydration Status: Acute Assessment and Plan: Patient no longer appears frankly dehydrated (5) Hypothyroidism: Qualifiers: Hypothyroidism type: acquired Qualified Code(s): E03.9 - Hypothyroidism, unspecified Code(s): E03.9 - Hypothyroidism, unspecified Status: Acute Assessment and Plan: Continue Synthroid (6) Chronic pain: Qualifiers: Chronic pain type: chronic pain syndrome Qualified Code(s): G89.4 - Chronic pain syndrome Code(s): G89.29 - Other chronic pain Status: Acute Assessment and Plan: patient on morphine pain pump at very low dosing per pain management, basal rate 214 mcg per 24 hours and maximum rate 353 mcg per 24 hours 06/02: pain well controlled no change in current treatment plan. 06/03: Pain well managed today. Patient reports 6/10 pain which is near her baseline considering her fibromyalgia history. Time Spent With Patient Time with patient: 25 - 35 minutes Subjective D
[2023-06-03 07:42] LABS: Magnesium 2.5 mg/dL (1.6-2.3)
[2023-06-03] MEDS: MORPHINE SULFATE (*CRX) 4 MG/ML INJ IV PUSH ×2 (07:44→23:49)
[2023-06-03] MEDS: PROMETHAZINE HCL 25 MG/ML AMPUL IM ×2 (07:44→23:49)
[2023-06-03] MEDS: PANTOPRAZOLE SODIUM IV 40 MG VIAL IV PUSH ×2 (07:44→20:13)
[2023-06-03] MEDS: LACTATED RINGERS 1,000 ML 100 ML IV CONT ×2 (10:54→20:12)
[2023-06-03] MEDS: METOPROLOL TARTRATE 25 MG TABLET PO ×2 (10:55→20:13)
[2023-06-03] MEDS: hydrOXYzine HCL 25 MG TABLET PO ×2 (10:56→20:13)
[2023-06-03] MEDS: TIZANIDINE HCL 4 MG TABLET 8 MG PO ×2 (10:58→20:19)
[2023-06-03] MEDS: PROMETHAZINE HCL 25 MG/ML AMPUL 12.5 MG IV PUSH (11:38)
[2023-06-03] MEDS: POTASSIUM CHLORIDE 20 MEQ ER TABLET PO (11:46)
[2023-06-03] MEDS: DULoxetine HCL 20 MG CAPSULE.DR PO (11:46)
[2023-06-03] MEDS: SERTRALINE HCL 50 MG TABLET PO (11:46)
--- NOTE | 2023-06-03 13:49 | PCPTNOTE ---
attempted PT evaluation 1350- pt refused, stated tired, have a headache and walked to bathroom earlier today. unable to convince pt to walk, since she wants to go back home;
--- NOTE | 2023-06-03 17:02 | WPDGIPROGNO ---
Progress Note: A&P Assessment and Plan (1) Nausea and vomiting: Code(s): R11.2 - Nausea with vomiting, unspecified Status: Acute Assessment and Plan: This seems to begun fairly acutely 2 weeks ago. She should be sent to having had sinus problems at that time and the sinus issues are persisting. 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 she has seen some coffee-ground material in her emesis on a couple of occasions. She denies using NSAIDs. This is because she is allergic to them. Since the symptoms began she has lost about 12 lb. She does not recall having problems like this before. She has no prior history of ulcers. He does have pain which is primarily in the left upper quadrant left costal margin and into the left side of her back. It seems her more in the back than in the abdomen. She also has pain in the frontal area of her head. She was kept NPO for possible EGD but she still has a low potassium. She states that she feels worse today than yesterday but on the other hand would like to have something to eat or drink and thinks that the nausea is better. She in fact, specifically could not really explain how she feels ?worse? 06/02/2023 I discussed with her the results of her EGD which revealed significant distal esophagitis, probably combination of reflux and her vomiting. She also has a gastritis without ulceration. H pylori is negative. blow gallbladder appeared normal on CT, I will obtain a HIDA scan to rule out biliary tract disease (2) Hematemesis: Qualifiers: Nausea presence: with nausea Qualified Code(s): K92.0 - Hematemesis Code(s): K92.0 - Hematemesis Status: Acute Assessment and Plan: She did have some coffee-ground emesis. She is not anemic. 06/02/2023 tolerating clear liquids and no further emesis. (3) Chronic pain: Qualifiers: Chronic pain type: chronic pain syndrome Qualified Code(s): G89.4 - Chronic pain syndrome Code(s): G89.29 - Other chronic pain Status: Acute Assessment and Plan: She has been on a morphine pump for several years. She states they are actually reducing the dose. The last time was reduced was about 4 weeks ago. It is possible that some of her symptoms are due to ?withdrawal? (4) Chronic kidney disease, stage 3b: Code(s): N18.32 - Chronic kidney disease, stage 3b Status: Acute Assessment and Plan: She is followed by Dr. Orellana. (5) Leukocytosis: Code(s): D72.829 - Elevated white blood cell count, unspecified Status: Acute Assessment and Plan: White blood count was 89973 on admission but today it is up to 22,000. She has been afebrile (6) Hypokalemia: Code(s): E87.6 - Hypokalemia Status: Acute Assessment and Plan: This has been resolved (7) Abnormal biliary HIDA scan: Code(s): R94.8 - Abnormal results of function studies of other organs and systems Status: Acute Assessment and Plan: her gallbladder may be a factor in her nausea and vomiting. Surgery will be consulted. Subjective Date/time seen: 06/03/23 17:02 she is tolerating liquids but not taking much. She remains nauseated. No vomiting so far today. No localizing pain. I explained her that the EGD did not reveal anything that would explain the degree of her symptomatology. H pylori was negative. I ordered HIDA scan yesterday and it did come back abnormal with 9% ejection fraction Exam Const: General: cooperative, ill appearing and uncomfortable Orientation/consciousness: patient oriented x3 HENMT: Head: normal to inspection Ears: hearing grossly normal bilaterally Mouth: Yes Normal oral and palatal mucosa present Eyes: General: appearance normal, both eyes and all related structures Neck: Neck: normal visual inspection Chest: Chest palpation & inspection: normal i
--- NOTE | 2023-06-03 17:26 | PM.CNGS ---
Assessment and Plan Assessment and plan (1) Abnormal biliary HIDA scan: Code(s): R94.8 - Abnormal results of function studies of other organs and systems Status: Acute Assessment and Plan: I have reviewed the imaging and discussed the findings with the patient. I obtained a gallbladder ultrasound this morning to confirm that there are no signs of cholelithiasis. I did discuss that a poorly functioning gallbladder usually presents with episodic pains after eating but does not typically present with chronic pain. Therefore I cannot guarantee that removing her gallbladder will relieve her symptoms. I did discuss that this could be arranged as an outpatient but there are no emergent needs to proceed with laparoscopic cholecystectomy biliary dyskinesia. Have recommended continuing with medical treatment of the nausea and vomiting and continue low-fat diet. Okay to discharge from surgical standpoint. Will arrange for laparoscopic cholecystectomy as an outpatient if patient wishes to proceed and understands that I cannot guarantee that this will relieve all her symptoms. Patient voiced her understanding. (2) Nausea and vomiting: Code(s): R11.2 - Nausea with vomiting, unspecified Status: Acute (3) Right upper quadrant abdominal pain: Code(s): R10.11 - Right upper quadrant pain Status: Acute History of Present Illness Consult details Consult date: 06/03/23 Reason for consult: other (Abnormal gallbladder function) Requesting physician: Rosas Rodrigez APRN Narrative: This is a 58-year-old woman who I am asked to see for nausea and vomiting with abnormal HIDA scan. She presented to the emergency department with persistent nausea and vomiting over the past couple weeks. She underwent EGD with Dr. Garcias which showed evidence of esophagitis gastritis. She has been started on medications for this and feels some improvement. The patient states that she has been chronically on omeprazole and feels that these symptoms are different. She has been having right upper quadrant pain that has been fairly constant. She states that she even has symptoms despite not eating most of the day. She does not identify any particular foods that elicit the pain or nausea or vomiting. CT of her abdomen and pelvis had been obtained which was normal. HIDA scan was then obtained yesterday which showed evidence of decreased gallbladder ejection fraction at 9%. Review of Systems Review of Systems: All systems reviewed & are unremarkable except as noted in HPI and below Eyes: Eyes: Denies change in vision ENT: Denies hearing loss, Denies neck pain and Denies sore throat Cardiovascular: Cardiovascular: Denies chest pain and Denies dyspnea Respiratory: Respiratory: Denies cough, Denies dyspnea and Denies wheezing Gastrointestinal: Gastrointestinal: Reports as per HPI Genitourinary: Genitourinary: Denies hematuria and Denies dysuria Musculoskeletal: Musculoskeletal: Denies arthralgias, Denies joint swelling and Denies neck pain Allergic/Immunologic: Allergic/Immunologic: Denies wheezing PMFSH Past Medical History Medical History (Updated 06/03/23 @ 17:14 by Rudy Garcias MD) Anxiety Chronic kidney disease, stage 3b Chronic pain Morphine pump. Fibromyalgia Gastroesophageal reflux disease Hypertension Hypothyroidism Irritable bowel syndrome with diarrhea Migrainous headache without aura Mitral valve regurgitation Stats post repair. Polyneuropathy Primary insomnia Uterine cancer Surgical History Surgical History (Updated 05/30/23 @ 18:08 by María Oates PA-C) History of appendectomy History of arthroplasty of right knee History of bladder suspension procedure History of cardiac catheterization History of dilation and curettage History of hysterectomy History of mitral valve repair History of repair of hip fracture (12/2019) Left History of right knee surgery History of tubal ligation Fa
[2023-06-03] MEDS: traZODone HCL 50 MG TABLET 200 MG PO (20:13)
[2023-06-04] VITALS (14 sets, daily range): BP systolic 109–152; BP diastolic 50–77; PULSE 51–64; RESP 14–20; TEMP 36.2–36.6; O2SAT 96–99
[2023-06-04] MEDS: MORPHINE SULFATE (*CRX) 4 MG/ML INJ IV PUSH (05:55)
[2023-06-04] MEDS: LEVOTHYROXINE SODIUM 50 MCG TABLET PO (05:56)
[2023-06-04] MEDS: TIZANIDINE HCL 4 MG TABLET 8 MG PO ×2 (05:56→14:54)
[2023-06-04 06:17] LABS: Basophils Absolute Auto 0.1 K/mm3 (0.0-0.1); Basophils Percent Auto 1.1 % (0.2-1.2); Eosinophils Absolute Auto 0.3 K/mm3 (0-0.3); Eosinophils Percent Auto 4.4 % (0-4.4); Hematocrit 38.4 % (37.0-47.0); Hemoglobin 11.6 g/dL (12.0-15.0); Immature Granulocyte Absolute 0.03 K/mm3 (0.00-0.031); Immature Granulocyte Percent A 0.5 % (0-0.5); Immature Platelet Fraction Pct 5.6 % (0.9-11.2); Lymphocytes Absolute Auto 2.24 K/mm3 (0.9-3.2); Lymphocytes Percent Auto 39.3 % (18.3-44.2); Mean Corpuscular HGB Conc 30.2 g/dl (32-36); Mean Corpuscular Hemoglobin 30.7 pg (26-34); Mean Corpuscular Volume 101.6 fl (80-100); Mean Platelet Volume 10.7 fl (7.4-10.4); Monocytes Absolute Auto 0.5 K/mm3 (0.1-0.6); Monocytes Percent Auto 8.9 % (2.6-8.5); Neutrophils Absolute Auto 2.6 K/mm3 (1.3-6.7); Neutrophils Percent Auto 45.8 % (45.5-73.1); Platelet Count Result 145 k/mm3 (150-375); Red Blood Count 3.78 M/mm3 (4.2-5.4); Red Cell Distribution Width 13.5 % (11.5-14.5); White Blood Count 5.7 K/mm3 (4.5-10.0)
[2023-06-04 06:26] LABS: Estimated CRCL calculation 103 ml/min; Estimated Glomerular Filt Rate > 60; Potassium 4.1 mmol/L (3.4-5.0)
[2023-06-04 06:51] LABS: Alanine Aminotransferase 43 U/L (6-35); Albumin Level 2.8 g/dL (3.5-5.1); Alkaline Phosphatase 72 U/L (38-126); Anion Gap 2 mmol/L (8-16); Aspartate Amino Transferase 116 U/L (14-36); Bilirubin,Total 0.5 mg/dL (0.2-1.3); Blood Urea Nitrogen 10 mg/dL (7-17); Carbon Dioxide 30 mmol/L (22-30); Chloride 104 mmol/L (98-107); Glucose 87 mg/dL (65-110); Sodium 136 mmol/L (137-145)
[2023-06-04] MEDS: LACTATED RINGERS 1,000 ML 100 ML IV CONT ×2 (08:20→18:45)
[2023-06-04] MEDS: PROMETHAZINE HCL 25 MG/ML AMPUL 12.5 MG IV PUSH (08:52)
[2023-06-04] MEDS: SERTRALINE HCL 50 MG TABLET PO (08:54)
[2023-06-04] MEDS: DULoxetine HCL 20 MG CAPSULE.DR PO (08:54)
[2023-06-04] MEDS: FERROUS SULFATE 325 MG TABLET DR BY MOUTH (08:54)
[2023-06-04] MEDS: METOPROLOL TARTRATE 25 MG TABLET PO ×2 (08:54→21:09)
[2023-06-04] MEDS: HYDROcodone/acetaminophen (*CRX) 5-325 MG TABLET 1 TAB PO ×3 (08:54→21:09)
[2023-06-04] MEDS: PANTOPRAZOLE SODIUM IV 40 MG VIAL IV PUSH ×2 (08:55→21:09)
[2023-06-04] MEDS: POTASSIUM CHLORIDE 20 MEQ ER TABLET PO (08:55)
[2023-06-04] MEDS: hydrOXYzine HCL 25 MG TABLET PO ×2 (08:55→21:09)
[2023-06-04] MEDS: CHOLECALCIFEROL 1,000 UNITS TABLET 5000 UNITS PO (08:55)
--- NOTE | 2023-06-04 09:53 | P.PNIM_ITS ---
Progress Note: A&P Assessment and Plan (1) Metabolic acidosis: Code(s): E87.20 - Acidosis, unspecified Status: Inactive Assessment and Plan: Patient was found to have a pH of 7.17, pCO2 of 22.6 and a bicarb of 8.2.She has not been able to hold down much in the way of food or drink the last couple of weeks and she is dehydrated. She is not a diabetic and denies alcohol and illicit substance intake 05/31: * Her urine is concentrated with 3+ ketones * elevated beta hydroxybutyrate. * She has been started on fluid containing sodium bicarb and dextrose. * Antiemetics are available as needed. * CT of the abdomen/pelvis did not show any acute findings. * 06/01: Patient no longer acidotic her chemistry panel. In fact carbon dioxide is slightly elevated. * 06/02: Metabolic acidosis resolved. HCO3- 33 today. * 06/03: Metabloic acidosis resolved at this time. (2) Hematemesis: Qualifiers: Nausea presence: with nausea Qualified Code(s): K92.0 - Hematemesis Code(s): K92.0 - Hematemesis Status: Acute Assessment and Plan: More recently her emesis has turned dark brown and is positive for occult blood. * GI consulted. * IV Protonix 40 mg b.i.d. * EGD planned for afternoon of 06/01, patient remains persistently nauseous * 06/02: * patient denies any hematemesis overnight. * Continue IV Protonix 40 BID * EGD unable to be performed due to low potassium level. * GI following patient. * H/ H 11.4/34.8 today * NM HIDA scan ordered for today. Will await further recommendation from GI * Haldol q.6 p.r.n. ordered for nausea. If patient is still having nausea may consider Thorazine. * 06/03: * Patient denies any vomiting overnight * continue IV Protonix 40 b.i.d. * H&H remains stable today * patient has persistent nausea and was given Haldol and Phenergan overnight per report from bedside nurse. Will still consider adding Thorazine if needed. Plan discussed with bedside nursing. * Ultrasound of abdomen was obtained today which shows normal right upper quadrant in the gallbladder was normal in appearance which was consistent with previous CT scan of the abdomen pelvis. * will await further input from GI and General surgery regarding further treatment options. * 06/04: * IV Protonix 40 b.i.d. * H&H continues to remain stable * Patient still having persistent nausea despite being given Haldol and Phenergan overnight. * General surgery has seen the patient yesterday and recommends an outpatient cholecystectomy but reiterated to the patient that this might not be the cause of her persistent nausea and vomiting and may not alleviate her symptoms. General surgery okay with discharge planning at this time. * From GI standpoint patient has severe esophagitis and gastritis confirmed with an EGD this admission. Will touch base with GI provider today regarding discharge planning and further input on controlling her severe esophagitis and gastritis. (3) Hypokalemia: Code(s): E87.6 - Hypokalemia Status: Acute Assessment and Plan: Patient with hypokalemia on admission. * Replaced potassium is necessary. * Monitor a.m. labs. * 06/02: Potassium level this morning was 2.8 * 80 mEq IV potassium given, 20 mEq cm added to IV fluids * continue daily lab * 06/03: * Potassium level 4.4, magnesium level today is 2.5 after replacement yesterday, No additional replacement required today. * will DC the added 20 mEq of potassium in maintenance IV fluid.
--- NOTE | 2023-06-04 09:53 | PM.IMPN ---
Progress Note: A&P Assessment and Plan (1) Metabolic acidosis: Code(s): E87.20 - Acidosis, unspecified Status: Inactive Assessment and Plan: Patient was found to have a pH of 7.17, pCO2 of 22.6 and a bicarb of 8.2.She has not been able to hold down much in the way of food or drink the last couple of weeks and she is dehydrated. She is not a diabetic and denies alcohol and illicit substance intake 05/31: Her urine is concentrated with 3+ ketones elevated beta hydroxybutyrate. She has been started on fluid containing sodium bicarb and dextrose. Antiemetics are available as needed. CT of the abdomen/pelvis did not show any acute findings. 06/01: Patient no longer acidotic her chemistry panel. In fact carbon dioxide is slightly elevated. 06/02: Metabolic acidosis resolved. HCO3- 33 today. 06/03: Metabloic acidosis resolved at this time. (2) Hematemesis: Qualifiers: Nausea presence: with nausea Qualified Code(s): K92.0 - Hematemesis Code(s): K92.0 - Hematemesis Status: Acute Assessment and Plan: More recently her emesis has turned dark brown and is positive for occult blood. GI consulted. IV Protonix 40 mg b.i.d. EGD planned for afternoon of 06/01, patient remains persistently nauseous 06/02: patient denies any hematemesis overnight. Continue IV Protonix 40 BID EGD unable to be performed due to low potassium level. GI following patient. H/ H 11.4/34.8 today NM HIDA scan ordered for today. Will await further recommendation from GI Haldol q.6 p.r.n. ordered for nausea. If patient is still having nausea may consider Thorazine. 06/03: Patient denies any vomiting overnight continue IV Protonix 40 b.i.d. H&H remains stable today patient has persistent nausea and was given Haldol and Phenergan overnight per report from bedside nurse. Will still consider adding Thorazine if needed. Plan discussed with bedside nursing. Ultrasound of abdomen was obtained today which shows normal right upper quadrant in the gallbladder was normal in appearance which was consistent with previous CT scan of the abdomen pelvis. will await further input from GI and General surgery regarding further treatment options. 06/04: IV Protonix 40 b.i.d. H&H continues to remain stable Patient still having persistent nausea despite being given Haldol and Phenergan overnight. General surgery has seen the patient yesterday and recommends an outpatient cholecystectomy but reiterated to the patient that this might not be the cause of her persistent nausea and vomiting and may not alleviate her symptoms. General surgery okay with discharge planning at this time. From GI standpoint patient has severe esophagitis and gastritis confirmed with an EGD this admission. Will touch base with GI provider today regarding discharge planning and further input on controlling her severe esophagitis and gastritis. (3) Hypokalemia: Code(s): E87.6 - Hypokalemia Status: Acute Assessment and Plan: Patient with hypokalemia on admission. Replaced potassium is necessary. Monitor a.m. labs. 06/02: Potassium level this morning was 2.8 80 mEq IV potassium given, 20 mEq cm added to IV fluids continue daily lab 06/03: Potassium level 4.4, magnesium level today is 2.5 after replacement yesterday, No additional replacement required today. will DC the added 20 mEq of potassium in maintenance IV fluid. Will continue with 20 mEq of potassium oral daily recheck electrolytes in the morning. 06/04: Electrolytes remained stable today, no additional replacement required. Continue to monitor labs (4) Dehydration: Code(s): E86.0 - Dehydration Status: Acute Assessment and Plan: Patient no longer appears frankly dehydrated (5) Hypothyroidism: Qualifiers: Hypothyroidism type: acquired Qualified Code(s)
--- NOTE | 2023-06-04 12:28 | PM.PNGS ---
Progress Note: A&P Assessment and Plan (1) Abnormal biliary HIDA scan: Code(s): R94.8 - Abnormal results of function studies of other organs and systems Status: Acute Assessment and Plan: Patient continues to have significant symptoms and is not stable for discharge at this time. I discussed with her that the symptoms are not typical for biliary dyskinesia again. If she is not able to get any other relief, then will have to consider laparoscopic cholecystectomy as a potential option to help with pain. I still cannot guarantee that all of her symptoms are gallbladder related. Will try to add sucralfate on to her regimen to see if that helps with the gastritis and esophagitis. If she is not getting any significant improvement today or tomorrow, then will try to keep patient here in the hospital and proceed with laparoscopic cholecystectomy early next week. (2) Nausea and vomiting: Code(s): R11.2 - Nausea with vomiting, unspecified Status: Acute (3) Right upper quadrant abdominal pain: Code(s): R10.11 - Right upper quadrant pain Status: Acute Subjective Subjective Date/Time Seen: 06/04/23 12:28 Interval history: Patient remains with persistent nausea and right upper quadrant pain. Multiple medications have been administered to help with nausea but she still continues to have breakthrough nausea. Exam GI: Inspection: non-distended GI Palp: Yes Soft to palpation, Yes Tenderness to palpation present (GI) (Right upper quadrant) and No Guarding due to palpation present (GI) Auscultation: normal bowel sounds Objective Data Vital Signs Vital Signs: Vital Signs - 24 hr 06/03/23 14:10 06/03/23 16:00 06/03/23 20:13 Temperature 36.4 C Pulse Rate 60 54 L 66 Respiratory Rate 18 Blood Pressure 100/59 L Pulse Oximetry 97 Oxygen Delivery 06/03/23 20:00 06/03/23 20:00 06/03/23 22:33 Temperature 36.2 C L Pulse Rate 71 66 78 Respiratory Rate 18 21 H Blood Pressure 132/70 Pulse Oximetry 97 100 Oxygen Delivery Room Air 06/04/23 00:00 06/04/23 04:00 06/04/23 06:00 Temperature 36.6 C Pulse Rate 61 55 L 61 Respiratory Rate 20 Blood Pressure 140/66 Pulse Oximetry 99 Oxygen Delivery 06/04/23 08:53 06/04/23 08:54 06/04/23 10:53 Temperature 36.6 C Pulse Rate 54 L 54 L 58 L Respiratory Rate 14 14 Blood Pressure 114/63 109/50 L Pulse Oximetry 97 97 Oxygen Delivery 06/04/23 08:55 Temperature Pulse Rate Respiratory Rate Blood Pressure Pulse Oximetry Oxygen Delivery Room Air Intake/Output Intake/Output: Intake & Output 06/01/23 06/02/23 06/03/23 06/04/23 23:59 23:59 23:59 23:59 Intake Total 1200 3060 1970 1610 Output Total 475 586 9964 800 Balance 300 2360 920 810 Meds/Results Medications: Active Medications Generic Name Dose Route Start Last Admin Trade Name Freq PRN Reason Stop Dose Admin Acetaminophen 650 mg 05/30/23 16:21 06/02/23 16:02 Acetaminophen 325 Mg Tablet PO 650 mg Q4H PRN Administration Mild Pain (1-3) or Fever Hydrocodone Bitart/Acetaminophen 1 tab 06/02/23 18:12 06/04/23 08:54 Hydrocodone/Acetaminophen (*Crx) 5-325 Mg Tablet PO 1 tab Q6H PRN Administration Pain Rated 4-6 Duloxetine HCl 20 mg 05/31/23 09:00 06/04/23 08:54 Duloxetine Hcl 20 Mg Capsule.Dr PO 20 mg DAILY HOLLAND Administration Ferrous Sulfate 325 mg 05/31/23 09:00 06/04/23 08:54 Ferrous Sulfate [address] BY MOUTH 325 mg DAILY HOLLAND Administration Fluticasone Propionate 1 spray 05/30/23 16:31 Fluticasone Propionate 0.05% Na Spr 16 Gm Btl (*Bkc) NASAL DAILY PRN Allergies Haloperidol Lactate 5 mg 06/02/23 10:20 06/02/23 16:03 Haloperidol Lactate 5 Mg/Ml Vial IV PUSH 5 mg Q6H PRN Administration Nausea and Vomiting Home Med 1 each 06/01/23 09:00 06/02/23 16:01 Home Medication Morphine Pain Pump SUB-Q 07/01/23 08:59 1 each DAILY HOLLAND
--- NOTE | 2023-06-04 16:03 | PC.NURSE ---
06/04/23 7700 Pt was working with therapy. PT was attempting to transfer from bed to bedside commode. PT states I felt dizzy my legs give out on me . PT was lowered to the floor by therapy. PT vitals were stable. No new complaints at this time.
[2023-06-04] MEDS: SUCRALFATE SUSP 100 MG/ML 10 ML UDC 1000 MG PO ×2 (17:39→21:09)
[2023-06-04] MEDS: traZODone HCL 50 MG TABLET 200 MG PO (21:09)
[2023-06-05] VITALS (13 sets, daily range): BP systolic 100–152; BP diastolic 62–78; PULSE 54–80; RESP 14; TEMP 36.8–37.1; O2SAT 94–98
[2023-06-05] MEDS: MORPHINE SULFATE (*CRX) 4 MG/ML INJ IV PUSH ×3 (02:35→14:25)
[2023-06-05] MEDS: LACTATED RINGERS 1,000 ML 100 ML IV CONT ×2 (05:09→15:13)
[2023-06-05] MEDS: SUCRALFATE SUSP 100 MG/ML 10 ML UDC 1000 MG PO ×4 (05:10→20:23)
[2023-06-05] MEDS: HALOPERIDOL LACTATE 5 MG/ML VIAL IV PUSH ×2 (05:10→20:20)
[2023-06-05] MEDS: LEVOTHYROXINE SODIUM 50 MCG TABLET PO (05:10)
[2023-06-05 05:43] LABS: Basophils Percent Auto 0.7 % (0.2-1.2); Eosinophils Absolute Auto 0.3 K/mm3 (0-0.3); Eosinophils Percent Auto 5.4 % (0-4.4); Hematocrit 36.2 % (37.0-47.0); Hemoglobin 11.4 g/dL (12.0-15.0); Immature Granulocyte Absolute 0.05 K/mm3 (0.00-0.031); Immature Granulocyte Percent A 0.9 % (0-0.5); Lymphocytes Percent Auto 28.7 % (18.3-44.2); Mean Corpuscular HGB Conc 31.5 g/dl (32-36); Mean Corpuscular Hemoglobin 30.3 pg (26-34); Mean Corpuscular Volume 96.3 fl (80-100); Monocytes Absolute Auto 0.6 K/mm3 (0.1-0.6); Monocytes Percent Auto 9.9 % (2.6-8.5); Neutrophils Percent Auto 54.4 % (45.5-73.1); Platelet Count Result 143 k/mm3 (150-375); Red Blood Count 3.76 M/mm3 (4.2-5.4); Red Cell Distribution Width 12.9 % (11.5-14.5); White Blood Count 5.6 K/mm3 (4.5-10.0)
[2023-06-05 06:01] LABS: Alanine Aminotransferase 45 U/L (6-35); Albumin Level 2.9 g/dL (3.5-5.1); Alkaline Phosphatase 73 U/L (38-126); Anion Gap 2 mmol/L (8-16); Aspartate Amino Transferase 103 U/L (14-36); Bilirubin,Total 0.6 mg/dL (0.2-1.3); Blood Urea Nitrogen 8 mg/dL (7-17); Carbon Dioxide 31 mmol/L (22-30); Chloride 102 mmol/L (98-107); Estimated CRCL calculation 103 ml/min; Estimated Glomerular Filt Rate > 60; Glucose 86 mg/dL (65-110); Potassium 3.8 mmol/L (3.4-5.0); Sodium 135 mmol/L (137-145)
--- NOTE | 2023-06-05 08:31 | P.PNIM_ITS ---
Progress Note: A&P Assessment and Plan (1) Metabolic acidosis: Code(s): E87.20 - Acidosis, unspecified Status: Inactive Assessment and Plan: Patient was found to have a pH of 7.17, pCO2 of 22.6 and a bicarb of 8.2.She has not been able to hold down much in the way of food or drink the last couple of weeks and she is dehydrated. She is not a diabetic and denies alcohol and illicit substance intake 05/31: * Her urine is concentrated with 3+ ketones * elevated beta hydroxybutyrate. * She has been started on fluid containing sodium bicarb and dextrose. * Antiemetics are available as needed. * CT of the abdomen/pelvis did not show any acute findings. * 06/01: Patient no longer acidotic her chemistry panel. In fact carbon dioxide is slightly elevated. * 06/02: Metabolic acidosis resolved. HCO3- 33 today. * 06/03: Metabloic acidosis resolved at this time. (2) Hematemesis: Qualifiers: Nausea presence: with nausea Qualified Code(s): K92.0 - Hematemesis Code(s): K92.0 - Hematemesis Status: Acute Assessment and Plan: More recently her emesis has turned dark brown and is positive for occult blood. * GI consulted. * IV Protonix 40 mg b.i.d. * EGD planned for afternoon of 06/01, patient remains persistently nauseous * 06/02: * patient denies any hematemesis overnight. * Continue IV Protonix 40 BID * EGD unable to be performed due to low potassium level. * GI following patient. * H/ H 11.4/34.8 today * NM HIDA scan ordered for today. Will await further recommendation from GI * Haldol q.6 p.r.n. ordered for nausea. If patient is still having nausea may consider Thorazine. * 06/03: * Patient denies any vomiting overnight * continue IV Protonix 40 b.i.d. * H&H remains stable today * patient has persistent nausea and was given Haldol and Phenergan overnight per report from bedside nurse. Will still consider adding Thorazine if needed. Plan discussed with bedside nursing. * Ultrasound of abdomen was obtained today which shows normal right upper quadrant in the gallbladder was normal in appearance which was consistent with previous CT scan of the abdomen pelvis. * will await further input from GI and General surgery regarding further treatment options. * 06/04: * IV Protonix 40 b.i.d. * H&H continues to remain stable * Patient still having persistent nausea despite being given Haldol and Phenergan overnight. * General surgery has seen the patient yesterday and recommends an outpatient cholecystectomy but reiterated to the patient that this might not be the cause of her persistent nausea and vomiting and may not alleviate her symptoms. General surgery okay with discharge planning at this time. * From GI standpoint patient has severe esophagitis and gastritis confirmed with an EGD this admission. Will touch base with GI provider today regarding discharge planning and further input on controlling her severe esophagitis and gastritis. * 06/05: * Continue with IV Protonix 40 b.i.d. * Continue with Carafate that General surgery team started. I appreciate their input. * Patient still having uncontrolled nausea and dry heaving overnight requiring Haldol. No hematemesis noted. Will try a dose of Compazine 10 mg IV x1 to see if this helps alleviate her symptoms better. * Patient wanting to stay for laparoscopic cholecystectomy with General surgery as she is not getting much symptom relief. I explained to the patient that this surgery may not relieve her symptoms as her symptoms are more consistent with severe
--- NOTE | 2023-06-05 08:31 | PM.IMPN ---
Progress Note: A&P Assessment and Plan (1) Metabolic acidosis: Code(s): E87.20 - Acidosis, unspecified Status: Inactive Assessment and Plan: Patient was found to have a pH of 7.17, pCO2 of 22.6 and a bicarb of 8.2.She has not been able to hold down much in the way of food or drink the last couple of weeks and she is dehydrated. She is not a diabetic and denies alcohol and illicit substance intake 05/31: Her urine is concentrated with 3+ ketones elevated beta hydroxybutyrate. She has been started on fluid containing sodium bicarb and dextrose. Antiemetics are available as needed. CT of the abdomen/pelvis did not show any acute findings. 06/01: Patient no longer acidotic her chemistry panel. In fact carbon dioxide is slightly elevated. 06/02: Metabolic acidosis resolved. HCO3- 33 today. 06/03: Metabloic acidosis resolved at this time. (2) Hematemesis: Qualifiers: Nausea presence: with nausea Qualified Code(s): K92.0 - Hematemesis Code(s): K92.0 - Hematemesis Status: Acute Assessment and Plan: More recently her emesis has turned dark brown and is positive for occult blood. GI consulted. IV Protonix 40 mg b.i.d. EGD planned for afternoon of 06/01, patient remains persistently nauseous 06/02: patient denies any hematemesis overnight. Continue IV Protonix 40 BID EGD unable to be performed due to low potassium level. GI following patient. H/ H 11.4/34.8 today NM HIDA scan ordered for today. Will await further recommendation from GI Haldol q.6 p.r.n. ordered for nausea. If patient is still having nausea may consider Thorazine. 06/03: Patient denies any vomiting overnight continue IV Protonix 40 b.i.d. H&H remains stable today patient has persistent nausea and was given Haldol and Phenergan overnight per report from bedside nurse. Will still consider adding Thorazine if needed. Plan discussed with bedside nursing. Ultrasound of abdomen was obtained today which shows normal right upper quadrant in the gallbladder was normal in appearance which was consistent with previous CT scan of the abdomen pelvis. will await further input from GI and General surgery regarding further treatment options. 06/04: IV Protonix 40 b.i.d. H&H continues to remain stable Patient still having persistent nausea despite being given Haldol and Phenergan overnight. General surgery has seen the patient yesterday and recommends an outpatient cholecystectomy but reiterated to the patient that this might not be the cause of her persistent nausea and vomiting and may not alleviate her symptoms. General surgery okay with discharge planning at this time. From GI standpoint patient has severe esophagitis and gastritis confirmed with an EGD this admission. Will touch base with GI provider today regarding discharge planning and further input on controlling her severe esophagitis and gastritis. 06/05: Continue with IV Protonix 40 b.i.d. Continue with Carafate that General surgery team started. I appreciate their input. Patient still having uncontrolled nausea and dry heaving overnight requiring Haldol. No hematemesis noted. Will try a dose of Compazine 10 mg IV x1 to see if this helps alleviate her symptoms better. Patient wanting to stay for laparoscopic cholecystectomy with General surgery as she is not getting much symptom relief. I explained to the patient that this surgery may not relieve her symptoms as her symptoms are more consistent with severe esophagitis and gastritis. Patient still requesting to have the surgery. H&H remained stable (3) Hypokalemia: Code(s): E87.6 - Hypokalemia Status: Acute Assessment and Plan: Patient with hypokalemia on admission. Replaced potassium is necessary. Monitor a.m. labs. 06/02: Potassium level this morning was 2.8 80 mEq IV potassium given, 20 mEq cm added to IV fluid
[2023-06-05] MEDS: PANTOPRAZOLE SODIUM IV 40 MG VIAL IV PUSH ×2 (08:45→20:23)
[2023-06-05] MEDS: hydrOXYzine HCL 25 MG TABLET PO ×2 (08:45→20:20)
[2023-06-05] MEDS: PROCHLORPERAZINE EDISYLATE 10 MG/2 ML VIAL IV PUSH (08:45)
[2023-06-05] MEDS: DULoxetine HCL 20 MG CAPSULE.DR PO (08:45)
[2023-06-05] MEDS: CHOLECALCIFEROL 1,000 UNITS TABLET 5000 UNITS PO (08:46)
[2023-06-05] MEDS: POTASSIUM CHLORIDE 20 MEQ ER TABLET PO (08:46)
[2023-06-05] MEDS: SERTRALINE HCL 50 MG TABLET PO (08:46)
[2023-06-05] MEDS: METOPROLOL TARTRATE 25 MG TABLET PO ×2 (08:49→20:20)
[2023-06-05] MEDS: MAG HYDROX/AL HYDROX/SIMETH 30 ML UDC PO (10:46)
--- NOTE | 2023-06-05 12:34 | PM.PNGS ---
Progress Note: A&P Assessment and Plan (1) Abnormal biliary HIDA scan: Code(s): R94.8 - Abnormal results of function studies of other organs and systems Status: Acute Assessment and Plan: Patient continues to have significant symptoms of nausea, dry heaves, upper abdominal pain. I discussed with her that the symptoms are not typical for biliary dyskinesia. If she is not able to get any other relief, then will have to consider laparoscopic cholecystectomy as a potential option to help with pain. I still cannot guarantee that all of her symptoms are gallbladder related. Continue PPI and Sucralfate. If she is not getting any significant improvement, then will try to keep patient here in the hospital and proceed with laparoscopic cholecystectomy early next week. (2) Nausea and vomiting: Code(s): R11.2 - Nausea with vomiting, unspecified Status: Acute (3) Right upper quadrant abdominal pain: Code(s): R10.11 - Right upper quadrant pain Status: Acute Subjective Subjective Date/Time Seen: 06/05/23 12:34 Interval history: Still having nausea and RUQ pain. Exam GI: Inspection: non-distended GI Palp: Yes Soft to palpation, Yes Tenderness to palpation present (GI) (Right upper quadrant) and No Guarding due to palpation present (GI) Auscultation: normal bowel sounds Objective Data Vital Signs Vital Signs: Vital Signs - 24 hr 06/04/23 15:01 06/04/23 16:00 06/04/23 20:23 Temperature 36.4 C L 36.2 C L Pulse Rate 64 51 L 53 L Respiratory Rate 16 18 Blood Pressure 152/77 H 139/75 Pulse Oximetry 99 96 Oxygen Delivery 06/04/23 21:09 06/04/23 21:54 06/04/23 20:00 Temperature Pulse Rate 60 62 53 L Respiratory Rate Blood Pressure Pulse Oximetry Oxygen Delivery 06/05/23 00:00 06/05/23 04:00 06/05/23 06:47 Temperature 36.8 C Pulse Rate 54 L 61 74 Respiratory Rate 14 Blood Pressure 141/68 H Pulse Oximetry 98 Oxygen Delivery 06/05/23 08:48 06/05/23 08:49 06/05/23 08:50 Temperature Pulse Rate 76 76 Respiratory Rate 14 Blood Pressure 152/78 H Pulse Oximetry 97 Oxygen Delivery Room Air 06/05/23 08:00 06/05/23 09:50 Temperature 36.8 C Pulse Rate 75 76 Respiratory Rate 14 Blood Pressure 152/78 H Pulse Oximetry 97 Oxygen Delivery Room Air Intake/Output Intake/Output: Intake & Output 06/02/23 06/03/23 06/04/23 06/05/23 23:59 23:59 23:59 23:59 Intake Total 3060 1970 3035 1420 Output Total 700 1050 1450 2100 Balance 2360 920 1585 -680 Meds/Results Medications: Active Medications Generic Name Dose Route Start Last Admin Trade Name Freq PRN Reason Stop Dose Admin Acetaminophen 650 mg 05/30/23 16:21 06/02/23 16:02 Acetaminophen 325 Mg Tablet PO 650 mg Q4H PRN Administration Mild Pain (1-3) or Fever Hydrocodone Bitart/Acetaminophen 1 tab 06/02/23 18:12 06/04/23 21:09 Hydrocodone/Acetaminophen (*Crx) 5-325 Mg Tablet PO 1 tab Q6H PRN Administration Pain Rated 4-6 Duloxetine HCl 20 mg 05/31/23 09:00 06/05/23 08:45 Duloxetine Hcl 20 Mg Capsule.Dr PO 20 mg DAILY HOLLAND Administration Ferrous Sulfate 325 mg 05/31/23 09:00 06/05/23 08:46 Ferrous Sulfate [address] BY MOUTH Not Given DAILY HO[place]AND Fluticasone Propionate 1 spray 05/30/23 16:31 Fluticasone Propionate 0.05% Na Spr 16 Gm Btl (*Bkc) NASAL DAILY PRN Allergies Haloperidol Lactate 5 mg 06/02/23 10:20 06/05/23 05:10 Haloperidol Lactate 5 Mg/Ml Vial IV PUSH 5 mg Q6H PRN Administration Nausea and Vomiting Home Med 1 each 06/01/23 09:00 06/05/23 04:15 Home Medication Morphine Pain Pump SUB-Q 07/01/23 08:59 Not Given DAILY HO[place]AND Hydroxyzine HCl 25 mg 05/30/23 21:00 06/05/23 08:45 Hydroxyzine Hcl 25 Mg Tablet PO 25 mg Q12HR HOLLAND Administration Lactated Ringer's 1,000 mls @ 100 mls/hr 06/03/23 10:30 06/05/23 05:09 Lr - Lactated Ringers Iv
[2023-06-05] MEDS: traZODone HCL 50 MG TABLET 200 MG PO (20:19)
[2023-06-05] MEDS: HYDROcodone/acetaminophen (*CRX) 5-325 MG TABLET 1 TAB PO (20:20)
[2023-06-05] MEDS: TIZANIDINE HCL 4 MG TABLET 8 MG PO (20:29)
[2023-06-06] VITALS (11 sets, daily range): BP systolic 145–158; BP diastolic 73–89; PULSE 56–95; RESP 14–18; TEMP 36.1–37.2; O2SAT 95–98
[2023-06-06] MEDS: MORPHINE SULFATE (*CRX) 4 MG/ML INJ IV PUSH ×4 (01:34→20:58)
[2023-06-06] MEDS: LACTATED RINGERS 1,000 ML 100 ML IV CONT ×3 (01:35→22:12)
[2023-06-06] MEDS: LEVOTHYROXINE SODIUM 50 MCG TABLET PO (05:40)
[2023-06-06] MEDS: SUCRALFATE SUSP 100 MG/ML 10 ML UDC 1000 MG PO ×4 (05:40→20:58)
[2023-06-06 06:07] LABS: Basophils Percent Auto 0.5 % (0.2-1.2); Eosinophils Absolute Auto 0.2 K/mm3 (0-0.3); Eosinophils Percent Auto 2.8 % (0-4.4); Hematocrit 35.1 % (37.0-47.0); Hemoglobin 11.2 g/dL (12.0-15.0); Immature Granulocyte Absolute 0.06 K/mm3 (0.00-0.031); Lymphocytes Absolute Auto 1.55 K/mm3 (0.9-3.2); Lymphocytes Percent Auto 25.2 % (18.3-44.2); Mean Corpuscular HGB Conc 31.9 g/dl (32-36); Mean Corpuscular Hemoglobin 31.1 pg (26-34); Mean Corpuscular Volume 97.5 fl (80-100); Mean Platelet Volume 10.5 fl (7.4-10.4); Monocytes Absolute Auto 0.6 K/mm3 (0.1-0.6); Monocytes Percent Auto 9.6 % (2.6-8.5); Neutrophils Absolute Auto 3.7 K/mm3 (1.3-6.7); Neutrophils Percent Auto 60.9 % (45.5-73.1); Platelet Count Result 144 k/mm3 (150-375); Red Cell Distribution Width 12.6 % (11.5-14.5); White Blood Count 6.1 K/mm3 (4.5-10.0)
[2023-06-06 06:18] LABS: Alanine Aminotransferase 41 U/L (6-35); Albumin Level 2.6 g/dL (3.5-5.1); Alkaline Phosphatase 67 U/L (38-126); Anion Gap 2 mmol/L (8-16); Aspartate Amino Transferase 76 U/L (14-36); Bilirubin,Total 0.5 mg/dL (0.2-1.3); Blood Urea Nitrogen 6 mg/dL (7-17); Calcium 7.9 mg/dL (8.4-10.2); Carbon Dioxide 34 mmol/L (22-30); Chloride 101 mmol/L (98-107); Estimated CRCL calculation 89 ml/min; Estimated Glomerular Filt Rate > 60; Glucose 91 mg/dL (65-110); Potassium 3.6 mmol/L (3.4-5.0); Sodium 137 mmol/L (137-145)
--- NOTE | 2023-06-06 06:50 | PM.IMPN ---
Progress Note: A&P Assessment and Plan (1) Metabolic acidosis: Code(s): E87.20 - Acidosis, unspecified Status: Inactive Assessment and Plan: Patient was found to have a pH of 7.17, pCO2 of 22.6 and a bicarb of 8.2.She has not been able to hold down much in the way of food or drink the last couple of weeks and she is dehydrated. She is not a diabetic and denies alcohol and illicit substance intake 05/31: Her urine is concentrated with 3+ ketones elevated beta hydroxybutyrate. She has been started on fluid containing sodium bicarb and dextrose. Antiemetics are available as needed. CT of the abdomen/pelvis did not show any acute findings. 06/01: Patient no longer acidotic her chemistry panel. In fact carbon dioxide is slightly elevated. 06/02: Metabolic acidosis resolved. HCO3- 33 today. 06/03: Metabloic acidosis resolved at this time. (2) Hematemesis: Qualifiers: Nausea presence: with nausea Qualified Code(s): K92.0 - Hematemesis Code(s): K92.0 - Hematemesis Status: Acute Assessment and Plan: More recently her emesis has turned dark brown and is positive for occult blood. GI consulted. IV Protonix 40 mg b.i.d. EGD planned for afternoon of 06/01, patient remains persistently nauseous 06/02: patient denies any hematemesis overnight. Continue IV Protonix 40 BID EGD unable to be performed due to low potassium level. GI following patient. H/ H 11.4/34.8 today NM HIDA scan ordered for today. Will await further recommendation from GI Haldol q.6 p.r.n. ordered for nausea. If patient is still having nausea may consider Thorazine. 06/03: Patient denies any vomiting overnight continue IV Protonix 40 b.i.d. H&H remains stable today patient has persistent nausea and was given Haldol and Phenergan overnight per report from bedside nurse. Will still consider adding Thorazine if needed. Plan discussed with bedside nursing. Ultrasound of abdomen was obtained today which shows normal right upper quadrant in the gallbladder was normal in appearance which was consistent with previous CT scan of the abdomen pelvis. will await further input from GI and General surgery regarding further treatment options. 06/04: IV Protonix 40 b.i.d. H&H continues to remain stable Patient still having persistent nausea despite being given Haldol and Phenergan overnight. General surgery has seen the patient yesterday and recommends an outpatient cholecystectomy but reiterated to the patient that this might not be the cause of her persistent nausea and vomiting and may not alleviate her symptoms. General surgery okay with discharge planning at this time. From GI standpoint patient has severe esophagitis and gastritis confirmed with an EGD this admission. Will touch base with GI provider today regarding discharge planning and further input on controlling her severe esophagitis and gastritis. 06/05: Continue with IV Protonix 40 b.i.d. Continue with Carafate that General surgery team started. I appreciate their input. Patient still having uncontrolled nausea and dry heaving overnight requiring Haldol. No hematemesis noted. Will try a dose of Compazine 10 mg IV x1 to see if this helps alleviate her symptoms better. Patient wanting to stay for laparoscopic cholecystectomy with General surgery as she is not getting much symptom relief. I explained to the patient that this surgery may not relieve her symptoms as her symptoms are more consistent with severe esophagitis and gastritis. Patient still requesting to have the surgery. H&H remained stable 06/06: Continue with current treatment plan. Patient was given a 1 time dose of Compazine 10 mg IV yesterday which she did not feel much relief. I also trialed her on a dose of Maalox which did not give her much relief either. Encouraged patient to get out of bed at least 3 times a day for a duration of 2 hours at
[2023-06-06] MEDS: CHOLECALCIFEROL 1,000 UNITS TABLET 5000 UNITS PO (09:24)
[2023-06-06] MEDS: METOPROLOL TARTRATE 25 MG TABLET PO ×2 (09:25→20:58)
[2023-06-06] MEDS: POTASSIUM CHLORIDE 20 MEQ ER TABLET PO (09:25)
[2023-06-06] MEDS: SERTRALINE HCL 50 MG TABLET PO (09:25)
[2023-06-06] MEDS: DULoxetine HCL 20 MG CAPSULE.DR PO (09:25)
[2023-06-06] MEDS: hydrOXYzine HCL 25 MG TABLET PO ×2 (09:25→20:58)
[2023-06-06] MEDS: PANTOPRAZOLE SODIUM IV 40 MG VIAL IV PUSH ×2 (09:29→20:57)
--- NOTE | 2023-06-06 09:53 | PCOTNOTE ---
Attempted to see Patient at this time. Patient stated she is very nauseated and verbalized, she did attempt to get to the side of the bed with PT and started vomiting. Patient verbalized she will try again this afternoon.
--- NOTE | 2023-06-06 11:56 | PM.PNGS ---
Progress Note: A&P Assessment and Plan (1) Abnormal biliary HIDA scan: Code(s): R94.8 - Abnormal results of function studies of other organs and systems Status: Acute Assessment and Plan: Patient continues to have significant nausea, dry heaves, and upper abdominal pain. We have discussed with the patient that her symptoms are not typical for biliary dyskinesia. We have also discussed that we are not able to guarantee that all of her symptoms are gallbladder related, and she could have persistent symptoms following the cholecystectomy. She is still not able to tolerate a diet and has not had much relief with current treatment. I discussed the case with Dr. Alejandro and we will look at the surgery schedule to see if we would be able to proceed with surgery while she is an inpatient versus bringing her back as an outpatient for a cholecystectomy. We will plan accordingly. (2) Nausea and vomiting: Code(s): R11.2 - Nausea with vomiting, unspecified Status: Acute (3) Right upper quadrant abdominal pain: Code(s): R10.11 - Right upper quadrant pain Status: Acute (4) Presence of implanted infusion pump: Code(s): Z95.828 - Presence of other vascular implants and grafts Status: Acute Plan I have discussed the patient's case and plan of care with Dr. Alejandro. Subjective Subjective Date/Time Seen: 06/06/23 11:56 Interval history: This is a 58 yo woman who was admitted for metabolic acidosis, hematemesis, and dehydration. She was initially seen by GI and had an EGD that showed gastritis and esophagitis. She has had nausea and vomiting with an abnormal HIDA scan, which is the reason we are following her. She has had workup of her gallbladder showing biliary dyskinesia. She continues to have difficulty tolerating a diet. Chart reviewed. Patient is seen this morning. She is holding an emesis bag and continues to complain of nausea. She reports dry heaves this morning. She has been able to keep her pills down with sips of water, but has not had any other oral intake. She refused her breakfast tray and has not had any supplements that have been brought to her with meals either. She still has constant upper abdominal pain that is slightly better than admission, but continues to remain constant. Exam GI: Inspection: non-distended GI Palp: Yes Soft to palpation, Yes Tenderness to palpation present (GI) (more diffusely tender, no focal tenderness), No Guarding due to palpation present (GI) and No Rebound tenderness present Auscultation: normal bowel sounds Other: pain pump palpable in the left abdomen Objective Data Vital Signs Vital Signs: Vital Signs - 24 hr 06/05/23 12:00 06/05/23 14:00 06/05/23 16:00 Temperature 98.7 F Pulse Rate 73 79 74 Respiratory Rate 14 Blood Pressure 143/76 H Pulse Oximetry 98 Oxygen Delivery 06/05/23 20:20 06/05/23 20:00 06/05/23 21:46 Temperature 98.7 F Pulse Rate 80 74 65 Respiratory Rate 14 Blood Pressure 100/62 Pulse Oximetry 94 Oxygen Delivery 06/06/23 00:00 06/06/23 04:00 06/06/23 05:47 Temperature 97.9 F Pulse Rate 57 L 56 L 72 Respiratory Rate 14 Blood Pressure 145/89 H Pulse Oximetry 98 Oxygen Delivery 06/06/23 09:25 06/06/23 08:00 Temperature Pulse Rate 70 70 Respiratory Rate 14 Blood Pressure Pulse Oximetry 98 Oxygen Delivery Room Air Intake/Output Intake/Output: Intake & Output 06/03/23 06/04/23 06/05/23 06/06/23 23:59 23:59 23:59 23:59 Intake Total 1970 3035 2660 1250 Output Total 1050 1450 4300 1800 Balance 920 1584 -0959 -142 Meds/Results Medications: Active Medications Generic Name Dose Route Start Last Admin Trade Name Freq PRN Reason Stop Dose Admin Acetaminophen 650 mg 05/30/23 16:21 06/02/23 16:02 Acetaminophen 325 Mg Tablet PO 650 mg Q4H PRN Administration Mild Pain (1-3) or Fever Hydrocodone Bitart/Acetaminophen 1 tab
--- NOTE | 2023-06-06 12:03 | PCNFU ---
Nutrition Follow-Up Complete: Moderate Malnutrition as related to inadequate oral intake in acute setting ( nausea/vomitting) as evidenced by < 75% ofo EER for > 7 days and significant weight loss of 12%(30 ibs) in 3 months. Goal: Adequate Intake of at least 75% of meals/supplements patient is not meeting goal. We will continue current goal. Pt current nutrition is Full Liquids. Nutrition recommendation: Ensure Clear BID Last recorded weight is 100.9 kg, up from 96.6 kg on admit. Bowel Motility:+BM reported 06/03 Labs Reviewed:BUN 6, Alb 2.6, Hct 35.1,Hgb 11.2 Meds Noted:Synthroid, Protonix, Vit D Skin:WNL Additional Notes: Patient had EGD 06/01-gastritis noted. Diet order has advanced to a full liquid diet, not tolerating well. Possible cholecystectomy at some point. Diet supplement are not being consumed, discussed other options with patient today. Patient is agreeable to Ensure Clear at this time. Will monitor weight, labs, skin , oral intake every 5 days.
[2023-06-06] MEDS: PROMETHAZINE HCL 25 MG/ML AMPUL 12.5 MG IV PUSH (16:30)
[2023-06-06] MEDS: traZODone HCL 50 MG TABLET 200 MG PO (20:59)
[2023-06-06] MEDS: TIZANIDINE HCL 4 MG TABLET 8 MG PO (21:00)
[2023-06-07] VITALS (19 sets, daily range): BP systolic 97–148; BP diastolic 54–77; PULSE 57–87; RESP 12–20; TEMP 35.6–37; O2SAT 94–100
[2023-06-07] MEDS: MORPHINE SULFATE (*CRX) 4 MG/ML INJ IV PUSH ×3 (04:07→20:21)
[2023-06-07 05:50] LABS: Basophils Percent Auto 0.6 % (0.2-1.2); Eosinophils Absolute Auto 0.3 K/mm3 (0-0.3); Eosinophils Percent Auto 4.9 % (0-4.4); Hematocrit 35.2 % (37.0-47.0); Immature Granulocyte Absolute 0.06 K/mm3 (0.00-0.031); Immature Granulocyte Percent A 0.9 % (0-0.5); Lymphocytes Absolute Auto 1.83 K/mm3 (0.9-3.2); Lymphocytes Percent Auto 27.2 % (18.3-44.2); Mean Corpuscular HGB Conc 31.3 g/dl (32-36); Mean Corpuscular Hemoglobin 30.6 pg (26-34); Mean Corpuscular Volume 97.8 fl (80-100); Mean Platelet Volume 10.4 fl (7.4-10.4); Monocytes Absolute Auto 0.8 K/mm3 (0.1-0.6); Monocytes Percent Auto 11.6 % (2.6-8.5); Neutrophils Absolute Auto 3.7 K/mm3 (1.3-6.7); Neutrophils Percent Auto 54.8 % (45.5-73.1); Platelet Count Result 150 k/mm3 (150-375); Red Cell Distribution Width 12.6 % (11.5-14.5); White Blood Count 6.7 K/mm3 (4.5-10.0)
[2023-06-07 06:11] LABS: Alanine Aminotransferase 35 U/L (6-35); Albumin Level 2.6 g/dL (3.5-5.1); Alkaline Phosphatase 66 U/L (38-126); Anion Gap 2 mmol/L (8-16); Aspartate Amino Transferase 51 U/L (14-36); Bilirubin,Total 0.5 mg/dL (0.2-1.3); Blood Urea Nitrogen 5 mg/dL (7-17); Calcium 7.8 mg/dL (8.4-10.2); Carbon Dioxide 29 mmol/L (22-30); Chloride 104 mmol/L (98-107); Estimated CRCL calculation 90 ml/min; Estimated Glomerular Filt Rate > 60; Glucose 97 mg/dL (65-110); Potassium 3.6 mmol/L (3.4-5.0); Sodium 135 mmol/L (137-145)
[2023-06-07] MEDS: SUCRALFATE SUSP 100 MG/ML 10 ML UDC 1000 MG PO ×2 (06:29→20:20)
[2023-06-07] MEDS: LEVOTHYROXINE SODIUM 50 MCG TABLET PO (06:29)
--- NOTE | 2023-06-07 07:03 | P.PNIM_ITS ---
Progress Note: A&P Assessment and Plan (1) Hematemesis: Qualifiers: Nausea presence: with nausea Qualified Code(s): K92.0 - Hematemesis Code(s): K92.0 - Hematemesis Status: Acute Assessment and Plan: More recently her emesis has turned dark brown and is positive for occult blood. * GI consulted. * IV Protonix 40 mg b.i.d. * EGD planned for afternoon of 06/01, patient remains persistently nauseous * 06/02: * patient denies any hematemesis overnight. * Continue IV Protonix 40 BID * EGD unable to be performed due to low potassium level. * GI following patient. * H/ H 11.4/34.8 today * NM HIDA scan ordered for today. Will await further recommendation from GI * Haldol q.6 p.r.n. ordered for nausea. If patient is still having nausea may consider Thorazine. * 06/03: * Patient denies any vomiting overnight * continue IV Protonix 40 b.i.d. * H&H remains stable today * patient has persistent nausea and was given Haldol and Phenergan overnight per report from bedside nurse. Will still consider adding Thorazine if needed. Plan discussed with bedside nursing. * Ultrasound of abdomen was obtained today which shows normal right upper quadrant in the gallbladder was normal in appearance which was consistent with previous CT scan of the abdomen pelvis. * will await further input from GI and General surgery regarding further treatment options. * 06/04: * IV Protonix 40 b.i.d. * H&H continues to remain stable * Patient still having persistent nausea despite being given Haldol and Phenerg an overnight. * General surgery has seen the patient yesterday and recommends an outpatient cholecystectomy but reiterated to the patient that this might not be the cause of her persistent nausea and vomiting and may not alleviate her symptoms. General surgery okay with discharge planning at this time. * From GI standpoint patient has severe esophagitis and gastritis confirmed with an EGD this admission. Will touch base with GI provider today regarding discharge planning and further input on controlling her severe esophagitis and gastritis. * 06/05: * Continue with IV Protonix 40 b.i.d. * Continue with Carafate that General surgery team started. I appreciate their input. * Patient still having uncontrolled nausea and dry heaving overnight requiring Haldol. No hematemesis noted. Will try a dose of Compazine 10 mg IV x1 to see if this helps alleviate her symptoms better. * Patient wanting to stay for laparoscopic cholecystectomy with General surgery as she is not getting much symptom relief. I explained to the patient that this surgery may not relieve her symptoms as her symptoms are more consistent with severe esophagitis and gastritis. Patient still requesting to have the surgery. * H&H remained stable * 06/06: * Continue with current treatment plan. Patient was given a 1 time dose of Compazine 10 mg IV yesterday which she did not feel much relief. I also trialed her on a dose of Maalox which did not give her much relief either. * Encouraged patient to get out of bed at least 3 times a day for a duration of 2 hours at a time to see if this helps relieve some of her acid reflux and nausea. Patient states that she was only getting up for 1 hour per day and then laid back down in the bed. She has been refusing physical therapy due to her nausea. I reiterated that getting up and sitting in a chair should help her symptoms. She is somewhat agreeable. * General surgery seen patient today and is planning for a lap cholecystectomy hopefully tomorrow, we will make the patient NPO after midnight in prep
--- NOTE | 2023-06-07 07:03 | PM.IMPN ---
Progress Note: A&P Assessment and Plan (1) Hematemesis: Qualifiers: Nausea presence: with nausea Qualified Code(s): K92.0 - Hematemesis Code(s): K92.0 - Hematemesis Status: Acute Assessment and Plan: More recently her emesis has turned dark brown and is positive for occult blood. GI consulted. IV Protonix 40 mg b.i.d. EGD planned for afternoon of 06/01, patient remains persistently nauseous 06/02: patient denies any hematemesis overnight. Continue IV Protonix 40 BID EGD unable to be performed due to low potassium level. GI following patient. H/ H 11.4/34.8 today NM HIDA scan ordered for today. Will await further recommendation from GI Haldol q.6 p.r.n. ordered for nausea. If patient is still having nausea may consider Thorazine. 06/03: Patient denies any vomiting overnight continue IV Protonix 40 b.i.d. H&H remains stable today patient has persistent nausea and was given Haldol and Phenergan overnight per report from bedside nurse. Will still consider adding Thorazine if needed. Plan discussed with bedside nursing. Ultrasound of abdomen was obtained today which shows normal right upper quadrant in the gallbladder was normal in appearance which was consistent with previous CT scan of the abdomen pelvis. will await further input from GI and General surgery regarding further treatment options. 06/04: IV Protonix 40 b.i.d. H&H continues to remain stable Patient still having persistent nausea despite being given Haldol and Phenergan overnight. General surgery has seen the patient yesterday and recommends an outpatient cholecystectomy but reiterated to the patient that this might not be the cause of her persistent nausea and vomiting and may not alleviate her symptoms. General surgery okay with discharge planning at this time. From GI standpoint patient has severe esophagitis and gastritis confirmed with an EGD this admission. Will touch base with GI provider today regarding discharge planning and further input on controlling her severe esophagitis and gastritis. 06/05: Continue with IV Protonix 40 b.i.d. Continue with Carafate that General surgery team started. I appreciate their input. Patient still having uncontrolled nausea and dry heaving overnight requiring Haldol. No hematemesis noted. Will try a dose of Compazine 10 mg IV x1 to see if this helps alleviate her symptoms better. Patient wanting to stay for laparoscopic cholecystectomy with General surgery as she is not getting much symptom relief. I explained to the patient that this surgery may not relieve her symptoms as her symptoms are more consistent with severe esophagitis and gastritis. Patient still requesting to have the surgery. H&H remained stable 06/06: Continue with current treatment plan. Patient was given a 1 time dose of Compazine 10 mg IV yesterday which she did not feel much relief. I also trialed her on a dose of Maalox which did not give her much relief either. Encouraged patient to get out of bed at least 3 times a day for a duration of 2 hours at a time to see if this helps relieve some of her acid reflux and nausea. Patient states that she was only getting up for 1 hour per day and then laid back down in the bed. She has been refusing physical therapy due to her nausea. I reiterated that getting up and sitting in a chair should help her symptoms. She is somewhat agreeable. General surgery seen patient today and is planning for a lap cholecystectomy hopefully tomorrow, we will make the patient NPO after midnight in preparation for this surgery. H&H remains stable, all labs unremarkable. 06/07: Patient reporting that her nausea is better today requiring less antiemetic medication. Patient lying flat in the bed again this morning, I reiterated that she needs to sit up in the bed and also she needs to get up out of bed for at least 2 hours this morning prior to going to surgery if this mara
--- NOTE | 2023-06-07 08:10 | PC.NURSE ---
06/04/23 [id number] Pt was working with Occupational therapy. Patient was attempting to transfer from bed to bedside commode. Stated to the therapist I felt dizzy and my legs gave out on me . PT was lowered to the floor by Occupational therapy. PT vitals were stable. No new complaints at this time.
[2023-06-07] MEDS: METOPROLOL TARTRATE 25 MG TABLET PO ×2 (09:16→20:20)
[2023-06-07] MEDS: SERTRALINE HCL 50 MG TABLET PO (09:16)
[2023-06-07] MEDS: LIDOCAINE HCL 1% LOCAL INJ 2 ML AMPUL 5 ML INFILTRATE (10:50)
[2023-06-07] MEDS: PROMETHAZINE HCL 25 MG/ML AMPUL 12.5 MG IV PUSH (11:27)
[2023-06-07] MEDS: LACTATED RINGERS 1,000 ML 100 ML IV CONT (11:27)
[2023-06-07] MEDS: SALINE LOCK FLUSH 10 ML IV PUSH ×2 (13:40→20:27)
[2023-06-07] MEDS: PANTOPRAZOLE SODIUM IV 40 MG VIAL IV PUSH ×2 (13:40→20:21)
[2023-06-07] MEDS: LACTATED RINGERS 1,000 ML 30 ML IV CONT (15:20)
[2023-06-07] MEDS: ONDANSETRON INJ 4 MG/2 ML VIAL IV PUSH (15:55)
--- NOTE | 2023-06-07 15:55 | SUR.PREOP ---
0090- PT WAS QUESTIONING WHO SHE CAN TALK TO ABOUT ADVANCE DIRECTIVE AND BECOMING A DNR. UPDATED PT THAT [facility] COULD COME TALK TO HER ABOUT THAT. CALLED HER NURSE IVON, AND UPDATED HER. ALSO UPDATED [facility]. SCHEDULED TO COME SEE PT TOMORROW.
[2023-06-07] MEDS: SCOPOLAMINE 1.5 MG PATCH TRANSDERM (15:59)
--- NOTE | 2023-06-07 15:59 | WPDHPUPDATE1 ---
History and Physical Update Update Date/Time: 06/07/23 15:59 History and Physical has been reviewed, including an updated exam of the patient. There are NO changes in the patient's condition. Risks, benefits, and alternatives have been discussed and questions answered. Patient agrees to proceed with procedure.
--- NOTE | 2023-06-07 16:01 | WPDANESEPPF ---
Anes - Initial Pre Proc Eval Procedure: Operation Date: 06/01/23 14:15 Proposed Procedures p Esophagogastroduodenoscopy - Rudy Garcias MD Operation Date: 06/07/23 15:30 Proposed Procedures p Laparoscopic Cholecystectomy, Possible Open - Dinesh Alejandro DO Date/Time: 06/07/23 16:01 Surgeon: Jigar Sullivan MD Pre Op Diagnosis: Metabolic Acidosis/Dehydration Patient Data Age: 58 Gender: F Height: 1.65 m Weight: 102.8 kg Last Vital Signs Temp 35.6 C L 06/07/23 14:30 Pulse 65 06/07/23 14:30 Resp 16 06/07/23 14:30 BP 137/70 06/07/23 14:30 Pulse Ox 97 06/07/23 14:30 O2 Del Method Room Air 06/07/23 09:15 Allergies Allergy/AdvReac Type Severity Reaction Status Date / Time bee venom protein (honey bee) Allergy Severe Swelling Verified 06/01/23 13:14 of Lip/Tongue/Throat aspirin Allergy Unknown Unknown,Nausea Unverified 06/07/23 14:45 and Vomiting Bleach (Sodium Hypochlorite) Allergy Unknown Unknown,Trouble Unverified 06/07/23 14:45 Breathing ibuprofen Allergy Unknown Unknown, Unverified 06/07/23 14:45 milk Allergy Unknown Nausea Unverified 06/07/23 14:45 NSAIDS (Non-Steroidal Allergy Unknown Unknown, Unverified 06/07/23 14:45 Anti-Inflamma [NSAIDS (Non-Steroidal Anti-Inflammatory Drug)] oxycodone AdvReac Mild hypotension Verified 06/01/23 13:14 and visual disturbance Bee stings Allergy Unknown Unknown,Swelling Uncoded 06/07/23 14:45 of Lip/Tongue/Throat NONSTEROIDAL Allergy Unknown Unknown Uncoded 06/07/23 14:45 SALICYLATES Allergy Unknown unknown Uncoded 06/01/23 13:14 Home Medications Medication Instructions Recorded Confirmed Type acetaminophen 325 mg tablet (Mapap 650 mg PO Q6H PRN Mild Pain (1-3) 05/11/22 05/30/23 Rx (acetaminophen)) Or Fever #30 tabs epinephrine 0.3 mg/0.3 mL See Rx Instructions .Route 05/11/22 05/30/23 Rx injection, auto-injector .COMPLEX #2 ea cholecalciferol (vitamin D3) 125 125 mcg PO DAILY 11/02/22 05/30/23 History mcg (5,000 unit) tablet (Vitamin D3) Morphine Pain Pump See Rx Instructions .Route .COMPLEX 12/24/22 05/30/23 History potassium chloride 20 mEq 20 meq PO DAILY #5 tabs 04/03/23 05/30/23 Rx tablet,extended release acetazolamide 250 mg tablet 500 mg PO BID 05/03/23 05/30/23 History ferrous sulfate 325 mg (65 mg 325 mg PO DAILY 05/03/23 05/30/23 History iron) tablet (Iron (ferrous sulfate)) levothyroxine 50 mcg tablet 50 mcg PO DAILY 05/03/23 05/30/23 History metoprolol tartrate 25 mg tablet 25 mg PO BID 05/03/23 05/30/23 History omeprazole 20 mg capsule,delayed 20 mg PO DAILY 05/03/23 05/30/23 History release ondansetron 4 mg disintegrating 4 mg translingual Q6H PRN nausea 05/03/23 05/30/23 History tablet sertraline 50 mg tablet (Zoloft) 50 mg PO DAILY 05/03/23 05/30/23 History tizanidine 4 mg tablet (Zanaflex) 8 mg PO TID PRN muscle spasm 05/03/23 05/31/23 History trazodone 100 mg tablet 200 mg PO HS 05/03/23 05/30/23 History duloxetine 20 mg capsule,delayed 20 mg PO DAILY 1 month #30 caps 05/06/23 05/30/23 Rx release (Cymbalta) fluticasone propionate 50 1 spray intranasal DAILY PRN 05/30/23 05/30/23 History mcg/actuation nasal Allergies spray,suspension hydroxyzine HCl 25 mg tablet 25 mg PO BID 05/30/23 05/30/23 History Laboratory Tests 06/07/23 05:38 WBC 6.7 K/mm3 (4.5-10.0) RBC 3.60 L M/mm3 (4.2-5.4) Hgb 11.0 L g/dL (12.0-15.0) Hct 35.2 L % (37.0-47.0) MCV 97.8 fl (80-100) MCH 30.6 pg (26-34) MCHC 31.3 L g/dl (32-36) RDW 12.6 % (11.5-14.5) Plt Count 150 k/mm3 (150-375) MPV 10.4 fl (7.4-10.4) Immature Gran % (Auto) 0.9 H % (0-0.5) Neut % (Auto) 54.8 % (45.5-73.1) Lymph % (Auto) 27.2 % (18.3-44.2) [place] % (Auto) 11.6 H % (2.6-8.5) Eos % (Auto) 4.9 H % (0-4.4) Baso % (Auto) 0.6 % (0.2-1.2) Lymph # (Auto) 1.83 K/mm3 (0.9-3.2)
[2023-06-07] MEDS: BUPIVACAINE/EPINEPHRINE 0.5% 50 ML VIAL INFILTRATE (16:25)
[2023-06-07] MEDS: ceFAZolin 2 GM/D5W 50 ML 2 GM/50 ML BAG IVPB (16:40)
--- NOTE | 2023-06-07 17:30 | W.PM.PROC2 ---
Procedure Note - Detailed Date of Procedure 06/07/23 Pre-op Diagnosis Biliary dyskinesia Post-op Diagnosis Same Procedure Performed Laparoscopic Cholecystectomy Surgeon Dinesh Alejandro, DO Anesthesia General and Local (0.5% bupivacaine) Indications This is a 58-year-old woman who presented with upper abdominal pain and nausea and vomiting for the past couple weeks. She had presented to the emergency department and initial workup was essentially negative. She had a normal CT that did not show any evidence of gallstones. She then had a HIDA scan that showed evidence of a gallbladder ejection fraction of 9%. Gallbladder ultrasound did not show any evidence of cholelithiasis. GI was following patient and EGD was performed which showed evidence of esophagitis and gastritis. She had been treated for this but was not feeling any better. She could not get her nausea controlled enough to be able to be discharged. Discussions were then made with the patient about treatment options and decision was made to proceed with laparoscopic cholecystectomy, possible open. Findings Laparoscopic cholecystectomy was performed. The gallbladder appeared slightly dilated but was otherwise normal appearing. The cystic duct appeared normal in size. No other intra-abdominal abnormalities were noted. The gallbladder was removed and sent to the lab for pathology. Description of Procedure Procedure as well as risks, benefits, and alternatives were discussed with patient. Written consent was obtained and placed in chart prior to procedure. The patient was brought back to surgical suite. Patient was placed in supine position on operating table. Time-out was done to confirm patient and procedure. Patient was then intubated by the anesthesia department. Abdomen was prepped and draped in sterile fashion using chlorhexidine prep. 0.5% bupivacaine with epinephrine was infiltrated at each site of incision. A 5 millimeter incision was made near the umbilicus, and a 5 millimeter Optiview trocar was advanced through the abdominal layers under direct visualization. Once inside the abdominal cavity, carbon dioxide was insufflated to create a pneumoperitoneum. The camera was inserted and the abdomen was inspected. No immediate abnormalities were identified. The patient was placed in reverse Trendelenburg position and rotated slightly to the left. An 11 millimeter incision was made in the subxiphoid region, and an 11 millimeter trocar was inserted under direct visualization. Two 5 millimeter incisions were made in the right upper quadrant, and two 5 millimeter trocars were inserted under direct visualization. The gallbladder was identified and grasped at the fundus and retracted superiorly. It was then grasped at the infundibulum retracted laterally. Careful dissection around the neck of the gallbladder was performed using blunt dissection with a [place] grasper and hook electrocautery. The cystic duct was identified, and a window was created behind it. The cystic artery was also identified and a window was created behind it. The critical view of safety was identified, visualizing the cystic duct running directly into the neck of the gallbladder, and the cystic artery running directly into the wall of the gallbladder. A 5 millimeter clip switchboard operator assistant was then used to place 2 clips proximally and 1 clip distally on both the cystic duct and cystic artery. They were then both transected using endoscopic scissors. Once safely away from the aman hepatitis, the gallbladder was dissected free from the liver bed using hook electrocautery. Hemostasis was achieved along the way. The gallbladder was removed completely and then removed through the subxiphoid port. The liver bed was then inspected. Hemostasis appeared adequate, and our clips appeared secure. The area was gently irrigated with sterile saline. No other abnormalities were seen. The patient was flattened out in bed, and 1 final inspec
[2023-06-07] MEDS: fentaNYL CITRATE INJ (*CRX) 100 MCG/2 ML VIAL 25 MCG IV PUSH ×8 (18:00→18:21)
[2023-06-07] MEDS: HALOPERIDOL LACTATE 5 MG/ML VIAL IV PUSH (18:53)
[2023-06-07] MEDS: traZODone HCL 50 MG TABLET 200 MG PO (20:20)
[2023-06-07] MEDS: hydrOXYzine HCL 25 MG TABLET PO (20:21)
[2023-06-08] VITALS (13 sets, daily range): BP systolic 93–147; BP diastolic 46–78; PULSE 52–76; RESP 12–18; TEMP 36.1–36.5; O2SAT 93–95
[2023-06-08] MEDS: MORPHINE SULFATE (*CRX) 4 MG/ML INJ IV PUSH ×2 (00:44→07:35)
[2023-06-08] MEDS: SALINE LOCK FLUSH 10 ML IV PUSH ×3 (05:26→20:51)
[2023-06-08] MEDS: SUCRALFATE SUSP 100 MG/ML 10 ML UDC 1000 MG PO ×4 (05:27→20:50)
[2023-06-08] MEDS: LEVOTHYROXINE SODIUM 50 MCG TABLET PO (05:27)
[2023-06-08] MEDS: HYDROcodone/acetaminophen (*CRX) 5-325 MG TABLET 1 TAB PO ×3 (05:33→20:50)
[2023-06-08 05:44] LABS: Basophils Percent Auto 0.1 % (0.2-1.2); Hematocrit 33.8 % (37.0-47.0); Hemoglobin 10.8 g/dL (12.0-15.0); Immature Granulocyte Absolute 0.09 K/mm3 (0.00-0.031); Immature Granulocyte Percent A 0.9 % (0-0.5); Lymphocytes Absolute Auto 0.59 K/mm3 (0.9-3.2); Lymphocytes Percent Auto 5.8 % (18.3-44.2); Mean Corpuscular Hemoglobin 30.3 pg (26-34); Mean Corpuscular Volume 94.9 fl (80-100); Mean Platelet Volume 10.4 fl (7.4-10.4); Monocytes Absolute Auto 0.5 K/mm3 (0.1-0.6); Monocytes Percent Auto 5.1 % (2.6-8.5); Neutrophils Percent Auto 88.1 % (45.5-73.1); Platelet Count Result 192 k/mm3 (150-375); Red Blood Count 3.56 M/mm3 (4.2-5.4); Red Cell Distribution Width 12.5 % (11.5-14.5); White Blood Count 10.2 K/mm3 (4.5-10.0)
[2023-06-08 06:05] LABS: Alanine Aminotransferase 44 U/L (6-35); Albumin Level 2.8 g/dL (3.5-5.1); Alkaline Phosphatase 85 U/L (38-126); Anion Gap 4 mmol/L (8-16); Aspartate Amino Transferase 71 U/L (14-36); Bilirubin,Total 0.4 mg/dL (0.2-1.3); Blood Urea Nitrogen 5 mg/dL (7-17); Calcium 8.1 mg/dL (8.4-10.2); Carbon Dioxide 32 mmol/L (22-30); Chloride 102 mmol/L (98-107); Estimated CRCL calculation 89 ml/min; Estimated Glomerular Filt Rate > 60; Glucose 132 mg/dL (65-110); Potassium 3.5 mmol/L (3.4-5.0); Sodium 138 mmol/L (137-145)
[2023-06-08] MEDS: CHOLECALCIFEROL 1,000 UNITS TABLET 5000 UNITS PO (09:14)
[2023-06-08] MEDS: DULoxetine HCL 20 MG CAPSULE.DR PO (09:15)
[2023-06-08] MEDS: POTASSIUM CHLORIDE 20 MEQ ER TABLET PO (09:15)
[2023-06-08] MEDS: SERTRALINE HCL 50 MG TABLET PO (09:15)
[2023-06-08] MEDS: METOPROLOL TARTRATE 25 MG TABLET PO ×2 (09:15→20:50)
[2023-06-08] MEDS: hydrOXYzine HCL 25 MG TABLET PO ×2 (09:15→20:50)
[2023-06-08] MEDS: TIZANIDINE HCL 4 MG TABLET 8 MG PO ×3 (09:21→20:51)
[2023-06-08] MEDS: PANTOPRAZOLE SODIUM IV 40 MG VIAL IV PUSH (09:21)
--- NOTE | 2023-06-08 10:48 | PM.PNGS ---
Progress Note: A&P Assessment and Plan (1) Abnormal biliary HIDA scan: Code(s): R94.8 - Abnormal results of function studies of other organs and systems Status: Acute Assessment and Plan: S/p laparoscopic cholecystectomy yesterday. Her symptoms have improved some but her abdominal pain has not completely resolved. Okay to advance diet as tolerated to low fat diet She is surgically stable for discharge when okay with primary service. F/u with Dr. Alejandro in 2 weeks. We will sign off at this time. Call with any surgical concerns or questions. (2) Nausea and vomiting: Code(s): R11.2 - Nausea with vomiting, unspecified Status: Acute Assessment and Plan: No nausea or dry heaving this morning. ADAT to low fat. (3) Right upper quadrant abdominal pain: Code(s): R10.11 - Right upper quadrant pain Status: Acute Assessment and Plan: Still with RUQ abdominal pain but somewhat improved today. Transition to oral pain medication. Plan I have discussed the patient's case and plan of care with Dr. Alejandro. Subjective Subjective Date/Time Seen: 06/08/23 10:48 Post Op day: 1 (laparoscopic cholecystectomy) Patient reports: feels better, pain is less, tolerating liquids well, no flatus and no bowel movement Interval history: Patient seen today. She has not tried her clear liquids yet this morning but denies any nausea or dry heaving so far today. Her abdominal pain is still present, but slightly improved. No new complaints. Exam Const: General: comfortable and no acute distress GI: Inspection: non-distended and incision (incisions dry and intact) GI Palp: Yes Soft to palpation and Yes Tenderness to palpation present (GI) (incisional) Auscultation: normal bowel sounds Objective Data Vital Signs Vital Signs: Vital Signs - 24 hr 06/07/23 12:00 06/07/23 14:30 06/07/23 17:37 Temperature 96.1 F L 97.5 F L Pulse Rate 69 65 87 Respiratory Rate 16 12 Blood Pressure 137/70 134/63 Pulse Oximetry 97 99 Oxygen Delivery Simple Face Mask Oxygen Flow Rate 10 06/07/23 17:45 06/07/23 18:00 06/07/23 18:15 Temperature Pulse Rate 83 81 80 Respiratory Rate 12 12 12 Blood Pressure 128/59 L 140/76 132/69 Pulse Oximetry 100 100 100 Oxygen Delivery Simple Face Mask Room Air Nasal Cannula Oxygen Flow Rate 10 2 06/07/23 18:30 06/07/23 18:32 06/07/23 18:47 Temperature 97.3 F L 97.2 F L Pulse Rate 83 84 82 Respiratory Rate 20 16 16 Blood Pressure 140/75 133/67 129/64 Pulse Oximetry 100 99 99 Oxygen Delivery Nasal Cannula Oxygen Flow Rate 2 06/07/23 19:17 06/07/23 20:20 06/07/23 20:00 Temperature 98.4 F Pulse Rate 77 77 Respiratory Rate 13 Blood Pressure 148/75 H Pulse Oximetry 97 Oxygen Delivery Room Air Oxygen Flow Rate 06/07/23 20:17 06/07/23 23:53 06/07/23 20:00 Temperature 98.6 F 97.1 F L Pulse Rate 77 68 86 Respiratory Rate 14 13 Blood Pressure 148/72 H 140/77 Pulse Oximetry 96 97 Oxygen Delivery Oxygen Flow Rate 06/08/23 00:00 06/08/23 04:00 06/08/23 04:17 Temperature 97.7 F Pulse Rate 67 67 67 Respiratory Rate 12 Blood Pressure 147/78 H Pulse Oximetry 93 Oxygen Delivery Oxygen Flow Rate 06/08/23 08:00 06/08/23 09:15 06/08/23 08:00 Temperature Pulse Rate 72 69 Respiratory Rate Blood Pressure Pulse Oximetry 93 Oxygen Delivery Room Air Oxygen Flow Rate Intake/Output Intake/Output: Intake & Output 06/05/23 06/06/23 06/07/23 06/08/23 23:59 23:59 23:59 23:59 Intake Total 2660 3888 2450 1000 Output Total 4300 2850 2550 1500 Balance -1640 1038 -100 -500 Meds/Results Medications: Active Medications Generic Name Dose Route Start Last Admin Trade Name Freq PRN Reason Stop Dose Admin Acetaminophen 650 mg 05/30/23 16:21 06/02/23 16:02 Acetaminophen 325 Mg Tablet PO 650 mg Q4H PRN Administration Mild Pain (1-3) or Fever Hydrocodone Bitart
--- NOTE | 2023-06-08 15:17 | PM.IMPN ---
Progress Note: A&P Assessment and Plan (1) Hematemesis: Qualifiers: Nausea presence: with nausea Qualified Code(s): K92.0 - Hematemesis Code(s): K92.0 - Hematemesis Status: Acute Assessment and Plan: More recently her emesis has turned dark brown and is positive for occult blood. GI consulted. IV Protonix 40 mg b.i.d. and carafate EGD 06/01 showing esophagitis and gastritis Ultrasound of abdomen was obtained today which shows normal right upper quadrant in the gallbladder was normal in appearance which was consistent with previous CT scan of the abdomen pelvis. General surgery recommended outpatient cholecystectomy due to persistent nausea although patient refused and insisted on cholecystectomy while in hospital. Laparoscopic cholecystectomy performed on 06/07/2023. Nausea improved postoperatively. (2) Hypokalemia: Code(s): E87.6 - Hypokalemia Status: Acute Assessment and Plan: Patient with hypokalemia on admission. Replaced potassium is necessary. Monitor a.m. labs. (3) Hypothyroidism: Qualifiers: Hypothyroidism type: acquired Qualified Code(s): E03.9 - Hypothyroidism, unspecified Code(s): E03.9 - Hypothyroidism, unspecified Status: Acute Assessment and Plan: Continue Synthroid (4) Chronic pain: Qualifiers: Chronic pain type: chronic pain syndrome Qualified Code(s): G89.4 - Chronic pain syndrome Code(s): G89.29 - Other chronic pain Status: Acute Assessment and Plan: Patient on morphine pain pump at very low dosing per pain management, basal rate 214 mcg per 24 hours and maximum rate 353 mcg per 24 hours Subjective Date/time seen: 06/08/23 15:17 Interval history: Patient doing well today. Patient states that her nausea is improved and she is holding her food well. Plan on advancing diet as tolerated. Encourage patient to get up to chair. Anticipating discharge tomorrow the next day. She is doing well postoperatively and surgery has cleared her for discharge. Exam Narrative: GENERAL: Comfortable, no acute distress HENMT: moist mucous membranes EYES: EOM intact b/l NECK: no lymphadenopathy RESPIRATORY: clear to auscultation CARDIO: RRR GI: soft, nontender, bowel sounds present SKIN: no rashes EXTREMITIES: no edema, redness or tenderness Objective Data Vital Signs Vital Signs: Vital Signs - 24 hr 06/07/23 17:37 06/07/23 17:45 06/07/23 18:00 Temperature 97.5 F L Pulse Rate 87 83 81 Respiratory Rate 12 12 12 Blood Pressure 134/63 128/59 L 140/76 Pulse Oximetry 99 100 100 Oxygen Delivery Simple Face Mask Simple Face Mask Room Air Oxygen Flow Rate 10 10 06/07/23 18:15 06/07/23 18:30 06/07/23 18:32 Temperature 97.3 F L Pulse Rate 80 83 84 Respiratory Rate 12 20 16 Blood Pressure 132/69 140/75 133/67 Pulse Oximetry 100 100 99 Oxygen Delivery Nasal Cannula Nasal Cannula Oxygen Flow Rate 2 2 06/07/23 18:47 06/07/23 19:17 06/07/23 20:20 Temperature 97.2 F L 98.4 F Pulse Rate 82 77 77 Respiratory Rate 16 13 Blood Pressure 129/64 148/75 H Pulse Oximetry 99 97 Oxygen Delivery Oxygen Flow Rate 06/07/23 20:00 06/07/23 20:17 06/07/23 23:53 Temperature 98.6 F 97.1 F L Pulse Rate 77 68 Respiratory Rate 14 13 Blood Pressure 148/72 H 140/77 Pulse Oximetry 96 97 Oxygen Delivery Room Air Oxygen Flow Rate 06/07/23 20:00 06/08/23 00:00 06/08/23 04:00 Temperature Pulse Rate 86 67 67 Respiratory Rate Blood Pressure Pulse Oximetry Oxygen Delivery Oxygen Flow Rate 06/08/23 04:17 06/08/23 08:00 06/08/23 09:15 Temperature 97.7 F Pulse Rate 67 72 Respiratory Rate 12 Blood Pressure 147/78 H Pulse Oximetry 93 93 Oxygen Delivery Room Air Oxygen Flow Rate 06/08/23 08:00 06/08/23 11:00 06/08/23 12:00 Temperature 97.7 F Pulse Rate 69 58 L 59 L Respiratory Ra
[2023-06-08] MEDS: PANTOPRAZOLE 40 MG TABLET PO (20:51)
[2023-06-08] MEDS: traZODone HCL 50 MG TABLET 200 MG PO (20:51)
[2023-06-09] VITALS: PULSE 53
[2023-06-09] MEDS: MORPHINE SULFATE (*CRX) 4 MG/ML INJ IV PUSH ×2 (01:35→05:43)
[2023-06-09 04:00] VITALS: PULSE 49
[2023-06-09] MEDS: SALINE LOCK FLUSH 10 ML IV PUSH (05:27)
[2023-06-09] MEDS: LEVOTHYROXINE SODIUM 50 MCG TABLET PO (05:27)
[2023-06-09] MEDS: SUCRALFATE SUSP 100 MG/ML 10 ML UDC 1000 MG PO ×2 (05:28→11:05)
[2023-06-09] MEDS: TIZANIDINE HCL 4 MG TABLET 8 MG PO ×2 (05:43→17:24)
[2023-06-09 05:47] VITALS: BP 122/59; PULSE 51; RESP 13; TEMP 36.1; O2SAT 96
[2023-06-09 06:04] LABS: Basophils Percent Auto 0.1 % (0.2-1.2); Eosinophils Absolute Auto 0.1 K/mm3 (0-0.3); Eosinophils Percent Auto 0.7 % (0-4.4); Hematocrit 31.8 % (37.0-47.0); Hemoglobin 10.1 g/dL (12.0-15.0); Immature Granulocyte Absolute 0.06 K/mm3 (0.00-0.031); Immature Granulocyte Percent A 0.7 % (0-0.5); Lymphocytes Absolute Auto 2.15 K/mm3 (0.9-3.2); Lymphocytes Percent Auto 25.7 % (18.3-44.2); Mean Corpuscular HGB Conc 31.8 g/dl (32-36); Mean Corpuscular Hemoglobin 30.9 pg (26-34); Mean Corpuscular Volume 97.2 fl (80-100); Mean Platelet Volume 10.7 fl (7.4-10.4); Monocytes Percent Auto 12.2 % (2.6-8.5); Neutrophils Absolute Auto 5.1 K/mm3 (1.3-6.7); Neutrophils Percent Auto 60.6 % (45.5-73.1); Platelet Count Result 157 k/mm3 (150-375); Red Blood Count 3.27 M/mm3 (4.2-5.4); Red Cell Distribution Width 12.8 % (11.5-14.5); White Blood Count 8.4 K/mm3 (4.5-10.0)
[2023-06-09 06:26] LABS: Alanine Aminotransferase 35 U/L (6-35); Albumin Level 2.8 g/dL (3.5-5.1); Alkaline Phosphatase 74 U/L (38-126); Anion Gap 4 mmol/L (8-16); Aspartate Amino Transferase 39 U/L (14-36); Bilirubin,Total 0.4 mg/dL (0.2-1.3); Blood Urea Nitrogen 7 mg/dL (7-17); Carbon Dioxide 31 mmol/L (22-30); Chloride 100 mmol/L (98-107); Estimated CRCL calculation 72 ml/min; Estimated Glomerular Filt Rate > 60; Glucose 133 mg/dL (65-110); Potassium 2.8 mmol/L (3.4-5.0); Sodium 135 mmol/L (137-145)
[2023-06-09] MEDS: POTASSIUM CHLORIDE 20 MEQ PACKET (FOR LIQUID) 40 MEQ PO (06:45)
[2023-06-09] MEDS: CHOLECALCIFEROL 1,000 UNITS TABLET 5000 UNITS PO (07:43)
[2023-06-09] MEDS: hydrOXYzine HCL 25 MG TABLET PO (07:43)
[2023-06-09] MEDS: DULoxetine HCL 20 MG CAPSULE.DR PO (07:43)
[2023-06-09] MEDS: PANTOPRAZOLE 40 MG TABLET PO (07:43)
[2023-06-09] MEDS: SERTRALINE HCL 50 MG TABLET PO (07:44)
[2023-06-09] MEDS: POTASSIUM CHLORIDE 20 MEQ ER TABLET PO (07:44)
[2023-06-09 08:00] VITALS: PULSE 50; O2SAT 96
[2023-06-09 09:34] VITALS: PULSE 54
[2023-06-09] MEDS: METOPROLOL TARTRATE 25 MG TABLET PO (09:34)
[2023-06-09 12:00] VITALS: PULSE 58
[2023-06-09 12:21] LABS: Potassium 3.4 mmol/L (3.4-5.0)
--- NOTE | 2023-06-09 12:39 | PM.DS ---
DS: Admitting Diagnosis Discharge Date 06/09/23 Admitting Diagnosis Nausea, vomiting DS: Discharge Diagnosis Discharge Diagnosis (1) Hematemesis: Qualifiers: Nausea presence: with nausea Qualified Code(s): K92.0 - Hematemesis Code(s): K92.0 - Hematemesis Status: Acute (2) Hypokalemia: Code(s): E87.6 - Hypokalemia Status: Acute (3) Hypothyroidism: Qualifiers: Hypothyroidism type: acquired Qualified Code(s): E03.9 - Hypothyroidism, unspecified Code(s): E03.9 - Hypothyroidism, unspecified Status: Acute (4) Chronic pain: Qualifiers: Chronic pain type: chronic pain syndrome Qualified Code(s): G89.4 - Chronic pain syndrome Code(s): G89.29 - Other chronic pain Status: Acute DS: Summary Hospital Course Hospital Course: This is a 58-year-old female with a past medical history of fibromyalgia on morphine pump, hypertension, hypothyroidism, CKD stage 3 and GERD the presented to the ED on 05/30/2023 due to nausea vomiting. Patient describes the vomiting as dark brown emesis with associated epigastric pain, heartburn, bloating, belching and hiccups. Pulmonary workup revealed a?WBC count of 16.7, potassium 3.3, sodium 144, chloride 105, carbon dioxide 11, anion gap 28, BUN 12, creatinine 1.58, glucose 129, lactic acid 2.5, lipase 42, AST 38, ALT 27, alkaline phosphatase 100, total bilirubin 0.4. Urinalysis showed 3+ ketones, 1+ bacteria, 7-9 WBC, and a specific gravity of greater than 1.030. ABG showed a pH of 7.18, pCO2 24.6, bicarb 9.0. CT of the abdomen pelvis showed a small amount of gas in bladder, likely due to straight cath.? No other acute intra-abdominal or pelvic process was noted.? patient was started on sodium bicarb and dextrose due to acute metabolic acidosis. GI was consulted. EGD performed on 06/01/2023 that revealed esophagitis and gastritis and patient was continued on PPI. Patient's H pylori was negative. General surgery obtained HIDA scan to rule out biliary tract disease due to patient's persistent nausea vomiting. HIDA scan did not reveal any acute cholecystitis. Patient's nausea vomiting continued to persist. General surgery decided to proceed with acute cholecystectomy per patient's wishes as well as patient having persistent epigastric pain. Postoperatively patient did very well and was able to tolerate a diet. Patient's labs and vital signs are stable and she is medically clear for discharge at this time. Time Spent with Patient Time attestation: Total time spent providing and/or coordinating discharge services: Exam Narrative: GENERAL: Comfortable, no acute distress HENMT: moist mucous membranes EYES: EOM intact b/l NECK: no lymphadenopathy RESPIRATORY: clear to auscultation CARDIO: RRR GI: soft, nontender, bowel sounds present SKIN: no rashes EXTREMITIES: no edema, redness or tenderness DS: Data Data Completed and Pending Completed studies during hospitalization: Pending at discharge 06/01/23 14:01 Surgical [PTH] Routine 06/07/23 16:21 Surgical [PTH] Routine Labs on day of discharge: Labs from last 24 hours 06/09/23 06/09/23 12:05 05:33 WBC 8.4 RBC 3.27 L Hgb 10.1 L Hct 31.8 L MCV 97.2 MCH 30.9 MCHC 31.8 L RDW 12.8 Plt Count 157 MPV 10.7 H Immature Gran % (Auto) 0.7 H Neut % (Auto) 60.6 Lymph % (Auto) 25.7 [place] % (Auto) 12.2 H Eos % (Auto) 0.7 Baso % (Auto) 0.1 L Lymph # (Auto) 2.15 [place] # (Auto) 1.0 H Eos # (Auto) 0.1 Baso # (Auto) 0.0 Abs Immat Gran (auto) 0.06 H Absolute Neuts (auto) 5.1 Absolute Nucleated RBC 0.0 Nucleated RBC % 0.0 Sodium 135 L Potassium 3.4 2.8 L* Chloride 100 Carbon Dioxide 31 H Anion Gap 4 L BUN 7 Creatinine 0.90 Estim Creat Clear Calc 72 Estimated GFR > 60 Glucose 133 H Calcium 8.0 L Total Bilirubin 0.4 AST 39 H ALT 35 Alkaline Phosphatase 74 Total Pro
[2023-06-09] MEDS: HYDROcodone/acetaminophen (*CRX) 5-325 MG TABLET 1 TAB PO ×2 (13:49→17:23)
[2023-06-09 14:31] LABS: SARS-CoV-2 RNA PCR Negative (Negative)
== END 2023-06-09 19:00 | DRG 417 ==
PROVIDERS: Internal Medicine; Internal Medicine Gastroenterology; Nurse Practitioner; Nurse Practitioner Acute Care; Physician Assistant; Surgery; Admitting Provider Internal Medicine; PCP Nurse Practitioner Family; Visit Provider Internal Medicine Critical Care Medicine
PROC: 0DJ08ZZ Inspection of Upper Intestinal Tract, Via Natural or Artificial Opening Endoscopic (ICD-10-PCS; CPT 43235; principal; 2023-06-01 14:15)
PROC: 0FT44ZZ Resection of Gallbladder, Percutaneous Endoscopic Approach (ICD-10-PCS; CPT 47562; principal; 2023-06-07 15:30)
DX: K82.8 Other specified diseases of gallbladder (principal); K21.01 Gastro-esophageal reflux disease with esophagitis, with bleeding; E44.0 Moderate protein-calorie malnutrition; K92.0 Hematemesis; E87.21 Acute metabolic acidosis; K29.70 Gastritis, unspecified, without bleeding; E86.0 Dehydration; E03.9 Hypothyroidism, unspecified; G89.29 Other chronic pain; Z20.822 Contact with and (suspected) exposure to COVID-19; I12.9 Hypertensive chronic kidney disease with stage 1 through stage 4 chronic kidney disease, or unspecified chronic kidney disease; N18.32 Chronic kidney disease, stage 3b; E66.9 Obesity, unspecified; E87.6 Hypokalemia; D72.829 Elevated white blood cell count, unspecified; K58.0 Irritable bowel syndrome with diarrhea; Z23 Encounter for immunization; G62.9 Polyneuropathy, unspecified; M79.7 Fibromyalgia; F41.9 Anxiety disorder, unspecified; Z85.42 Personal history of malignant neoplasm of other parts of uterus; Z90.49 Acquired absence of other specified parts of digestive tract; Z90.710 Acquired absence of both cervix and uterus; Z68.38 Body mass index [BMI] 38.0-38.9, adult
CPT/HCPCS: 36415; 36569; 36600; 76705; 78226; 80048; 80053; 80307; 82010; 82271; 82375; 82728; 82805; 83036; 83050; 83540; 83550; 83605; 83735; 83986; 84100; 84132; 84443; 85025; 85027; 85055; 85610; 85730; 87081; 87635; 88304; 88305; 90471; 90686; 93005; 96361; 96365; 96366; 96367; 96375; 96376; 97110; 97161; 97164; 97165; 97166; 97530; 97535; A9270; A9537; C9113; G0008; G0378; G0379; J0330; J0690; J0780; J1100; J1630; J2250; J2270; J2405; J2550; J2704; J3010; J3475; J3480; J7030; J7040; J7070; J7120

== ENCOUNTER 2023-06-18 13:32 | Inpatient (IN) | payer MEDICARE, MEDICAID, SELFPAY ==
[2023-06-18] VITALS (13 sets, daily range): BP systolic 59–154; BP diastolic 44–85; PULSE 63–71; RESP 13–18; TEMP 36.6; O2SAT 96–100; BMI 33.0
--- NOTE | ~2023-06-18 | CT_ITS ---
EXAMINATION: CT brain wo con DATE: 06/18/2023 14:56 INDICATION: syncope . TECHNIQUE: Computed tomography (CT) of the head was performed without intravenous contrast. The mA wa s adjusted according to patient size. Iterative reconstruction technique was employed. The dose-lengt h product was 529.67 mGy-cm. COMPARISON: 05/03/2023. FINDINGS: No acute intracranial hemorrhage or extra-axial fluid collection. No hydrocephalus, mass, or herniation. No acute ischemic infarct. Unremarkable dural venous sinus attenuation. No acute osseous abnormality. The aerated spaces are clear. Empty sella. IMPRESSION: No acute intracranial process. Reviewed, dictated and finalized at location K.
--- NOTE | ~2023-06-18 | CT_ITS ---
EXAMINATION: CTA chest PE abdomen pel DATE: 06/18/2023 14:55 INDICATION: recent surgery, hypotension, PE, 3 wks po cholecystectomy TECHNIQUE: Computed tomography angiography (CTA) of the chest was performed with 100 mL Omnipaque-350 intravenous contrast timed to evaluate the pulmonary arteries, followed by portal venous phase imagi ng of the abdomen and pelvis. Coronal maximum intensity projection 3D-reconstructions were created by the technologist. The dose-length product (DLP) was 1884.07 mGy-cm. Automated exposure control and i terative reconstruction technique were employed. COMPARISON: CT abdomen pelvis 05/30/2023; CT chest 06/08/2022. FINDINGS: CHEST: Lung parenchyma and airways: Left lower lobe granulomas. Pleura: Unremarkable. Thoracic inlet, axillae and chest wall: Unremarkable. Thoracic aorta: Normal. Mediastinum: Normal. Heart and pericardium: Normal. Coronary artery calcifications: Absent. Thoracic bones: No acute osseous finding. Pulmonary arteries: Study quality: Adequate. No pulmonary emboli detected. ABDOMEN/PELVIS: Liver: Normal. Biliary/Gallbladder: Gallbladder is absent. Trace fluid in the gallbladder fossa. No bile duct dilati on. Pancreas: No mass or duct dilation. Spleen: Normal. Adrenals:No mass. Kidneys: No suspicious mass, obstructing stone, or hydronephrosis. Bilateral cortical thinning and sc arring. GI tract: No small or large bowel dilation. Appendix not visualized Mesentery/Peritoneum: No ascites, mass, or free air. Retroperitoneum: No mass. Pelvis: Unremarkable bladder. Absent uterus. Streak artifact. Soft Tissues: Left lower quadrant medication pump. The catheter enters the canal at L2-3 and terminat es at the level of T10. Abdominopelvic bones: No acute osseous finding. Incompletely visualized, uncomplicated appearing lef t hip arthroplasty IMPRESSION: No CT evidence of acute pulmonary embolus. No acute intrathoracic or abdominopelvic finding. Reviewed, dictated and finalized at location K.
--- NOTE | 2023-06-18 13:38 | ECG_ITS ---
Measurements Intervals [place] Rate: 64 P: 35 OR: 199 QRS: 1 QRSD: 88 T: -16 QT: 508 QTc: 526 Interpretive Statements SINUS RHYTHM EARLY PRECORDIAL R-WAVE TRANSITION LONG QT INTERVAL ABNORMAL ECG COMPARED TO ECG 06/02/2023 16:01:24 PROMINENT R-WAVE VOLTAGE IN V2 SUGGESTING ALTERED LEAD POSITION PROLONGED QT INTERVAL NOW PRESENT Electronically Signed On 06-19-2023 8:21:32 CDT by Sonu Hess M.D.
--- NOTE | 2023-06-18 13:42 | ED.GENADULT ---
HPI - General Adult General Chief complaint: Unspecified Stated complaint: low blood pressure Time Seen by Provider: 06/18/23 13:38 History of Present Illness HPI narrative: Patient is a 58-year-old female with history of hypertension, CKD stage 3, here with low blood pressure. Patient states she was feeling well this morning when she woke up. She went outside to do a Halloween [id number] at her half-way. when she came back inside she was feeling lightheaded with some vision changes as though she may pass out. She went to the nurse's station and believes she may have passed out in her wheelchair. Did not fall to the ground. At that point they checked her blood pressure and they noted it was 80s over 40s. EMS was called at that time. On EMS arrival her blood pressure was 60s over palpable with a normal blood sugar. They were unable to obtain IV access EN route and no fluids were administered. Patient notes that about 3 weeks ago she had a cholecystectomy, has been having some abdominal pain since that time, has a follow-up appointment this upcoming week with her surgeon. She has been having normal bowel movements with no diarrhea or vomiting. She notes she has had some normal p.o. intake. This morning she was experiencing some chest pain which is vague and throughout her entire chest as well as some shortness of breath. Denies cough, congestion, fever, chills. Related Data Home Medications Medication Instructions Recorded Confirmed cholecalciferol (vitamin D3) 125 125 mcg PO DAILY 11/02/22 05/30/23 mcg (5,000 unit) tablet (Vitamin D3) Morphine Pain Pump See Rx Instructions .Route .COMPLEX 12/24/22 05/30/23 acetazolamide 250 mg tablet 500 mg PO BID 05/03/23 05/30/23 ferrous sulfate 325 mg (65 mg 325 mg PO DAILY 05/03/23 05/30/23 iron) tablet (Iron (ferrous sulfate)) levothyroxine 50 mcg tablet 50 mcg PO DAILY 05/03/23 05/30/23 metoprolol tartrate 25 mg tablet 25 mg PO BID 05/03/23 05/30/23 omeprazole 20 mg capsule,delayed 20 mg PO DAILY 05/03/23 05/30/23 release ondansetron 4 mg disintegrating 4 mg translingual Q6H PRN nausea 05/03/23 05/30/23 tablet sertraline 50 mg tablet (Zoloft) 50 mg PO DAILY 05/03/23 05/30/23 tizanidine 4 mg tablet (Zanaflex) 8 mg PO TID PRN muscle spasm 05/03/23 05/31/23 trazodone 100 mg tablet 200 mg PO HS 05/03/23 05/30/23 fluticasone propionate 50 1 spray intranasal DAILY PRN 05/30/23 05/30/23 mcg/actuation nasal Allergies spray,suspension Allergies Allergy/AdvReac Type Severity Reaction Status Date / Time bee venom protein (honey bee) Allergy Severe Swelling Verified 06/07/23 18:49 of Lip/Tongue/Throat aspirin Allergy Unknown Unknown,Nausea Verified 06/07/23 18:49 and Vomiting Bleach (Sodium Hypochlorite) Allergy Unknown Unknown,Trouble Verified 06/07/23 18:49 Breathing ibuprofen Allergy Unknown Unknown, Verified 06/07/23 18:49 NSAIDS (Non-Steroidal Allergy Unknown Unknown, Verified 06/07/23 18:49 Anti-Inflamma [NSAIDS (Non-Steroidal Anti-Inflammatory Drug)] oxycodone AdvReac Mild hypotension Verified 06/07/23 18:49 and visual disturbance Bee stings Allergy Unknown Unknown,Swelling Uncoded 06/07/23 14:45 of Lip/Tongue/Throat NONSTEROIDAL Allergy Unknown Unknown Uncoded 06/07/23 14:45 SALICYLATES Allergy Unknown unknown Uncoded 06/01/23 13:14 Review of Systems Review of Systems: All systems reviewed & are unremarkable except as noted in HPI and below PMFSH Past Medical History Medical History (Updated 06/18/23 @ 16:49 by Holly Kaur MD) Anxiety Chronic kidney disease, stage 3b Chronic pain Morphine pump. Fibromyalgia Gastroesophageal reflux disease Hypertension Hypothyroidism Irritable bowel syndrome with diarrhea Migrainous headache without aura Mitral valve regurgitation Stats post repair. Polyneuropathy Primary insomnia Uterine cancer Surgical History Surgical History (Updated
[2023-06-18] MEDS: SODIUM CHLORIDE 0.9% IV 1,000 ML 999 ML (13:50)
[2023-06-18 14:06] LABS: Basophils Absolute Auto 0.1 K/mm3 (0.0-0.1); Basophils Percent Auto 0.8 % (0.2-1.2); Eosinophils Absolute Auto 0.2 K/mm3 (0-0.3); Hematocrit 33.1 % (37.0-47.0); Hemoglobin 10.2 g/dL (12.0-15.0); Immature Granulocyte Absolute 0.04 K/mm3 (0.00-0.031); Immature Granulocyte Percent A 0.5 % (0-0.5); Lymphocytes Absolute Auto 1.98 K/mm3 (0.9-3.2); Lymphocytes Percent Auto 26.3 % (18.3-44.2); Mean Corpuscular HGB Conc 30.8 g/dl (32-36); Mean Corpuscular Hemoglobin 30.3 pg (26-34); Mean Corpuscular Volume 98.2 fl (80-100); Mean Platelet Volume 10.1 fl (7.4-10.4); Monocytes Absolute Auto 0.7 K/mm3 (0.1-0.6); Monocytes Percent Auto 9.6 % (2.6-8.5); Neutrophils Absolute Auto 4.6 K/mm3 (1.3-6.7); Neutrophils Percent Auto 60.8 % (45.5-73.1); Platelet Count Result 288 k/mm3 (150-375); Red Blood Count 3.37 M/mm3 (4.2-5.4); Red Cell Distribution Width 13.7 % (11.5-14.5); White Blood Count 7.5 K/mm3 (4.5-10.0)
[2023-06-18] MEDS: LACTATED RINGERS 1,000 ML 999 ML IV CONT (14:11)
[2023-06-18 14:12] LABS: Lactic Acid Reflex 1.3 mmol/L (0.7-2.0)
[2023-06-18 14:13] LABS: Prothrombin Time 13.7 Seconds (11.1-14.7)
[2023-06-18 14:14] LABS: Alanine Aminotransferase 20 U/L (6-35); Albumin Level 2.9 g/dL (3.5-5.1); Alkaline Phosphatase 69 U/L (38-126); Anion Gap 4 mmol/L (8-16); Aspartate Amino Transferase 21 U/L (14-36); Bilirubin,Total 0.5 mg/dL (0.2-1.3); Blood Urea Nitrogen 11 mg/dL (7-17); CRP 2.1 mg/dL (<1.0); Calcium 7.5 mg/dL (8.4-10.2); Carbon Dioxide 25 mmol/L (22-30); Chloride 109 mmol/L (98-107); Estimated CRCL calculation 54 ml/min; Estimated Glomerular Filt Rate 46; Glucose 101 mg/dL (65-110); Lipase 210 U/L (23-300); Partial Thromboplastin Time 28.9 SECONDS (22.3-36.8); Potassium 3.6 mmol/L (3.4-5.0); Sodium 138 mmol/L (137-145)
[2023-06-18 14:23] LABS: Troponin I < 0.012 ng/mL (0.000-0.034)
[2023-06-18 15:59] LABS: Appearance Urine Cloudy (Clear); Bacteria Urine 4+ /hpf; Bilirubin Urine Negative (Negative); Blood Urine 1+ (Negative); Color Urine Yellow (Yellow); Glucose Urine UA Negative (Negative); Ketones Urine Negative (Negative); Leukocyte Esterase Ur 1+ LEU/UL (Negative); Nitrate Urine Positive (Negative); Non Pathogenic Casts 0-2; Protein Urine Negative (Negative); Specific Grav Ur 1.015 (1.001-1.035); Squamous Epithelial Cell Urine None seen /hpf (Few); WBC Urine 21-50 /hpf
[2023-06-18 16:06] LABS: Add Urine Microscopic? YES
[2023-06-18 16:10] LABS: Influenza A QL RT-PCR Negative (Negative); Influenza B QL RT-PCR Negative (Negative); RSV RNA, RT-PCR Negative (Negative); SARS-CoV-2 RNA PCR Negative (Negative)
--- NOTE | 2023-06-18 17:32 | ED.GENADULT ---
HPI - General Adult General Chief complaint: Unspecified Stated complaint: low blood pressure Time Seen by Provider: 06/18/23 13:38 Related Data Home Medications Medication Instructions Recorded Confirmed cholecalciferol (vitamin D3) 125 125 mcg PO DAILY 11/02/22 05/30/23 mcg (5,000 unit) tablet (Vitamin D3) Morphine Pain Pump See Rx Instructions .Route .COMPLEX 12/24/22 05/30/23 acetazolamide 250 mg tablet 500 mg PO BID 05/03/23 05/30/23 ferrous sulfate 325 mg (65 mg 325 mg PO DAILY 05/03/23 05/30/23 iron) tablet (Iron (ferrous sulfate)) levothyroxine 50 mcg tablet 50 mcg PO DAILY 05/03/23 05/30/23 metoprolol tartrate 25 mg tablet 25 mg PO BID 05/03/23 05/30/23 omeprazole 20 mg capsule,delayed 20 mg PO DAILY 05/03/23 05/30/23 release ondansetron 4 mg disintegrating 4 mg translingual Q6H PRN nausea 05/03/23 05/30/23 tablet sertraline 50 mg tablet (Zoloft) 50 mg PO DAILY 05/03/23 05/30/23 tizanidine 4 mg tablet (Zanaflex) 8 mg PO TID PRN muscle spasm 05/03/23 05/31/23 trazodone 100 mg tablet 200 mg PO HS 05/03/23 05/30/23 fluticasone propionate 50 1 spray intranasal DAILY PRN 05/30/23 05/30/23 mcg/actuation nasal Allergies spray,suspension Allergies Allergy/AdvReac Type Severity Reaction Status Date / Time bee venom protein (honey bee) Allergy Severe Swelling Verified 06/07/23 18:49 of Lip/Tongue/Throat aspirin Allergy Unknown Unknown,Nausea Verified 06/07/23 18:49 and Vomiting Bleach (Sodium Hypochlorite) Allergy Unknown Unknown,Trouble Verified 06/07/23 18:49 Breathing ibuprofen Allergy Unknown Unknown, Verified 06/07/23 18:49 NSAIDS (Non-Steroidal Allergy Unknown Unknown, Verified 06/07/23 18:49 Anti-Inflamma [NSAIDS (Non-Steroidal Anti-Inflammatory Drug)] oxycodone AdvReac Mild hypotension Verified 06/07/23 18:49 and visual disturbance Bee stings Allergy Unknown Unknown,Swelling Uncoded 06/07/23 14:45 of Lip/Tongue/Throat NONSTEROIDAL Allergy Unknown Unknown Uncoded 06/07/23 14:45 SALICYLATES Allergy Unknown unknown Uncoded 06/01/23 13:14 PMF Past Medical History Medical History (Updated 06/18/23 @ 16:49 by Holly Kaur MD) Anxiety Chronic kidney disease, stage 3b Chronic pain Morphine pump. Fibromyalgia Gastroesophageal reflux disease Hypertension Hypothyroidism Irritable bowel syndrome with diarrhea Migrainous headache without aura Mitral valve regurgitation Stats post repair. Polyneuropathy Primary insomnia Uterine cancer Surgical History Surgical History (Updated 06/08/23 @ 13:00 by Briana Sánchez APRN) History of appendectomy History of arthroplasty of right knee History of bladder suspension procedure History of cardiac catheterization History of dilation and curettage History of hysterectomy History of laparoscopic cholecystectomy Dr. Alejandro, 06/07/2023 for biliary dyskinesia History of mitral valve repair History of repair of hip fracture (12/2019) Left History of right knee surgery History of tubal ligation Family History Family History (Updated 05/30/23 @ 18:04 by María Oates PA-C) Mother Hypertension Family history of type 2 diabetes mellitus Father Acute myocardial infarction Social History Social History (Updated 05/30/23 @ 23:48 by María Oates PA-C) Social History: Surrogate medical decision maker: Lisa Allen, mother. Code status: Full code. Smoking status: Never smoker Second hand tobacco smoke exposure: Yes Alcohol intake: never Alcohol use details: social Substance use: never Substance use type: painkillers Lack of Transportation: No Lack of Food: Never True Current Housing: I Have Housing Concerned About Future Housing: No Difficulty Paying Gas/Electric Bills: No Difficulty Paying for Meds: No Currently Unemployed: No Education: High School Diploma/GED Difficulty w/ Childcare or Family Care: No Living arrangements: a
--- NOTE | 2023-06-18 18:45 | ADMGEN ---
This patient, Nancy Murray, was admitted to Medical Room 243-. Patient/family oriented to hospital policies and general routines including ID bracelet, bed and alarms, visiting hours, pain management, procedures, bathroom and other care routines, personal items, smoking policy, room service/diet, and visiting hours. Information on how to activate the Rapid Response Team has been discussed. Patient/Family are encouraged to report perceived risks to care and to ask questions if they do not understand what they are told or what they should do.
--- NOTE | 2023-06-18 18:55 | PM.IMHP ---
H&P: HPI History of Present Illness Date/Time: 06/18/23 18:55 Chief Complaint: low blood pressure Narrative: this is a 58-year-old female patient who is currently in a rehab facility. She has hypertension and chronic kidney disease. The patient has severe neuropathy to her lower extremities and is chronically in a wheelchair. The patient stated that when she woke up this morning she did not feel well. She when outside to do a Halloween drinker treat at the rehab facility and then when she came back inside she was feeling lightheaded was some visual changes as though she may have passed out. The patient went to the nurse's station and believes that she passed out in her wheelchair. She did not fall on the ground. At that time her blood pressure was checked and it was noted to be 80s over 40s. EMS was activated. When EMS came to the facility the patient had a normal blood sugar and her blood pressure was 60s which was palpable. The patient also noted that she had a cholecystectomy 3 weeks ago and she still having some abdominal pain. She is now having normal bowel movements without any nausea vomiting or diarrhea. The patient denies any urinary. See ER blood pressures. It was noted that the patient had several low blood pressures 59/44 and 78/49. Currently her blood pressure is 131/81. The patient has a pain pump and is currently asking for pain medication. I discussed with her that her blood pressure is too low for any narcotics at this time. The patient is requesting a [place]. The patient was given IV fluids and ceftriaxone in the emergency room. Abnormal labs her H&H is 10.2 and 33.1 which is her baseline. Her creatinineIs 1.2 with a normal baseline. Calcium is low at 7.5. C reactive protein 2.1. Troponin negative on the 1st draw. Urine is positive for blood and nitrates. Leukocyte esterase 1+ RBC 3-5 urine wbc's 21-50. Urine bacteria 4+. Influenza A/B and RSV and COVID are all negative. The patient was given IV fluids and ceftriaxone in the emergency room. head CT was negative and chest abdomen pelvis CT no evidence of acute pulmonary embolism no acute intrathoracic or abdominal pelvic finding. The patient is being admitted to inpatient status on the date of service of 06/18/2023. Review of Systems Review of Systems: All systems reviewed & are unremarkable except as noted in HPI and below Constitutional: Constitutional: Reports as per HPI and Reports no additional constitutional complaints Eyes: Eyes: Reports as per HPI and Reports no additional eye complaints ENT: Reports system reviewed and no additional complaints, except as documented and Reports Normal hearing present Cardiovascular: Cardiovascular: Reports no additional cardiovascular complaints Respiratory: Respiratory: Reports no additional respiratory complaints and Reports no additional respiratory complaints Gastrointestinal: Gastrointestinal: Reports as per HPI Musculoskeletal: Musculoskeletal: Reports as per HPI Neurologic: Reports as per HPI Psychiatric: Psychiatric: Reports no additional psychiatric complaints and Reports as per HPI Endocrine: Endocrine: Reports no additional endocrine complaints Hematologic/Lymphatic: Hematologic/Lymphatic: Reports no additional hematologic/lymphatic complaints Allergic/Immunologic: Allergic/Immunologic: Reports no additional allergic/immunologic complaints [facility] Past Medical History Medical History (Updated 06/18/23 @ 20:28 by Ivone Rush NP) Anemia of chronic disease Anxiety Chronic kidney disease, stage 3b Chronic pain Morphine pump. Fibromyalgia Gastroesophageal reflux disease Hypertension Hypothyroidism Irritable bowel syndrome with diarrhea Migrainous headache without aura Mitral valve regurgitation Stats post repair. Polyneuropathy Primary insomnia Uterine cancer Surgical History Surgical History History of appendectomy Histor
[2023-06-18 21:17] LABS: Troponin I < 0.012 ng/mL (0.000-0.034)
[2023-06-18] MEDS: SODIUM CHLORIDE 0.9% IV 1,000 ML 100 ML IV CONT (21:22)
[2023-06-18] MEDS: traZODone HCL 50 MG TABLET 200 MG PO (21:23)
[2023-06-18] MEDS: acetaZOLAMIDE TAB 250 MG TABLET 500 MG PO (21:23)
--- NOTE | 2023-06-18 21:41 | PC.NURSE ---
3hr troponin level not drawn by ED staff, 6hr troponin level drawn on the floor shows no elevation.
[2023-06-18] MEDS: HYDROcodone/acetaminophen (*CRX) 5-325 MG TABLET 1 TAB PO (23:34)
[2023-06-19] VITALS (13 sets, daily range): BP systolic 70–133; BP diastolic 50–79; PULSE 69–86; RESP 16–20; TEMP 35.8–36.9; O2SAT 95–100
[2023-06-19] MEDS: hydrOXYzine HCL 25 MG TABLET BY MOUTH (00:58)
[2023-06-19] MEDS: TIZANIDINE HCL 4 MG TABLET 8 MG PO ×3 (00:58→21:19)
[2023-06-19] MEDS: SODIUM CHLORIDE 0.9% IV 1,000 ML 999 ML IV CONT (05:28)
[2023-06-19 06:09] LABS: Basophils Absolute Auto 0.1 K/mm3 (0.0-0.1); Basophils Percent Auto 0.9 % (0.2-1.2); Eosinophils Absolute Auto 0.2 K/mm3 (0-0.3); Eosinophils Percent Auto 2.7 % (0-4.4); Hematocrit 30.1 % (37.0-47.0); Immature Granulocyte Absolute 0.04 K/mm3 (0.00-0.031); Immature Granulocyte Percent A 0.5 % (0-0.5); Lymphocytes Absolute Auto 1.98 K/mm3 (0.9-3.2); Lymphocytes Percent Auto 25.3 % (18.3-44.2); Mean Corpuscular HGB Conc 29.9 g/dl (32-36); Mean Corpuscular Hemoglobin 29.8 pg (26-34); Mean Corpuscular Volume 99.7 fl (80-100); Mean Platelet Volume 10.3 fl (7.4-10.4); Monocytes Absolute Auto 0.5 K/mm3 (0.1-0.6); Monocytes Percent Auto 6.9 % (2.6-8.5); Neutrophils Percent Auto 63.7 % (45.5-73.1); Platelet Count Result 240 k/mm3 (150-375); Red Blood Count 3.02 M/mm3 (4.2-5.4); Red Cell Distribution Width 13.6 % (11.5-14.5); White Blood Count 7.8 K/mm3 (4.5-10.0)
[2023-06-19] MEDS: LEVOTHYROXINE SODIUM 50 MCG TABLET PO (06:10)
[2023-06-19 06:24] LABS: Lactic Acid Reflex 1.2 mmol/L (0.7-2.0)
[2023-06-19 06:33] LABS: Alanine Aminotransferase 15 U/L (6-35); Albumin Level 2.4 g/dL (3.5-5.1); Alkaline Phosphatase 63 U/L (38-126); Anion Gap 6 mmol/L (8-16); Aspartate Amino Transferase 17 U/L (14-36); Bilirubin,Total 0.3 mg/dL (0.2-1.3); Blood Urea Nitrogen 9 mg/dL (7-17); Carbon Dioxide 19 mmol/L (22-30); Chloride 115 mmol/L (98-107); Estimated CRCL calculation 62 ml/min; Estimated Glomerular Filt Rate 57; Glucose 109 mg/dL (65-110); Lipase 105 U/L (23-300); Potassium 3.2 mmol/L (3.4-5.0); Sodium 140 mmol/L (137-145)
[2023-06-19] MEDS: SODIUM CHLORIDE 0.9% IV 1,000 ML 100 ML IV CONT (06:52)
--- NOTE | 2023-06-19 07:09 | P.PNIM_ITS ---
Progress Note: A&P Assessment and Plan (1) Acute urinary tract infection: Code(s): N39.0 - Urinary tract infection, site not specified Status: Acute Assessment and Plan: 06/18/23: (copied from chart) * Continue with ceftriaxone. Blood and urine cultures are pending. Continue with IV fluids. 06/19/23: * (2) Acute hypotension: Code(s): I95.9 - Hypotension, unspecified Status: Acute Assessment and Plan: 06/18/23: (copied from chart) * Patient's blood pressure has improved peer the patient. hold blood pressure medication if her map is less than 65. The patient was given IV fluids in the emergency room will continue with IV . Most likely this is due to UTI. 06/19/23: * (3) Hypomagnesemia: Code(s): E83.42 - Hypomagnesemia Status: Acute Assessment and Plan: 06/19/23: * (4) Hypokalemia: Code(s): E87.6 - Hypokalemia Status: Acute Assessment and Plan: 06/19/23: * (5) Chronic pain: Qualifiers: Chronic pain type: chronic pain syndrome Qualified Code(s): G89.4 - Chronic pain syndrome Code(s): G89.29 - Other chronic pain Status: Acute Assessment and Plan: 06/18/23: (copied from chart) * The patient has a chronic morphine pump. She is on [place] at home. Continue with her home medications of [place] as lungs her map is greater than 65. 06/19/23: * (6) Polyneuropathy: Code(s): G62.9 - Polyneuropathy, unspecified Status: Acute Assessment and Plan: 06/18/23: (copied from chart) * Continue with her Cymbalta 06/19/23: * (7) Hypothyroidism: Code(s): E03.9 - Hypothyroidism, unspecified Status: Acute Assessment and Plan: 06/18/23: (copied from chart) * check thyroid level and continue with levothyroxine 06/19/23: * (8) Anxiety: Code(s): F41.9 - Anxiety disorder, unspecified Status: Acute Assessment and Plan: 06/18/23: (copied from chart) * continue with hydroxyzine. Continue with Zoloft. Continue trazodone 06/19/23: * (9) Anemia of chronic disease: Code(s): D63.8 - Anemia in other chronic diseases classified elsewhere Status: Acute Assessment and Plan: 06/18/23: (copied from chart) * patient is at her baseline of H&H 10.2 and 33.1. MCV normal 06/19/23: * (10) Chronic kidney disease, stage 3b: Code(s): N18.32 - Chronic kidney disease, stage 3b Status: Acute Assessment and Plan: 06/18/23: (copied from chart) * creatinine 1.2 with baseline normal. GFR is 46 today with a normal of 60 in the past. 06/19/23: * Time Spent With Patient Time with patient: Greater than 35 minutes Subjective Date/time seen: 06/19/23 07:09 Interval history: Interval history: This is a 58-year-old female who presented to the ER from her rehab facility for evaluation of hypotension, lightheadedness, vision changes, and LOC. She was found to have B/P 80/40's and EMS was called. While in ER B/P's remained low 59/44 and 78/49. Hospital workup included a head CT which was negative for any acute intracranial process, CT of chest/abdomen/pelvis which did not show any acute intrathoracic or abdominopelvic findings. Respiratory panel was negative for influenza, RSV, and COVID. Troponin was negative x2. UA was obtained and shown 1+ blood, + Nitrates, 1+ leukocytes, many urine RBC's and WBC's, 4+ bacteria. Urine and blood cultures were obtained. P
--- NOTE | 2023-06-19 07:09 | PM.IMPN ---
Progress Note: A&P Assessment and Plan (1) Acute urinary tract infection: Code(s): N39.0 - Urinary tract infection, site not specified Status: Acute Assessment and Plan: 06/18/23: (copied from chart) Continue with ceftriaxone. Blood and urine cultures are pending. Continue with IV fluids. 06/19/23: (2) Acute hypotension: Code(s): I95.9 - Hypotension, unspecified Status: Acute Assessment and Plan: 06/18/23: (copied from chart) Patient's blood pressure has improved peer the patient. hold blood pressure medication if her map is less than 65. The patient was given IV fluids in the emergency room will continue with IV . Most likely this is due to UTI. 06/19/23: (3) Hypomagnesemia: Code(s): E83.42 - Hypomagnesemia Status: Acute Assessment and Plan: 06/19/23: (4) Hypokalemia: Code(s): E87.6 - Hypokalemia Status: Acute Assessment and Plan: 06/19/23: (5) Chronic pain: Qualifiers: Chronic pain type: chronic pain syndrome Qualified Code(s): G89.4 - Chronic pain syndrome Code(s): G89.29 - Other chronic pain Status: Acute Assessment and Plan: 06/18/23: (copied from chart) The patient has a chronic morphine pump. She is on [place] at home. Continue with her home medications of [place] as lungs her map is greater than 65. 06/19/23: (6) Polyneuropathy: Code(s): G62.9 - Polyneuropathy, unspecified Status: Acute Assessment and Plan: 06/18/23: (copied from chart) Continue with her Cymbalta 06/19/23: (7) Hypothyroidism: Code(s): E03.9 - Hypothyroidism, unspecified Status: Acute Assessment and Plan: 06/18/23: (copied from chart) check thyroid level and continue with levothyroxine 06/19/23: (8) Anxiety: Code(s): F41.9 - Anxiety disorder, unspecified Status: Acute Assessment and Plan: 06/18/23: (copied from chart) continue with hydroxyzine. Continue with Zoloft. Continue trazodone 06/19/23: (9) Anemia of chronic disease: Code(s): D63.8 - Anemia in other chronic diseases classified elsewhere Status: Acute Assessment and Plan: 06/18/23: (copied from chart) patient is at her baseline of H&H 10.2 and 33.1. MCV normal 06/19/23: (10) Chronic kidney disease, stage 3b: Code(s): N18.32 - Chronic kidney disease, stage 3b Status: Acute Assessment and Plan: 06/18/23: (copied from chart) creatinine 1.2 with baseline normal. GFR is 46 today with a normal of 60 in the past. 06/19/23: Time Spent With Patient Time with patient: Greater than 35 minutes Subjective Date/time seen: 06/19/23 07:09 Interval history: Interval history: This is a 58-year-old female who presented to the ER from her rehab facility for evaluation of hypotension, lightheadedness, vision changes, and LOC. She was found to have B/P 80/40's and EMS was called. While in ER B/P's remained low 59/44 and 78/49. Hospital workup included a head CT which was negative for any acute intracranial process, CT of chest/abdomen/pelvis which did not show any acute intrathoracic or abdominopelvic findings. Respiratory panel was negative for influenza, RSV, and COVID. Troponin was negative x2. UA was obtained and shown 1+ blood, + Nitrates, 1+ leukocytes, many urine RBC's and WBC's, 4+ bacteria. Urine and blood cultures were obtained. Patient was given IVF and started on Rocephin. Blood pressure recovered to 131/81. On examination today Labs today revealed WBC 7.8, Hgb 9.0, Hct 30.1, Na+ 140, K+ 3.2, Chloride 115, Bicarb 19, BUN 9.0, creatinine 1.0 Lactate 1.2, Magnesium 1.0, Ca+ 7.0, Albumin 2.4 (corrected Ca+ 8.0), C-reactive protein 2.1, Lipase 105, and liver enzymes were all normal. Blood and urine cultures are pending. Review of Systems Review of Systems: Interval summary: Exam Narrative: GENER
[2023-06-19] MEDS: acetaZOLAMIDE TAB 250 MG TABLET 500 MG PO ×2 (08:49→17:55)
[2023-06-19] MEDS: POTASSIUM CHLORIDE 20 MEQ PACKET (FOR LIQUID) 40 MEQ PO (08:49)
[2023-06-19] MEDS: FERROUS SULFATE 325 MG TABLET DR PO (08:50)
[2023-06-19] MEDS: ENOXAPARIN 40 MG/0.4 ML SYRINGE SUB-Q (08:50)
[2023-06-19] MEDS: CHOLECALCIFEROL 1,000 UNITS TABLET 5000 UNITS PO (08:50)
[2023-06-19] MEDS: DULoxetine HCL 20 MG CAPSULE.DR PO (08:50)
[2023-06-19] MEDS: SERTRALINE HCL 50 MG TABLET PO (08:51)
[2023-06-19] MEDS: PANTOPRAZOLE 40 MG TABLET PO (08:51)
[2023-06-19] MEDS: POTASSIUM CHLORIDE 20 MEQ ER TABLET PO (08:51)
[2023-06-19] MEDS: HYDROcodone/acetaminophen (*CRX) 5-325 MG TABLET 1 TAB PO ×2 (10:47→17:55)
--- NOTE | 2023-06-19 13:49 | P.PNIM_ITS ---
Progress Note: A&P Assessment and Plan (1) Acute urinary tract infection: Code(s): N39.0 - Urinary tract infection, site not specified Status: Acute Assessment and Plan: 06/18/23: (copied from chart) * Continue with ceftriaxone. Blood and urine cultures are pending. Continue with IV fluids. 06/19/23: * urine showed 1+ blood, nitrates positive, 1+ leukocytes, 4+ bacteria * Blood and urine cultures are pending * continue with Rocephin * will discontinue IV fluids, patient on heart healthy diet (2) Acute hypotension: Code(s): I95.9 - Hypotension, unspecified Status: Acute Assessment and Plan: 06/18/23: (copied from chart) * Patient's blood pressure has improved peer the patient. hold blood pressure medication if her map is less than 65. The patient was given IV fluids in the emergency room will continue with IV . Most likely this is due to UTI. 06/19/23: * blood pressures ranging from 90/60's- 110/58 with Map in the mid 70's today * will hold blood pressure medication today and re-evaluate B/P tomorrow. * Patient placed on heart healthy diet, IVF discontinued (3) Hypomagnesemia: Code(s): E83.42 - Hypomagnesemia Status: Acute Assessment and Plan: 06/19/23: * magnesium 1.0 * 6 gm of IV Magnesium given today * continue to trend labs (4) Hypokalemia: Code(s): E87.6 - Hypokalemia Status: Acute Assessment and Plan: 06/19/23: * potassium 3.2 * 40 mEq of potassium given x1 today * continue to trend labs (5) Chronic pain: Qualifiers: Chronic pain type: chronic pain syndrome Qualified Code(s): G89.4 - Chronic pain syndrome Code(s): G89.29 - Other chronic pain Status: Acute Assessment and Plan: 06/18/23: (copied from chart) * The patient has a chronic morphine pump. She is on [place] at home. Continue with her home medications of [place] as lungs her map is greater than 65. 06/19/23: * continue with medication of [place], hold [place] if map is less than 65 (6) Polyneuropathy: Code(s): G62.9 - Polyneuropathy, unspecified Status: Acute Assessment and Plan: 06/18/23: (copied from chart) * Continue with her Cymbalta 06/19/23: * no change to current treatment plan (7) Hypothyroidism: Code(s): E03.9 - Hypothyroidism, unspecified Status: Acute Assessment and Plan: 06/18/23: (copied from chart) * check thyroid level and continue with levothyroxine 06/19/23: * TSH 1.170 * continue with current treatment plan (8) Anxiety: Code(s): F41.9 - Anxiety disorder, unspecified Status: Acute Assessment and Plan: 06/18/23: (copied from chart) * continue with hydroxyzine. Continue with Zoloft. Continue trazodone 06/19/23: * no change to current treatment plan (9) Anemia of chronic disease: Code(s): D63.8 - Anemia in other chronic diseases classified elsewhere Status: Acute Assessment and Plan: 06/18/23: (copied from chart) * patient is at her baseline of H&H 10.2 and 33.1. MCV normal 06/19/23: * no change to current treatment plan (10) Chronic kidney disease, stage 3b: Code(s): N18.32 - Chronic kidney disease, stage 3b Status: Acute Assessment and Plan: 06/18/23: (copied from chart) * creatinine 1.2 with baseline normal. GFR is 46 today with a normal of 60 in the past. 06/19/23: * BUN 9.0, creatinine 1.0 * No change to current treatment plan
--- NOTE | 2023-06-19 13:49 | PM.IMPN ---
Progress Note: A&P Assessment and Plan (1) Acute urinary tract infection: Code(s): N39.0 - Urinary tract infection, site not specified Status: Acute Assessment and Plan: 06/18/23: (copied from chart) Continue with ceftriaxone. Blood and urine cultures are pending. Continue with IV fluids. 06/19/23: urine showed 1+ blood, nitrates positive, 1+ leukocytes, 4+ bacteria Blood and urine cultures are pending continue with Rocephin will discontinue IV fluids, patient on heart healthy diet (2) Acute hypotension: Code(s): I95.9 - Hypotension, unspecified Status: Acute Assessment and Plan: 06/18/23: (copied from chart) Patient's blood pressure has improved peer the patient. hold blood pressure medication if her map is less than 65. The patient was given IV fluids in the emergency room will continue with IV . Most likely this is due to UTI. 06/19/23: blood pressures ranging from 90/60's- 110/58 with Map in the mid 70's today will hold blood pressure medication today and re-evaluate B/P tomorrow. Patient placed on heart healthy diet, IVF discontinued (3) Hypomagnesemia: Code(s): E83.42 - Hypomagnesemia Status: Acute Assessment and Plan: 06/19/23: magnesium 1.0 6 gm of IV Magnesium given today continue to trend labs (4) Hypokalemia: Code(s): E87.6 - Hypokalemia Status: Acute Assessment and Plan: 06/19/23: potassium 3.2 40 mEq of potassium given x1 today continue to trend labs (5) Chronic pain: Qualifiers: Chronic pain type: chronic pain syndrome Qualified Code(s): G89.4 - Chronic pain syndrome Code(s): G89.29 - Other chronic pain Status: Acute Assessment and Plan: 06/18/23: (copied from chart) The patient has a chronic morphine pump. She is on [place] at home. Continue with her home medications of [place] as lungs her map is greater than 65. 06/19/23: continue with medication of [place], hold [place] if map is less than 65 (6) Polyneuropathy: Code(s): G62.9 - Polyneuropathy, unspecified Status: Acute Assessment and Plan: 06/18/23: (copied from chart) Continue with her Cymbalta 06/19/23: no change to current treatment plan (7) Hypothyroidism: Code(s): E03.9 - Hypothyroidism, unspecified Status: Acute Assessment and Plan: 06/18/23: (copied from chart) check thyroid level and continue with levothyroxine 06/19/23: TSH 1.170 continue with current treatment plan (8) Anxiety: Code(s): F41.9 - Anxiety disorder, unspecified Status: Acute Assessment and Plan: 06/18/23: (copied from chart) continue with hydroxyzine. Continue with Zoloft. Continue trazodone 06/19/23: no change to current treatment plan (9) Anemia of chronic disease: Code(s): D63.8 - Anemia in other chronic diseases classified elsewhere Status: Acute Assessment and Plan: 06/18/23: (copied from chart) patient is at her baseline of H&H 10.2 and 33.1. MCV normal 06/19/23: no change to current treatment plan (10) Chronic kidney disease, stage 3b: Code(s): N18.32 - Chronic kidney disease, stage 3b Status: Acute Assessment and Plan: 06/18/23: (copied from chart) creatinine 1.2 with baseline normal. GFR is 46 today with a normal of 60 in the past. 06/19/23: BUN 9.0, creatinine 1.0 No change to current treatment plan Time Spent With Patient Time with patient: Greater than 35 minutes Subjective Date/time seen: 06/19/23 13:49 Interval history: 06/19/23: Interval history: This is a 58-year-old female who presented to the ER from her rehab facility for evaluation of hypotension, lightheadedness, vision changes, and LOC. She was found to have B/P 80/40's and EMS was called. While in ER B/P's remained low 59/44 and 78/49. Hospital workup included a head CT which was negative for any acute in
[2023-06-19 16:38] LABS: Magnesium 2.5 mg/dL (1.6-2.3); Potassium 3.9 mmol/L (3.4-5.0)
[2023-06-19] MEDS: traZODone HCL 50 MG TABLET 200 MG PO (21:16)
[2023-06-20] VITALS (12 sets, daily range): BP systolic 92–133; BP diastolic 53–77; PULSE 65–89; RESP 14–20; TEMP 36.3–36.9; O2SAT 96–98; BMI 33.0
[2023-06-20] MEDS: LEVOTHYROXINE SODIUM 50 MCG TABLET PO (04:55)
[2023-06-20 05:34] LABS: Hematocrit 31.3 % (37.0-47.0); Hemoglobin 9.3 g/dL (12.0-15.0); Mean Corpuscular HGB Conc 29.7 g/dl (32-36); Mean Corpuscular Hemoglobin 30.4 pg (26-34); Mean Corpuscular Volume 102.3 fl (80-100); Mean Platelet Volume 10.1 fl (7.4-10.4); Platelet Count Result 250 k/mm3 (150-375); Red Blood Count 3.06 M/mm3 (4.2-5.4); Red Cell Distribution Width 13.6 % (11.5-14.5); White Blood Count 6.3 K/mm3 (4.5-10.0)
[2023-06-20 05:38] LABS: Anion Gap 6 mmol/L (8-16); Blood Urea Nitrogen 8 mg/dL (7-17); Calcium 7.5 mg/dL (8.4-10.2); Carbon Dioxide 16 mmol/L (22-30); Chloride 116 mmol/L (98-107); Estimated CRCL calculation 69 ml/min; Estimated Glomerular Filt Rate > 60; Glucose 96 mg/dL (65-110); Magnesium 2.1 mg/dL (1.6-2.3); Potassium 3.7 mmol/L (3.4-5.0); Sodium 138 mmol/L (137-145)
--- NOTE | 2023-06-20 07:00 | P.PNIM_ITS ---
Progress Note: A&P Assessment and Plan (1) Acute urinary tract infection: Code(s): N39.0 - Urinary tract infection, site not specified Status: Acute Assessment and Plan: 06/18/23: (copied from chart) * Continue with ceftriaxone.? Blood and urine cultures are pending.? Continue with IV fluids. 06/19/23: * ? urine showed 1+ blood, nitrates positive, 1+? leukocytes, 4+ bacteria * ?Blood and urine cultures are pending * ?continue with Rocephin * ?will discontinue IV fluids, patient on heart healthy diet 06/20/23: * Blood in urine cultures are still pending * Continue with Rocephin * Patient tolerating p.o. intake (2) Acute hypotension: Code(s): I95.9 - Hypotension, unspecified Status: Acute Assessment and Plan: 06/18/23: (copied from chart) * ?Patient's blood pressure has improved peer the patient.? hold blood pressure medication if her map is less than 65.? The patient was given IV fluids in the emergency room will continue with IV . ? Most likely this is due to UTI. 06/19/23: * ?blood pressures ranging from 90/60's- 110/58 with Map in the mid 70's today * ?will hold blood pressure medication today and re-evaluate B/P tomorrow. * Patient placed on heart healthy diet, IVF discontinued 06/20/23: * blood pressure still on the low side of normal 103/57- 110/58. * Continue to hold blood pressure medications (3) Hypomagnesemia: Code(s): E83.42 - Hypomagnesemia Status: Acute Assessment and Plan: 06/19/23: * ?magnesium 1.0 * 6 gm of? IV Magnesium given today * ?continue to trend labs 06/20/23: * magnesium level 2.1, no need for any additional replacement * continue to trend labs (4) Hypokalemia: Code(s): E87.6 - Hypokalemia Status: Acute Assessment and Plan: 06/19/23: * ?potassium 3.2 * ?40 mEq of potassium given x1 today * ?continue to trend labs 06/20/23: * potassium today is 3.7, no need for replacement at this time * continue to trend labs (5) Chronic pain: Qualifiers: Chronic pain type: chronic pain syndrome Qualified Code(s): G89.4 - Chronic pain syndrome Code(s): G89.29 - Other chronic pain Status: Acute Assessment and Plan: 06/18/23: (copied from chart) * The patient has a chronic morphine pump.? She is on [place] at home.? Continue with her home medications of [place] as lungs her map is greater than 65. 06/19/23: * ?continue with medication of [place], hold [place] if map is less than 65 06/20/23: * Reports pain 03/07, increase [place] to 1-2 tabs q.6 hours * PT and OT ordered (6) Polyneuropathy: Code(s): G62.9 - Polyneuropathy, unspecified Status: Acute Assessment and Plan: ?06/18/23: (copied from chart) * ?Continue with her Cymbalta 06/19/23: * ?no change to current treatment plan (7) Hypothyroidism: Code(s): E03.9 - Hypothyroidism, unspecified Status: Acute Assessment and Plan: 06/18/23: (copied from chart) * ?check thyroid level and continue with levothyroxine 06/19/23: * ?TSH 1.170 * ?continue with current treatment plan (8) Anxiety: Code(s): F41.9 - Anxiety disorder, unspecified Status: Acute Assessment and Plan: 06/18/23: (copied from chart) * continue with hydroxyzine.? Continue with Zoloft.? Continue trazodone 06/19/23: * ?no change to current treatment plan (9) Anemia of chronic disease: Code(s): D63.8 - Anemia in other chronic diseases classified elsewhere Status: Acute Assessment and Plan:
--- NOTE | 2023-06-20 07:00 | PM.IMPN ---
Progress Note: A&P Assessment and Plan (1) Acute urinary tract infection: Code(s): N39.0 - Urinary tract infection, site not specified Status: Acute Assessment and Plan: 06/18/23: (copied from chart) Continue with ceftriaxone.? Blood and urine cultures are pending.? Continue with IV fluids. 06/19/23: ? urine showed 1+ blood, nitrates positive, 1+? leukocytes, 4+ bacteria ?Blood and urine cultures are pending ?continue with Rocephin ?will discontinue IV fluids, patient on heart healthy diet 06/20/23: Blood in urine cultures are still pending Continue with Rocephin Patient tolerating p.o. intake (2) Acute hypotension: Code(s): I95.9 - Hypotension, unspecified Status: Acute Assessment and Plan: 06/18/23: (copied from chart) ?Patient's blood pressure has improved peer the patient.? hold blood pressure medication if her map is less than 65.? The patient was given IV fluids in the emergency room will continue with IV . ? Most likely this is due to UTI. 06/19/23: ?blood pressures ranging from 90/60's- 110/58 with Map in the mid 70's today ?will hold blood pressure medication today and re-evaluate B/P tomorrow. Patient placed on heart healthy diet, IVF discontinued 06/20/23: blood pressure still on the low side of normal 103/57- 110/58. Continue to hold blood pressure medications (3) Hypomagnesemia: Code(s): E83.42 - Hypomagnesemia Status: Acute Assessment and Plan: 06/19/23: ?magnesium 1.0 6 gm of? IV Magnesium given today ?continue to trend labs 06/20/23: magnesium level 2.1, no need for any additional replacement continue to trend labs (4) Hypokalemia: Code(s): E87.6 - Hypokalemia Status: Acute Assessment and Plan: 06/19/23: ?potassium 3.2 ?40 mEq of potassium given x1 today ?continue to trend labs 06/20/23: potassium today is 3.7, no need for replacement at this time continue to trend labs (5) Chronic pain: Qualifiers: Chronic pain type: chronic pain syndrome Qualified Code(s): G89.4 - Chronic pain syndrome Code(s): G89.29 - Other chronic pain Status: Acute Assessment and Plan: 06/18/23: (copied from chart) The patient has a chronic morphine pump.? She is on [place] at home.? Continue with her home medications of [place] as lungs her map is greater than 65. 06/19/23: ?continue with medication of [place], hold [place] if map is less than 65 06/20/23: Reports pain 03/07, increase [place] to 1-2 tabs q.6 hours PT and OT ordered (6) Polyneuropathy: Code(s): G62.9 - Polyneuropathy, unspecified Status: Acute Assessment and Plan: ?06/18/23: (copied from chart) ?Continue with her Cymbalta 06/19/23: ?no change to current treatment plan (7) Hypothyroidism: Code(s): E03.9 - Hypothyroidism, unspecified Status: Acute Assessment and Plan: 06/18/23: (copied from chart) ?check thyroid level and continue with levothyroxine 06/19/23: ?TSH 1.170 ?continue with current treatment plan (8) Anxiety: Code(s): F41.9 - Anxiety disorder, unspecified Status: Acute Assessment and Plan: 06/18/23: (copied from chart) continue with hydroxyzine.? Continue with Zoloft.? Continue trazodone 06/19/23: ?no change to current treatment plan (9) Anemia of chronic disease: Code(s): D63.8 - Anemia in other chronic diseases classified elsewhere Status: Acute Assessment and Plan: 06/18/23: (copied from chart) ?patient is at her baseline of H&H 10.2 and 33.1.? MCV normal 06/19/23: no change to current treatment plan (10) Chronic kidney disease, stage 3b: Code(s): N18.32 - Chronic kidney disease, stage 3b Status: Acute Assessment and Plan: 06/18/23: (copied from chart) ?creatinine 1.2 with baseline normal.? GFR is 46 today with a normal of 60 in the past. 06/19/23: BUN 9.0, creatinine 1.0 No change to current [facility]
[2023-06-20] MEDS: acetaZOLAMIDE TAB 250 MG TABLET 500 MG PO ×2 (08:00→17:05)
[2023-06-20] MEDS: FERROUS SULFATE 325 MG TABLET DR PO (08:00)
[2023-06-20] MEDS: SERTRALINE HCL 50 MG TABLET PO (08:00)
[2023-06-20] MEDS: DULoxetine HCL 20 MG CAPSULE.DR PO (08:00)
[2023-06-20] MEDS: PANTOPRAZOLE 40 MG TABLET PO (08:00)
[2023-06-20] MEDS: POTASSIUM CHLORIDE 20 MEQ ER TABLET PO (08:00)
[2023-06-20] MEDS: CHOLECALCIFEROL 1,000 UNITS TABLET 5000 UNITS PO (08:00)
[2023-06-20] MEDS: HYDROcodone/acetaminophen (*CRX) 5-325 MG TABLET 1 TAB PO (08:04)
[2023-06-20] MEDS: TIZANIDINE HCL 4 MG TABLET 8 MG PO ×2 (08:04→17:05)
[2023-06-20] MEDS: ENOXAPARIN 40 MG/0.4 ML SYRINGE SUB-Q (08:07)
[2023-06-20] MEDS: HYDROcodone/acetaminophen (*CRX) 5-325 MG TABLET PO ×2 (14:15→20:59)
--- NOTE | 2023-06-20 15:01 | PC.NURSE ---
Assessment, care and medications performed by [place] [facility] Student RN under supervision of instructor and hospital staff. Assessment reviewed and agree with same.
[2023-06-20] MEDS: traZODone HCL 50 MG TABLET 200 MG PO (21:00)
[2023-06-21] VITALS (14 sets, daily range): BP systolic 82–153; BP diastolic 56–92; PULSE 68–122; RESP 16–18; TEMP 36.2–36.7; O2SAT 95–99
[2023-06-21 05:25] LABS: Hematocrit 39.3 % (37.0-47.0); Hemoglobin 10.9 g/dL (12.0-15.0); Mean Corpuscular HGB Conc 27.7 g/dl (32-36); Mean Corpuscular Hemoglobin 30.5 pg (26-34); Mean Corpuscular Volume 110.1 fl (80-100); Platelet Count Result 239 k/mm3 (150-375); Red Blood Count 3.57 M/mm3 (4.2-5.4); Red Cell Distribution Width 13.5 % (11.5-14.5); White Blood Count 5.4 K/mm3 (4.5-10.0)
[2023-06-21] MEDS: LEVOTHYROXINE SODIUM 50 MCG TABLET PO (06:10)
[2023-06-21] MEDS: HYDROcodone/acetaminophen (*CRX) 5-325 MG TABLET PO ×2 (06:12→20:10)
[2023-06-21 06:39] LABS: Anion Gap 9 mmol/L (8-16); Blood Urea Nitrogen 8 mg/dL (7-17); Calcium 8.4 mg/dL (8.4-10.2); Carbon Dioxide 14 mmol/L (22-30); Chloride 117 mmol/L (98-107); Estimated CRCL calculation 77 ml/min; Estimated Glomerular Filt Rate > 60; Glucose 77 mg/dL (65-110); Sodium 140 mmol/L (137-145)
--- NOTE | 2023-06-21 07:54 | P.PNIM_ITS ---
Progress Note: A&P Assessment and Plan (1) Acute urinary tract infection: Code(s): N39.0 - Urinary tract infection, site not specified Status: Acute Assessment and Plan: 06/18/23: (copied from chart) * Continue with ceftriaxone.? Blood and urine cultures are pending.? Continue with IV fluids. 06/19/23: * ? urine showed 1+ blood, nitrates positive, 1+? leukocytes, 4+ bacteria * ?Blood and urine cultures are pending * ?continue with Rocephin * ?will discontinue IV fluids, patient on heart healthy diet 06/20/23: * Blood in urine cultures are still pending * Continue with Rocephin * Patient tolerating p.o. intake 06/21/23: * Urine culture showing Enterobacter cloacae complex on preliminary, will await final result before changing antibiotics. * Continue with Rocephin for now (2) Acute hypotension: Code(s): I95.9 - Hypotension, unspecified Status: Acute Assessment and Plan: 06/18/23: (copied from chart) * ?Patient's blood pressure has improved peer the patient.? hold blood pressure medication if her map is less than 65.? The patient was given IV fluids in the emergency room will continue with IV . ? Most likely this is due to UTI. 06/19/23: * ?blood pressures ranging from 90/60's- 110/58 with Map in the mid 70's today * ?will hold blood pressure medication today and re-evaluate B/P tomorrow. * Patient placed on heart healthy diet, IVF discontinued 06/20/23: * blood pressure still on the low side of normal 103/57- 110/58. * Continue to hold blood pressure medications 06/21/23: * blood pressure 137/70 with map of 92, heart rate 97 * Will restart Metoprolol 25mg BID * Nurse reported this morning that her heart rate jumped up to 120-150 which was sustained while lying in the bed. On examination this morning heart rate in the upper 90s, normal sinus rhythm. Patient does state that she feels a tightness across her chest and had an episode of nausea and vomiting this morning. In light of that we will check an EKG and get troponin as well. She was given her dose of metoprolol 25 mg this morning. She is currently on Lovenox 40 mg daily. * Magnesium 1.8 today * Troponin I <0.012 * EKG showing NSR 67 (3) Hypomagnesemia: Code(s): E83.42 - Hypomagnesemia Status: Acute Assessment and Plan: 06/19/23: * ?magnesium 1.0 * 6 gm of? IV Magnesium given today * ?continue to trend labs 06/20/23: * magnesium level 2.1, no need for any additional replacement * continue to trend labs 06/21/23: * Mag level today 1.8 * Continue to trend labs (4) Hypokalemia: Code(s): E87.6 - Hypokalemia Status: Acute Assessment and Plan: 06/19/23: * ?potassium 3.2 * ?40 mEq of potassium given x1 today * ?continue to trend labs 06/20/23: * potassium today is 3.7, no need for replacement at this time * continue to trend labs 06/21/23: * Potassium today 4.0 * Continue to trend labs (5) Chronic pain: Qualifiers: Chronic pain type: chronic pain syndrome Qualified Code(s): G89.4 - Chronic pain syndrome Code(s): G89.29 - Other chronic pain Status: Acute Assessment and Plan: 06/18/23: (copied from chart) * The patient has a chronic morphine pump.? She is on [place] at home.? Continue with her home medications of [place] as lungs her map is greater than 65. 06/19/23: * ?continue with medication of [place], hold [place] if map is less than 65 06/20/23: * Reports pain 03/07, increase [place] to 1-2 tabs q.6 hours * PT and OT ordered 06/21/23: * continue
--- NOTE | 2023-06-21 07:54 | PM.IMPN ---
Progress Note: A&P Assessment and Plan (1) Acute urinary tract infection: Code(s): N39.0 - Urinary tract infection, site not specified Status: Acute Assessment and Plan: 06/18/23: (copied from chart) Continue with ceftriaxone.? Blood and urine cultures are pending.? Continue with IV fluids. 06/19/23: ? urine showed 1+ blood, nitrates positive, 1+? leukocytes, 4+ bacteria ?Blood and urine cultures are pending ?continue with Rocephin ?will discontinue IV fluids, patient on heart healthy diet 06/20/23: Blood in urine cultures are still pending Continue with Rocephin Patient tolerating p.o. intake 06/21/23: Urine culture showing Enterobacter cloacae complex on preliminary, will await final result before changing antibiotics. Continue with Rocephin for now (2) Acute hypotension: Code(s): I95.9 - Hypotension, unspecified Status: Acute Assessment and Plan: 06/18/23: (copied from chart) ?Patient's blood pressure has improved peer the patient.? hold blood pressure medication if her map is less than 65.? The patient was given IV fluids in the emergency room will continue with IV . ? Most likely this is due to UTI. 06/19/23: ?blood pressures ranging from 90/60's- 110/58 with Map in the mid 70's today ?will hold blood pressure medication today and re-evaluate B/P tomorrow. Patient placed on heart healthy diet, IVF discontinued 06/20/23: blood pressure still on the low side of normal 103/57- 110/58. Continue to hold blood pressure medications 06/21/23: blood pressure 137/70 with map of 92, heart rate 97 Will restart Metoprolol 25mg BID Nurse reported this morning that her heart rate jumped up to 120-150 which was sustained while lying in the bed. On examination this morning heart rate in the upper 90s, normal sinus rhythm. Patient does state that she feels a tightness across her chest and had an episode of nausea and vomiting this morning. In light of that we will check an EKG and get troponin as well. She was given her dose of metoprolol 25 mg this morning. She is currently on Lovenox 40 mg daily. Magnesium 1.8 today Troponin I <0.012 EKG showing NSR 67 (3) Hypomagnesemia: Code(s): E83.42 - Hypomagnesemia Status: Acute Assessment and Plan: 06/19/23: ?magnesium 1.0 6 gm of? IV Magnesium given today ?continue to trend labs 06/20/23: magnesium level 2.1, no need for any additional replacement continue to trend labs 06/21/23: Mag level today 1.8 Continue to trend labs (4) Hypokalemia: Code(s): E87.6 - Hypokalemia Status: Acute Assessment and Plan: 06/19/23: ?potassium 3.2 ?40 mEq of potassium given x1 today ?continue to trend labs 06/20/23: potassium today is 3.7, no need for replacement at this time continue to trend labs 06/21/23: Potassium today 4.0 Continue to trend labs (5) Chronic pain: Qualifiers: Chronic pain type: chronic pain syndrome Qualified Code(s): G89.4 - Chronic pain syndrome Code(s): G89.29 - Other chronic pain Status: Acute Assessment and Plan: 06/18/23: (copied from chart) The patient has a chronic morphine pump.? She is on [place] at home.? Continue with her home medications of [place] as lungs her map is greater than 65. 06/19/23: ?continue with medication of [place], hold [place] if map is less than 65 06/20/23: Reports pain 7/10, increase [place] to 1-2 tabs q.6 hours PT and OT ordered 06/21/23: continue PT and OT Patient reports that her pain is still 7/10 we will go ahead and change the [place] to q.4 hours instead of q.6 hours N/C of that helps improve her pain. (6) Polyneuropathy: Code(s): G62.9 - Polyneuropathy, unspecified Status: Acute Assessment and Plan: ?06/18/23: (copied from chart) ?Continue with her Cymbalta 06/19/23: ?no change to current treatment plan (7) Hypothyroidism: Code(s): E03.9 - Hypothyroidism, unsp
[2023-06-21] MEDS: METOPROLOL TARTRATE 25 MG TABLET PO (09:16)
[2023-06-21] MEDS: acetaZOLAMIDE TAB 250 MG TABLET 500 MG PO ×2 (09:44→17:18)
[2023-06-21] MEDS: TIZANIDINE HCL 4 MG TABLET 8 MG PO ×2 (09:44→20:12)
[2023-06-21] MEDS: SERTRALINE HCL 50 MG TABLET PO (09:44)
[2023-06-21] MEDS: FERROUS SULFATE 325 MG TABLET DR PO (09:45)
[2023-06-21] MEDS: CHOLECALCIFEROL 1,000 UNITS TABLET 5000 UNITS PO (09:45)
[2023-06-21] MEDS: POTASSIUM CHLORIDE 20 MEQ ER TABLET PO (09:45)
[2023-06-21] MEDS: SODIUM BICARBONATE TAB 650 MG TABLET PO ×2 (09:46→17:18)
[2023-06-21] MEDS: PANTOPRAZOLE 40 MG TABLET PO (09:46)
[2023-06-21] MEDS: ACETAMINOPHEN 325 MG TABLET 650 MG PO (09:46)
[2023-06-21] MEDS: DULoxetine HCL 20 MG CAPSULE.DR PO (09:47)
[2023-06-21] MEDS: ENOXAPARIN 40 MG/0.4 ML SYRINGE SUB-Q (09:48)
--- NOTE | 2023-06-21 11:14 | ECG_ITS ---
Measurements Intervals [place] Rate: 68 P: 34 IA: 201 QRS: 2 QRSD: 94 T: -11 QT: 414 QTc: 443 Interpretive Statements SINUS RHYTHM LOW QRS VOLTAGE IN PRECORDIAL LEADS [QRS DEFLECTION < 1.0 mV IN CHEST LEADS] COMPARED TO ECG 06/18/2023 14:04:31 NO SIGNIFICANT CHANGES Electronically Signed On 06-21-2023 19:59:30 CDT by Arlyn Garcai M.D.
[2023-06-21 14:00] LABS: Magnesium 1.8 mg/dL (1.6-2.3)
[2023-06-21 14:12] LABS: Troponin I < 0.012 ng/mL (0.000-0.034)
[2023-06-21] MEDS: traZODone HCL 50 MG TABLET 200 MG PO (20:10)
[2023-06-21] MEDS: SULFAMETHOXAZOLE/TRIMETHOPRIM 800/160 MG DS TABLET 1 TAB PO (20:10)
[2023-06-22] VITALS (15 sets, daily range): BP systolic 132–152; BP diastolic 60–86; PULSE 65–108; RESP 18–20; TEMP 36.2–36.9; O2SAT 97–98
[2023-06-22 05:10] LABS: Hematocrit 31.9 % (37.0-47.0); Hemoglobin 9.5 g/dL (12.0-15.0); Mean Corpuscular HGB Conc 29.8 g/dl (32-36); Mean Corpuscular Hemoglobin 30.6 pg (26-34); Mean Corpuscular Volume 102.9 fl (80-100); Mean Platelet Volume 10.1 fl (7.4-10.4); Platelet Count Result 280 k/mm3 (150-375); Red Cell Distribution Width 13.6 % (11.5-14.5); White Blood Count 6.2 K/mm3 (4.5-10.0)
[2023-06-22 05:23] LABS: Anion Gap 7 mmol/L (8-16); Blood Urea Nitrogen 9 mg/dL (7-17); Calcium 8.1 mg/dL (8.4-10.2); Carbon Dioxide 16 mmol/L (22-30); Chloride 116 mmol/L (98-107); Estimated CRCL calculation 62 ml/min; Estimated Glomerular Filt Rate 57; Glucose 88 mg/dL (65-110); Potassium 3.7 mmol/L (3.4-5.0); Sodium 139 mmol/L (137-145)
[2023-06-22] MEDS: LEVOTHYROXINE SODIUM 50 MCG TABLET PO (05:25)
[2023-06-22] MEDS: HYDROcodone/acetaminophen (*CRX) 5-325 MG TABLET PO ×4 (05:25→20:10)
[2023-06-22] MEDS: SODIUM BICARBONATE TAB 650 MG TABLET PO ×2 (09:52→17:56)
[2023-06-22] MEDS: DULoxetine HCL 20 MG CAPSULE.DR PO (09:52)
[2023-06-22] MEDS: acetaZOLAMIDE TAB 250 MG TABLET 500 MG PO ×2 (09:53→17:56)
[2023-06-22] MEDS: SERTRALINE HCL 50 MG TABLET PO (09:53)
[2023-06-22] MEDS: POTASSIUM CHLORIDE 20 MEQ ER TABLET PO (09:53)
[2023-06-22] MEDS: FERROUS SULFATE 325 MG TABLET DR PO (09:53)
[2023-06-22] MEDS: PANTOPRAZOLE 40 MG TABLET PO (09:54)
[2023-06-22] MEDS: SULFAMETHOXAZOLE/TRIMETHOPRIM 800/160 MG DS TABLET 1 TAB PO ×2 (09:54→20:09)
[2023-06-22] MEDS: CHOLECALCIFEROL 1,000 UNITS TABLET 5000 UNITS PO (09:54)
[2023-06-22] MEDS: ENOXAPARIN 40 MG/0.4 ML SYRINGE SUB-Q (09:55)
--- NOTE | 2023-06-22 12:07 | P.PNIM_ITS ---
Progress Note: A&P Assessment and Plan (1) Acute urinary tract infection: Code(s): N39.0 - Urinary tract infection, site not specified Status: Acute Assessment and Plan: 06/18/23: (copied from chart) * Continue with ceftriaxone.? Blood and urine cultures are pending.? Continue with IV fluids. 06/19/23: * ? urine showed 1+ blood, nitrates positive, 1+? leukocytes, 4+ bacteria * ?Blood and urine cultures are pending * ?continue with Rocephin * ?will discontinue IV fluids, patient on heart healthy diet 06/20/23: * Blood in urine cultures are still pending * Continue with Rocephin * Patient tolerating p.o. intake 06/21/23: * Urine culture showing Enterobacter cloacae complex on preliminary, will await final result before changing antibiotics. * Continue with Rocephin for now 06/22/23: * Urine culture showing Enterobacter cloacae complex on preliminary, will await final result before changing antibiotics. * Continue with Rocephin for now (2) Acute hypotension: Code(s): I95.9 - Hypotension, unspecified Status: Acute Assessment and Plan: 06/18/23: (copied from chart) * ?Patient's blood pressure has improved peer the patient.? hold blood pressure medication if her map is less than 65.? The patient was given IV fluids in the emergency room will continue with IV . ? Most likely this is due to UTI. 06/19/23: * ?blood pressures ranging from 90/60's- 110/58 with Map in the mid 70's today * ?will hold blood pressure medication today and re-evaluate B/P tomorrow. * Patient placed on heart healthy diet, IVF discontinued 06/20/23: * blood pressure still on the low side of normal 103/57- 110/58. * Continue to hold blood pressure medications 06/21/23: * blood pressure 137/70 with map of 92, heart rate 97 * Will restart Metoprolol 25mg BID * Nurse reported this morning that her heart rate jumped up to 120-150 which was sustained while lying in the bed. On examination this morning heart rate in the upper 90s, normal sinus rhythm. Patient does state that she feels a tightness across her chest and had an episode of nausea and vomiting this morning. In light of that we will check an EKG and get troponin as well. She was given her dose of metoprolol 25 mg this morning. She is currently on Lovenox 40 mg daily. * Magnesium 1.8 today * Troponin I <0.012 * EKG showing NSR 67 06/22/23: * blood pressure stable overnight, elevated mid day, will restart Metoprolol 25 BID * Stable HR in sinus rhythm since yesterday. * She is currently on Lovenox 40 mg daily * 06/21 Troponin I <0.012 * EKG 06/21 NSR 67 (3) Hypomagnesemia: Code(s): E83.42 - Hypomagnesemia Status: Acute Assessment and Plan: 06/19/23: * ?magnesium 1.0 * 6 gm of? IV Magnesium given today * ?continue to trend labs 06/20/23: * magnesium level 2.1, no need for any additional replacement * continue to trend labs 06/22/23: * Mag level 06/21 1.8 * Continue to trend labs (4) Hypokalemia: Code(s): E87.6 - Hypokalemia Status: Acute Assessment and Plan: 06/19/23: * ?potassium 3.2 * ?40 mEq of potassium given x1 today * ?continue to trend labs 06/20/23: * potassium today is 3.7, no need for replacement at this time * continue to trend labs 06/22/23: * Potassium stable at 3.7 * Continue to trend labs (5) Chronic pain: Qualifiers: Chronic pain type: chronic pain syndrome Qualified Code(s): G89.4 - Chronic pain syndrome Code(s): G89.29 - Other chronic pain
--- NOTE | 2023-06-22 12:07 | PM.IMPN ---
Progress Note: A&P Assessment and Plan (1) Acute urinary tract infection: Code(s): N39.0 - Urinary tract infection, site not specified Status: Acute Assessment and Plan: 06/18/23: (copied from chart) Continue with ceftriaxone.? Blood and urine cultures are pending.? Continue with IV fluids. 06/19/23: ? urine showed 1+ blood, nitrates positive, 1+? leukocytes, 4+ bacteria ?Blood and urine cultures are pending ?continue with Rocephin ?will discontinue IV fluids, patient on heart healthy diet 06/20/23: Blood in urine cultures are still pending Continue with Rocephin Patient tolerating p.o. intake 06/21/23: Urine culture showing Enterobacter cloacae complex on preliminary, will await final result before changing antibiotics. Continue with Rocephin for now 06/22/23: Urine culture showing Enterobacter cloacae complex on preliminary, will await final result before changing antibiotics. Continue with Rocephin for now (2) Acute hypotension: Code(s): I95.9 - Hypotension, unspecified Status: Acute Assessment and Plan: 06/18/23: (copied from chart) ?Patient's blood pressure has improved peer the patient.? hold blood pressure medication if her map is less than 65.? The patient was given IV fluids in the emergency room will continue with IV . ? Most likely this is due to UTI. 06/19/23: ?blood pressures ranging from 90/60's- 110/58 with Map in the mid 70's today ?will hold blood pressure medication today and re-evaluate B/P tomorrow. Patient placed on heart healthy diet, IVF discontinued 06/20/23: blood pressure still on the low side of normal 103/57- 110/58. Continue to hold blood pressure medications 06/21/23: blood pressure 137/70 with map of 92, heart rate 97 Will restart Metoprolol 25mg BID Nurse reported this morning that her heart rate jumped up to 120-150 which was sustained while lying in the bed. On examination this morning heart rate in the upper 90s, normal sinus rhythm. Patient does state that she feels a tightness across her chest and had an episode of nausea and vomiting this morning. In light of that we will check an EKG and get troponin as well. She was given her dose of metoprolol 25 mg this morning. She is currently on Lovenox 40 mg daily. Magnesium 1.8 today Troponin I <0.012 EKG showing NSR 67 06/22/23: blood pressure stable overnight, elevated mid day, will restart Metoprolol 25 BID Stable HR in sinus rhythm since yesterday. She is currently on Lovenox 40 mg daily 06/21 Troponin I <0.012 EKG 06/21 NSR 67 (3) Hypomagnesemia: Code(s): E83.42 - Hypomagnesemia Status: Acute Assessment and Plan: 06/19/23: ?magnesium 1.0 6 gm of? IV Magnesium given today ?continue to trend labs 06/20/23: magnesium level 2.1, no need for any additional replacement continue to trend labs 06/22/23: Mag level 06/21 1.8 Continue to trend labs (4) Hypokalemia: Code(s): E87.6 - Hypokalemia Status: Acute Assessment and Plan: 06/19/23: ?potassium 3.2 ?40 mEq of potassium given x1 today ?continue to trend labs 06/20/23: potassium today is 3.7, no need for replacement at this time continue to trend labs 06/22/23: Potassium stable at 3.7 Continue to trend labs (5) Chronic pain: Qualifiers: Chronic pain type: chronic pain syndrome Qualified Code(s): G89.4 - Chronic pain syndrome Code(s): G89.29 - Other chronic pain Status: Acute Assessment and Plan: 06/18/23: (copied from chart) The patient has a chronic morphine pump.? She is on [place] at home.? Continue with her home medications of [place] as lungs her map is greater than 65. 06/19/23: ?continue with medication of [place], hold [place] if map is less than 65 06/20/23: Reports pain 03/07, increase [place] to 1-2 tabs q.6 hours PT and OT ordered 06/22/23: continue PT and OT [place] changed to q.4 hours in hopes to improve her
[2023-06-22] MEDS: METOPROLOL SUCCINATE EXT REL 25 MG TABCR PO ×2 (12:41→20:09)
[2023-06-22] MEDS: TIZANIDINE HCL 4 MG TABLET 8 MG PO ×2 (12:43→20:10)
--- NOTE | 2023-06-22 14:46 | PCPTNOTE ---
Attempted to see patient for Physical Therapy this date. Patient stated that she did not want to do therapy due to her feet hurting and she just hurt. RN notified.
[2023-06-22] MEDS: traZODone HCL 50 MG TABLET 200 MG PO (20:09)
[2023-06-23] VITALS (15 sets, daily range): BP systolic 92–130; BP diastolic 57–65; PULSE 55–80; RESP 14–18; TEMP 36.4–36.7; O2SAT 93–100; BMI 10.0
[2023-06-23 05:01] LABS: Hematocrit 32.3 % (37.0-47.0); Hemoglobin 9.6 g/dL (12.0-15.0); Mean Corpuscular HGB Conc 29.7 g/dl (32-36); Mean Corpuscular Hemoglobin 30.7 pg (26-34); Mean Corpuscular Volume 103.2 fl (80-100); Mean Platelet Volume 10.2 fl (7.4-10.4); Platelet Count Result 276 k/mm3 (150-375); Red Blood Count 3.13 M/mm3 (4.2-5.4); Red Cell Distribution Width 13.6 % (11.5-14.5); White Blood Count 5.8 K/mm3 (4.5-10.0)
[2023-06-23] MEDS: LEVOTHYROXINE SODIUM 50 MCG TABLET PO (05:51)
[2023-06-23] MEDS: HYDROcodone/acetaminophen (*CRX) 5-325 MG TABLET PO ×2 (05:52→17:39)
[2023-06-23 06:52] LABS: Anion Gap 8 mmol/L (8-16); Blood Urea Nitrogen 12 mg/dL (7-17); Calcium 8.6 mg/dL (8.4-10.2); Carbon Dioxide 18 mmol/L (22-30); Chloride 113 mmol/L (98-107); Estimated CRCL calculation 52 ml/min; Estimated Glomerular Filt Rate 46; Glucose 89 mg/dL (65-110); Potassium 4.2 mmol/L (3.4-5.0); Sodium 139 mmol/L (137-145)
[2023-06-23] MEDS: POTASSIUM CHLORIDE 20 MEQ ER TABLET PO (09:34)
[2023-06-23] MEDS: PANTOPRAZOLE 40 MG TABLET PO (09:34)
[2023-06-23] MEDS: SERTRALINE HCL 50 MG TABLET PO (09:34)
[2023-06-23] MEDS: TIZANIDINE HCL 4 MG TABLET 8 MG PO ×2 (09:35→21:03)
[2023-06-23] MEDS: CHOLECALCIFEROL 1,000 UNITS TABLET 5000 UNITS PO (09:35)
[2023-06-23] MEDS: DULoxetine HCL 20 MG CAPSULE.DR PO (09:35)
[2023-06-23] MEDS: acetaZOLAMIDE TAB 250 MG TABLET 500 MG PO ×2 (09:36→17:36)
[2023-06-23] MEDS: SODIUM BICARBONATE TAB 650 MG TABLET PO ×2 (09:36→17:36)
[2023-06-23] MEDS: SULFAMETHOXAZOLE/TRIMETHOPRIM 800/160 MG DS TABLET 1 TAB PO ×2 (09:36→21:03)
[2023-06-23] MEDS: ENOXAPARIN 40 MG/0.4 ML SYRINGE SUB-Q (09:37)
[2023-06-23] MEDS: METOPROLOL SUCCINATE EXT REL 25 MG TABCR PO ×2 (10:37→21:03)
[2023-06-23 11:31] LABS: Glucose Point of Care 163 mg/dl (65-105)
--- NOTE | 2023-06-23 12:06 | PC.NURSE ---
At around 1045 the provider had rounded on the patient and explained that we would be discharging her today back to her facility. Shortly after, the HIGH LIGHTER reported to the RN that the patient was anxious about going home and making other unusual commentary, the HIGH LIGHTER also noted the patient was nodding off and falling asleep while speaking. The patient was sitting in the chair at this time. The RN had the HIGH LIGHTER check the patient's blood pressure, which was too soft to hear while sitting. The RN, HIGH LIGHTER, PT, and gas charger were in the room assisting the patient to get back into bed. Initially only the walker and gaitbelt were used, however, the patient would not take any steps forward and began to buckle her knees so she was sat back down and was transferred back into bed via [facility]. Once the patient was back in bed, her blood pressure was obtained manually and was reported at 92/64, HR was in the 60's, blood sugar 163. The RN notified the provider of the incident, plan is still to be discharged to nursing facility.
--- NOTE | 2023-06-23 12:10 | PM.DS ---
DS: Admitting Diagnosis Discharge Date 06/23/23 Admitting Diagnosis hypotension, UTI DS: Discharge Diagnosis Discharge Diagnosis (1) Acute urinary tract infection: Code(s): N39.0 - Urinary tract infection, site not specified Status: Acute Assessment and Plan: Urine culture showing Enterobacter cloacae complex, will send home on (2) Acute hypotension: Code(s): I95.9 - Hypotension, unspecified Status: Acute Assessment and Plan: continue Metoprolol 25 BID Stable HR in sinus rhythm since yesterday. She is currently on Lovenox 40 mg daily, will d/c at discharge (3) Hypomagnesemia: Code(s): E83.42 - Hypomagnesemia Status: Acute Assessment and Plan: Mag level 06/21 1.8 stable (4) Hypokalemia: Code(s): E87.6 - Hypokalemia Status: Acute Assessment and Plan: Potassium stable (5) Chronic pain: Qualifiers: Chronic pain type: chronic pain syndrome Qualified Code(s): G89.4 - Chronic pain syndrome Code(s): G89.29 - Other chronic pain Status: Acute Assessment and Plan: continue PT and OT if possible at SNF resume home pain medications as directed (6) Polyneuropathy: Code(s): G62.9 - Polyneuropathy, unspecified Status: Acute Assessment and Plan: ?Continue with her Cymbalta (7) Hypothyroidism: Code(s): E03.9 - Hypothyroidism, unspecified Status: Acute Assessment and Plan: ?continue with current levothyroxine dose (8) Anxiety: Code(s): F41.9 - Anxiety disorder, unspecified Status: Acute Assessment and Plan: continue with hydroxyzine.? Continue with Zoloft.? Continue trazodone (9) Anemia of chronic disease: Code(s): D63.8 - Anemia in other chronic diseases classified elsewhere Status: Acute Assessment and Plan: ?patient is at her baseline H&H, MCV (10) Chronic kidney disease, stage 3b: Code(s): N18.32 - Chronic kidney disease, stage 3b Status: Acute Assessment and Plan: continue to follow up with gaming manager outpatient DS: Summary Hospital Course Reason for hospitalization: Altered mental status Hospital Course: This is a 58-year-old female who presented to the ER from her rehab facility for evaluation of hypotension, lightheadedness, vision changes, and LOC. She was found to have B/P 80/40's and EMS was called. While in ER B/P's remained low 59/44 and 78/49. Hospital workup included a head CT which was negative for any acute intracranial process, CT of chest/abdomen/pelvis which did not show any acute intrathoracic or abdominopelvic findings. Respiratory panel was negative for influenza, RSV, and COVID. Troponin was negative x2. UA was obtained and shown 1+ blood, + Nitrates, 1+ leukocytes, many urine RBC's and WBC's, 4+ bacteria. Urine and blood cultures were obtained. Patient was given IVF and started on Rocephin. Blood pressure recovered to 131/81. Patient is alert oriented x4, sitting in chair after seen by PT.? Patient denies heart palpitations, SOB, N/V, chest pain or discomfort. Currently on the monitor she is normal sinus rhythm.Metoprolol given and tolerated overnight and today.?She has been on Lovenox 40 mg daily for DVT prophylaxis. She reports constant pain, but unchanged. [place] was increased to Q4 hours for better pain control. Blood cultures are showing no growth.?Urine culture showing Enterobacter cloacae complex. She will be discharged today to the SNF with [facility]. Patient is very hesitant to get up and move, feels she is wheelchair bound. PT and OT worked with her today. Patient does not feel hungry and has not eaten much in the past 2 days here. Encouraged her to at least drink fluids and eat small meals. Status at Discharge Functional status at discharge: wheelchair bound Overall status at discharge: patient is back to baseline Time Spent with Patient Time
--- NOTE | 2023-06-23 12:46 | PC.NURSE ---
On 06/23/23, the student, [Sharon Glasgow], provided care and completed [facility] documentation on this patient. I have reviewed the student's documentation and agree with the findings.
[2023-06-23] MEDS: FERROUS SULFATE 325 MG TABLET DR PO (17:36)
[2023-06-23] MEDS: traZODone HCL 50 MG TABLET 200 MG PO (21:03)
[2023-06-24] VITALS (7 sets, daily range): BP systolic 92–146; BP diastolic 48–74; PULSE 64–75; RESP 16–18; TEMP 36.2–36.7; O2SAT 96–98
[2023-06-24] MEDS: HYDROcodone/acetaminophen (*CRX) 5-325 MG TABLET PO ×3 (01:36→14:28)
[2023-06-24 05:58] LABS: Hematocrit 31.4 % (37.0-47.0); Hemoglobin 9.7 g/dL (12.0-15.0); Mean Corpuscular HGB Conc 30.9 g/dl (32-36); Mean Corpuscular Hemoglobin 30.2 pg (26-34); Mean Corpuscular Volume 97.8 fl (80-100); Platelet Count Result 257 k/mm3 (150-375); Red Blood Count 3.21 M/mm3 (4.2-5.4); Red Cell Distribution Width 13.7 % (11.5-14.5); White Blood Count 7.3 K/mm3 (4.5-10.0)
[2023-06-24 06:12] LABS: Anion Gap 10 mmol/L (8-16); Blood Urea Nitrogen 13 mg/dL (7-17); Calcium 8.2 mg/dL (8.4-10.2); Carbon Dioxide 15 mmol/L (22-30); Chloride 113 mmol/L (98-107); Estimated CRCL calculation 52 ml/min; Estimated Glomerular Filt Rate 46; Glucose 101 mg/dL (65-110); Potassium 3.5 mmol/L (3.4-5.0); Sodium 138 mmol/L (137-145)
[2023-06-24] MEDS: LEVOTHYROXINE SODIUM 50 MCG TABLET PO (06:27)
[2023-06-24] MEDS: CHOLECALCIFEROL 1,000 UNITS TABLET 5000 UNITS PO (08:20)
[2023-06-24] MEDS: PANTOPRAZOLE 40 MG TABLET PO (08:20)
[2023-06-24] MEDS: DULoxetine HCL 20 MG CAPSULE.DR PO (08:20)
[2023-06-24] MEDS: acetaZOLAMIDE TAB 250 MG TABLET 500 MG PO (08:20)
[2023-06-24] MEDS: FERROUS SULFATE 325 MG TABLET DR PO (08:20)
[2023-06-24] MEDS: SODIUM BICARBONATE TAB 650 MG TABLET PO (08:20)
[2023-06-24] MEDS: SERTRALINE HCL 50 MG TABLET PO (08:20)
[2023-06-24] MEDS: POTASSIUM CHLORIDE 20 MEQ ER TABLET PO (08:20)
[2023-06-24] MEDS: METOPROLOL SUCCINATE EXT REL 12.5 MG TABCR PO (08:21)
[2023-06-24] MEDS: SULFAMETHOXAZOLE/TRIMETHOPRIM 800/160 MG DS TABLET 1 TAB PO (08:29)
[2023-06-24] MEDS: ENOXAPARIN 40 MG/0.4 ML SYRINGE SUB-Q (08:29)
--- NOTE | 2023-06-24 14:53 | PM.DS ---
DS: Admitting Diagnosis Discharge Date 06/24/23 Admitting Diagnosis hypotension UTI DS: Discharge Diagnosis Discharge Diagnosis (1) Acute urinary tract infection: Code(s): N39.0 - Urinary tract infection, site not specified Status: Acute Assessment and Plan: Urine culture showing Enterobacter cloacae complex, will send home on (2) Acute hypotension: Code(s): I95.9 - Hypotension, unspecified Status: Acute (3) Hypomagnesemia: Code(s): E83.42 - Hypomagnesemia Status: Acute (4) Hypokalemia: Code(s): E87.6 - Hypokalemia Status: Acute Assessment and Plan: (5) Chronic pain: Qualifiers: Chronic pain type: chronic pain syndrome Qualified Code(s): G89.4 - Chronic pain syndrome Code(s): G89.29 - Other chronic pain Status: Acute (6) Polyneuropathy: Code(s): G62.9 - Polyneuropathy, unspecified Status: Acute (7) Hypothyroidism: Code(s): E03.9 - Hypothyroidism, unspecified Status: Acute (8) Anxiety: Code(s): F41.9 - Anxiety disorder, unspecified Status: Acute (9) Anemia of chronic disease: Code(s): D63.8 - Anemia in other chronic diseases classified elsewhere Status: Acute Assessment and Plan: (10) Chronic kidney disease, stage 3b: Code(s): N18.32 - Chronic kidney disease, stage 3b Status: Acute DS: Summary Hospital Course Reason for hospitalization: Altered mental status Hospital Course: This is a 58-year-old female who presented to the ER from her rehab facility for evaluation of hypotension, lightheadedness, vision changes, and LOC. She was found to have B/P 80/40's and EMS was called. While in ER B/P's remained low 59/44 and 78/49. Hospital workup included a head CT which was negative for any acute intracranial process, CT of chest/abdomen/pelvis which did not show any acute intrathoracic or abdominopelvic findings. Respiratory panel was negative for influenza, RSV, and COVID. Troponin was negative x2. UA was obtained and shown 1+ blood, + Nitrates, 1+ leukocytes, many urine RBC's and WBC's, 4+ bacteria. Urine and blood cultures were obtained. Patient was given IVF and started on Rocephin. Blood pressure recovered to 131/81. Patient is alert oriented x4, sitting in chair after seen by PT.? Patient denies heart palpitations, SOB, N/V, chest pain or discomfort. Currently on the monitor she is normal sinus rhythm.Metoprolol given and tolerated overnight and today.?She has been on Lovenox 40 mg daily for DVT prophylaxis. She reports constant pain, but unchanged. [place] was increased to Q4 hours for better pain control. Blood cultures are showing no growth.?Urine culture showing Enterobacter cloacae complex. She will be discharged today to the SNF with [facility]. Patient is very hesitant to get up and move, feels she is wheelchair bound. PT and OT worked with her today. Patient does not feel hungry and has not eaten much in the past 2 days here. Encouraged her to at least drink fluids and eat small meals. 06/24/23 Patient was stable for discharge yesterday pending approval to the facility. Patient stayed an extra night due that. We now have approval. On examination patient is alert and oriented x4, VSS, she remains afebrile, she is on room air. Labs today revealed white blood count 7.3, hemoglobin 9.7, hematocrit 31.4, sodium 138, potassium 3.5, chloride 113, bicarb 15, BUN 13, creatinine 1.2. The blood cultures 0 I negative x2 day 5. Urine culture showing enterobacter cloacae complex. She was treated with IV antibiotics and transitioned to Bactrim. She will finish her course and follow up with PCP. Patient is stable for discharge. Status at Discharge Cognitive/behavioral status at discharge: Alert oriented x4 Functional status at discharge: uses cane/walker Overall status at discharge: patient is progressing back to baseline Time Spent with Patient Time
== END 2023-06-24 15:30 | DRG 690 ==
LOC: ANHED 17:21 → ANH2MED 17:38
PROVIDERS: Nurse Practitioner; Nurse Practitioner Acute Care; Admitting Provider Internal Medicine; Emergency Provider Student in an Organized Health Care Education/Training Program; PCP Nurse Practitioner Family; Visit Provider Internal Medicine
DX: N39.0 Urinary tract infection, site not specified (principal); B96.89 Other specified bacterial agents as the cause of diseases classified elsewhere; Z20.822 Contact with and (suspected) exposure to COVID-19; I95.9 Hypotension, unspecified; E83.42 Hypomagnesemia; E87.6 Hypokalemia; G89.29 Other chronic pain; E03.9 Hypothyroidism, unspecified; G62.9 Polyneuropathy, unspecified; F41.9 Anxiety disorder, unspecified; D63.8 Anemia in other chronic diseases classified elsewhere; I12.9 Hypertensive chronic kidney disease with stage 1 through stage 4 chronic kidney disease, or unspecified chronic kidney disease; N18.32 Chronic kidney disease, stage 3b; K21.9 Gastro-esophageal reflux disease without esophagitis; K58.0 Irritable bowel syndrome with diarrhea; M79.7 Fibromyalgia; Z96.651 Presence of right artificial knee joint; Z85.42 Personal history of malignant neoplasm of other parts of uterus; Z90.49 Acquired absence of other specified parts of digestive tract; Z90.710 Acquired absence of both cervix and uterus; Z87.891 Personal history of nicotine dependence
CPT/HCPCS: 36415; 70450; 71275; 74177; 80048; 80053; 81001; 82948; 83605; 83690; 83735; 84100; 84132; 84443; 84484; 85025; 85027; 85610; 85730; 86140; 87040; 87077; 87086; 87088; 87186; 87637; 93005; 96360; 97110; 97161; 97165; 97530; 97535; 99285; A9270; J0696; J1650; J3475; J7030; J7050; J7120; Q9967

== ENCOUNTER 2023-07-11 15:23 | Emergency (ER) | payer MEDICARE, MEDICAID, SELFPAY ==
[2023-07-11] VITALS (11 sets, daily range): BP systolic 88–117; BP diastolic 65–86; PULSE 63–84; RESP 14–18; TEMP 36.1–36.4; O2SAT 98–100
--- NOTE | ~2023-07-11 | CT_ITS ---
EXAMINATION: CT abdomen pelvis wo con DATE: 07/11/2023 16:58 INDICATION: Hypotension. Recent gallbladder surgery. TECHNIQUE: Computed tomography (CT) of the abdomen and pelvis was performed without intravenous contr ast. Automated exposure control and iterative reconstruction technique were employed. The dose-length product was 606.76 mGy-cm. COMPARISON: 06/18/2023 FINDINGS: Calcified left lower lobe nodules and calcified left hilar lymph node consistent with old granulomato us disease. Heart size is normal. No pericardial or pleural effusion. Cholecystectomy clips at the ga llbladder fossa with resolution of the previously seen trace amount of likely residual postoperative fluid and no evident fluid collections to suggest biloma, abscess or hematoma. Liver, spleen, pancrea s, bilateral adrenal glands and kidneys are normal. Small amount of fluid scattered throughout the no rmal caliber large and small bowel consistent with diarrhea. The appendix is not visualized. No peric ecal inflammatory change to suggest acute appendicitis.. The uterus is not identified and has likely been surgically resected. Bladder is normal. No free intraperitoneal gas or fluid. No pathologically enlarged abdominal or pelvic lymphadenopathy. Left total hip arthroplasty. Mild lumbar levocurvature with minimal spondylosis. Intrathecal pain pump in the subcutaneous left abdomen with catheter exten ding into the central canal at the level of L2-L3 and with distal tip posterior and central canal at the level of T10. IMPRESSION: 1. Small amount fluid throughout the normal appearing large and small bowel consistent with nonspecif ic diarrhea. No other acute intra-abdominal/pelvic process. Reviewed, dictated and finalized at location A. TICIAN APPRENTICE IMPRESSION: 1. Small amount fluid throughout the normal appearing large and small bowel con sistent with nonspecific diarrhea. No other acute intra-abdominal/pelvic proces s.
--- NOTE | 2023-07-11 15:31 | ED.ABDPAIN ---
HPI - Abdominal Pain General Chief Complaint: Unspecified Stated Complaint: light-headed and dizzy; low B/P Time Seen by Provider: 07/11/23 15:30 History of Present Illness HPI narrative: Patient is a 58-year-old female with history of CKD, HTN, IBS, Chronic pain with morphine pump here with hypotension. Patient reports that over the last 1 week she has had some lightheadedness and feeling as though she may faint. Today she had a visiting nurse check her blood pressure and they noted that it was low, her primary care doctor's office was contacted and they recommended she come into the emergency department for evaluation. She denies any cough, congestion, fever, chills. She does note she has some ongoing abdominal pain which seems fairly unchanged since she had her gallbladder removed about a month ago. She denies any dark stools or bright red blood per rectum. She does note a prior history of a GI bleed. She denies dysuria, hematuria. No recent falls. Related Data Home Medications Medication Instructions Recorded Confirmed Morphine Pain Pump See Rx Instructions .Route .COMPLEX 12/24/22 07/11/23 acetazolamide 250 mg tablet 500 mg PO BID 05/03/23 07/11/23 metoprolol tartrate 25 mg tablet 25 mg PO BID 05/03/23 07/11/23 sertraline 50 mg tablet (Zoloft) 50 mg PO DAILY 05/03/23 07/11/23 trazodone 100 mg tablet 200 mg PO HS 05/03/23 07/11/23 esomeprazole magnesium 20 mg 20 mg PO DAILY 07/11/23 07/11/23 capsule,delayed release (Nexium) Allergies Allergy/AdvReac Type Severity Reaction Status Date / Time bee venom protein (honey bee) Allergy Severe Swelling Verified 07/11/23 15:47 of Lip/Tongue/Throat aspirin Allergy Unknown Unknown,Nausea Verified 07/11/23 15:47 and Vomiting Bleach (Sodium Hypochlorite) Allergy Unknown Unknown,Trouble Verified 07/11/23 15:47 Breathing ibuprofen Allergy Unknown Unknown, Verified 07/11/23 15:47 NSAIDS (Non-Steroidal Allergy Unknown Unknown, Verified 07/11/23 15:47 Anti-Inflamma [NSAIDS (Non-Steroidal Anti-Inflammatory Drug)] oxycodone AdvReac Mild hypotension Verified 07/11/23 15:47 and visual disturbance Bee stings Allergy Unknown Unknown,Swelling Uncoded 07/07/23 10:23 of Lip/Tongue/Throat NONSTEROIDAL Allergy Unknown Unknown Uncoded 07/07/23 10:23 SALICYLATES Allergy Unknown unknown Uncoded 07/07/23 10:23 Review of Systems Review of Systems: All systems reviewed & are unremarkable except as noted in HPI and below PMFSH Past Medical History Medical History Anemia of chronic disease Anxiety Chronic kidney disease, stage 3b Chronic pain Morphine pump. Fibromyalgia Gastroesophageal reflux disease Hypertension Hypothyroidism Irritable bowel syndrome with diarrhea Migrainous headache without aura Mitral valve regurgitation Stats post repair. Polyneuropathy Primary insomnia Uterine cancer Surgical History Surgical History History of appendectomy History of arthroplasty of right knee History of bladder suspension procedure History of cardiac catheterization History of dilation and curettage History of hysterectomy History of laparoscopic cholecystectomy Dr. Alejandro, 06/07/2023 for biliary dyskinesia History of mitral valve repair History of repair of hip fracture (12/2019) Left History of right knee surgery History of tubal ligation Family History Family History Mother Family history of type 2 diabetes mellitus Hypertension Father Acute myocardial infarction Lung cancer Social History Social History Social History: The patient is currently in a rehab facility otherwise she lives in her own house with her cat. She has 2 living children. She is . She quit smoking long time ag
--- NOTE | 2023-07-11 16:00 | ECG_ITS ---
Measurements Intervals [place] Rate: 59 P: 75 SD: 189 QRS: 14 QRSD: 98 T: 17 QT: 429 QTc: 426 Interpretive Statements SINUS BRADYCARDIA EARLY PRECORDIAL R/S TRANSITION LOW QRS VOLTAGE IN PRECORDIAL LEADS BASELINE ARTIFACT- V2 BORDERLINE ECG COMPARED TO ECG 06/21/2023 15:05:53 SINUS BRADYCARDIA NOW PRESENT Electronically Signed On 07-11-2023 16:53:30 FORENSICS ANALYST by David Noel D.O.
[2023-07-11 16:04] LABS: Occult Blood Negative (Negative)
[2023-07-11 16:05] LABS: Basophils Absolute Auto 0.04 K/mm3 (0.00-0.10); Basophils Percent Auto 0.5 % (0.0-1.0); Eosinophils Absolute Auto 0.24 K/mm3 (0.02-0.50); Eosinophils Percent Auto 2.8 % (1.0-6.0); Hemoglobin 10.7 g/dL (12.0-15.0); Immature Granulocyte Absolute 0.05 K/mm3 (0.00-0.00); Immature Granulocyte Percent A 0.6 % (0.0-0.0); Lymphocytes Absolute Auto 2.04 K/mm3 (1.10-4.50); Lymphocytes Percent Auto 23.5 % (18.0-42.0); Mean Corpuscular HGB Conc 31.5 g/dL (32.0-36.0); Mean Corpuscular Hemoglobin 31.9 pg (27.0-31.0); Mean Corpuscular Volume 101.5 fL (78.0-102.0); Mean Platelet Volume 10.6 fl (9.2-11.8); Monocytes Absolute Auto 0.74 K/mm3 (0.10-0.90); Monocytes Percent Auto 8.5 % (2.0-11.0); Neutrophils Absolute Auto 5.6 K/mm3 (1.7-7.2); Neutrophils Percent Auto 64.1 % (50.0-70.0); Platelet Count Result 217 K/mm3 (150-420); Red Blood Count 3.35 M/mm3 (4.20-5.40); Red Cell Distribution Width 15.2 % (11.6-14.4); White Blood Count 8.7 K/mm3 (4.8-10.8)
[2023-07-11 16:28] LABS: Alanine Aminotransferase 29 U/L (14-59); Albumin Level 2.6 g/dL (3.4-5.0); Alkaline Phosphatase 125 U/L (46-116); Anion Gap 7 mmol/L (8-16); Aspartate Amino Transferase 69 U/L (15-37); Bilirubin,Total 0.3 mg/dL (0.00-1.00); Blood Urea Nitrogen 10 mg/dL (7-18); CRP 0.7 mg/dL (0.0-0.9); Carbon Dioxide 25 mmol/L (21-32); Chloride 108 mmol/L (98-108); Estimated CRCL calculation 46 ml/min; Estimated Glomerular Filt Rate 40; Glucose 101 mg/dL (70-99); Lipase 59 U/L (16-77); Magnesium 1.6 mg/dL (1.8-2.4); Osmolality Calculated 289 mOsm/kg (285-295); Sodium 140 mmol/L (136-145); Total Protein 6.4 g/dL (6.4-8.2); Troponin I 12.3 ng/L (0.00-60.4)
[2023-07-11 16:31] LABS: INR 0.9; Prothrombin Time 10.3 Seconds (9.50-12.10)
[2023-07-11 18:32] LABS: Appearance Urine Clear (Clear); Bilirubin Urine Negative (Negative); Blood Urine Negative (Negative); Color Urine Light Yellow (Yellow); Glucose Urine UA Negative (Negative); Ketones Urine Negative (Negative); Leukocyte Esterase Ur Trace LEU/UL (Negative); Nitrate Urine Negative (Negative); Protein Urine Negative (Negative); Urobilinogen Urine 0.2 mg/dL (0.2-1.0)
[2023-07-11 18:41] LABS: Add Urine Microscopic? YES; Bacteria Urine 1+ /hpf; RBC Urine 0-2 /hpf (0-2); Squamous Epithelial Cell Urine Few /hpf (Few)
[2023-07-11] MEDS: NITROFURANTOIN MONOHYD MACROCR 100 MG CAP PO (19:03)
[2023-07-11] MEDS: MAGNESIUM OXIDE 400 MG TABLET PO (19:03)
--- NOTE | 2023-07-14 13:51 | PC.NURSE ---
final urine noted, not indicative of uti
== END 2023-07-11 19:15 | disposition home or self-care (01) ==
PROVIDERS: Emergency Provider Student in an Organized Health Care Education/Training Program; PCP Family Medicine
DX: I95.2 Hypotension due to drugs (principal); N39.0 Urinary tract infection, site not specified; E83.42 Hypomagnesemia; I12.9 Hypertensive chronic kidney disease with stage 1 through stage 4 chronic kidney disease, or unspecified chronic kidney disease; N18.32 Chronic kidney disease, stage 3b; Z85.42 Personal history of malignant neoplasm of other parts of uterus; Z87.891 Personal history of nicotine dependence; Z79.899 Other long term (current) drug therapy; Z79.891 Long term (current) use of opiate analgesic
CPT/HCPCS: 36415; 74176; 80053; 81001; 82272; 83605; 83690; 83735; 84484; 85025; 85610; 85730; 86140; 86850; 86900; 86901; 87086; 87088; 93005; 99284; A9270

== ENCOUNTER 2023-07-14 15:13 | Emergency (ER) | payer MEDICARE, MEDICAID, SELFPAY ==
[2023-07-14] VITALS (32 sets, daily range): BP systolic 97–121; BP diastolic 60–80; PULSE 58–64; RESP 12–16; TEMP 36.9; O2SAT 98–100
--- NOTE | 2023-07-14 17:02 | ED.GENADULT ---
HPI - General Adult General Chief complaint: Recheck/Abnormal Lab/Rx Stated complaint: hypotension Time Seen by Provider: 07/14/23 16:46 Source: patient Mode of arrival: ambulatory Limitations: no limitations History of Present Illness HPI narrative: this is a 58-year-old female with PMH of hypothyroid, CKD, fibromyalgia who presents to the ED with chief complaint of hypertension diagnosed by her home health nurse today. She states she has been feeling very fatigued over the last few weeks but otherwise is okay. Denies syncope, fevers, chills, nausea, vomiting. Denies GI bleeding symptoms. Denies chest pain, shortness of breath, cough, abdominal pain, urinary problems. She was seen at another facility for the same thing a few days ago. Per chart review it is noted her family states she takes a lot of pain medications at home. Related Data Home Medications Medication Instructions Recorded Confirmed Morphine Pain Pump See Rx Instructions .Route .COMPLEX 12/24/22 07/11/23 acetazolamide 250 mg tablet 500 mg PO BID 05/03/23 07/11/23 metoprolol tartrate 25 mg tablet 25 mg PO BID 05/03/23 07/11/23 trazodone 100 mg tablet 200 mg PO HS 05/03/23 07/11/23 esomeprazole magnesium 20 mg 20 mg PO DAILY 07/11/23 07/11/23 capsule,delayed release (Nexium) Allergies Allergy/AdvReac Type Severity Reaction Status Date / Time bee venom protein (honey bee) Allergy Severe Swelling Verified 07/14/23 15:18 of Lip/Tongue/Throat aspirin Allergy Unknown Unknown,Nausea Verified 07/14/23 15:18 and Vomiting Bleach (Sodium Hypochlorite) Allergy Unknown Unknown,Trouble Verified 07/14/23 15:18 Breathing ibuprofen Allergy Unknown Unknown, Verified 07/14/23 15:18 NSAIDS (Non-Steroidal Allergy Unknown Unknown, Verified 07/14/23 15:18 Anti-Inflamma [NSAIDS (Non-Steroidal Anti-Inflammatory Drug)] oxycodone AdvReac Mild hypotension Verified 07/14/23 15:18 and visual disturbance Bee stings Allergy Unknown Unknown,Swelling Uncoded 07/14/23 15:18 of Lip/Tongue/Throat NONSTEROIDAL Allergy Unknown Unknown Uncoded 07/14/23 15:18 SALICYLATES Allergy Unknown unknown Uncoded 07/14/23 15:18 Review of Systems Review of Systems: All systems as dictated in [facility] Past Medical History Medical History Anemia of chronic disease Anxiety Chronic kidney disease, stage 3b Chronic pain Morphine pump. Fibromyalgia Gastroesophageal reflux disease Hypertension Hypothyroidism Irritable bowel syndrome with diarrhea Migrainous headache without aura Mitral valve regurgitation Stats post repair. Polyneuropathy Primary insomnia Uterine cancer Surgical History Surgical History History of appendectomy History of arthroplasty of right knee History of bladder suspension procedure History of cardiac catheterization History of dilation and curettage History of hysterectomy History of laparoscopic cholecystectomy Dr. Alejandro, 06/07/2023 for biliary dyskinesia History of mitral valve repair History of repair of hip fracture (12/2019) Left History of right knee surgery History of tubal ligation Family History Family History Mother Family history of type 2 diabetes mellitus Hypertension Father Acute myocardial infarction Lung cancer Social History Social History Social History: The patient is currently in a rehab facility otherwise she lives in her own house with her cat. She has 2 living children. She is . She quit smoking long time ago. Surrogate medical decision maker: Lisa Hay[place], mother. Code status: Full code. Smoking status: Former smoker Second hand tobacco smoke exposure: Yes Alcohol intake: former Alcohol use details: social S
--- NOTE | 2023-07-14 17:06 | ECG_ITS ---
Measurements Intervals [place] Rate: 59 P: 75 OR: 205 QRS: 6 QRSD: 95 T: -8 QT: 422 QTc: 420 Interpretive Statements SINUS BRADYCARDIA LOW QRS VOLTAGE IN PRECORDIAL LEADS BORDERLINE ST-T WAVE ABNORMALITY- INFERIOR LEADS BORDERLINE ECG COMPARED TO ECG 07/11/2023 16:14:20 ST-T WAVE ABNORMALITY NOW PRESENT Electronically Signed On 07-14-2023 18:57:34 FRANCHISE DEVELOPMENT MANAGER by David Noel D.O.
[2023-07-14 17:29] LABS: Basophils Percent Auto 0.5 % (0.2-1.2); Eosinophils Absolute Auto 0.1 K/mm3 (0-0.3); Eosinophils Percent Auto 1.5 % (0-4.4); Hematocrit 34.2 % (37.0-47.0); Hemoglobin 10.6 g/dL (12.0-15.0); Immature Granulocyte Absolute 0.03 K/mm3 (0.00-0.031); Immature Granulocyte Percent A 0.4 % (0-0.5); Lymphocytes Absolute Auto 1.95 K/mm3 (0.9-3.2); Lymphocytes Percent Auto 26.1 % (18.3-44.2); Mean Corpuscular Hemoglobin 31.5 pg (26-34); Mean Corpuscular Volume 101.5 fl (80-100); Mean Platelet Volume 10.8 fl (7.4-10.4); Monocytes Absolute Auto 0.6 K/mm3 (0.1-0.6); Monocytes Percent Auto 7.9 % (2.6-8.5); Neutrophils Absolute Auto 4.8 K/mm3 (1.3-6.7); Neutrophils Percent Auto 63.6 % (45.5-73.1); Platelet Count Result 209 k/mm3 (150-375); Red Blood Count 3.37 M/mm3 (4.2-5.4); Red Cell Distribution Width 15.6 % (11.5-14.5); White Blood Count 7.5 K/mm3 (4.5-10.0)
[2023-07-14 17:39] LABS: Alanine Aminotransferase 24 U/L (6-35); Albumin Level 3.2 g/dL (3.5-5.1); Alkaline Phosphatase 99 U/L (38-126); Anion Gap 9 mmol/L (8-16); Aspartate Amino Transferase 71 U/L (14-36); Bilirubin,Total 0.5 mg/dL (0.2-1.3); Blood Urea Nitrogen 8 mg/dL (7-17); Calcium 8.1 mg/dL (8.4-10.2); Carbon Dioxide 18 mmol/L (22-30); Chloride 112 mmol/L (98-107); Estimated CRCL calculation 58 ml/min; Estimated Glomerular Filt Rate 51; Glucose 94 mg/dL (65-110); Sodium 139 mmol/L (137-145)
== END 2023-07-14 19:21 | disposition home or self-care (01) ==
PROVIDERS: Emergency Provider Physician Assistant; PCP Family Medicine
DX: I95.9 Hypotension, unspecified (principal); I12.9 Hypertensive chronic kidney disease with stage 1 through stage 4 chronic kidney disease, or unspecified chronic kidney disease; N18.32 Chronic kidney disease, stage 3b; D64.9 Anemia, unspecified; E03.9 Hypothyroidism, unspecified; K21.9 Gastro-esophageal reflux disease without esophagitis; K58.0 Irritable bowel syndrome with diarrhea; M79.7 Fibromyalgia; G62.9 Polyneuropathy, unspecified; G89.29 Other chronic pain; Z97.8 Presence of other specified devices; Z96.651 Presence of right artificial knee joint; Z85.42 Personal history of malignant neoplasm of other parts of uterus; Z87.891 Personal history of nicotine dependence; Z90.710 Acquired absence of both cervix and uterus; Z90.49 Acquired absence of other specified parts of digestive tract
CPT/HCPCS: 36415; 80053; 84443; 85025; 93005; 99283

== ENCOUNTER 2023-07-22 15:00 | Inpatient (IN) | payer MEDICARE, MEDICAID, SELFPAY ==
--- NOTE | ~2023-07-22 | US_ITS ---
EXAMINATION: US venous doppler [facility] DATE: 07/25/2023 14:01 INDICATION: Left thigh pain. TECHNIQUE: Grayscale ultrasound images without and with compression and Doppler ultrasound images of the bilateral lower extremity veins were obtained. COMPARISON: None. FINDINGS: The visualized portions of right common femoral vein, profunda (deep) femoral vein, femoral vein, pop liteal vein, peroneal veins, posterior tibial veins, and greater saphenous vein outflow are patent. The visualized portions of left common femoral vein, profunda femoral vein, femoral vein, popliteal v ein, peroneal veins, posterior tibial veins, and greater saphenous vein outflow are patent. IMPRESSION: 1. No deep venous thrombosis. Reviewed, dictated and finalized at location A. 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
[2023-07-22 15:00] VITALS: BP 98/58; PULSE 73; RESP 18; TEMP 36.2; O2SAT 100
--- NOTE | 2023-07-22 15:06 | ED.WEAKNESS ---
HPI - Weakness General Chief complaint: Weakness Stated complaint: general weakness Time Seen by Provider: 07/22/23 15:05 Source: patient, EMS and RN notes reviewed Mode of arrival: EMS Limitations: physical limitation History of Present Illness HPI Narrative: patient presents by EMS. She has been visited by MS multiple times for lift assist in transfers. She says that she just keeps getting weaker over the past couple of weeks. She is put in applications to nursing homes place there but has not heard anything. Today she comes in to see if she can get some help being placed. Otherwise she has no other complaints. MD Complaint: generalized weakness Onset (ago): week(s) Duration: constant Location: generalized Migration: none Severity: moderate Quality: dull Relieving factors: none Exacerbating factors: none Associated symptoms: denies other symptoms Related Data Home Medications Medication Instructions Recorded Confirmed Morphine Pain Pump See Rx Instructions .Route .COMPLEX 12/24/22 07/22/23 acetazolamide 250 mg tablet 500 mg PO BID 05/03/23 07/22/23 metoprolol tartrate 25 mg tablet 25 mg PO BID 05/03/23 07/22/23 trazodone 100 mg tablet 200 mg PO HS 05/03/23 07/22/23 esomeprazole magnesium 20 mg 20 mg PO DAILY 07/11/23 07/22/23 capsule,delayed release (Nexium) hydroxyzine HCl 25 mg tablet 25 mg PO BID 07/22/23 07/22/23 levothyroxine 50 mcg tablet 50 mcg PO DAILY 07/22/23 07/22/23 omeprazole 20 mg capsule,delayed 20 mg PO DAILY 07/22/23 07/22/23 release sertraline 50 mg tablet 50 mg PO DAILY 07/22/23 07/22/23 tizanidine 4 mg tablet See Rx Instructions .Route .COMPLEX 07/22/23 07/22/23 Allergies Allergy/AdvReac Type Severity Reaction Status Date / Time bee venom protein (honey bee) Allergy Severe Swelling Verified 07/22/23 15:11 of Lip/Tongue/Throat aspirin Allergy Unknown Unknown,Nausea Verified 07/22/23 15:11 and Vomiting Bleach (Sodium Hypochlorite) Allergy Unknown Unknown,Trouble Verified 07/22/23 15:11 Breathing ibuprofen Allergy Unknown Unknown, Verified 07/22/23 15:11 NSAIDS (Non-Steroidal Allergy Unknown Unknown, Verified 07/22/23 15:11 Anti-Inflamma [NSAIDS (Non-Steroidal Anti-Inflammatory Drug)] oxycodone AdvReac Mild hypotension Verified 07/22/23 15:11 and visual disturbance Bee stings Allergy Unknown Unknown,Swelling Uncoded 07/22/23 15:11 of Lip/Tongue/Throat NONSTEROIDAL Allergy Unknown Unknown Uncoded 07/22/23 15:11 SALICYLATES Allergy Unknown unknown Uncoded 07/22/23 15:11 Review of Systems Review of Systems: All systems reviewed & are unremarkable except as noted in HPI and below PMFSH Past Medical History Medical History Anemia of chronic disease Anxiety Chronic kidney disease, stage 3b Chronic pain Morphine pump. Fibromyalgia Gastroesophageal reflux disease Hypertension Hypothyroidism Irritable bowel syndrome with diarrhea Migrainous headache without aura Mitral valve regurgitation Stats post repair. Polyneuropathy Primary insomnia Uterine cancer Surgical History Surgical History History of appendectomy History of arthroplasty of right knee History of bladder suspension procedure History of cardiac catheterization History of dilation and curettage History of hysterectomy History of laparoscopic cholecystectomy Dr. Alejandro, 06/07/2023 for biliary dyskinesia History of mitral valve repair History of repair of hip fracture (12/2019) Left History of right knee surgery History of tubal ligation Family History Family History Mother Family history of type 2 diabetes mellitus Hypertension Father Acute myocardial infarction Lung cancer Social History Social History (Updated 07/22/23 @ 15:08 by Deondre Isabel MD) Social History: she lives in
[2023-07-22 15:40] LABS: Basophils Absolute Auto 0.03 K/mm3 (0.00-0.10); Basophils Percent Auto 0.2 % (0.0-1.0); Eosinophils Absolute Auto 0.01 K/mm3 (0.02-0.50); Eosinophils Percent Auto 0.1 % (1.0-6.0); Hematocrit 43.2 % (35.0-49.0); Hemoglobin 12.7 g/dL (12.0-15.0); Immature Granulocyte Absolute 0.14 K/mm3 (0.00-0.00); Immature Granulocyte Percent A 0.9 % (0.0-0.0); Lymphocytes Percent Auto 14.2 % (18.0-42.0); Mean Corpuscular HGB Conc 29.4 g/dL (32.0-36.0); Mean Corpuscular Volume 108.8 fL (78.0-102.0); Monocytes Absolute Auto 1.66 K/mm3 (0.10-0.90); Monocytes Percent Auto 10.7 % (2.0-11.0); Neutrophils Absolute Auto 11.4 K/mm3 (1.7-7.2); Neutrophils Percent Auto 73.9 % (50.0-70.0); Platelet Count Result 256 K/mm3 (150-420); Red Blood Count 3.97 M/mm3 (4.20-5.40); Red Cell Distribution Width 14.6 % (11.6-14.4); White Blood Count 15.5 K/mm3 (4.8-10.8)
[2023-07-22 16:00] VITALS: BP 114/77; PULSE 66; RESP 20; O2SAT 100
[2023-07-22 16:00] LABS: Appearance Urine Turbid (Clear); Bilirubin Urine 1+ (Negative); Blood Urine 1+ (Negative); Color Urine Yellow (Yellow); Glucose Urine UA Negative (Negative); Ketones Urine 1+ (Negative); Leukocyte Esterase Ur 3+ LEU/UL (Negative); Nitrate Urine Positive (Negative); Protein Urine 2+ (Negative); pH Urine 5.5 (5.0-8.0)
--- NOTE | 2023-07-22 16:00 | PCCCNOTE ---
Met pt in ED due to pt having multiple falls at home and she is unable to care for herself. Pt requesting skilled nursing placement. Pt was released from [facility] in [place] 2-3 weeks ago. She prefers to go to [facility] but was told the day prior to Thanksgiving that they have no beds. Attempted to call [employer] with no answer. Faxed referral to [facility]. 2nd choice is [facility]. Faxed referral to [facility]. Attempted to call them with no answer. [facility] and left message for Kelly Box Inspector with no return call (she may have left for the day).
[2023-07-22 16:01] LABS: Alanine Aminotransferase 79 U/L (14-59); Albumin Level 2.6 g/dL (3.4-5.0); Alkaline Phosphatase 86 U/L (46-116); Anion Gap 12 mmol/L (8-16); Aspartate Amino Transferase 169 U/L (15-37); Bilirubin,Total 0.4 mg/dL (0.00-1.00); Blood Urea Nitrogen 19 mg/dL (7-18); Calcium 8.2 mg/dL (8.5-10.1); Carbon Dioxide 17 mmol/L (21-32); Chloride 107 mmol/L (98-108); Estimated CRCL calculation 38 ml/min; Estimated Glomerular Filt Rate 32; Glucose 107 mg/dL (70-99); Magnesium 1.8 mg/dL (1.8-2.4); Osmolality Calculated 284 mOsm/kg (285-295); Potassium 4.6 mmol/L (3.5-5.1); Sodium 136 mmol/L (136-145); Total Protein 7.1 g/dL (6.4-8.2)
[2023-07-22 16:02] LABS: Add Urine Microscopic? YES; Bacteria Urine 3+ /hpf; Squamous Epithelial Cell Urine Rare /hpf (Few); WBC Urine >75 /hpf (0-3)
--- NOTE | 2023-07-22 16:29 | PCCCNOTE ---
PASRR Level I completed, No Level II required. Pt to be brought to med floor for tx of UTI.
--- NOTE | 2023-07-22 16:56 | PM.IMHP ---
H&P: HPI History of Present Illness Date/Time: 07/22/23 16:56 Chief Complaint: Weakness, unable to ambulate, UTI Narrative: This is a 58 year old female patient with an extensive medical history as documented below. Patient reports that she spent time in the hospital then went to SNF at [facility] then back to [facility] then back to [facility] for SNF. She was discharged home with home health PT/OT. Patient lives alone and for the last 2 days she has been unable to ambulate due to bilateral lower extremity weakness and pain. Patient has non-diabetic polyneuropathy and fibromyalgia on chronic opioid pain medications as well as an implanted morphine pain pump with miniscule dosing amounts. Over the past 2 days EMS has been called to her house for several lift assists. Patient reports sliding out of bed due to her legs not supporting her. She came to ER seeking halfway placement and was found to have WBC elevation at 15.5 as well as evidence of AR/dehydration. Patient also found to have convincing UA for infection which ultimately may be the reason for her general weakness. She was given IV fluids and Rocephin. IV access had to be obtained in left breast due to no discernable veins in arms and several missed sticks. PT/OT will be consulted for evaluation/treatment with ultimate SNF/prison placement anticipated. Review of Systems Review of Systems: All systems reviewed & are unremarkable except as noted in HPI and below PMFSH Past Medical History Medical History Anemia of chronic disease Anxiety Chronic kidney disease, stage 3b Chronic pain Morphine pump. Fibromyalgia Gastroesophageal reflux disease Hypertension Hypothyroidism Irritable bowel syndrome with diarrhea Migrainous headache without aura Mitral valve regurgitation Stats post repair. Polyneuropathy Primary insomnia Uterine cancer Surgical History Surgical History History of appendectomy History of arthroplasty of right knee History of bladder suspension procedure History of cardiac catheterization History of dilation and curettage History of hysterectomy History of laparoscopic cholecystectomy Dr. Alejandro, 06/07/2023 for biliary dyskinesia History of mitral valve repair History of repair of hip fracture (12/2019) Left History of right knee surgery History of tubal ligation Family History Family History Mother Family history of type 2 diabetes mellitus Father Acute myocardial infarction Lung cancer Hypertension Social History Social History Social History: she lives in her own house with her cat. She has 2 living children. She is . She quit smoking long time ago. Surrogate medical decision maker: Lisa Allne, mother. Code status: Full code. Smoking packs per day: 0.2 Smoking cigarettes per day: 4.0 Years smoked: 2 Smoking pack-years: 0.40 Smoking status: Former smoker Tobacco type: cigarettes Second hand tobacco smoke exposure: Yes Smoking end date: 08/29/84 Additional smoking assessment comments: Smoked occassionally x 10 years, started at 7 years old Alcohol intake: never Alcohol use details: social Substance use: never Substance use type: prescription drug Lack of Transportation: YES Lack of Food: Never True Current Housing: I Have Housing Concerned About Future Housing: No Difficulty Paying Gas/Electric Bills: No Difficulty Paying for Meds: No Currently Unemployed: No Education: High School Diploma/GED Difficulty w/ Childcare or Family Care: No Living arrangements: alone Additional living arrangements comments: Lives alone. She has 1 cat. Occupation/Education: other Additional occupation/education comments: Disable
[2023-07-22 17:00] VITALS: BP 121/82; PULSE 82; RESP 20; O2SAT 100
[2023-07-22] MEDS: SODIUM CHLORIDE 0.9% IV 1,000 ML 999 ML IV CONT (17:07)
[2023-07-22 17:08] LABS: Lactic Acid Reflex 1.1 mmol/L (0.4-2.0)
[2023-07-22 17:16] LABS: Influenza A QL RT-PCR Negative (Negative); Influenza B QL RT-PCR Negative (Negative); SARS-CoV-2 RNA PCR Negative (Negative)
[2023-07-22 17:30] VITALS: BMI 32.8
--- NOTE | 2023-07-22 18:09 | ADMGEN ---
This patient, Nancy Murray, was admitted to 2nd Floor Room 210-1. Patient/family oriented to hospital policies and general routines including ID bracelet, bed and alarms, visiting hours, pain management, procedures, bathroom and other care routines, personal items, smoking policy, room service/diet, and visiting hours. Information on how to activate the Rapid Response Team has been discussed. Patient/Family are encouraged to report perceived risks to care and to ask questions if they do not understand what they are told or what they should do.
[2023-07-22 18:11] LABS: Phosphorus 3.7 mg/dL (2.6-4.7)
[2023-07-22 18:12] LABS: Hemoglobin A1C 4.9 % (<5.7)
[2023-07-22] MEDS: HYDROcodone/acetaminophen (*CRX) 5-325 MG TABLET 1 TAB PO ×2 (18:45→23:00)
[2023-07-22] MEDS: levoFLOXacin 750 MG/D5W 150 ML 750 MG/150 ML BAG 100 MG IVPB (18:45)
[2023-07-22 20:00] VITALS: PULSE 82; RESP 20; O2SAT 100
[2023-07-22] MEDS: hydrOXYzine HCL 25 MG TABLET PO (21:04)
[2023-07-22] MEDS: PANTOPRAZOLE 40 MG TABLET PO (21:04)
[2023-07-22] MEDS: MELATONIN 5 MG TABLET PO (21:05)
[2023-07-22] MEDS: traZODone HCL 50 MG TABLET 200 MG PO (21:05)
[2023-07-22] MEDS: LOPERAMIDE HCL 2 MG CAPSULE PO (23:00)
[2023-07-23] VITALS: BP 141/84; PULSE 75; RESP 17; TEMP 36.3; O2SAT 100
--- NOTE | 2023-07-23 01:45 | PC.NURSE ---
Patient tearful, states she will miss her emotional support cat when she goes into the custodial. Discussed with patient options for nursing homes that allow pets. Patient showed casualty underwriter pictures of cat, mood improved.
[2023-07-23 05:22] LABS: Basophils Absolute Auto 0.02 K/mm3 (0.00-0.10); Basophils Percent Auto 0.2 % (0.0-1.0); Eosinophils Absolute Auto 0.05 K/mm3 (0.02-0.50); Eosinophils Percent Auto 0.4 % (1.0-6.0); Hematocrit 36.2 % (35.0-49.0); Hemoglobin 11.5 g/dL (12.0-15.0); Immature Granulocyte Absolute 0.15 K/mm3 (0.00-0.00); Immature Granulocyte Percent A 1.1 % (0.0-0.0); Lymphocytes Absolute Auto 2.33 K/mm3 (1.10-4.50); Lymphocytes Percent Auto 17.7 % (18.0-42.0); Mean Corpuscular HGB Conc 31.8 g/dL (32.0-36.0); Mean Corpuscular Hemoglobin 31.5 pg (27.0-31.0); Mean Corpuscular Volume 99.2 fL (78.0-102.0); Mean Platelet Volume 10.9 fl (9.2-11.8); Monocytes Absolute Auto 1.06 K/mm3 (0.10-0.90); Neutrophils Absolute Auto 9.6 K/mm3 (1.7-7.2); Neutrophils Percent Auto 72.6 % (50.0-70.0); Platelet Count Result 272 K/mm3 (150-420); Red Blood Count 3.65 M/mm3 (4.20-5.40); Red Cell Distribution Width 14.5 % (11.6-14.4); White Blood Count 13.2 K/mm3 (4.8-10.8)
[2023-07-23 05:39] LABS: Alanine Aminotransferase 74 U/L (14-59); Albumin Level 2.6 g/dL (3.4-5.0); Alkaline Phosphatase 85 U/L (46-116); Aspartate Amino Transferase 109 U/L (15-37); Bilirubin,Total 0.3 mg/dL (0.00-1.00); Blood Urea Nitrogen 20 mg/dL (7-18); Calcium 7.9 mg/dL (8.5-10.1); Chloride 111 mmol/L (98-108); Estimated CRCL calculation 43 ml/min; Estimated Glomerular Filt Rate 38; Glucose 104 mg/dL (70-99); Osmolality Calculated 302 mOsm/kg (285-295); Potassium 3.4 mmol/L (3.5-5.1); Sodium 145 mmol/L (136-145); Total Protein 6.4 g/dL (6.4-8.2)
[2023-07-23 05:49] LABS: Anion Gap 11 mmol/L (8-16); Carbon Dioxide 23 mmol/L (21-32)
[2023-07-23] MEDS: LEVOTHYROXINE SODIUM 50 MCG TABLET PO (05:50)
[2023-07-23] MEDS: HYDROcodone/acetaminophen (*CRX) 5-325 MG TABLET 1 TAB PO ×4 (05:51→23:40)
--- NOTE | 2023-07-23 07:35 | PC.NURSE ---
Patient changed from observation status to inpatient status.
[2023-07-23 08:00] VITALS: BP 148/85; PULSE 89; RESP 16; TEMP 36.3; O2SAT 100
[2023-07-23] MEDS: POTASSIUM CHLORIDE 20 MEQ ER TABLET 40 MEQ PO (09:05)
[2023-07-23] MEDS: SERTRALINE HCL 50 MG TABLET PO (09:05)
[2023-07-23] MEDS: DULoxetine HCL 20 MG CAPSULE.DR PO (09:06)
[2023-07-23] MEDS: TIZANIDINE HCL 4 MG TABLET PO ×3 (09:06→17:21)
[2023-07-23] MEDS: hydrOXYzine HCL 25 MG TABLET PO ×2 (09:06→20:32)
[2023-07-23] MEDS: PANTOPRAZOLE 40 MG TABLET PO ×2 (09:06→20:32)
[2023-07-23] MEDS: ENOXAPARIN 40 MG/0.4 ML SYRINGE 30 MG SUB-Q (09:07)
[2023-07-23] MEDS: acetaZOLAMIDE TAB 250 MG TABLET PO ×2 (09:07→20:33)
[2023-07-23] MEDS: MORPHINE SULFATE (*CRX) 4 MG/ML INJ IV PUSH (11:26)
--- NOTE | 2023-07-23 12:19 | PM.IMPN ---
Progress Note: A&P Assessment and Plan (1) Acute kidney injury superimposed on CKD: Code(s): N17.9 - Acute kidney failure, unspecified; N18.9 - Chronic kidney disease, unspecified Status: Acute Assessment and Plan: Serum creatinine 1.64, BUN 19, estimated GFR 32. History of stage 3b CKD but last values documented serum creatinine 1.1, BUN 8, estimated GFR 51 07/23: Improved to creatinine 1.42, BUN 28, estimated GFR 38 an estimated creatinine clearance 43 (2) Acute urinary tract infection: Code(s): N39.0 - Urinary tract infection, site not specified Status: Acute Assessment and Plan: urine nitrite positive, greater than 70 white blood cells, 3+ leukocyte esterase 3+ urine bacteria with systemic weakness and elevated white blood cell count. Also lower abdominal tenderness to palpation primarily suprapubic and left lower quadrant. Urine culture in process. Reviewed prior urine cultures and patient has had several different bacteria with resistances but all have been sensitive to Levaquin. Patient received ceftriaxone in the emergency department. We will order renally adjusted Levaquin pending culture results. (3) Unable to ambulate: Code(s): R26.2 - Difficulty in walking, not elsewhere classified Status: Acute Assessment and Plan: Patient reports the last 2 days unable to ambulate due to leg weakness. This is not unilateral. Patient believes it is related to her polyneuropathy and fibromyalgia. She has previously undergone SNF and home therapy but believes she is no longer able to care for herself at home. PT OT consulted. (4) Polyneuropathy: Code(s): G62.9 - Polyneuropathy, unspecified Status: Acute Assessment and Plan: See 3. (5) Weakness: Code(s): R53.1 - Weakness Status: Acute Assessment and Plan: See 3. (6) Fibromyalgia: Code(s): M79.7 - Fibromyalgia Status: Acute Assessment and Plan: 07/23: See 3. Uncontrolled pain today. Patient did not bring the device in order to give herself intrathecal morphine bolus so she has only been getting a very tiny basilar rate. One time dose of IV morphine ordered and RN informed of intent of scheduled pain medicine as well as p.r.n. pain medicine. (7) Presence of implanted infusion pump: Code(s): Z95.828 - Presence of other vascular implants and grafts Status: Acute Assessment and Plan: 07/23: very minimal dosing for chronic pain related to fibromyalgia, should not interfere with any additional medication dosing. Patient did not bring device necessary to administer four daily boluses so her pain is even more out of control. Plan Increased pain control PT/OT eval/treat Case management already assessed patient in ER Anticipate 3-5 day stay Diet: Regular VTE Prophylaxis: SCD and Lovenox GI Prophylaxis: Pantoprazole Code Status: Full Code Med Rec: Completed Disposition: SNF vs jail long-term Time Spent With Patient Time with patient: Greater than 35 minutes Subjective Date/time seen: 07/23/23 10:10 Interval history: 07/22: This is a 58 year old female patient with an extensive medical history as documented below.? Patient reports that she spent time in the hospital then went to SNF at [facility] then back to [facility] then back to [facility] for SNF.? She was discharged home with home health PT/OT.? Patient lives alone and for the last 2 days she has been unable to ambulate due to bilateral lower extremity weakness and pain.? Patient has non-diabetic polyneuropathy and fibromyalgia on chronic opioid pain medications as well as an implanted morphine pain pump with miniscule dosing amounts.? Over the past 2 days EMS has been called to her house for several lift assists.? Patient reports sliding out of bed due to her legs not supporting her.? She came to ER seeking long-term placement and was found to have WBC elevation at 1
[2023-07-23 16:00] VITALS: BP 134/69; PULSE 75; RESP 16; TEMP 36.8; O2SAT 100
[2023-07-23] MEDS: cefTRIAXone 2 GM/NS 100 ML 2 GM/100 ML BAG IVPB (17:20)
[2023-07-23 20:00] VITALS: PULSE 75; RESP 16; O2SAT 100
[2023-07-23] MEDS: traZODone HCL 50 MG TABLET 200 MG PO (20:32)
[2023-07-23] MEDS: MELATONIN 5 MG TABLET PO (20:32)
[2023-07-23] MEDS: ACETAMINOPHEN 325 MG TABLET 650 MG PO (20:39)
[2023-07-24] VITALS: BP 102/60; RESP 16; TEMP 36.1; O2SAT 97
[2023-07-24] MEDS: LEVOTHYROXINE SODIUM 50 MCG TABLET PO (06:09)
[2023-07-24] MEDS: HYDROcodone/acetaminophen (*CRX) 5-325 MG TABLET 1 TAB PO ×5 (06:09→20:19)
[2023-07-24 06:37] LABS: Basophils Absolute Auto 0.04 K/mm3 (0.00-0.10); Basophils Percent Auto 0.4 % (0.0-1.0); Eosinophils Absolute Auto 0.29 K/mm3 (0.02-0.50); Eosinophils Percent Auto 2.8 % (1.0-6.0); Hematocrit 35.3 % (35.0-49.0); Hemoglobin 11.1 g/dL (12.0-15.0); Immature Granulocyte Absolute 0.17 K/mm3 (0.00-0.00); Immature Granulocyte Percent A 1.6 % (0.0-0.0); Lymphocytes Absolute Auto 3.54 K/mm3 (1.10-4.50); Lymphocytes Percent Auto 33.9 % (18.0-42.0); Mean Corpuscular HGB Conc 31.4 g/dL (32.0-36.0); Mean Corpuscular Hemoglobin 31.7 pg (27.0-31.0); Mean Corpuscular Volume 100.9 fL (78.0-102.0); Mean Platelet Volume 11.1 fl (9.2-11.8); Monocytes Absolute Auto 0.81 K/mm3 (0.10-0.90); Monocytes Percent Auto 7.8 % (2.0-11.0); Neutrophils Absolute Auto 5.6 K/mm3 (1.7-7.2); Neutrophils Percent Auto 53.5 % (50.0-70.0); Platelet Count Result 252 K/mm3 (150-420); Red Cell Distribution Width 14.5 % (11.6-14.4); White Blood Count 10.4 K/mm3 (4.8-10.8)
[2023-07-24 06:50] LABS: Alanine Aminotransferase 65 U/L (14-59); Albumin Level 2.6 g/dL (3.4-5.0); Alkaline Phosphatase 79 U/L (46-116); Anion Gap 11 mmol/L (8-16); Aspartate Amino Transferase 64 U/L (15-37); Bilirubin,Total 0.2 mg/dL (0.00-1.00); Blood Urea Nitrogen 19 mg/dL (7-18); Calcium 8.2 mg/dL (8.5-10.1); Carbon Dioxide 22 mmol/L (21-32); Chloride 110 mmol/L (98-108); Creatine Kinase 551 U/L (26-192); Estimated CRCL calculation 55 ml/min; Estimated Glomerular Filt Rate 52; Glucose 95 mg/dL (70-99); Osmolality Calculated 298 mOsm/kg (285-295); Potassium 3.8 mmol/L (3.5-5.1); Sodium 143 mmol/L (136-145); Total Protein 6.4 g/dL (6.4-8.2)
--- NOTE | 2023-07-24 06:54 | PC.NURSE ---
Patient used the bedpan three times last night. She refused to get out of bed with the sofi josuédy, as she stated she was too weak . Pain control measures continued on routine Rogers with pain pump. Patient slept better tonight than the previous night.
[2023-07-24 07:56] VITALS: BP 137/68; PULSE 90; RESP 16; TEMP 36.8; O2SAT 98
[2023-07-24] MEDS: acetaZOLAMIDE TAB 250 MG TABLET PO ×2 (08:36→20:18)
[2023-07-24] MEDS: POTASSIUM CHLORIDE 20 MEQ ER TABLET PO (08:36)
[2023-07-24] MEDS: hydrOXYzine HCL 25 MG TABLET PO ×2 (08:38→20:19)
[2023-07-24] MEDS: ENOXAPARIN 40 MG/0.4 ML SYRINGE 30 MG SUB-Q (08:38)
[2023-07-24] MEDS: SERTRALINE HCL 50 MG TABLET PO (08:38)
[2023-07-24] MEDS: TIZANIDINE HCL 4 MG TABLET PO ×3 (08:38→17:09)
[2023-07-24] MEDS: PANTOPRAZOLE 40 MG TABLET PO ×2 (08:38→20:19)
[2023-07-24] MEDS: DULoxetine HCL 20 MG CAPSULE.DR PO (08:38)
--- NOTE | 2023-07-24 08:59 | PM.IMPN ---
Progress Note: A&P Assessment and Plan (1) Bacteremia: Code(s): R78.81 - Bacteremia Status: Acute Assessment and Plan: Group B strep and Staph aureus present in 1 aerobic bottle. Patient is Levaquin for UTI, ceftriaxone and vancomycin for bacteremia pending cultures. Midline catheter placed as patient is only possible venous access is small gauge catheter in left breast currently. Will repeat blood cultures 07/25 and monitor for at least 48 hours on optimum treatment to begin two weak course of appropriate antibiotics. (2) Acute kidney injury superimposed on CKD: Code(s): N17.9 - Acute kidney failure, unspecified; N18.9 - Chronic kidney disease, unspecified Status: Acute Assessment and Plan: Serum creatinine 1.64, BUN 19, estimated GFR 32. History of stage 3b CKD but last values documented serum creatinine 1.1, BUN 8, estimated GFR 51 07/23: Improved to creatinine 1.42, BUN 28, estimated GFR 38 an estimated creatinine clearance 43 07/24: Continuing to improve creatinine 1.09 BUN 19 estimated GFR 52 estimated creatinine clearance 55 (3) Acute urinary tract infection: Code(s): N39.0 - Urinary tract infection, site not specified Status: Acute Assessment and Plan: urine nitrite positive, greater than 70 white blood cells, 3+ leukocyte esterase 3+ urine bacteria with systemic weakness and elevated white blood cell count. Also lower abdominal tenderness to palpation primarily suprapubic and left lower quadrant. Urine culture in process. Reviewed prior urine cultures and patient has had several different bacteria with resistances but all have been sensitive to Levaquin. Patient received ceftriaxone in the emergency department. We will order renally adjusted Levaquin pending culture results. 07/24: Still awaiting urinary cultures. Renal function has improved so Levaquin will be dosed Q 24 hours instead of Q 48. (4) Unable to ambulate: Code(s): R26.2 - Difficulty in walking, not elsewhere classified Status: Acute Assessment and Plan: Patient reports the last 2 days unable to ambulate due to leg weakness. This is not unilateral. Patient believes it is related to her polyneuropathy and fibromyalgia. She has previously undergone SNF and home therapy but believes she is no longer able to care for herself at home. PT OT consulted. (5) Polyneuropathy: Code(s): G62.9 - Polyneuropathy, unspecified Status: Acute Assessment and Plan: See 3. (6) Weakness: Code(s): R53.1 - Weakness Status: Acute Assessment and Plan: See 3. (7) Fibromyalgia: Code(s): M79.7 - Fibromyalgia Status: Acute Assessment and Plan: 07/23: See 3. Uncontrolled pain today. Patient did not bring the device in order to give herself intrathecal morphine bolus so she has only been getting a very tiny basilar rate. One time dose of IV morphine ordered and RN informed of intent of scheduled pain medicine as well as p.r.n. pain medicine. (8) Presence of implanted infusion pump: Code(s): Z95.828 - Presence of other vascular implants and grafts Status: Acute Assessment and Plan: 07/23: very minimal dosing for chronic pain related to fibromyalgia, should not interfere with any additional medication dosing. Patient did not bring device necessary to administer four daily boluses so her pain is even more out of control. 07/24: We spoke to patient's mother to see if she could bring in the device to allow patient to give herself bolus dosing from her implanted morphine pain pump. One time dose of IV morphine given before midline placement. Plan Midline placement, add vancomycin and renally adjust Levaquin PT/OT eval/treat Case management already assessed patient in ER Uncertain length of stay as patient now has bacteremia will need to target sensitivities and repeat blood cultures on 07/25 and will need to monitor for at least 48 ho
--- NOTE | 2023-07-24 09:38 | PC.NURSE ---
request to [facility] sent for midline placement. waiting call back.
[2023-07-24] MEDS: MORPHINE SULFATE (*CRX) 4 MG/ML INJ IV PUSH (12:37)
--- NOTE | 2023-07-24 12:46 | PC.NURSE ---
[facility] is on their way to start central line on patient. Morphine administered for pre treatment.
--- NOTE | 2023-07-24 13:44 | PC.NURSE ---
Iv site in L chest discontinued due to midline placement.
[2023-07-24 16:00] VITALS: BP 144/79; PULSE 97; RESP 18; TEMP 36.3; O2SAT 91
[2023-07-24] MEDS: cefTRIAXone 2 GM/NS 100 ML 2 GM/100 ML BAG IVPB (17:01)
[2023-07-24] MEDS: levoFLOXacin 750 MG/D5W 150 ML 750 MG/150 ML BAG 100 MG IVPB (17:49)
--- NOTE | 2023-07-24 18:07 | PC.NURSE ---
1740 gas turbine powerplant mechanic aware of the final of urine culture.
[2023-07-24 20:00] VITALS: PULSE 97; RESP 18; O2SAT 96
[2023-07-24] MEDS: traZODone HCL 50 MG TABLET 200 MG PO (20:18)
[2023-07-24] MEDS: MELATONIN 5 MG TABLET PO (20:19)
[2023-07-25] VITALS: BP 112/63; PULSE 74; RESP 16; TEMP 36.4; O2SAT 98
[2023-07-25] MEDS: HYDROcodone/acetaminophen (*CRX) 5-325 MG TABLET 1 TAB PO ×5 (00:52→23:42)
[2023-07-25 05:07] LABS: Basophils Absolute Auto 0.04 K/mm3 (0.00-0.10); Basophils Percent Auto 0.5 % (0.0-1.0); Eosinophils Absolute Auto 0.35 K/mm3 (0.02-0.50); Hemoglobin 10.6 g/dL (12.0-15.0); Immature Granulocyte Absolute 0.23 K/mm3 (0.00-0.00); Immature Granulocyte Percent A 2.6 % (0.0-0.0); Lymphocytes Absolute Auto 2.77 K/mm3 (1.10-4.50); Lymphocytes Percent Auto 31.3 % (18.0-42.0); Mean Corpuscular HGB Conc 31.2 g/dL (32.0-36.0); Mean Corpuscular Hemoglobin 31.5 pg (27.0-31.0); Mean Corpuscular Volume 101.2 fL (78.0-102.0); Monocytes Absolute Auto 0.81 K/mm3 (0.10-0.90); Monocytes Percent Auto 9.1 % (2.0-11.0); Neutrophils Absolute Auto 4.7 K/mm3 (1.7-7.2); Neutrophils Percent Auto 52.5 % (50.0-70.0); Platelet Count Result 249 K/mm3 (150-420); Red Blood Count 3.36 M/mm3 (4.20-5.40); Red Cell Distribution Width 14.5 % (11.6-14.4); White Blood Count 8.9 K/mm3 (4.8-10.8)
[2023-07-25 05:19] LABS: Alanine Aminotransferase 74 U/L (14-59); Albumin Level 2.5 g/dL (3.4-5.0); Alkaline Phosphatase 96 U/L (46-116); Anion Gap 9 mmol/L (8-16); Aspartate Amino Transferase 49 U/L (15-37); Bilirubin,Total 0.2 mg/dL (0.00-1.00); Blood Urea Nitrogen 20 mg/dL (7-18); Calcium 8.2 mg/dL (8.5-10.1); Carbon Dioxide 25 mmol/L (21-32); Chloride 109 mmol/L (98-108); Estimated CRCL calculation 51 ml/min; Estimated Glomerular Filt Rate 47; Glucose 98 mg/dL (70-99); Osmolality Calculated 298 mOsm/kg (285-295); Potassium 3.9 mmol/L (3.5-5.1); Sodium 143 mmol/L (136-145)
[2023-07-25] MEDS: LEVOTHYROXINE SODIUM 50 MCG TABLET PO (06:07)
--- NOTE | 2023-07-25 06:17 | PC.NURSE ---
Patient prefers to use the bedpan, as she states she is too weak or she waits too long and just can't make it to use Karina Stedy to get to commode. She was up most of the night listening to an audio book. She states that she uses the audio book to go to sleep at night. Vitals are stable, she is on room air, and is independent with bed mobility. We a
[2023-07-25 08:00] VITALS: BP 135/66; PULSE 84; RESP 16; TEMP 36.2; O2SAT 99
[2023-07-25] MEDS: acetaZOLAMIDE TAB 250 MG TABLET PO (10:01)
[2023-07-25] MEDS: TIZANIDINE HCL 4 MG TABLET PO ×3 (10:02→17:21)
[2023-07-25] MEDS: ENOXAPARIN 40 MG/0.4 ML SYRINGE SUB-Q (10:02)
[2023-07-25] MEDS: SERTRALINE HCL 50 MG TABLET PO (10:02)
[2023-07-25] MEDS: POTASSIUM CHLORIDE 20 MEQ ER TABLET PO (10:02)
[2023-07-25] MEDS: hydrOXYzine HCL 25 MG TABLET PO ×2 (10:02→21:02)
[2023-07-25] MEDS: DULoxetine HCL 20 MG CAPSULE.DR PO (10:03)
[2023-07-25] MEDS: PANTOPRAZOLE 40 MG TABLET PO ×2 (10:03→21:02)
--- NOTE | 2023-07-25 11:09 | PM.IMPN ---
Progress Note: A&P Assessment and Plan (1) Bacteremia: Code(s): R78.81 - Bacteremia Status: Acute Assessment and Plan: Group B strep and Staph aureus present in 1 aerobic bottle. Patient is Levaquin for UTI, ceftriaxone and vancomycin for bacteremia pending cultures. Midline catheter placed as patient is only possible venous access is small gauge catheter in left breast currently. Will repeat blood cultures 07/25 and monitor for at least 48 hours on optimum treatment to begin two weak course of appropriate antibiotics. 07/25: Group B Strep pansensitive except clindamycin, currently double covered with vancomycin and ceftriaxone. Staph aureus without sensitivities yet. For this reason will continue vancomycin. (2) Acute kidney injury superimposed on CKD: Code(s): N17.9 - Acute kidney failure, unspecified; N18.9 - Chronic kidney disease, unspecified Status: Acute Assessment and Plan: Serum creatinine 1.64, BUN 19, estimated GFR 32. History of stage 3b CKD but last values documented serum creatinine 1.1, BUN 8, estimated GFR 51 07/23: Improved to creatinine 1.42, BUN 28, estimated GFR 38 an estimated creatinine clearance 43 07/24: Continuing to improve creatinine 1.09 BUN 19 estimated GFR 52 estimated creatinine clearance 55 07/25: Cr 1.18, BUN 20, GFR 47, estimated creatinine clearance 51 (3) Acute urinary tract infection: Code(s): N39.0 - Urinary tract infection, site not specified Status: Acute Assessment and Plan: urine nitrite positive, greater than 70 white blood cells, 3+ leukocyte esterase 3+ urine bacteria with systemic weakness and elevated white blood cell count. Also lower abdominal tenderness to palpation primarily suprapubic and left lower quadrant. Urine culture in process. Reviewed prior urine cultures and patient has had several different bacteria with resistances but all have been sensitive to Levaquin. Patient received ceftriaxone in the emergency department. We will order renally adjusted Levaquin pending culture results. 07/24: Still awaiting urinary cultures. Renal function has improved so Levaquin will be dosed Q 24 hours instead of Q 48. 07/25: UTI with E. coli and Klebsiella pneumoniae both covered by ceftriaxone. Will discontinue Levaquin. (4) Unable to ambulate: Code(s): R26.2 - Difficulty in walking, not elsewhere classified Status: Acute Assessment and Plan: Patient reports the last 2 days unable to ambulate due to leg weakness. This is not unilateral. Patient believes it is related to her polyneuropathy and fibromyalgia. She has previously undergone SNF and home therapy but believes she is no longer able to care for herself at home. PT OT consulted. 07/25: Patient not participating with physical therapy today due to left leg pain. Will order venous duplex ultrasound. Ordered out of bed to chair for meals, patient to use sit to stand for this. (5) Polyneuropathy: Code(s): G62.9 - Polyneuropathy, unspecified Status: Acute Assessment and Plan: See 3. (6) Weakness: Code(s): R53.1 - Weakness Status: Acute Assessment and Plan: See 3. (7) Fibromyalgia: Code(s): M79.7 - Fibromyalgia Status: Acute Assessment and Plan: 07/23: See 3. Uncontrolled pain today. Patient did not bring the device in order to give herself intrathecal morphine bolus so she has only been getting a very tiny basilar rate. One time dose of IV morphine ordered and RN informed of intent of scheduled pain medicine as well as p.r.n. pain medicine. (8) Presence of implanted infusion pump: Code(s): Z95.828 - Presence of other vascular implants and grafts Status: Acute Assessment and Plan: 07/23: very minimal dosing for chronic pain related to fibromyalgia, should not interfere with any additional medication dosing. Patient did not bring device necessary to administer four daily b
[2023-07-25 16:35] VITALS: BP 110/64; PULSE 78; RESP 18; TEMP 36.3; O2SAT 97
[2023-07-25] MEDS: cefTRIAXone 2 GM/NS 100 ML 2 GM/100 ML BAG IVPB (17:20)
[2023-07-25] MEDS: levoFLOXacin 750 MG/D5W 150 ML 750 MG/150 ML BAG 100 MG IVPB (18:03)
[2023-07-25 20:00] VITALS: PULSE 78; RESP 18; O2SAT 97
[2023-07-25] MEDS: HYDROCORTISONE 1% 30 GM CREAM 1 APPLIC TOPICAL (21:00)
[2023-07-25] MEDS: traZODone HCL 50 MG TABLET 200 MG PO (21:01)
[2023-07-25] MEDS: MELATONIN 5 MG TABLET PO (21:02)
--- NOTE | 2023-07-25 21:15 | PC.NURSE ---
Patient refused diamox diuretic at HS, states she does not want to pee all night .
[2023-07-26] VITALS: BP 99/58; PULSE 76; RESP 16; TEMP 36.4; O2SAT 97
[2023-07-26] MEDS: HYDROcodone/acetaminophen (*CRX) 5-325 MG TABLET 1 TAB PO ×4 (05:46→18:14)
[2023-07-26] MEDS: LEVOTHYROXINE SODIUM 50 MCG TABLET PO (05:47)
[2023-07-26 05:59] LABS: Basophils Absolute Auto 0.06 K/mm3 (0.00-0.10); Basophils Percent Auto 0.6 % (0.0-1.0); Eosinophils Absolute Auto 0.36 K/mm3 (0.02-0.50); Eosinophils Percent Auto 3.6 % (1.0-6.0); Hematocrit 34.9 % (35.0-49.0); Hemoglobin 11.2 g/dL (12.0-15.0); Immature Granulocyte Absolute 0.25 K/mm3 (0.00-0.00); Immature Granulocyte Percent A 2.5 % (0.0-0.0); Lymphocytes Absolute Auto 2.87 K/mm3 (1.10-4.50); Lymphocytes Percent Auto 28.9 % (18.0-42.0); Mean Corpuscular HGB Conc 32.1 g/dL (32.0-36.0); Mean Corpuscular Hemoglobin 31.6 pg (27.0-31.0); Mean Corpuscular Volume 98.6 fL (78.0-102.0); Mean Platelet Volume 10.4 fl (9.2-11.8); Monocytes Absolute Auto 0.74 K/mm3 (0.10-0.90); Monocytes Percent Auto 7.4 % (2.0-11.0); Neutrophils Absolute Auto 5.7 K/mm3 (1.7-7.2); Platelet Count Result 270 K/mm3 (150-420); Red Blood Count 3.54 M/mm3 (4.20-5.40); Red Cell Distribution Width 14.2 % (11.6-14.4); White Blood Count 9.9 K/mm3 (4.8-10.8)
[2023-07-26 06:17] LABS: Alanine Aminotransferase 63 U/L (14-59); Albumin Level 2.5 g/dL (3.4-5.0); Alkaline Phosphatase 93 U/L (46-116); Anion Gap 10 mmol/L (8-16); Aspartate Amino Transferase 29 U/L (15-37); Bilirubin,Total 0.3 mg/dL (0.00-1.00); Blood Urea Nitrogen 22 mg/dL (7-18); Calcium 8.5 mg/dL (8.5-10.1); Carbon Dioxide 25 mmol/L (21-32); Chloride 109 mmol/L (98-108); Estimated CRCL calculation 57 ml/min; Estimated Glomerular Filt Rate 54; Glucose 98 mg/dL (70-99); Osmolality Calculated 301 mOsm/kg (285-295); Potassium 3.5 mmol/L (3.5-5.1); Sodium 144 mmol/L (136-145); Total Protein 6.3 g/dL (6.4-8.2)
[2023-07-26 08:00] VITALS: BP 140/74; PULSE 111; RESP 14; TEMP 36.6; O2SAT 98
--- NOTE | 2023-07-26 09:01 | WPDPN ---
Progress Note: A&P Assessment and Plan (1) Bacteremia: Code(s): R78.81 - Bacteremia Status: Acute Assessment and Plan: Group B strep and Staph aureus present in 1 aerobic bottle. Patient is Levaquin for UTI, ceftriaxone and vancomycin for bacteremia pending cultures. Midline catheter placed as patient is only possible venous access is small gauge catheter in left breast currently. Will repeat blood cultures 07/25 and monitor for at least 48 hours on optimum treatment to begin two weak course of appropriate antibiotics. 07/25: Group B Strep pansensitive except clindamycin, currently double covered with vancomycin and ceftriaxone. Staph aureus without sensitivities yet. For this reason will continue vancomycin. 07/26/2023 Spoke with [facility] pharmacist and patient will be switched to Ancef she will go home on 07/28 at her request and she will go on Oxacillin or napacillin per long term preference. This medication will be administer daily but run for 24 hours. Patient UTI treatment will be completed (2) Acute kidney injury superimposed on CKD: Code(s): N17.9 - Acute kidney failure, unspecified; N18.9 - Chronic kidney disease, unspecified Status: Acute Assessment and Plan: Serum creatinine 1.64, BUN 19, estimated GFR 32. History of stage 3b CKD but last values documented serum creatinine 1.1, BUN 8, estimated GFR 51 07/23: Improved to creatinine 1.42, BUN 28, estimated GFR 38 an estimated creatinine clearance 43 07/24: Continuing to improve creatinine 1.09 BUN 19 estimated GFR 52 estimated creatinine clearance 55 07/25: Cr 1.18, BUN 20, GFR 47, estimated creatinine clearance 51 (3) Acute urinary tract infection: Code(s): N39.0 - Urinary tract infection, site not specified Status: Acute Assessment and Plan: urine nitrite positive, greater than 70 white blood cells, 3+ leukocyte esterase 3+ urine bacteria with systemic weakness and elevated white blood cell count. Also lower abdominal tenderness to palpation primarily suprapubic and left lower quadrant. Urine culture in process. Reviewed prior urine cultures and patient has had several different bacteria with resistances but all have been sensitive to Levaquin. Patient received ceftriaxone in the emergency department. We will order renally adjusted Levaquin pending culture results. 07/24: Still awaiting urinary cultures. Renal function has improved so Levaquin will be dosed Q 24 hours instead of Q 48. 07/25: UTI with E. coli and Klebsiella pneumoniae both covered by ceftriaxone. Will discontinue Levaquin. 07/26/2023 Treatment completed on 07/28 (4) Unable to ambulate: Code(s): R26.2 - Difficulty in walking, not elsewhere classified Status: Acute Assessment and Plan: Patient reports the last 2 days unable to ambulate due to leg weakness. This is not unilateral. Patient believes it is related to her polyneuropathy and fibromyalgia. She has previously undergone SNF and home therapy but believes she is no longer able to care for herself at home. PT OT consulted. 07/25: Patient not participating with physical therapy today due to left leg pain. Will order venous duplex ultrasound. Ordered out of bed to chair for meals, patient to use sit to stand for this. (5) Polyneuropathy: Code(s): G62.9 - Polyneuropathy, unspecified Status: Acute Assessment and Plan: See 3. (6) Weakness: Code(s): R53.1 - Weakness Status: Acute Assessment and Plan: See 3. (7) Fibromyalgia: Code(s): M79.7 - Fibromyalgia Status: Acute Assessment and Plan: 07/23: See 3. Uncontrolled pain today. Patient did not bring the device in order to give herself intrathecal morphine bolus so she has only been getting a very tiny basilar rate. One time dose of IV morphine ordered and RN informed of intent of scheduled pain medicine as well as p.r.n. pain medicine. (8) Presence of
[2023-07-26] MEDS: hydrOXYzine HCL 25 MG TABLET PO ×2 (09:05→21:49)
[2023-07-26] MEDS: acetaZOLAMIDE TAB 250 MG TABLET PO ×2 (09:05→21:49)
[2023-07-26] MEDS: TIZANIDINE HCL 4 MG TABLET PO ×3 (09:05→16:07)
[2023-07-26] MEDS: POTASSIUM CHLORIDE 20 MEQ ER TABLET PO (09:05)
[2023-07-26] MEDS: SERTRALINE HCL 50 MG TABLET PO (09:05)
[2023-07-26] MEDS: PANTOPRAZOLE 40 MG TABLET PO ×2 (09:05→21:49)
[2023-07-26] MEDS: DULoxetine HCL 20 MG CAPSULE.DR PO (09:05)
[2023-07-26] MEDS: ENOXAPARIN 40 MG/0.4 ML SYRINGE SUB-Q (09:06)
[2023-07-26] MEDS: HYDROCORTISONE 1% 30 GM CREAM 1 APPLIC TOPICAL ×2 (09:06→21:49)
--- NOTE | 2023-07-26 09:19 | PC.NURSE ---
Pt's Vancomycin DC'D after it was started. Vancomycin ran for 10 minutes then DC'D. ro
[2023-07-26] MEDS: ceFAZolin 2 GM/NS 50 ML 2 GM/50 ML BAG IVPB ×3 (09:57→21:48)
[2023-07-26] MEDS: EUCERIN CREAM 120 GM JAR 1 APPLIC TOPICAL (16:00)
[2023-07-26 16:25] VITALS: BP 99/53; PULSE 85; RESP 16; TEMP 36.2; O2SAT 95
[2023-07-26] MEDS: MORPHINE SULFATE (*CRX) 4 MG/ML INJ IV PUSH (20:35)
[2023-07-26] MEDS: traZODone HCL 50 MG TABLET 200 MG PO (21:49)
[2023-07-26] MEDS: MELATONIN 5 MG TABLET PO (21:49)
[2023-07-26 23:04] VITALS: BP 116/70; PULSE 90; RESP 15; TEMP 36.3; O2SAT 97
[2023-07-27] MEDS: HYDROcodone/acetaminophen (*CRX) 5-325 MG TABLET 1 TAB PO (04:58)
[2023-07-27 05:18] LABS: Basophils Absolute Auto 0.05 K/mm3 (0.00-0.10); Basophils Percent Auto 0.5 % (0.0-1.0); Eosinophils Absolute Auto 0.27 K/mm3 (0.02-0.50); Eosinophils Percent Auto 2.7 % (1.0-6.0); Hematocrit 35.7 % (35.0-49.0); Hemoglobin 11.3 g/dL (12.0-15.0); Immature Granulocyte Absolute 0.18 K/mm3 (0.00-0.00); Immature Granulocyte Percent A 1.8 % (0.0-0.0); Lymphocytes Absolute Auto 2.43 K/mm3 (1.10-4.50); Lymphocytes Percent Auto 24.4 % (18.0-42.0); Mean Corpuscular HGB Conc 31.7 g/dL (32.0-36.0); Mean Corpuscular Hemoglobin 31.8 pg (27.0-31.0); Mean Corpuscular Volume 100.6 fL (78.0-102.0); Mean Platelet Volume 10.3 fl (9.2-11.8); Monocytes Absolute Auto 0.83 K/mm3 (0.10-0.90); Monocytes Percent Auto 8.4 % (2.0-11.0); Neutrophils Absolute Auto 6.2 K/mm3 (1.7-7.2); Neutrophils Percent Auto 62.2 % (50.0-70.0); Platelet Count Result 280 K/mm3 (150-420); Red Blood Count 3.55 M/mm3 (4.20-5.40); Red Cell Distribution Width 14.6 % (11.6-14.4); White Blood Count 9.9 K/mm3 (4.8-10.8)
[2023-07-27 05:33] LABS: Alanine Aminotransferase 41 U/L (14-59); Albumin Level 2.7 g/dL (3.4-5.0); Alkaline Phosphatase 93 U/L (46-116); Anion Gap 10 mmol/L (8-16); Aspartate Amino Transferase 26 U/L (15-37); Bilirubin,Total 0.2 mg/dL (0.00-1.00); Blood Urea Nitrogen 16 mg/dL (7-18); Calcium 8.5 mg/dL (8.5-10.1); Carbon Dioxide 25 mmol/L (21-32); Chloride 109 mmol/L (98-108); Estimated CRCL calculation 58 ml/min; Estimated Glomerular Filt Rate 55; Glucose 105 mg/dL (70-99); Osmolality Calculated 299 mOsm/kg (285-295); Potassium 3.3 mmol/L (3.5-5.1); Sodium 144 mmol/L (136-145); Total Protein 6.3 g/dL (6.4-8.2)
[2023-07-27] MEDS: ceFAZolin 2 GM/NS 50 ML 2 GM/50 ML BAG IVPB ×3 (06:05→21:08)
[2023-07-27] MEDS: LEVOTHYROXINE SODIUM 50 MCG TABLET PO (06:05)
--- NOTE | 2023-07-27 07:37 | PM.IMPN ---
Progress Note: A&P Assessment and Plan (1) Bacteremia: Code(s): R78.81 - Bacteremia Status: Acute Assessment and Plan: Group B strep and Staph aureus present in 1 aerobic bottle. Patient is Levaquin for UTI, ceftriaxone and vancomycin for bacteremia pending cultures. Midline catheter placed as patient is only possible venous access is small gauge catheter in left breast currently. Will repeat blood cultures 07/25 and monitor for at least 48 hours on optimum treatment to begin two weak course of appropriate antibiotics. 07/25: Group B Strep pansensitive except clindamycin, currently double covered with vancomycin and ceftriaxone. Staph aureus without sensitivities yet. For this reason will continue vancomycin. 07/27/2023 Spoke with [facility] pharmacist and patient will be on Ancef q8h while inpatient. She will go to retirement on 07/28 at her request. She will go on Oxacillin 12 g over 24 hour continuous infusion for bacteremia MSSA and group B strep. This medication will be administered daily but run for 24 hours through 08/08/23. Patient UTI treatment will be completed (2) Acute kidney injury superimposed on CKD: Code(s): N17.9 - Acute kidney failure, unspecified; N18.9 - Chronic kidney disease, unspecified Status: Acute Assessment and Plan: Serum creatinine 1.64, BUN 19, estimated GFR 32. History of stage 3b CKD but last values documented serum creatinine 1.1, BUN 8, estimated GFR 51 07/23: Improved to creatinine 1.42, BUN 28, estimated GFR 38 an estimated creatinine clearance 43 07/24: Continuing to improve creatinine 1.09 BUN 19 estimated GFR 52 estimated creatinine clearance 55 07/25: Cr 1.18, BUN 20, GFR 47, estimated creatinine clearance 51 07/27: Cr 1.03 , BUN 16, GFR 55, estimated creatinine clearance 58 (3) Acute urinary tract infection: Code(s): N39.0 - Urinary tract infection, site not specified Status: Acute Assessment and Plan: urine nitrite positive, greater than 70 white blood cells, 3+ leukocyte esterase 3+ urine bacteria with systemic weakness and elevated white blood cell count. Also lower abdominal tenderness to palpation primarily suprapubic and left lower quadrant. Urine culture in process. Reviewed prior urine cultures and patient has had several different bacteria with resistances but all have been sensitive to Levaquin. Patient received ceftriaxone in the emergency department. We will order renally adjusted Levaquin pending culture results. 07/24: Still awaiting urinary cultures. Renal function has improved so Levaquin will be dosed Q 24 hours instead of Q 48. 07/25: UTI with E. coli and Klebsiella pneumoniae both covered by ceftriaxone. Will discontinue Levaquin. 07/26/2023 Treatment completed on 07/28 (4) Unable to ambulate: Code(s): R26.2 - Difficulty in walking, not elsewhere classified Status: Acute Assessment and Plan: Patient reports the last 2 days unable to ambulate due to leg weakness. This is not unilateral. Patient believes it is related to her polyneuropathy and fibromyalgia. She has previously undergone SNF and home therapy but believes she is no longer able to care for herself at home. PT OT consulted. 07/25: Patient not participating with physical therapy today due to left leg pain. Will order venous duplex ultrasound. Ordered out of bed to chair for meals, patient to use sit to stand for this. 07/27: patient still not ambulatory and still not working (5) Polyneuropathy: Code(s): G62.9 - Polyneuropathy, unspecified Status: Acute Assessment and Plan: See 3. (6) Weakness: Code(s): R53.1 - Weakness Status: Acute Assessment and Plan: See 4. (7) Fibromyalgia: Code(s): M79.7 - Fibromyalgia Status: Acute Assessment and Plan: 07/23: See 4. Uncontrolled pain today. Patient did not bring the device in order to give herself intrathecal morphine b
[2023-07-27 08:00] VITALS: BP 141/78; PULSE 98; RESP 16; TEMP 36.7; O2SAT 97
[2023-07-27] MEDS: POTASSIUM CHLORIDE 20 MEQ ER TABLET 40 MEQ PO (09:17)
[2023-07-27] MEDS: TIZANIDINE HCL 4 MG TABLET PO ×3 (09:18→17:03)
[2023-07-27] MEDS: hydrOXYzine HCL 25 MG TABLET PO ×2 (09:18→21:07)
[2023-07-27] MEDS: PANTOPRAZOLE 40 MG TABLET PO ×2 (09:18→21:07)
[2023-07-27] MEDS: acetaZOLAMIDE TAB 250 MG TABLET PO ×2 (09:18→21:07)
[2023-07-27] MEDS: SERTRALINE HCL 50 MG TABLET PO (09:18)
[2023-07-27] MEDS: DULoxetine HCL 20 MG CAPSULE.DR PO (09:18)
[2023-07-27] MEDS: HYDROCORTISONE 1% 30 GM CREAM 1 APPLIC TOPICAL (09:19)
[2023-07-27] MEDS: ENOXAPARIN 40 MG/0.4 ML SYRINGE SUB-Q (09:21)
[2023-07-27] MEDS: EUCERIN CREAM 120 GM JAR 1 APPLIC TOPICAL (09:23)
[2023-07-27] MEDS: MORPHINE SULFATE (*CRX) 4 MG/ML INJ IV PUSH (11:36)
[2023-07-27 15:35] VITALS: BP 107/57; PULSE 88; RESP 18; TEMP 36.1; O2SAT 96
[2023-07-27] MEDS: traZODone HCL 50 MG TABLET 200 MG PO (21:08)
[2023-07-28] VITALS: BP 132/63; PULSE 63; RESP 18; TEMP 35.9; O2SAT 98
[2023-07-28 05:20] LABS: Basophils Absolute Auto 0.05 K/mm3 (0.00-0.10); Basophils Percent Auto 0.5 % (0.0-1.0); Eosinophils Absolute Auto 0.29 K/mm3 (0.02-0.50); Eosinophils Percent Auto 3.2 % (1.0-6.0); Hematocrit 33.9 % (35.0-49.0); Hemoglobin 10.5 g/dL (12.0-15.0); Immature Granulocyte Absolute 0.12 K/mm3 (0.00-0.00); Immature Granulocyte Percent A 1.3 % (0.0-0.0); Lymphocytes Absolute Auto 1.87 K/mm3 (1.10-4.50); Lymphocytes Percent Auto 20.5 % (18.0-42.0); Mean Corpuscular Hemoglobin 31.4 pg (27.0-31.0); Mean Corpuscular Volume 101.5 fL (78.0-102.0); Mean Platelet Volume 10.1 fl (9.2-11.8); Monocytes Absolute Auto 0.82 K/mm3 (0.10-0.90); Neutrophils Percent Auto 65.5 % (50.0-70.0); Platelet Count Result 276 K/mm3 (150-420); Red Blood Count 3.34 M/mm3 (4.20-5.40); Red Cell Distribution Width 14.4 % (11.6-14.4); White Blood Count 9.1 K/mm3 (4.8-10.8)
[2023-07-28 05:38] LABS: Alanine Aminotransferase 33 U/L (14-59); Albumin Level 2.8 g/dL (3.4-5.0); Alkaline Phosphatase 99 U/L (46-116); Anion Gap 9 mmol/L (8-16); Aspartate Amino Transferase 33 U/L (15-37); Bilirubin,Total 0.3 mg/dL (0.00-1.00); Blood Urea Nitrogen 15 mg/dL (7-18); Calcium 8.6 mg/dL (8.5-10.1); Carbon Dioxide 26 mmol/L (21-32); Chloride 110 mmol/L (98-108); Estimated CRCL calculation 57 ml/min; Estimated Glomerular Filt Rate 54; Glucose 109 mg/dL (70-99); Osmolality Calculated 301 mOsm/kg (285-295); Potassium 3.6 mmol/L (3.5-5.1); Sodium 145 mmol/L (136-145); Total Protein 6.3 g/dL (6.4-8.2)
[2023-07-28] MEDS: LEVOTHYROXINE SODIUM 50 MCG TABLET PO (05:56)
[2023-07-28] MEDS: ceFAZolin 2 GM/NS 50 ML 2 GM/50 ML BAG IVPB (05:57)
[2023-07-28] MEDS: MORPHINE SULFATE (*CRX) 4 MG/ML INJ IV PUSH (06:35)
--- NOTE | 2023-07-28 06:44 | PC.NURSE ---
Pt given mso4 4 mg IVP for c/o back and leg pain; Pt rates her pain as an '8' on a 1-10 pain scale.
[2023-07-28 08:00] VITALS: BP 155/69; PULSE 94; RESP 16; TEMP 36.7; O2SAT 99
--- NOTE | 2023-07-28 08:01 | PM.DS ---
DS: Admitting Diagnosis Discharge Date 07/28/2023 Admitting Diagnosis UTI, Bacteremia DS: Discharge Diagnosis Discharge Diagnosis (1) Bacteremia: Code(s): R78.81 - Bacteremia Status: Acute Assessment and Plan: Group B strep and Staph aureus present in 1 aerobic bottle. Patient is Levaquin for UTI, ceftriaxone and vancomycin for bacteremia pending cultures. Midline catheter placed as patient is only possible venous access is small gauge catheter in left breast currently. Will repeat blood cultures 07/25 and monitor for at least 48 hours on optimum treatment to begin two weak course of appropriate antibiotics. 07/25: Group B Strep pansensitive except clindamycin, currently double covered with vancomycin and ceftriaxone. Staph aureus without sensitivities yet. For this reason will continue vancomycin. 07/27/2023 Spoke with [facility] pharmacist and patient will be on Ancef q8h while inpatient. She will go to residential on 07/28 at her request. She will go on Oxacillin 12 g over 24 hour continuous infusion for bacteremia MSSA and group B strep. This medication will be administered daily but run for 24 hours through 08/08/23. Patient UTI treatment will be completed (2) Acute kidney injury superimposed on CKD: Code(s): N17.9 - Acute kidney failure, unspecified; N18.9 - Chronic kidney disease, unspecified Status: Acute Assessment and Plan: Serum creatinine 1.64, BUN 19, estimated GFR 32. History of stage 3b CKD but last values documented serum creatinine 1.1, BUN 8, estimated GFR 51 07/23: Improved to creatinine 1.42, BUN 28, estimated GFR 38 an estimated creatinine clearance 43 07/24: Continuing to improve creatinine 1.09 BUN 19 estimated GFR 52 estimated creatinine clearance 55 07/25: Cr 1.18, BUN 20, GFR 47, estimated creatinine clearance 51 07/27: Cr 1.03 , BUN 16, GFR 55, estimated creatinine clearance 58 (3) Acute urinary tract infection: Code(s): N39.0 - Urinary tract infection, site not specified Status: Acute Assessment and Plan: urine nitrite positive, greater than 70 white blood cells, 3+ leukocyte esterase 3+ urine bacteria with systemic weakness and elevated white blood cell count. Also lower abdominal tenderness to palpation primarily suprapubic and left lower quadrant. Urine culture in process. Reviewed prior urine cultures and patient has had several different bacteria with resistances but all have been sensitive to Levaquin. Patient received ceftriaxone in the emergency department. We will order renally adjusted Levaquin pending culture results. 07/24: Still awaiting urinary cultures. Renal function has improved so Levaquin will be dosed Q 24 hours instead of Q 48. 07/25: UTI with E. coli and Klebsiella pneumoniae both covered by ceftriaxone. Will discontinue Levaquin. 07/26/2023 Treatment completed on 07/28 (4) Unable to ambulate: Code(s): R26.2 - Difficulty in walking, not elsewhere classified Status: Acute Assessment and Plan: Patient reports the last 2 days unable to ambulate due to leg weakness. This is not unilateral. Patient believes it is related to her polyneuropathy and fibromyalgia. She has previously undergone SNF and home therapy but believes she is no longer able to care for herself at home. PT OT consulted. 07/25: Patient not participating with physical therapy today due to left leg pain. Will order venous duplex ultrasound. Ordered out of bed to chair for meals, patient to use sit to stand for this. 07/27: patient still not ambulatory and still not working (5) Polyneuropathy: Code(s): G62.9 - Polyneuropathy, unspecified Status: Acute Assessment and Plan: See 3. (6) Weakness: Code(s): R53.1 - Weakness Status: Acute Assessment and Plan: See 4. (7) Fibromyalgia: Code(s): M79.7 - Fibromyalgia Status: Acute Assessment and Plan: 07/23: See 4. Uncontro
[2023-07-28] MEDS: ENOXAPARIN 40 MG/0.4 ML SYRINGE SUB-Q (08:18)
[2023-07-28] MEDS: PANTOPRAZOLE 40 MG TABLET PO (08:18)
[2023-07-28] MEDS: TIZANIDINE HCL 4 MG TABLET PO (08:18)
[2023-07-28] MEDS: SERTRALINE HCL 50 MG TABLET PO (08:18)
[2023-07-28] MEDS: acetaZOLAMIDE TAB 250 MG TABLET PO (08:19)
[2023-07-28] MEDS: DULoxetine HCL 20 MG CAPSULE.DR PO (08:19)
[2023-07-28] MEDS: POTASSIUM CHLORIDE 20 MEQ ER TABLET PO (08:19)
[2023-07-28] MEDS: hydrOXYzine HCL 25 MG TABLET PO (08:20)
[2023-07-28] MEDS: EUCERIN CREAM 120 GM JAR 1 APPLIC TOPICAL (08:20)
[2023-07-28] MEDS: HYDROCORTISONE 1% 30 GM CREAM 1 APPLIC TOPICAL (08:20)
--- NOTE | 2023-07-28 09:14 | PC.NURSE ---
Report called to [facility] in [place], [place], . Report given to nurse Kaity. Pt updated and discharge paperwork obtained. Ambulance to be here at 1030. Belongings bagged including teeth and clothing.
[2023-07-28] MEDS: HYDROcodone/acetaminophen (*CRX) 5-325 MG TABLET 1 TAB PO (10:33)
--- NOTE | 2023-08-01 08:56 | PC.NURSE ---
Patient discharged to [facility], I spoke with them on tuesday evening, they received all information but had a question regarding pain management for patient, information provided on what we did for patient and had no further questions
== END 2023-07-28 10:53 | DRG 690 ==
LOC: CHSED 16:27 → CHS2ND 16:36
PROVIDERS: Nurse Practitioner; Admitting Provider Internal Medicine; Emergency Provider Emergency Medicine; PCP Nurse Practitioner Family; Visit Provider Internal Medicine
DX: N39.0 Urinary tract infection, site not specified (principal); R78.81 Bacteremia; N17.9 Acute kidney failure, unspecified; I12.9 Hypertensive chronic kidney disease with stage 1 through stage 4 chronic kidney disease, or unspecified chronic kidney disease; N18.32 Chronic kidney disease, stage 3b; D63.8 Anemia in other chronic diseases classified elsewhere; E03.9 Hypothyroidism, unspecified; K58.0 Irritable bowel syndrome with diarrhea; K21.9 Gastro-esophageal reflux disease without esophagitis; B95.1 Streptococcus, group B, as the cause of diseases classified elsewhere; B96.20 Unspecified Escherichia coli [E. coli] as the cause of diseases classified elsewhere; B95.61 Methicillin susceptible Staphylococcus aureus infection as the cause of diseases classified elsewhere; B96.1 Klebsiella pneumoniae [K. pneumoniae] as the cause of diseases classified elsewhere; F41.9 Anxiety disorder, unspecified; M79.605 Pain in left leg; M79.7 Fibromyalgia; G89.29 Other chronic pain; G62.9 Polyneuropathy, unspecified; Z96.89 Presence of other specified functional implants; Z85.42 Personal history of malignant neoplasm of other parts of uterus; Z87.891 Personal history of nicotine dependence; Z79.891 Long term (current) use of opiate analgesic
CPT/HCPCS: 36415; 36569; 80053; 81001; 82550; 83036; 83605; 83735; 84100; 84443; 85025; 87040; 87077; 87086; 87088; 87147; 87186; 87636; 93970; 96361; 96365; 96366; 96367; 97110; 97161; 97166; 97530; 97535; 99285; A9270; G0378; J0690; J0696; J1650; J1956; J2270; J3370; J7030

== ENCOUNTER 2024-02-04 13:14 | Emergency (ER) | payer MEDICARE, SELFPAY ==
--- NOTE | ~2024-02-04 | XR_ITS ---
XR hip LT 2V w AP pelvis DATE: 02/04/2024 13:44 INDICATION: Left leg pain TECHNIQUE: AP pelvis. AP and lateral views of left hip COMPARISON: 02/04/2024 left femur 11/22/2022 left hip FINDINGS: Stable postoperative change on the left following resection of the left femoral head, neck, trochanters and proximal left femoral shaft and left total hip arthroplasty with long femoral stem c omponent. Stable postoperative change of the left hip compared to 11/22/2022. No left hip fracture or dislocatio n, periosteal reaction or bone destruction. No pelvic fracture or bone destruction is evident. Normal alignment at the pubic symphysis and sacroi liac joints. Right hip joint space appears well preserved. IMPRESSION: No pelvic or recent left hip fracture or dislocation Status post left total hip arthroplasty with long femoral stem prosthetic device, stable in appearanc e since 11/22/2022 Reviewed, dictated and finalized at location A. IMPRESSION: No pelvic or recent left hip fracture or dislocation Status post left total hip arthroplasty with long femoral stem prosthetic devic e, stable in appearance since 11/22/2022
--- NOTE | ~2024-02-04 | XR_ITS ---
XR femur LT min 2V DATE: 02/04/2024 13:44 INDICATION: Left leg pain TECHNIQUE: AP and lateral views COMPARISON: 11/22/2022 and left hip and left knee FINDINGS: Status post left total hip arthroplasty with long femoral stem prosthesis following resecti on of the proximal left femoral shaft. There is also a lateral plate of the femoral shaft and lateral femoral condyle with multiple transver se through screws and proximal circumflex which wire. Osteopenia. No recent fracture or dislocation, periosteal reaction or bone destruction is evident. Compared to . IMPRESSION: Postoperative changes of the left femur, stable since 11/22/2022 Reviewed, dictated and finalized at location A.
[2024-02-04 13:15] VITALS: BP 137/88; PULSE 67; RESP 16; TEMP 36.6; O2SAT 100
--- NOTE | 2024-02-04 13:25 | ED.GENADULT ---
HPI - General Adult General Chief complaint: Extremity Injury, Lower Stated complaint: pinched nerve to leg Time Seen by Provider: 02/04/24 13:24 History of Present Illness HPI narrative: this is a 58-year-old female with a history of chronic pain presenting with left leg pain. Patient says that she was reaching to grab some [employer] sweet tea off of her desk at the [facility] when she developed a sharp pain in the center of her left thigh. Patient has had pain like this many times in the past and relates it to having a pinched nerve. No trauma. No skin changes. No numbness tingling or weakness to the leg. Patient has a morphine pain pump installed in her abdomen. She also gets scheduled [place]. She has anaphylactic reactions to all NSAIDs. She is also on muscle relaxer tizanidine. patient states they are attempting to wean her off morphine sh can place a different pain pump although she is not sure of any more specific details. Patient says that her pain is worse because she has a significant amount of stress going on with family issues. Related Data Home Medications Medication Instructions Recorded Confirmed Morphine Pain Pump See Rx Instructions .Route .COMPLEX 12/24/22 07/22/23 acetazolamide 250 mg tablet 500 mg PO BID 05/03/23 07/22/23 metoprolol tartrate 25 mg tablet 25 mg PO BID 05/03/23 07/22/23 trazodone 100 mg tablet 200 mg PO HS 05/03/23 07/22/23 esomeprazole magnesium 20 mg 20 mg PO DAILY 07/11/23 07/22/23 capsule,delayed release (Nexium) hydroxyzine HCl 25 mg tablet 25 mg PO BID 07/22/23 07/22/23 levothyroxine 50 mcg tablet 50 mcg PO DAILY 07/22/23 07/22/23 omeprazole 20 mg capsule,delayed 20 mg PO DAILY 07/22/23 07/22/23 release sertraline 50 mg tablet 50 mg PO DAILY 07/22/23 07/22/23 tizanidine 4 mg tablet See Rx Instructions .Route .COMPLEX 07/22/23 07/22/23 Allergies Allergy/AdvReac Type Severity Reaction Status Date / Time bee venom protein (honey bee) Allergy Severe Swelling Verified 07/22/23 15:11 of Lip/Tongue/Throat aspirin Allergy Unknown Unknown,Nausea Verified 07/22/23 15:11 and Vomiting Bleach (Sodium Hypochlorite) Allergy Unknown Unknown,Trouble Verified 07/22/23 15:11 Breathing ibuprofen Allergy Unknown Unknown, Verified 07/22/23 15:11 NSAIDS (Non-Steroidal Allergy Unknown Unknown, Verified 07/22/23 15:11 Anti-Inflamma [NSAIDS (Non-Steroidal Anti-Inflammatory Drug)] oxycodone AdvReac Mild hypotension Verified 07/22/23 15:11 and visual disturbance ketorolac [From Toradol] AdvReac Swelling Verified 02/04/24 13:24 Bee stings Allergy Unknown Unknown,Swelling Uncoded 07/22/23 15:11 of Lip/Tongue/Throat NONSTEROIDAL Allergy Unknown Unknown Uncoded 07/22/23 15:11 SALICYLATES Allergy Unknown unknown Uncoded 07/22/23 15:11 PMFSH Past Medical History Medical History Anemia of chronic disease Anxiety Chronic kidney disease, stage 3b Chronic pain Morphine pump. Fibromyalgia Gastroesophageal reflux disease Hypertension Hypothyroidism Irritable bowel syndrome with diarrhea Migrainous headache without aura Mitral valve regurgitation Stats post repair. Polyneuropathy Primary insomnia Uterine cancer Surgical History Surgical History History of appendectomy History of arthroplasty of right knee History of bladder suspension procedure History of cardiac catheterization History of dilation and curettage History of hysterectomy History of laparoscopic cholecystectomy Dr. Alejandro, 06/07/2023 for biliary dyskinesia History of mitral valve repair History of repair of hip fracture (12/2019) Left History of right knee surgery History of tubal ligation Family History Family History Mother Family history of type 2 diabetes mellitus Father Acute myocardial infarction
[2024-02-04] MEDS: diazePAM INJ (*CRX) 10 MG/2 ML SYRINGE 5 MG IM (13:30)
[2024-02-04 14:56] VITALS: BP 103/70; PULSE 60; RESP 18; O2SAT 100
== END 2024-02-04 16:30 | disposition home or self-care (01) ==
PROVIDERS: Emergency Provider Emergency Medicine; PCP Nurse Practitioner Family
DX: M79.605 Pain in left leg (principal); G89.29 Other chronic pain; D64.9 Anemia, unspecified; F41.9 Anxiety disorder, unspecified; I12.9 Hypertensive chronic kidney disease with stage 1 through stage 4 chronic kidney disease, or unspecified chronic kidney disease; N18.32 Chronic kidney disease, stage 3b; E03.9 Hypothyroidism, unspecified
CPT/HCPCS: 73502; 73552; 96372; 99284; J3360

== ENCOUNTER 2024-04-13 18:41 | Emergency (ER) | payer MEDICARE, SELFPAY ==
--- NOTE | ~2024-04-13 | CT_ITS ---
EXAMINATION: CTA BRAIN/CAROTID DATE: 04/14/2024 07:34 INDICATION: Stroke TECHNIQUE: Computed tomographic angiography (CTA) of the head and neck was performed with 100 mL Omni paque-350 intravenous contrast. Multiplanar reconstructions and maximum intensity projection 3D-recon structions of the carotid arteries and of the intracranial arteries were created by the technologist on a separate workstation. Precontrast CT of the head was also obtained. Automated exposure control and iterative reconstruction technique were employed.The dose-length product was 1611.56 mGy-cm. COMPARISON: 06/18/2023 FINDINGS: Carotid arteries: Visualized aortic arch is normal in caliber with no atherosclerotic plaque or dissection. Minimal ath erosclerotic plaque at the innominate artery. The left vertebral artery is dominant with diminutive r ight vertebral artery. There is no evident atherosclerotic plaque with 0% stenosis of the left caroti d bulb relative to normal distal artery lumen diameter (NASCET criteria). There is minimal atheroscle rotic plaque also with 0% stenosis of the right carotid bulb relative to normal distal artery lumen d iameter. Visualized upper lungs and superior mediastinum are unremarkable. Mild cervical spondylosis. Head: No acute intracranial hemorrhage, acute infarction or abnormal extra axial fluid collection. Ventricl es are normal and symmetric. No mass/mass effect. No abnormally enhancing brain lesions on the postco ntrast imaging. The orbits, paranasal sinuses and mastoid air cells are normal. Intracranial arteries Minimal atherosclerotic plaque without significant stenosis at the bilateral carotid siphons. There i s no hemodynamically significant stenosis in the vertebral, basilar and internal carotid arteries. Le ft vertebral artery is dominant with diminutive right vertebral artery. There are no aneurysms identi fied. Both A1 and P1 segments are patent. Cerebral arterial arborization appears symmetric. IMPRESSION: 1. 0% stenosis of the right and left carotid bulbs relative to normal distal artery lumen diameter (N ASCET criteria). 2. Dominant left diminutive right vertebral arteries. Otherwise unremarkable cerebral CT angiogram an d head CT with no acute intracranial process. Reviewed, dictated and finalized at location A. IMPRESSION: 1. 0% stenosis of the right and left carotid bulbs relative to normal distal ar james lumen diameter (NASCET criteria). 2. Dominant left diminutive right vertebral arteries. Otherwise unremarkable ce rebral CT angiogram and head CT with no acute intracranial process.
--- NOTE | ~2024-04-13 | XR_ITS ---
EXAMINATION: XR chest 1V portable DATE: 04/14/2024 06:53 INDICATION: Stroke TECHNIQUE: frontal view of the chest was obtained. COMPARISON: Chest radiograph dated 05/03/[address] dated 06/18/2023 FINDINGS: Couple calcified nodules at the medial left lung base consistent with old granulomatous disease. Unch anged mild lingular atelectasis/scarring along side a small left pericardial fat pad. No new airspace opacities, pulmonary edema, pleural effusion or pneumothorax. The cardiomediastinal silhouette is no rmal. Cholecystectomy clips in right upper quadrant. IMPRESSION: 1. No acute cardiopulmonary disease. Reviewed, dictated and finalized at location A.
[2024-04-13 19:20] VITALS: BP 128/75; PULSE 63; RESP 20; TEMP 36.3; O2SAT 99
[2024-04-14] VITALS (20 sets, daily range): BP systolic 127–144; BP diastolic 68–84; PULSE 58–78; RESP 11–18; O2SAT 99–100
--- NOTE | 2024-04-14 05:03 | ED.GENADULT ---
HPI - General Adult General Chief complaint: Unspecified Stated complaint: neuro? Time Seen by Provider: 04/14/24 04:46 Source: patient and EMS Mode of arrival: EMS Limitations: no limitations History of Present Illness HPI narrative: Patient presents with report of left-sided weakness constricted pupils via EMS from [facility] and rehab. Patient states she is supposed to have an MRI this month to evaluate her implanted morphine pain pump. Patient states she has no feeling below her knees after a urinary tract infection on August 20, 2014 with complications leading to neuropathy. She denies history of diabetes mellitus. She has been at the correction because she can't walk. No history CVA. Patient is occasionally sleepy and notes that she has been having memory issues lately, feeling more fatigued. She has a history of left hip fracture and ever since has had difficulty raising her left side. COmplaining of a mild headache. States she has been having flashes and floaters. History of heart surgery for mitral valve prolapse through [facility], [place]. Related Data Home Medications Medication Instructions Recorded Confirmed Morphine Pain Pump See Rx Instructions .Route .COMPLEX 12/24/22 07/22/23 acetazolamide 250 mg tablet 500 mg PO BID 05/03/23 07/22/23 metoprolol tartrate 25 mg tablet 25 mg PO BID 05/03/23 07/22/23 trazodone 100 mg tablet 200 mg PO HS 05/03/23 07/22/23 esomeprazole magnesium 20 mg 20 mg PO DAILY 07/11/23 07/22/23 capsule,delayed release (Nexium) hydroxyzine HCl 25 mg tablet 25 mg PO BID 07/22/23 07/22/23 levothyroxine 50 mcg tablet 50 mcg PO DAILY 07/22/23 07/22/23 omeprazole 20 mg capsule,delayed 20 mg PO DAILY 07/22/23 07/22/23 release sertraline 50 mg tablet 50 mg PO DAILY 07/22/23 07/22/23 tizanidine 4 mg tablet See Rx Instructions .Route .COMPLEX 07/22/23 07/22/23 Allergies Allergy/AdvReac Type Severity Reaction Status Date / Time bee venom protein (honey bee) Allergy Severe Swelling Verified 04/14/24 08:17 of Lip/Tongue/Throat aspirin Allergy Unknown Unknown,Nausea Verified 04/14/24 08:17 and Vomiting Bleach (Sodium Hypochlorite) Allergy Unknown Unknown,Trouble Verified 04/14/24 08:17 Breathing ibuprofen Allergy Unknown Unknown, Verified 04/14/24 08:17 NSAIDS (Non-Steroidal Allergy Unknown Unknown, Verified 04/14/24 08:17 Anti-Inflamma [NSAIDS (Non-Steroidal Anti-Inflammatory Drug)] oxycodone AdvReac Mild hypotension Verified 04/14/24 08:17 and visual disturbance ketorolac [From Toradol] AdvReac Swelling Verified 04/14/24 08:17 Bee stings Allergy Unknown Unknown,Swelling Uncoded 07/22/23 15:11 of Lip/Tongue/Throat NONSTEROIDAL Allergy Unknown Unknown Uncoded 07/22/23 15:11 SALICYLATES Allergy Unknown unknown Uncoded 07/22/23 15:11 PMFSH Past Medical History Medical History Anemia of chronic disease Anxiety Chronic kidney disease, stage 3b Chronic pain Morphine pump. Depression, unspecified Fibromyalgia Gastroesophageal reflux disease Hypertension Hypokalemia Hypothyroidism Irritable bowel syndrome with diarrhea Migrainous headache without aura Mitral valve regurgitation Stats post repair. Polyneuropathy Primary insomnia S/p left hip fracture Uterine cancer Weakness Surgical History Surgical History History of appendectomy History of arthroplasty of right knee History of bladder suspension procedure History of cardiac catheterization History of dilation and curettage History of hysterectomy History of laparoscopic cholecystectomy Dr. Alejandro, 06/07/2023 for biliary dyskinesia History of mitral valve repair Roge GERARD History of repair of hip fracture (12/2019) Left History of right knee surgery History of tubal ligation Family History Family History (Reviewed 02/04/24 @ 13:27 by Cisco
--- NOTE | 2024-04-14 05:06 | ECG_ITS ---
Test Date: 2024-04-14 05:35:47 Measurements Intervals [place] Rate: 63 P: 0 IL: 0 QRS: 4 QRSD: 102 T: -2 QT: 415 QTc: 428 Interpretive Statements SINUS RHYTHM WITH BORDERLINE FIRST-DEGREE AV BLOCK NONSPECIFIC ST SEGMENT ABNORMALITY LOW QRS VOLTAGE IN PRECORDIAL LEADS [QRS DEFLECTION < 1.0 mV IN CHEST LEADS] ABNORMAL RHYTHM ECG No previous ECG available for comparison Electronically Signed On 04-14-2024 09:40:12 CDT by Sonu Hess M.D.
--- NOTE | 2024-04-14 06:31 | PC.NURSE ---
Attempted IV; ultrasound placed right wrist IV without blood return. EDP and weigh and charge worker made aware.
[2024-04-14 07:21] LABS: Basophils Percent Auto 0.5 % (0.2-1.2); Eosinophils Absolute Auto 0.1 K/mm3 (0-0.3); Eosinophils Percent Auto 1.4 % (0-4.4); Hematocrit 37.3 % (37.0-47.0); Hemoglobin 12.4 g/dL (12.0-15.0); Immature Granulocyte Absolute 0.03 K/mm3 (0.00-0.031); Immature Granulocyte Percent A 0.4 % (0-0.5); Lymphocytes Absolute Auto 1.95 K/mm3 (0.9-3.2); Lymphocytes Percent Auto 22.8 % (18.3-44.2); Mean Corpuscular HGB Conc 33.2 g/dl (32-36); Mean Corpuscular Hemoglobin 31.1 pg (26-34); Mean Corpuscular Volume 93.5 fl (80-100); Mean Platelet Volume 9.6 fl (7.4-10.4); Monocytes Absolute Auto 0.7 K/mm3 (0.1-0.6); Monocytes Percent Auto 8.2 % (2.6-8.5); Neutrophils Absolute Auto 5.7 K/mm3 (1.3-6.7); Neutrophils Percent Auto 66.7 % (45.5-73.1); Platelet Count Result 201 k/mm3 (150-375); Red Blood Count 3.99 M/mm3 (4.2-5.4); White Blood Count 8.6 K/mm3 (4.5-10.0)
[2024-04-14 07:26] LABS: Estimated CRCL calculation 53 ml/min; Estimated Glomerular Filt Rate 42
[2024-04-14 07:30] LABS: Ethanol < 10 mg/dL (<10)
[2024-04-14 07:31] LABS: Alanine Aminotransferase 10 U/L (6-35); Albumin Level 3.7 g/dL (3.5-5.1); Alkaline Phosphatase 90 U/L (38-126); Anion Gap 6 mmol/L (4-12); Aspartate Amino Transferase 26 U/L (14-36); Bilirubin,Total 0.5 mg/dL (0.2-1.3); Blood Urea Nitrogen 16 mg/dL (7-17); Calcium 8.4 mg/dL (8.4-10.2); Carbon Dioxide 24 mmol/L (22-30); Chloride 111 mmol/L (98-107); Estimated CRCL calculation 53 ml/min; Estimated Glomerular Filt Rate 42; Glucose 97 mg/dL (65-110); Potassium 3.7 mmol/L (3.4-5.0); Sodium 141 mmol/L (137-145)
[2024-04-14 07:34] LABS: Prothrombin Time 13.6 Seconds (11.1-14.7)
[2024-04-14 07:35] LABS: Partial Thromboplastin Time 30.6 Seconds (22.3-36.8)
[2024-04-14 07:36] LABS: Add Urine Microscopic? YES; Appearance Urine Cloudy (Clear); Bacteria Urine 4+ /hpf; Bilirubin Urine Negative (Negative); Blood Urine Negative (Negative); Color Urine Yellow (Yellow); Glucose Urine UA Negative (Negative); Ketones Urine Negative (Negative); Leukocyte Esterase Ur 3+ LEU/UL (Negative); Need Manual Microscopic Reviewed; Nitrate Urine Positive (Negative); Non Pathogenic Casts 0-2; Protein Urine Negative (Negative); RBC Urine 0-2 /hpf (0-2); Specific Grav Ur 1.012 (1.001-1.035); Squamous Epithelial Cell Urine None Seen /hpf (Few); WBC Urine >100 /hpf (0-3); pH Urine 6.5 (5.0-9.0)
[2024-04-14 07:38] LABS: Amphetamine Screen Urine Negative (Negative); Barbiturate Screen Urine Negative (Negative); Benzodiazepines Screen Urine Positive (Negative); Cannabinoid Screen Urine Negative (Negative); Cocaine Screen Urine Negative (Negative); Methadone Screen Urine Negative (Negative); Opiate Screen Urine Positive (Negative); Phencyclidine Screen Urine Negative (Negative)
[2024-04-14 07:43] LABS: Troponin I < 0.012 ng/mL (0.000-0.034)
== END 2024-04-14 11:10 ==
PROVIDERS: Emergency Provider Student in an Organized Health Care Education/Training Program; PCP Nurse Practitioner Family
DX: N39.0 Urinary tract infection, site not specified (principal); I12.9 Hypertensive chronic kidney disease with stage 1 through stage 4 chronic kidney disease, or unspecified chronic kidney disease; N18.32 Chronic kidney disease, stage 3b; G62.9 Polyneuropathy, unspecified; H57.03 Miosis; E03.9 Hypothyroidism, unspecified; K21.9 Gastro-esophageal reflux disease without esophagitis; K58.0 Irritable bowel syndrome with diarrhea; D63.8 Anemia in other chronic diseases classified elsewhere; Z96.651 Presence of right artificial knee joint; Z96.89 Presence of other specified functional implants; Z85.42 Personal history of malignant neoplasm of other parts of uterus; Z87.891 Personal history of nicotine dependence; Z90.710 Acquired absence of both cervix and uterus; Z90.49 Acquired absence of other specified parts of digestive tract; Z79.891 Long term (current) use of opiate analgesic; Z79.899 Other long term (current) drug therapy; R94.31 Abnormal electrocardiogram [ECG] [EKG]
CPT/HCPCS: 36415; 70496; 70498; 71045; 80053; 80307; 81001; 84484; 85025; 85610; 85730; 87077; 87086; 87088; 87186; 93005; 96365; 96366; 99284; J0696; Q9967

== ENCOUNTER 2024-04-26 08:00 | Outpatient (CLI) | payer MEDICARE, SELFPAY ==
--- NOTE | ~2024-04-26 | MR_ITS ---
MRI of the lumbar spine Clinical History: Spondylosis Technique: Axial T2-weighted images, and sagittal T1-weighted, T2-weighted, and and T2 fat-sat images were acquired. Findings: There is no fracture or subluxation of the lumbar spine. Vertebral bodies maintain normal h eight and alignment. Intraosseous hemangiomas are noted. No suspicious bone marrow signal abnormality . No significant disc bulge or herniation seen in the lumbar spine. There are moderate facet joint dege nerative changes throughout the lumbar spine. No spinal canal stenosis or neural foraminal narrowing at any lumbar level. Paravertebral soft tissues are unremarkable. Impression: Mild degenerative change, as above. Reviewed, dictated and finalized at location M. Impression: Mild degenerative change, as above.
== END 2024-04-26 08:01 ==
PROVIDERS: PCP Nurse Practitioner Family
DX: M47.816 Spondylosis without myelopathy or radiculopathy, lumbar region (principal); M46.1 Sacroiliitis, not elsewhere classified
CPT/HCPCS: 72148

== ENCOUNTER 2024-08-24 11:48 | Outpatient (CLI) | payer OTHER, SELFPAY ==
--- NOTE | ~2024-08-24 | MM_ITS ---
EXAMINATION: MM screening tino BI w zena HISTORY: Screening TECHNIQUE: Craniocaudal and mediolateral oblique 3-D tomosynthesis images were obtained and synthetic 2-D images were generated. CAD analysis was submitted and interpreted. COMPARISON 03/14/2020 and 01/19/2019 BREAST PARENCHYMAL COMPOSITION: There are scattered areas of fibroglandular density. FINDINGS: Punctate calcifications are detected bilaterally, stable and benign in appearance. Stable parenchymal pattern without suspicious microcalcifications, architectural distortion, discrete masses or significant asymmetry. IMPRESSION: 1. No mammographic evidence of malignancy. 2. Recommend routine screening mammography in one year. BI-RADS Category 2: Benign finding(s). Reviewed, dictated and finalized at location A. D EYELETTER
== END 2024-08-24 11:49 | disposition home or self-care (01) ==
PROVIDERS: PCP Internal Medicine; Visit Provider Internal Medicine
DX: Z12.31 Encounter for screening mammogram for malignant neoplasm of breast (principal)
CPT/HCPCS: 77063; 77067

== ENCOUNTER 2024-09-08 16:52 | Emergency (ER) | payer MEDICARE, MEDICAID, SELFPAY ==
--- NOTE | ~2024-09-08 | XR_ITS ---
SINGLE AP VIEW PELVIS Ordering provider: Bri Phillips History: . fall . Comparison: None. FINDINGS: BONES: No acute fracture or dislocation. HIP JOINT SPACES: Total hip arthroplasty seen in the left hip. SACROILIAC JOINT SPACES/LUMBAR SPINE: The sacroiliac joint spaces are normal. Mild degenerative carr es of the visualized lower lumbar spine. PUBIC SYMPHYSIS: Normal. SOFT TISSUES: Normal. IMPRESSION: No acute osseous abnormality pelvis. Reviewed, dictated and finalized at location A. E MACHINE OPERATOR
--- NOTE | ~2024-09-08 | CT_ITS ---
CT thoracic lumbar wo con Ordering provider: Bri Phillips History: . back pain, fall . Comparison: None. Technique: CT thoracic and lumbar spine without contrast. Automated exposure control and iterative r econstruction technique were employed. The dose-length product was 1976.44 mGy-cm. FINDINGS: VERTEBRAE: Normal height and alignment. No subluxation or visible acute fracture. Hemangioma in T8 and T10. DISC SPACES: Well maintained. Facet joint disease in the lower thoracic area. Bilateral facet joint d isease at the level of L3-L4, L4-L5 and L5-S1. PARASPINOUS SOFT TISSUES: Normal. Bilateral sacroiliacs. Spinal stimulator is seen in the lumbar area. IMPRESSION: No acute osseous abnormality of the thoracic and lumbar spine. Reviewed, dictated and finalized at location A. NTERER
--- NOTE | ~2024-09-08 | CT_ITS ---
CT brain wo con Ordering provider: Bri Phillips PA-C History: 59 years Female with . fall, head injury . Comparison: April 14, 2024 Technique: CT of the head without contrast. Radiation reduction technique utilized. The dose-length product was 681 mGy-cm. FINDINGS: BRAIN PARENCHYMA AND CSF SPACES: No midline shift, mass effect or hemorrhage. The brain parenchyma a nd CSF spaces are otherwise normal. VISUALIZED PARANASAL SINUSES: Well aerated. MASTOIDS: Well aerated. BONES: The bones appear intact. SOFT TISSUES: Visualized nasopharynx is normal. Superficial soft tissues are normal. IMPRESSION: No acute intracranial findings. Reviewed, dictated and finalized at location A. ICAL SCRUB TECH
--- NOTE | ~2024-09-08 | XR_ITS ---
XR knee RT 3V Ordering provider: Bri Phillips History: . fall . Comparison: None. FINDINGS: BONES: No acute fracture or dislocation. JOINT SPACES: Total knee arthroplasty. SOFT TISSUES: Normal. IMPRESSION: No acute osseous abnormality right knee. Total knee arthroplasty. Reviewed, dictated and finalized at location A. CIATE ARTISTIC DIRECTOR
--- NOTE | ~2024-09-08 | XR_ITS ---
XR chest 1V Ordering provider: Bri Phillips History: 59 years Female with . fall . Comparison: 04/14/2024 FINDINGS: MEDIASTINUM: The cardiac silhouette is mildly enlarged. Prominent hina. LUNGS: No effusions or pneumothorax. Minimal opacification the lung bases medially. OTHER: No free air under the diaphragm. IMPRESSION: Minimal opacification the lung bases medially most likely atelectatic. Reviewed, dictated and finalized at location A. UNT STRATEGIST
--- NOTE | ~2024-09-08 | XR_ITS ---
XR knee LT 3V Ordering provider: Bri Phillips History: . fall . Comparison: February 04, 2024 FINDINGS: BONES: Postoperative changes in the distal femur. JOINT SPACES: Narrowing of the medial compartment. SOFT TISSUES: Normal. IMPRESSION: No acute osseous abnormality left knee. Postoperative changes. Reviewed, dictated and finalized at location A. GEMENT SPECIALIST
--- NOTE | ~2024-09-08 | CT_ITS ---
CT facial & cervical spine wo Ordering provider: Bri Phillips History: . fall, head injury . Comparison: None. Technique: CT of the cervical spine was performed without contrast. Sagittal and coronal reformatted images were also obtained and reviewed. Automated exposure control and iterative reconstruction angélica hnique were employed. The dose-length product was 467.00 mGy-cm. FINDINGS: VERTEBRAE: No subluxation or acute fracture. The occipital condyles are intact. DISC SPACES: Normal. PARASPINOUS SOFT TISSUES: Normal. IMPRESSION: No acute osseous abnormality cervical spine. CT facial & cervical spine wo Ordering provider: Bri Phillips History: . fall, head injury . Comparison: None. Technique: Thin slice axial CT of the facial bones was performed without contrast. Coronal and sagit karen reformatted images were also obtained. . Automated exposure control and iterative reconstruction technique were employed. The dose-length product was 467.00 mGy-cm. FINDINGS: PARANASAL SINUSES: Right sphenoid sinus disease. BONES: No facial fracture including no nasal bone fracture. ORBITS AND SUPERFICIAL SOFT TISSUES: The optic globes and orbits are normal. The superficial soft tis sues are normal. VISUALIZED MASTOIDS: Well aerated. LIMITED VISUALIZED BRAIN PARENCHYMA: Normal. IMPRESSION: No facial fracture. Reviewed, dictated and finalized at location A. RONMENTAL COMPLIANCE MANAGER IMPRESSION: No acute osseous abnormality cervical spine. CT facial & cervical spine wo Ordering provider: Bri Phillips History: . fall, head injury . Comparison: None. Technique: Thin slice axial CT of the facial bones was performed without contra st. Coronal and sagittal reformatted images were also obtained. . Automated e xposure control and iterative reconstruction technique were employed. The dose- length product was 467.00 mGy-cm. FINDINGS: PARANASAL SINUSES: Right sphenoid sinus disease. BONES: No facial fracture including no nasal bone fracture. ORBITS AND SUPERFICIAL SOFT TISSUES: The optic globes and orbits are normal. Th e superficial soft tissues are normal. VISUALIZED MASTOIDS: Well aerated. LIMITED VISUALIZED BRAIN PARENCHYMA: Normal. IMPRESSION: No facial fracture.
[2024-09-08 16:56] VITALS: BP 119/73; PULSE 77; RESP 16; TEMP 36.4; O2SAT 99
--- NOTE | 2024-09-08 19:24 | ED.FALL ---
HPI - Fall General Chief Complaint: Fall <Bri Phillips PA-C - Last Filed: 09/09/24 18:05> Stated Complaint: fall, dizzy <Bri Phillips PA-C - Last Filed: 09/09/24 18:05> Time Seen by Provider: 09/08/24 19:24 <Bri Phillips PA-C - Last Filed: 09/09/24 18:05> Focused HPI: This is a 59 year old female that presents to the ER for evaluation after a fall today. Reports she was attempting to get on the toilet and her knees gave out. Reports she fell and hit her head. She believes she lost consciousness. Reports neck pain, back pain. Reports ringing in her ears for a few months. GENERAL: Well-appearing, well-nourished, and in no acute distress. HEAD: Normocephalic, atraumatic. CHEST: Clear to auscultation. ?No respiratory distress. HEART: Regular rate and rhythm.? NEURO: ?Alert and oriented x3. Patient screened in triage and initial orders placed.? ?Additional care and disposition to be based upon?diagnostic testing and treatment. <Bri Phillips PA-C - Last Filed: 09/09/24 18:05> History of Present Illness HPI Narrative: With the above HPI <Ebenezer Chavez MD - Last Filed: 09/09/24 07:09> Related Data Home Medications: Home Medications ?Medication ?Instructions ?Recorded ?Confirmed ?Last Taken ?Type Morphine Pain Pump See Rx Instructions .Route .COMPLEX 12/24/22 07/22/23 07/22/23 History acetazolamide 250 mg tablet 500 mg PO BID 05/03/23 07/22/23 06/18/23 History metoprolol tartrate 25 mg tablet 25 mg PO BID 05/03/23 07/22/23 06/18/23 History trazodone 100 mg tablet 200 mg PO HS 05/03/23 07/22/23 06/17/23 History esomeprazole magnesium 20 mg 20 mg PO DAILY 07/11/23 07/22/23 Unknown History capsule,delayed release (Nexium) hydroxyzine HCl 25 mg tablet 25 mg PO BID 07/22/23 07/22/23 Unknown History levothyroxine 50 mcg tablet 50 mcg PO DAILY 07/22/23 07/22/23 Unknown History omeprazole 20 mg capsule,delayed 20 mg PO DAILY 07/22/23 07/22/23 Unknown History release sertraline 50 mg tablet 50 mg PO DAILY 07/22/23 07/22/23 Unknown History tizanidine 4 mg tablet See Rx Instructions .Route .COMPLEX 07/22/23 07/22/23 Unknown History <Bri Phillips PA-C - Last Filed: 09/09/24 18:05> Allergies/Adverse Reactions: Allergies Allergy/AdvReac Type Severity Reaction Status Date / Time bee venom protein (honey bee) Allergy Severe Swelling Verified 04/14/24 08:17 of Lip/Tongue/Throat aspirin Allergy Unknown Unknown,Nausea Verified 04/14/24 08:17 and Vomiting Bleach (Sodium Hypochlorite) Allergy Unknown Unknown,Trouble Verified 04/14/24 08:17 Breathing ibuprofen Allergy Unknown Unknown, Verified 04/14/24 08:17 NSAIDS (Non-Steroidal Allergy Unknown Unknown, Verified 04/14/24 08:17 Anti-Inflamma (NSAIDS (Non-Steroidal Anti-Inflammatory Drug)) oxycodone AdvReac Mild hypotension Verified 04/14/24 08:17 and visual disturbance ketorolac (From Toradol) AdvReac Swelling Verified 04/14/24 08:17 Bee stings Allergy Unknown Unknown,Swelling Uncoded 07/22/23 15:11 of Lip/Tongue/Throat NONSTEROIDAL Allergy Unknown Unknown Uncoded 07/22/23 15:11 SALICYLATES Allergy Unknown unknown Uncoded 07/22/23 15:11 <Bri Phillips PA-C - Last Filed: 09/09/24 18:05> Review of Systems Review of Systems: All systems reviewed & are unremarkable except as noted in HPI and below <Ebenezer Chavez MD - Last Filed: 09/09/24 07:09> [facility] Past Medical History Medical History: Medical History Anemia of chronic disease Anxiety Chronic kidney disease, stage 3b Chronic pain Morphine pump. Depression, unspecified Fibromyalgia Gastroesophageal reflux disease Hypertension Hypokalemia Hypothyroidism Irritable bowel syndrome with diarrhea Migrainous headache without aura Mitral valve regurgitation Stats post repair. Polyneuropathy Primary insomnia S/p left hip fracture Uterine cancer Weakness <Bri Phillisp PA-C - Last Filed: 09/09/24 18:05> Surgical History Surgical History: Surgical History History of appendectomy History of arthroplasty of right knee History of bladder suspension procedure History of cardiac catheterization History of dilation and curettage History of hysterectomy History of laparoscopic cholecystectomy Dr. Alejandro, 06/07/2023 for biliary dyskinesia History of mitral valve repair Roge GERARD History of repair of hip fracture (12/2019) Left History of right knee surgery History of tubal ligation <Bri Phillips PA-C - Last Filed: 09/09/24 18:05> Family History Family History: Family History Mother Family history of type 2 diabetes mellitus Father Acute myocardial infarction Lung cancer Hypertension <Bri Phillips PA-C - Last Filed: 09/09/24 18:05> Social History Social History: Social History (Updated 04/14/24 @ 06:16 by Debbie Maria MD) Social History: she used to live in her own house with her cat. She has 2 living children. She is . She quit smoking long time ago. Surrogate medical decision maker: Lisa Allen, mother. Code status: Full code. Smoking packs per day: 0.2 Smoking cigarettes per day: 4.0 Years smoked: 2 Smoking pack-years: 0.40 Smoking status: Former smoker Tobacco type: cigarettes Second hand tobacco smoke exposure: Yes Smoking end date: 08/29/84 Additional smoking assessment comments: Smoked occassionally x 10 years, started at 7 years old Alcohol intake: never Alcohol use details: social Substance use: never Substance use type: prescription drug Lack of Transportation: YES Lack of Food: Never True Current Housing: I Have Housing Concerned About Future Housing: No Difficulty Paying Gas/Electric Bills: No Difficulty Paying for Meds: No Currently Unemployed: No Education: High School Diploma/GED Difficulty w/ Childcare or Family Care: No Living arrangements: half-way Additional living arrangements comments: [facility] Occupation/Education: other Additional occupation/education comments: Disabled. Spiritual care concerns: No <Bri Phillips PA-C - Last Filed: 09/09/24 18:05> Exam Narrative: APPEARANCE: Well appearing, no pain, no distress, well-nourished. HEAD: normocephalic, atraumatic. EYES: PERRLA/EOMI, conjunctivae clear. NOSE: Normal no drainage EARS:TMS clear with good light reflex. THROAT: Pharynx clear, no exudate. NECK: Supple. No adenopathy, no masses. RESPIRATORY: Airway patent, respirations nonlabored. Clear to auscultation bilaterally, no rales, rhonchi, wheezing. CARDIOVASCULAR: Regular rate and rhythm without murmurs rubs or gallops. ABDOMINAL: Soft, nontender, nondistended, normal bowel sounds MUSCULOSKELETAL: Moves all extremities. Strength/ROM intact, No edema, No calf tenderness. NEURO: Alert. Cranial nerves II through XII intact. Good gait. Good coordination SKIN: Warm, dry. Normal Color <Ebenezer Chavez MD - Last Filed: 09/09/24 07:09> Course Vital Signs Vital signs: Vital Signs Temperature 97.5 F L 09/08/24 16:56 Pulse Rate 77 09/08/24 16:56 Respiratory Rate 16 09/08/24 16:56 Blood Pressure 119/73 09/08/24 16:56 Pulse Oximetry 99 09/08/24 16:56 Oxygen Delivery Room Air 09/08/24 16:56 Temperature 97.5 F L 09/08/24 16:56 Pulse Rate 85 09/09/24 11:50 Respiratory Rate 16 09/09/24 11:50 Blood Pressure 150/82 H 09/09/24 11:50 Pulse Oximetry 100 09/09/24 11:50 Oxygen Delivery Room Air 09/08/24 16:56 <Bri Phillips PA-C - Last Filed: 09/09/24 18:05> Vital Signs Temperature 97.5 F L 09/08/24 16:56 Pulse Rate 77 09/08/24 16:56 Respiratory Rate 16 09/08/24 16:56 Blood Pressure 119/73 09/08/24 16:56 Pulse Oximetry 99 09/08/24 16:56 Oxygen Delivery Room Air 09/08/24 16:56 Temperature 97.5 F L 09/08/24 16:56 Pulse Rate 85 09/09/24 11:50 Respiratory Rate 16 09/09/24 11:50 Blood Pressure 150/82 H 09/09/24 11:50 Pulse Oximetry 100 09/09/24 11:50 Oxygen Delivery Room Air 09/08/24 16:56 <Ebenezer Chavez MD - Last Filed: 09/09/24 07:09> MDM - Fall MDM Narrative Medical decision making narrative: 59-year-old female presented to the emergency department for evaluation for multiple complaints after having a ground level fall. Patient had negative chest x-ray, pelvic x-ray, bilateral knee x-rays, head facial and cervical spine CTs. Patient denies any current pain or complaints on re-evaluation. Patient was comfortable the plan for discharge back to care facility. All questions concerns were addressed. <Ebenezer Chavez MD - Last Filed: 09/09/24 07:09> Differential Diagnosis Differential diagnosis: Likely other (Knee injury, head injury, lumbar spine injury, pelvic injury) <Ebenezer Chavez MD - Last Filed: 09/09/24 07:09> Imaging Data Radiologist's impression: Impressions Head CT 09/08/24 20:51 IMPRESSION: No acute intracranial findings. Head/Cervical Spine/Facial Bones CT 09/08/24 20:58 IMPRESSION: No acute osseous abnormality cervical spine. CT facial & cervical spine wo Ordering provider: Bri Phillips History: . fall, head injury . Comparison: None. Technique: Thin slice axial CT of the facial bones was performed without contrast. Coronal and sagittal reformatted images were also obtained. . Automated exposure control and iterative reconstruction technique were employed. The dose-length product was 467.00 mGy-cm. FINDINGS: PARANASAL SINUSES: Right sphenoid sinus disease. BONES: No facial fracture including no nasal bone fracture. ORBITS AND SUPERFICIAL SOFT TISSUES: The optic globes and orbits are normal. The superficial soft tissues are normal. VISUALIZED MASTOIDS: Well aerated. LIMITED VISUALIZED BRAIN PARENCHYMA: Normal. IMPRESSION: No facial fracture. Knee X-Ray 09/08/24 21:13 IMPRESSION: No acute osseous abnormality left knee. Postoperative changes. Knee X-Ray 09/08/24 21:15 IMPRESSION: No acute osseous abnormality right knee. Total knee arthroplasty. Pelvis X-Ray 09/08/24 21:16 IMPRESSION: No acute osseous abnormality pelvis. Chest X-Ray 09/08/24 21:17 IMPRESSION: Minimal opacification the lung bases medially most likely atelectatic. Thoracic/Lumbar Spine CT 09/08/24 21:37 IMPRESSION: No acute osseous abnormality of the thoracic and lumbar spine. <Ebenezer Chavez MD - Last Filed: 09/09/24 07:09> Critical Care Time Critical Care Time Critical Care Time: No <Bri Phillips PA-C - Last Filed: 09/09/24 18:05> Discharge Plan Discharge Clinical Impression: Bilateral knee pain Qualifiers: Chronicity: acute Qualified Code(s): M25.561 - Pain in right knee; M25.562 - Pain in left knee Head injury Qualifiers: Encounter type: initial encounter Qualified Code(s): S09.90XA - Unspecified injury of head, initial encounter <Bri Phillips PA-C - Last Filed: 09/09/24 18:05> Patient Disposition: [facility] Senior Care/Asst Living <Bri Phillips PA-C - Last Filed: 09/09/24 18:05> Condition: Stable <Bri Phillips PA-C - Last Filed: 09/09/24 18:05> Instructions: Antibiotic Form, Fall Prevention for Older Adults (ED), Head Injury (ED) <Bri Phillips PA-C - Last Filed: 09/09/24 18:05> Additional Instructions: Have close follow-up with your primary care physician for additional outpatient testing. If you have any worsening symptoms please call or return to the emergency department. <Bri Phillips PA-C - Last Filed: 09/09/24 18:05> Patient Language: Azerbaijani <Bri Phillips PA-C - Last Filed: 09/09/24 18:05> Prescriptions: No Action potassium chloride 20 mEq tablet extended release 20 meq PO DAILY Qty: 5 0RF tizanidine 4 mg tablet See Rx Instructions .ROUTE .COMPLEX Rx Instructions: , levothyroxine 50 mcg tablet 50 mcg PO DAILY omeprazole 20 mg capsule,delayed release(DR/EC) 20 mg PO DAILY hydroxyzine HCl 25 mg tablet 25 mg PO BID sertraline 50 mg tablet 50 mg PO DAILY Rx Instructions: TAKE 1 TABLET BY MOUTH EVERY DAY esomeprazole magnesium [Nexium] 20 mg Capsule,Delayed Release(Dr/Ec) 20 mg PO DAILY cephalexin 500 mg capsule 500 mg PO Q8H 5 Days Qty: 15 0RF naloxone [Narcan] 4 mg/actuation spray,non-aerosol 4 mg intranasal Q2-3M PRN (Reason: opioid overdose) Qty: 2 0RF Rx Instructions: spray 1 dose into ONE nostril; alternate nostrils w each dose until help arrives Morphine Pain Pump See Rx Instructions .ROUTE .COMPLEX Rx Instructions: Left abdomen. acetazolamide 250 mg tablet 500 mg PO BID trazodone 100 mg tablet 200 mg PO HS Rx Instructions: TAKE 2 TABLETS BY MOUTH EVERY NIGHT AT BEDTIME metoprolol tartrate 25 mg tablet 25 mg PO BID Rx Instructions: TAKE 1 TABLET BY MOUTH TWICE A DAY duloxetine [Cymbalta] 20 mg capsule,delayed release(DR/EC) 20 mg PO DAILY 30 Days Qty: 30 0RF pantoprazole 40 mg Tablet,Delayed Release (Dr/Ec) 40 mg PO Q12HR Qty: 60 0RF <Bri Phillips PA-C - Last Filed: 09/09/24 18:05> Follow-up/Referrals: Michael,MD Gerardo [Primary Care Provider] - <Bri Phillips PA-C - Last Filed: 09/09/24 18:05>
--- NOTE | 2024-09-08 20:51 | PC.NURSE ---
no answer at triage for vitals
[2024-09-08 22:38] VITALS: BP 146/97; PULSE 64; RESP 18; O2SAT 98
--- NOTE | 2024-09-09 01:24 | PC.NURSE ---
Report called to [facility]. Transport via ambulance is arranged for 0800.
--- NOTE | 2024-09-09 07:59 | PC.NURSE ---
Ambulance set up by overnight stocker. Pt. does not qualify for ambulance. Ashley and CRN Grant notified and ambulance cancelled. This RN attempted to call [facility] with no answer.
--- NOTE | 2024-09-09 08:02 | PC.NURSE ---
Pt. friend and secondary contact Chan notified and will be at [place] at noon to pick pt. up.
--- NOTE | 2024-09-09 08:32 | PC.NURSE ---
Pt. mother provided with update.
--- NOTE | 2024-09-09 10:31 | PC.NURSE ---
Report called to [facility]. Nurse hung up the before this RN could get a name. RN notified that pt. does not qualify for an ambulance, but her ride won't be here until noon. This RN asked if staff at [facility] would assist pt. if Patrice provided transportation via a cab. RN states they would not be able to do that. Pt. will continue to wait in ER for Chan to pick her up.
[2024-09-09 11:50] VITALS: BP 150/82; PULSE 85; RESP 16; O2SAT 100
--- NOTE | 2024-09-09 12:03 | PC.NURSE ---
Pt. placed on bed guzman just prior to d/c. Pt urinated and had BM. Amelia care performed with soap and water. Dirty depend removed and clean depend applied.
== END 2024-09-09 11:41 ==
PROVIDERS: Emergency Provider Emergency Medicine; PCP Internal Medicine
DX: S06.9X9A Unspecified intracranial injury with loss of consciousness of unspecified duration, initial encounter (principal); M25.562 Pain in left knee; M25.561 Pain in right knee; I12.9 Hypertensive chronic kidney disease with stage 1 through stage 4 chronic kidney disease, or unspecified chronic kidney disease; N18.32 Chronic kidney disease, stage 3b; D63.8 Anemia in other chronic diseases classified elsewhere; E03.9 Hypothyroidism, unspecified; I34.0 Nonrheumatic mitral (valve) insufficiency; G62.9 Polyneuropathy, unspecified; K58.0 Irritable bowel syndrome with diarrhea; M79.7 Fibromyalgia; F32.A Depression, unspecified; F41.9 Anxiety disorder, unspecified; Z97.8 Presence of other specified devices; Z96.651 Presence of right artificial knee joint; Z85.41 Personal history of malignant neoplasm of cervix uteri; Z87.891 Personal history of nicotine dependence; Z90.710 Acquired absence of both cervix and uterus; Z79.899 Other long term (current) drug therapy; Z79.891 Long term (current) use of opiate analgesic; W18.39XA Other fall on same level, initial encounter
CPT/HCPCS: 70450; 70486; 71045; 72125; 72128; 72131; 72170; 73562; 99284